=== PATIENT | female | born 1930 | race Caucasian/White ===

== ENCOUNTER → 2016-09-02 | Outpatient (CLI) | payer MEDICARE, OTHER ==
[2016-04-21 15:05] VITALS: BP 160/78
[~2016-09-02] MED LIST: ACET325T9 PO; AMOX1TAB58 PO; CHOL100013 PO; DILT120C97 PO; DILT180C29 PO; DIPH25CA58 PO; DOCU-27 PO; DOXY100C2 PO; FURO-68 PO; LEVO100T5 PO; LEVO88TA4 PO; METO25TA4 PO; METO50TA2 PO; MULT-279 PO; OMEG1CAP6 PO; POTA20TA4 PO; PRED5TAB PO; PROP150T2 PO; RANI150C PO; TRIA1CAP3 PO; VENTOLIN HFA18 GM INH; WARF2.5T PO; WARF5TAB PO; WARF5TAB7 PO
--- NOTE | 2016-09-02 12:20 | KCIC ---
PROCEDURE MRI cervical spine without contrast. HISTORY Right-sided neck pain, progressive neck pain and stiffness, right arm numbness TECHNIQUE Sagittal and axial T2, sagittal T1, and sagittal STIR images were acquired of the cervical spine. Contrast: None COMPARISON None FINDINGS There is motion degradation. Cervical cord caliber is within normal limits without convincing focal signal abnormality allowing for motion artifact. There is no significant abnormality of the cervical medullary junction. There is generalized height loss of C5 and also large superior Schmorl's node present. There is also mild generalized height loss of C6 and C4. There is grade 1 anterior spondylolisthesis at C7-T1 and T1-2, to lesser degree C4-C5. There is edema of the right lateral mass of C1. There is some fluid of the C1-2 lateral mass articulations greater on the left. There is advanced degenerative disc disease C4-5 to C6-7, also degenerative disc disease of visualized superior thoracic spine. There is mild dextroscoliosis of the cervical spine. C2-3: There is a shallow right paracentral protrusion. Central canal is borderline 10 millimeters. Left neural foramen is adequate, suspected mild narrowing of the right neural foramen by facet degenerative change. C3-C4: There is negligible disc osteophyte complex. There is buckling of the ligamentum flavum. Central canal is minimally narrowed to 8 millimeters. There is severe left and mild right facet hypertrophic change. There is mild right uncovertebral degenerative change. There is suspected overall moderate left and mild to moderate right neural foramina compromise. C4-C5: There is broad posterior bulge/protrusion. There is buckling of the ligamentum flavum. There is effacement of the ventral and dorsal subarachnoid space with contact of the cord, central canal narrowed to 5-6 millimeters. There is fairly severe right greater than left facet degenerative change. There is mild right uncovertebral degenerative change. There is suspected fairly severe right greater than left neural foramina compromise. C5-C6: There is posterior disc osteophyte complex, central canal narrowed to 7-8 millimeters also with mild left lateral recess stenosis. There is bilateral facet hypertrophic change, also uncovertebral degenerative change. There is suspected moderate to severe neural foramina compromise bilaterally. C6-C7: There is minimal disc osteophyte complex. Central canal is minimally narrowed to 9 millimeters. There is bilateral facet degenerative change. There is likely fairly severe left and moderate to severe right neural foramina compromise. C7-T1: There is buckling of the ligamentum flavum and severe facet degenerative change. Central canal is minimally narrowed to approximately 9 millimeters. There is fairly severe left and likely mild right neural foramina compromise. T1-2: There is facet degenerative change and buckling of the ligamentum flavum. Central canal is not simply narrowed, mild dorsal left lateral recess stenosis. There is mild narrowing of the left neural foramen, right neural foramen adequate. T2-3: There is a shallow posterior protrusion without significant spinal stenosis. There is facet degenerative change, likely mild to moderate neural foramina compromise. IMPRESSION 1. There is multilevel advanced degenerative disc disease C4-5 to C6-7, also degenerative disc disease of visualized superior thoracic spine. There is multilevel spondylosis. 2. There is spinal stenosis on the order of 5-6 millimeters at C4-5 at which there is effacement of the subarachnoid space and contact of the cord, somewhat lesser degree of spinal stenosis at C5-C6 and also minimally at C6-7, C7-T1, and C3-C4. 3. Accurate evaluation of the neural foramina is somewhat limited due to motion, suspected neural foramina compromise as stated including more significant narrowing on the left at C7-T1 and C3-C4 as well as bilaterally at C4-5, C5-C6, and C6-7. Facet and uncovertebral degenerative change contributes to neural foramina compromise. 4. There is multilevel mild abnormal alignment as stated, multilevel facet degenerative change. Electronically signed by: Attila Johnson MD (Sep 02, 2016 12:18:57)
== END | disposition home or self-care (01) ==
LOC: KCIC MRI 10:35
PROVIDERS: ATTEND Family Medicine
DX: M54.2 Cervicalgia (principal); M50.323 Other cervical disc degeneration at C6-C7 level; M48.02 Spinal stenosis, cervical region
CPT/HCPCS: 72141

== ENCOUNTER 2016-09-06 11:40 | Inpatient (IN) | payer MEDICARE, OTHER ==
[~2016-09-06] VITALS: Ht 167.6 cm; Wt 81.8 kg
--- NOTE | 2016-09-06 12:36 | PHYS DOC ---
Past Medical History Past Medical History: A-Fib, Arthritis, GERD, Hypertension, Other Additional Past Medical Histor: polymyalgia rheumatica Past Surgical History: Appendectomy, Hip Replacement, Hysterectomy, Knee Replacement, Tonsillectomy, Other Additional Past Surgical Histo: l shoulder, uterine susp, bladder susp, vericose vein, Alcohol Use: None Drug Use: None Adult General Chief Complaint Chief Complaint: WEAKNESS/GENERALIZED HPI HPI Patient is a 86 year old female who presents with generalized weakness. Patient reports she awoke this morning and was feeling so weak that she was unable to get out of bed. She also reports subjective fever and feeling "dry". Additional complaint is pain in her buttock at site of infection; she was seen at her PCP's office yesterday and was prescribed mupirocin for infection. She denies any chest discomfort, SOB, focal weakness, sensory changes. Review of Systems Review of Systems Constitutional: Generalized weakness, fever, feels dehydrated Eyes: Denies change in visual acuity or eye pain HENT: Denies nasal congestion or sore throat Respiratory: Denies cough or shortness of breath Cardiovascular: Denies chest pain GI: Denies abdominal pain, nausea, vomiting, bloody stools or diarrhea : Denies dysuria or hematuria Musculoskeletal: Denies back pain or joint pain Integument: Pain in buttock at site of infection Neurologic: Denies headache, focal weakness or sensory changes Current Medications Current Medications Current Medications Medications (Trade) Dose Ordered Sig/Luz Marina Start Time Stop Time Status Last Admin Dose Admin Acetaminophen 1000 mg 1,000 mg 1X ONCE 09/06/16 12:45 09/06/16 12:46 DC 09/06/16 13:03 1,000 MG Ceftriaxone Sodium (Rocephin 1gm Ivpb For Omni) 50 ml @ 100 mls/hr 1X ONCE 09/06/16 12:45 09/06/16 13:14 DC 09/06/16 13:20 100 MLS/HR Sodium Chloride 500 ml @ 500 mls/hr 1X ONCE 09/06/16 12:45 09/06/16 13:44 DC 09/06/16 13:04 500 MLS/HR Vancomycin HCl 1 each 1 each PRN DAILY PRN 09/06/16 12:45 09/06/16 17:20 1 EACH Vancomycin HCl/ Sodium Chloride (Iv Sodium Chloride 0.9% 500ml Bag) 500 ml @ 250 mls/hr 1X ONCE 09/06/16 13:00 09/06/16 14:59 DC 09/06/16 13:49 250 MLS/HR Allergies Allergies Allergies Coded Allergies Type Severity Reaction Last Updated Verified Sulfa (Sulfonamide Antibiotics) Allergy Intermediate Rash 04/21/16 Yes Physical Exam Physical Exam Constitutional: Well developed, well nourished, no acute distress, non-toxic appearance HENT: Normocephalic, atraumatic, bilateral external ears normal Eyes: EOMI, conjunctiva normal, no discharge Neck: Normal range of motion, no stridor Cardiovascular: Heart rate normal, regular rhythm, no murmur Lungs & Thorax: Crackles R lung base Abdomen: Bowel sounds normal, soft, non-distended, no TTP Skin: Hot to touch, dry. Mildly cellulitic wound at superior medial aspect of R buttock, no abscess noted Extremities: No obvious deformity, no edema Neurologic: Alert and oriented X 3, strength diminished in all extremities but symmetrical, sensation to light touch intact throughout, no gross deficits noted Current Patient Data Vital Signs Vital Signs Date Time Temp Pulse Resp B/P Pulse Ox O2 Delivery O2 Flow Rate FiO2 09/06/16 13:30 84 18 144/63 94 09/06/16 12:30 Room Air 09/06/16 12:00 100.6 100.6 Lab Values Laboratory Tests Test 09/06/16 12:27 09/06/16 13:00 09/06/16 13:10 White Blood Count 11.6x10^3/uL (4.0-11.0) H Red Blood Count 3.87x10^6/uL (3.50-5.40) Hemoglobin 12.8g/dL (12.0-15.5) Hematocrit 38.5% (36.0-47.0) Mean Corpuscular Volume 99fL (79-100) Mean Corpuscular Hemoglobin 33pg (25-35) Mean Corpuscular Hemoglobin Concent 33g/dL (31-37) Red Cell Distribution Width 12.3% (11.5-14.5) Platelet Count 215x10^3/uL (140-400) Neutrophils (%) (Auto) 61% (31-73) Lymphocytes (%) (Auto) 19% (24-48) L Monocytes (%) (Auto) 12% (0-9) H Eosinophils (%) (Auto) 8% (0-3) H Basophils (%) (Auto) 1% (0-3) Neutrophils # (Auto) 7.0x10^3uL (1.8-7.7) Lymphocytes # (Auto) 2.2x10^3/uL (1.0-4.8) Monocytes # (Auto) 1.4x10^3/uL (0.0-1.1) H Eosinophils # (Auto) 0.9x10^3/uL (0.0-0.7) H Basophils # (Auto) 0.1x10^3/uL (0.0-0.2) Sodium Level 135mmol/L (136-145) L Potassium Level 3.9mmol/L (3.5-5.1) Chloride Level 95mmol/L (98-107) L Carbon Dioxide Level 33mmol/L (21-32) H Anion Gap 7 (6-14) Blood Urea Nitrogen 22mg/dL (7-20) H Creatinine 1.4mg/dL (0.6-1.0) H Estimated GFR (Cockcroft-Gault) 35.7 BUN/Creatinine Ratio 16 (6-20) Glucose Level 105mg/dL (70-99) H Lactic Acid Level 1.2mmol/L (0.4-2.0) Calcium Level 9.2mg/dL (8.5-10.1) Total Bilirubin 0.8mg/dL (0.2-1.0) Aspartate Amino Transferase (AST) 15U/L (15-37) Alanine Aminotransferase (ALT) 14U/L (14-59) Alkaline Phosphatase 49U/L (46-116) Troponin I Quantitative 0.053ng/mL (0.000-0.055) Total Protein 7.9g/dL (6.4-8.2) Albumin 3.3g/dL (3.4-5.0) L Albumin/Globulin Ratio 0.7 (1.0-1.7) L Influenza Type A Antigen Negative (NEGATIVE) Influenza Type B Antigen Negative (NEGATIVE) Urine Collection Type Unknown Urine Color Yellow Urine Clarity Cloudy Urine pH 7.5 Urine Specific [place] 1.010 Urine Protein Negativemg/dL (NEG-TRACE) Urine Glucose (UA) Negativemg/dL (NEG) Urine Ketones (Stick) Negativemg/dL (NEG) Urine Blood Trace (NEG) Urine Nitrite Positive (NEG) Urine Bilirubin Negative (NEG) Urine Urobilinogen Dipstick 0.2mg/dL (0.2 mg/dL) Urine Leukocyte Esterase Large (NEG) Urine RBC 3-5/HPF (0-2) Urine WBC >40/HPF (0-4) Urine Bacteria Many/HPF (0-FEW) Laboratory Tests 09/06/16 12:27 Laboratory Tests 09/06/16 12:27 EKG EKG EKG (my read): sinus rhythm, rate 83, normal axis, PACs noted, intervals wnl, no acute ischemic changes Radiology/Procedures Radiology/Procedures CXR: IMPRESSION: Faint left upper lobe opacity suggesting minimal infiltrate. Radiographic follow-up is suggested. Course & Med Decision Making Course & Med Decision Making Pertinent Labs and Imaging studies reviewed. (See chart for details) Patient is 86 year old female who presents with generalized weakness. Likely due to infection given fever. Possibly related to wound on buttock, although it does not look particularly bad enough to cause systemic symptoms. Will check CXR , UA to look for other likely sources. Will also check EKG, basic labs, cultures. IVF fluid bolus, acetaminophen ordered for relief of symptoms. Vanc and rocephin ordered for empiric abx coverage (would cover skin felix, UTI, pneumonia - other than atypicals). CXR results as above. Labs notable for mild leukocytosis, few electrolyte abnormalities. UA indicative of UTI; would consider this most likely source of fever and weakness. Discussed results with patient. Discussed with Dr. Krishna, will admit under his care for further evaluation and treatment. Dragon Disclaimer Dragon Disclaimer This electronic medical record was generated, in whole or in part, using a voice recognition dictation system. Departure Departure Impression: Primary Impression: Generalized weakness Additional Impressions: Sepsis UTI (urinary tract infection) Disposition: ADMITTED INPATIENT Admitting Physician: Chloé Krishna Condition: GUARDED Referrals: CHLOÉ KRISHNA MD (PCP) Problem Qualifiers ADDISON CANNON MD Sep 06, 2016 12:36
[2016-09-06] MEDS ORDERED: IV NORMAL SALINE 500ML BAG 500 ML IV ONE ×2 (12:45→14:15)
[2016-09-06] MEDS ORDERED: CEFTRIAXONE 1GM IVPB FOR OMNI 50 ML IV ONE (12:45)
[2016-09-06] MEDS ORDERED: ACETAMINOPHEN 500 MG TABLET PO ONE (12:45)
[2016-09-06 12:53] LABS: BASO # 0.1 x10^3/uL (0.0-0.2); BASO % 1 % (0-3); EOS % 8 % (0-3); HEMATOCRIT 38.5 % (36.0-47.0); HEMOGLOBIN 12.8 g/dL (12.0-15.5); LYMPH # 2.2 x10^3/uL (1.0-4.8); LYMPH % 19 % (24-48); MEAN CORPUSCULAR HEMOGLOBIN 33 pg (25-35); MEAN CORPUSCULAR HGB CONC 33 g/dL (31-37); MEAN CORPUSCULAR VOLUME 99 fL (79-100); MONO % 12 % (0-9); NEUT % 61 % (31-73); PLATELET COUNT 215 x10^3/uL (140-400); RED BLOOD COUNT 3.87 x10^6/uL (3.50-5.40); RED CELL DISTRIBUTION WIDTH 12.3 % (11.5-14.5); WHITE BLOOD COUNT 11.6 x10^3/uL (4.0-11.0)
[2016-09-06] MEDS ORDERED: VANCOMYCIN 2 GM in IV NORMAL SALINE 500ML BAG 500 ML IV ONE (13:00)
[2016-09-06 13:04] LABS: CALCIUM 9.2 mg/dL (8.5-10.1); CREATININE 1.4 mg/dL (0.6-1.0); GFR 35.7; POTASSIUM 3.9 mmol/L (3.5-5.1)
[2016-09-06 13:10] LABS: ALBUMIN 3.3 g/dL (3.4-5.0); ALBUMIN/GLOBULIN RATIO 0.7 (1.0-1.7); TOTAL BILIRUBIN 0.8 mg/dL (0.2-1.0); TOTAL PROTEIN 7.9 g/dL (6.4-8.2)
--- NOTE | 2016-09-06 13:23 | RAD ---
Portable chest, 09/06/2016: History: Fever and weakness Comparison is made to a study from 12/10/2015. The heart is mildly enlarged. There is calcific plaquing of the aorta. A faint ill-defined opacity is now projected over the left upper lobe laterally. The appearance suggests minimal infiltrate or atelectasis. A neoplastic etiology cannot be excluded. The lungs are otherwise clear. There is no evidence of pleural fluid. A fixation plate and screw is present in the proximal left humerus. IMPRESSION: Faint left upper lobe opacity suggesting minimal infiltrate. Radiographic follow-up is suggested.
[2016-09-06 13:25] LABS: BILIRUBIN,URINE NEGATIVE (NEG); GLUCOSE,URINE NEGATIVE (NEG); NITRITE,URINE POSITIVE (NEG); PH,URINE 7.5; PROTEIN,URINE NEGATIVE (NEG-TRACE); UROBILINOGEN,URINE 0.2 mg/dL (0.2 mg/dL)
[2016-09-06 13:29] LABS: OBC FLU VALID
[2016-09-06 13:35] LABS: BACTERIA,URINE MANY /HPF (0-FEW); WBC,URINE >40 /HPF (0-4)
--- NOTE | 2016-09-06 13:54 | EKG ---
[facility] [address] [place] [address] Test Date: 2016-09-06 Test Time: 12:16:09 Pat Name: BREANNA KIDD Department: Room: Gender: F Wellness Director: : 1930 Requested By: ADDISON CANNON Order Number: [id number] Reading MD: Myra Garcia Measurements Intervals [place] Rate: 83 P: -46 CA: 164 QRS: 41 QRSD: 90 T: 35 QT: 360 QTc: 424 Interpretive Statements SINUS RHYTHM ATRIAL PREMATURE COMPLEX(ES) INCOMPLETE RIGHT BUNDLE BRANCH BLOCK NO SPECIFIC ECG ABNORMALITIES Electronically Signed On 09-09-2016 0:04:08 MICROBIOLOGY LAB ASSISTANT by Myra Garcia
[2016-09-06] MEDS ORDERED: ONDANSETRON PF 4 MG/2 ML VIAL. IV PRN (14:15)
[2016-09-06 15:30] VITALS: BP 122/55
[2016-09-06] MEDS: MORPHINE SULFATE 2 MG/ML DISP.SYRIN. IV PRN (17:14)
[2016-09-06] MEDS: ACETAMINOPHEN 325 MG TABLET. PO PRN (17:14)
[2016-09-06] MEDS: VANCOMYCIN PER PHARMACY MC PRN (17:20)
--- NOTE | 2016-09-06 17:40 | ACF ---
Admission Forms Criteria URINARY COMPLICATIONS Clinical Indications for Inpatient Care (Place 'X' for any and all applicable criteria): Ongoing inpatient care may be indicated for urinary complications with ANY ONE of the following: [X]I. Urinary tract infection requiring inpatient care as indicated by ANY ONE of the following(8)(19)(20): [ ]a) Severe symptoms (eg, high fever, severe pain) [ ]b) Vomiting or dehydration requiring ongoing inpatient care [X]c) IV antibiotic needs that cannot be managed at lower level of care [ ]d) Hemodynamic instability [ ]e) Obstruction of collecting system by stone or tumor [ ]II. Urinary retention requiring drainage or surgery (3)(4)(5)(17)(18) [ ]III. Renal failure (Use Renal Failure Criteria for further information.) [ ]IV. Oliguria(30) [ ]V. Post obstructive diuresis requiring close monitoring of urine output and intravenous compensation for excessive fluid losses(33) Extended stay beyond goal length of stay for primary condition may be needed until ALL of the following are present(3)(4)(5)(8): [ ]a) Renal function (creatinine) at baseline, or daily decreases in creatinine consistent with renal function return [ ]b) Voiding adequately or with urinary catheter or percutaneous suprapubic tube and management regimen in place that is performable at lower level of care. [ ]c) Urine output adequate [ ]d) Fever absent or resolving [ ]e) Infection absent or treatable at next level of care The original [employer] content created by [employer] has been revised. The portions of the content which have been revised are identified through the use of italic text or in bold, and [facility] has neither reviewed nor approved the modified material. All other unmodified content is copyright [facility] Please see references footnoted in the original [facility] edition 2016 Admission Criteria Met?: Yes ELZA MAYNARD Sep 06, 2016 17:40
[2016-09-06] MEDS: DILTIAZEM HCL 180 MG CAP.ER.24H PO SCH (18:37)
[2016-09-06 19:00] VITALS: BP 100/40
[2016-09-06] MEDS: FAMOTIDINE 20 MG TABLET. PO SCH (20:32)
[2016-09-06] MEDS: PROPAFENONE 150 MG TABLET. PO SCH (20:32)
[2016-09-06] MEDS: DIPHENHYDRAMINE HCL 25 MG CAPSULE PO SCH (20:32)
[2016-09-06] MEDS: METOPROLOL TART IMMED RELEASE 50 MG TABLET PO SCH (20:38)
[2016-09-06 23:00] VITALS: BP 100/46
[2016-09-07] VITALS (7 sets, daily range): BP systolic 69–146; BP diastolic 32–64
[2016-09-07] MEDS: MORPHINE SULFATE 2 MG/ML DISP.SYRIN. IV PRN ×5 (00:37→20:52)
[2016-09-07] MEDS: ACETAMINOPHEN 325 MG TABLET. PO PRN ×3 (02:50→16:30)
[2016-09-07 05:44] LABS: BASO % 0 % (0-3); EOS % 4 % (0-3); HEMATOCRIT 35.5 % (36.0-47.0); HEMOGLOBIN 11.6 g/dL (12.0-15.5); LYMPH # 2.1 x10^3/uL (1.0-4.8); LYMPH % 19 % (24-48); MEAN CORPUSCULAR HEMOGLOBIN 33 pg (25-35); MEAN CORPUSCULAR HGB CONC 33 g/dL (31-37); MEAN CORPUSCULAR VOLUME 101 fL (79-100); MONO % 12 % (0-9); NEUT % 64 % (31-73); PLATELET COUNT 177 x10^3/uL (140-400); RED BLOOD COUNT 3.54 x10^6/uL (3.50-5.40); RED CELL DISTRIBUTION WIDTH 11.9 % (11.5-14.5); WHITE BLOOD COUNT 11.2 x10^3/uL (4.0-11.0)
[2016-09-07 05:51] LABS: CALCIUM 8.3 mg/dL (8.5-10.1); CREATININE 1.3 mg/dL (0.6-1.0); GFR 38.9; POTASSIUM 4.1 mmol/L (3.5-5.1)
[2016-09-07] MEDS: LEVOTHYROXINE 88 MCG TABLET PO SCH (06:34)
--- NOTE | 2016-09-07 08:57 | PDOC ---
Provider Note Provider Note [id number] CHLOÉ YANG MD Sep 07, 2016 08:57
[2016-09-07] MEDS ORDERED: PREDNISONE 5 MG TABLET PO SCH (09:00)
[2016-09-07] MEDS ORDERED: FUROSEMIDE 40 MG TABLET PO SCH (09:00)
[2016-09-07] MEDS ORDERED: TRIAMTERENE/HCTZ 37.5/25MG TABLET. PO SCH (09:00)
[2016-09-07] MEDS ORDERED: PREDNISONE 1 MG TABLET PO SCH (09:00)
--- NOTE | 2016-09-07 09:19 | HP ---
ADMIT DATE: 09/06/2016 CHIEF COMPLAINT: Weakness. HISTORY OF PRESENT ILLNESS: An 86-year-old white female with a history of chronic atrial fibrillation and steroid dependent rheumatoid arthritis among other multiple medical problems. She was seen in the office 2 days prior to admission with a small red spot in the right gluteal area with no etiology or cause and was not painful at that time. She has had increasing pain in that area, increasing weakness and fatigue and fever and came to the ER. She was found to have urinary tract infection. An IV Rocephin has been given as well as vancomycin, but the area in the gluteal fold has been increasingly painful since that time. PAST MEDICAL HISTORY: She is on warfarin and propafenone for chronic atrial fibrillation, currently in sinus rhythm. She is on 7 mg of prednisone daily for RA maintenance. ALLERGIES: SULFA WAS NOTED. She has had no recent antibiotics. She has never had shingles vaccine, did have a flu vaccine. SOCIAL HISTORY: , retired, nonsmoker, nondrinker. FAMILY HISTORY: Unremarkable. REVIEW OF SYSTEMS: No other known problems. OBJECTIVE: ENT: All within normal limits. NECK: No masses, nodes or bruits. LUNGS: Decreased breath sounds. No wheezing or tachypnea. CARDIOVASCULAR: Regular rate consistent with sinus rhythm, no S3 is heard. ABDOMEN: Soft, benign, and nontender. BACK: Inflamed tender, slightly vesicular area in the left paragluteal fold that looks like herpes zoster or herpes simplex. No lesions are seen down the right leg at this time. No CVA tenderness. NEUROLOGIC: Physiologic, generally weak. Alert, oriented x 4. ASSESSMENT: Fever, generalized weakness, suspect a combination of urinary tract infection and probably herpes zoster in the right gluteal area, probably in S1 distribution. Could be localized herpes simplex with the level of pain is more consistent with zoster She also has mild degree of addisonian symptoms given her normal prednisone usage needing her stress dose at this time. PLAN: Continue IV fluids, Rocephin, and valacyclovir for herpes zoster. Increase prednisone from 7 to 23 mg for a short time for stress response and blood pressure support. CHLOÉ YANG MD DR: ROSSANA/nirmala JOB#: [id number] / [id number]
[2016-09-07] MEDS: valACYclovir 500 MG TABLET. PO SCH ×3 (09:40→20:46)
[2016-09-07 09:49] LABS: INR 1.4 (0.8-1.1); PROTHROMBIN TIME PATIENT 16.2 SEC (11.7-14.0)
[2016-09-07] MEDS: PROPAFENONE 150 MG TABLET. PO SCH ×3 (09:50→20:48)
[2016-09-07] MEDS: DILTIAZEM HCL 180 MG CAP.ER.24H PO SCH (09:53)
[2016-09-07] MEDS: METOPROLOL TART IMMED RELEASE 50 MG TABLET PO SCH ×2 (09:53→20:48)
[2016-09-07] MEDS: FAMOTIDINE 20 MG TABLET. PO SCH ×2 (09:54→20:46)
[2016-09-07] MEDS: OMEGA-3 FATTY ACIDS/FISH OIL 1,000 MG CAPSULE. PO SCH (09:54)
[2016-09-07] MEDS: POTASSIUM CHLORIDE 20 MEQ TABLET.ER. PO SCH (09:54)
[2016-09-07] MEDS: PREDNISONE 5 MG TABLET PO SCH (09:55)
[2016-09-07] MEDS: CHOLECALCIFEROL (VITAMIN D3) 1,000 UNIT TABLET PO SCH (09:55)
[2016-09-07] MEDS: IV DEXTROSE 5%-LACT RINGERS 1,000 ML IV SCH ×2 (11:18→20:45)
[2016-09-07] MEDS: CEFTRIAXONE SODIUM 1 GM in IV NORMAL SALINE 50ML 50 ML IV SCH (13:59)
[2016-09-07] MEDS ORDERED: VANCOMYCIN 1.25 GM in IV NORMAL SALINE 250ML 250 ML IV SCH (14:00)
[2016-09-07] MEDS ORDERED: WARFARIN 2.5 MG TABLET. PO SCH (16:00)
[2016-09-07] MEDS: VANCOMYCIN PER PHARMACY MC PRN (16:40)
[2016-09-07] MEDS: PREDNISONE 1 MG TABLET PO SCH (18:31)
[2016-09-07] MEDS: DIPHENHYDRAMINE HCL 25 MG CAPSULE PO SCH (20:46)
[2016-09-08 03:00] VITALS: BP 131/64
[2016-09-08 04:58] LABS: INR 1.2 (0.8-1.1); PROTHROMBIN TIME PATIENT 14.8 SEC (11.7-14.0)
[2016-09-08] MEDS: IV DEXTROSE 5%-LACT RINGERS 1,000 ML IV SCH (05:00)
[2016-09-08] MEDS: LEVOTHYROXINE 88 MCG TABLET PO SCH (05:50)
[2016-09-08 07:30] VITALS: BP 110/61
[2016-09-08] MEDS: PROPAFENONE 150 MG TABLET. PO SCH ×3 (08:54→20:30)
[2016-09-08] MEDS: CHOLECALCIFEROL (VITAMIN D3) 1,000 UNIT TABLET PO SCH (08:54)
[2016-09-08] MEDS: FAMOTIDINE 20 MG TABLET. PO SCH (08:55)
[2016-09-08] MEDS: OMEGA-3 FATTY ACIDS/FISH OIL 1,000 MG CAPSULE. PO SCH (08:55)
[2016-09-08] MEDS: METOPROLOL TART IMMED RELEASE 50 MG TABLET PO SCH ×2 (08:55→20:25)
[2016-09-08] MEDS: PREDNISONE 5 MG TABLET PO SCH (08:55)
[2016-09-08] MEDS: DILTIAZEM HCL 180 MG CAP.ER.24H PO SCH (08:55)
[2016-09-08] MEDS: valACYclovir 500 MG TABLET. PO SCH ×3 (08:56→20:24)
--- NOTE | 2016-09-08 09:03 | PDOC ---
Provider Note Provider Note afeb > 424 hrs, urine cult +, id pending- HZ looks same but hurts less- cont rocep pending cult, dc saline CHLOÉ YANG MD Sep 08, 2016 09:03
[2016-09-08] MEDS: GABAPENTIN 100 MG CAPSULE. PO SCH ×3 (09:27→20:24)
[2016-09-08 11:30] VITALS: BP 123/61
[2016-09-08] MEDS: CEFTRIAXONE SODIUM 1 GM in IV NORMAL SALINE 50ML 50 ML IV SCH (12:48)
[2016-09-08] MEDS: ACETAMINOPHEN 325 MG TABLET. PO PRN ×2 (12:55→20:24)
[2016-09-08 15:15] VITALS: BP 119/66
[2016-09-08] MEDS: WARFARIN 5 MG TABLET. PO SCH (17:14)
[2016-09-08] MEDS: PREDNISONE 1 MG TABLET PO SCH (17:55)
[2016-09-08 19:00] VITALS: BP 133/55
[2016-09-08] MEDS: DIPHENHYDRAMINE HCL 25 MG CAPSULE PO SCH (20:24)
[2016-09-08 22:55] VITALS: BP 147/68
[2016-09-09 03:00] VITALS: BP 158/99
[2016-09-09] MEDS: LEVOTHYROXINE 88 MCG TABLET PO SCH (05:56)
[2016-09-09 07:00] VITALS: BP 167/80
--- NOTE | 2016-09-09 08:29 | PDOC ---
Provider Note Provider Note no more temp but weaker and more confused- nonfocal exam, HZ looks better - will hold katie, reduce valacyclovir dose, check elytes re ? hyponatremia- d/w family- will need rehab but too acutr re confusion now- reduce pred dose also CHLOÉ YANG MD Sep 09, 2016 08:29
[2016-09-09] MEDS: DILTIAZEM HCL 180 MG CAP.ER.24H PO SCH (08:54)
[2016-09-09] MEDS: FAMOTIDINE 20 MG TABLET. PO SCH (08:54)
[2016-09-09] MEDS: OMEGA-3 FATTY ACIDS/FISH OIL 1,000 MG CAPSULE. PO SCH (08:55)
[2016-09-09] MEDS: CHOLECALCIFEROL (VITAMIN D3) 1,000 UNIT TABLET PO SCH (08:55)
[2016-09-09] MEDS: valACYclovir 500 MG TABLET. PO SCH ×2 (08:55→18:00)
[2016-09-09] MEDS: PREDNISONE 5 MG TABLET PO SCH (08:55)
[2016-09-09] MEDS: PROPAFENONE 150 MG TABLET. PO SCH ×3 (08:56→21:00)
[2016-09-09] MEDS: METOPROLOL TART IMMED RELEASE 50 MG TABLET PO SCH ×2 (08:59→21:01)
[2016-09-09 09:57] LABS: CALCIUM 8.6 mg/dL (8.5-10.1); GFR 52.7; POTASSIUM 4.3 mmol/L (3.5-5.1)
[2016-09-09 11:00] VITALS: BP 158/77
--- NOTE | 2016-09-09 12:57 | EKG ---
[facility] [address] [place] [address] Test Date: 2016-09-09 Test Time: 12:47:11 Pat Name: BREANNA KIDD Department: Room: [facility] Gender: F Road Boss: JARRETT : 1930 Requested By: CHLOÉ YANG Order Number: [id number] Reading MD: Myra Garcia Measurements Intervals [place] Rate: 67 P: 90 VT: 212 QRS: 56 QRSD: 98 T: 31 QT: 406 QTc: 432 Interpretive Statements SINUS RHYTHM NO SPECIFIC ECG ABNORMALITIES RI6.01 Compared to ECG 09/06/2016 12:16:09 Incomplete right bundle-branch block no longer present Electronically Signed On 09-11-2016 20:17:37 WOOL GRADER by Myra Garcia
[2016-09-09] MEDS: IV DEXTROSE 5% - 0.9 % NACL 1,000 ML IV SCH ×2 (13:00→23:23)
[2016-09-09] MEDS ORDERED: IV NORMAL SALINE 1000ML BAG 1,000 ML IV SCH (13:00)
--- NOTE | 2016-09-09 14:09 | RAD ---
Clinical indications: Altered mental status. Comparison: November 23, 2013. Technique: Noncontrast axial cross sectional scanning of the head was performed. PQRS Compliance Statement: One or more of the following individualized dose reduction techniques were utilized for this examination: 1. Automated exposure control 2. Adjustment of the mA and/or kV according to patient size 3. Use of iterative reconstruction technique Findings: No acute intracranial hemorrhage or midline shift or mass-effect or hydrocephalus or extra-axial fluid collection is seen. No focal hypodense area or sulci effacement is seen to indicate an acute infarct or edema radiographically. No skull fracture or pneumocephalus is seen. No opacification of the mastoid sinuses or the paranasal sinuses is seen. The maxillary sinuses are not completely seen in this study. Impression: No acute intracranial abnormality is seen.
[2016-09-09] MEDS: CEFTRIAXONE SODIUM 1 GM in IV NORMAL SALINE 50ML 50 ML IV SCH (14:19)
[2016-09-09 15:00] VITALS: BP 151/82
[2016-09-09] MEDS ORDERED: WARFARIN 5 MG TABLET. PO SCH (16:00)
[2016-09-09] MEDS: WARFARIN 5 MG TABLET. PO SCH (17:02)
[2016-09-09 19:00] VITALS: BP 177/82
--- NOTE | 2016-09-09 19:40 | PDOC2 ---
NEUROLOGY CONSULT Date of Admission Date of Admission Full Report Dictated DATE: 09/09/16 TIME: 19:39 Current Medications Current Medications Current Medications Vancomycin HCl 1 each 1 each PRN DAILY PRN MC SEE COMMENTS Last administered on 09/07/16 16:40; Start 09/06/16 at 12:45; Stop 09/08/16 at 13:51; Status DC Ceftriaxone Sodium (Rocephin 1gm Ivpb For Omni) 50 ml @ 100 mls/hr 1X ONCE IV Last administered on 09/06/16 13:20; Start 09/06/16 at 12:45; Stop 09/06/16 at 13:14; Status DC Acetaminophen 1000 mg 1,000 mg 1X ONCE PO Last administered on 09/06/16 13:03 ; Start 09/06/16 at 12:45; Stop 09/06/16 at 12:46; Status DC Sodium Chloride 500 ml @ 500 mls/hr 1X ONCE IV Last administered on 13:04; Start 09/06/16 at 12:45; Stop 09/06/16 at 13:44; Status DC Vancomycin HCl/ Sodium Chloride (Iv Sodium Chloride 0.9% 500ml Bag) 500 ml @ 250 mls/hr 1X ONCE IV Last administered on 09/06/16 13:49; Start 09/06/16 at 13:00; Stop 09/06/16 at 14:59; Status DC Ondansetron HCl (Zofran) 4 mg PRN Q8HRS PRN IV NAUSEA/VOMITING Last administered on 09/06/16 17:14; Start 09/06/16 at 14:15; Stop 09/07/16 at 14:14 ; Status DC Morphine Sulfate 2 mg PRN Q2HR PRN IV PAIN Last administered on 09/07/16 12:11 ; Start 09/06/16 at 14:15; Stop 09/07/16 at 14:14; Status DC Acetaminophen 650 mg 650 mg PRN Q4HRS PRN PO FEVER Last administered on 11:07; Start 09/06/16 at 14:15; Stop 09/07/16 at 14:14; Status DC Sodium Chloride 500 ml @ 500 mls/hr 1X ONCE IV Last administered on 14:29; Start 09/06/16 at 14:15; Stop 09/06/16 at 15:14; Status DC Vancomycin HCl/ Sodium Chloride (Iv Sodium Chloride 0.9% 250ml) 250 ml @ 167 mls/hr Q24H IV Last administered on 09/07/16 14:47; Start 09/07/16 at 14:00; Stop 09/08/16 at 09:06; Status DC Vancomycin HCl 1 each 1X ONCE MC Last administered on 09/08/16 13:30; Start 09/08/16 at 13:30; Stop 09/08/16 at 13:31; Status DC Acetaminophen (Tylenol) 650 mg PRN Q4HRS PRN PO PAIN/TEMP Last administered on 09/08/16 20:24; Start 09/06/16 at 18:00 Diltiazem HCl (Cardizem 24hr Cd) 180 mg DAILY PO Last administered on 08:54; Start 09/06/16 at 18:00 Diphenhydramine HCl (Benadryl) 25 mg QHS PO Last administered on 09/08/16 20: 24; Start 09/06/16 at 21:00; Stop 09/09/16 at 08:27; Status DC Furosemide (Lasix) 40 mg MoWeSa PO ; Start 09/07/16 at 09:00; Stop 09/07/16 at 09:00; Status DC Levothyroxine Sodium (Synthroid) 88 mcg DAILY07 PO Last administered on 05:56; Start 09/07/16 at 07:00 Metoprolol Tartrate (Lopressor) 50 mg BID PO Last administered on 09/09/16 08: 59; Start 09/06/16 at 21:00 Fish Oil (Fish Oil) 1,000 mg DAILY PO Last administered on 09/09/16 08:55; Start 09/07/16 at 09:00 Potassium Chloride (Klor-Con) 20 meq MoWeSa PO Last administered on 09/07/16 09:54; Start 09/07/16 at 09:00 Prednisone (Prednisone) 5 mg DAILY PO ; Start 09/07/16 at 09:00; Stop 09/07/16 at 09:00; Status DC Propafenone HCl (Rythmol) 225 mg [id number] PO Last administered on 09/09/16 14:24 ; Start 09/06/16 at 21:00 Warfarin Sodium (Coumadin) 2.5 mg SuMoWeFrSa PO Last administered on 09/07/16 16:42; Start 09/07/16 at 16:00; Stop 09/08/16 at 09:06; Status DC Vitamin D (Vitamin D3) 1,000 unit DAILY PO Last administered on 09/09/16 08:55 ; Start 09/07/16 at 09:00 Famotidine (Pepcid) 20 mg BID PO Last administered on 09/08/16 08:55; Start at 21:00; Stop 09/08/16 at 13:59; Status DC Triamterene/HCTZ (Maxzide 37.5/ 25mg) 1 tab DAILY PO ; Start 09/07/16 at 09:00; Stop 09/07/16 at 09:00; Status DC Warfarin Sodium (Coumadin) 2.5 mg QSU PO ; Start 09/11/16 at 16:00; Status UNV Prednisone (Prednisone) 2 mg DAILY PO ; Start 09/07/16 at 09:00; Stop 09/07/16 at 09:00; Status DC Warfarin Sodium 1 each 1 each PRN DAILY PRN MC SEE COMMENTS Last administered on 09/09/16 13:45; Start 09/06/16 at 18:30 Ceftriaxone Sodium/Sodium Chloride (Rocephin/Iv Sodium Chloride 0.9% 50ml) 50 ml @ 100 mls/hr Q24H IV Last administered on 09/09/16 14:19; Start 09/07/16 at 13:00 Prednisone (Prednisone) 15 mg DAILY PO Last administered on 09/09/16 08:55; Start 09/07/16 at 09:00 Prednisone (Prednisone) 8 mg DAILY@18 PO Last administered on 09/08/16 17:55; Start 09/07/16 at 18:00; Stop 09/09/16 at 08:11; Status DC Valacyclovir HCl 1000 mg 1,000 mg TID PO Last administered on 09/08/16 20:24; Start 09/07/16 at 09:00; Stop 09/09/16 at 08:27; Status DC Dextrose/Lactated Ringer's (Iv D5%-Lr) 1,000 ml @ 100 mls/hr Q10H IV Last administered on 09/07/16 20:45; Start 09/07/16 at 09:00; Stop 09/08/16 at 09:06 ; Status DC Morphine Sulfate 2 mg PRN Q2HR PRN IV PAIN SEVERE Last administered on 20:52; Start 09/07/16 at 18:15; Stop 09/08/16 at 09:06; Status DC Warfarin Sodium (Coumadin) 5 mg SuMoWeFrSa@16 PO Last administered on 17:02; Start 09/08/16 at 16:00 Gabapentin (Neurontin) 200 mg TID PO Last administered on 09/08/16 20:24; Start 09/08/16 at 09:00; Stop 09/09/16 at 08:27; Status DC Warfarin Sodium (Coumadin) 5 mg SuMoWeFrSa@16 PO ; Start 09/09/16 at 16:00; Status Cancel Famotidine (Pepcid) 20 mg DAILY PO Last administered on 09/09/16 08:54; Start 09/09/16 at 09:00 Valacyclovir HCl 500 mg 500 mg [id number] PO Last administered on 09/09/16 08:55; Start 09/09/16 at 09:00 Sodium Chloride 1,000 ml @ 100 mls/hr Q10H IV ; Start 09/09/16 at 13:00 Dextrose/Sodium Chloride (Iv D5% - NS) 1,000 ml @ 100 mls/hr Q10H IV Last administered on 09/09/16 13:00; Start 09/09/16 at 13:00 Active Scripts Active Propafenone Hcl 150 Mg Tablet 225 Mg PO [id number] 30 Days Diltiazem 24HR Cd (Diltiazem Hcl) 180 Mg Cap.er.24h 180 Mg PO DAILY 30 Days Reported Coumadin (Warfarin Sodium) 2.5 Mg Tablet 1 Tab PO DAILY EXCEPT Benadryl (Diphenhydramine Hcl) 25 Mg Capsule 1 Cap PO QHS LAST DOSE: 12/11/15 BEDTIME NEXT DOSE: 12/12/15 BEDTIME Tylenol (Acetaminophen) 325 Mg Tablet 2 Tab PO PRN Q4HRS Fish Oil 1,000 Mg Capsule ([place]-3 Fatty Acids/Fish Oil) 1 Each Capsule 1 Each PO DAILY LAST DOSE: 12/12/15 NEXT DOSE: 12/13/15 AM Klor-Con M20 (Potassium Chloride) 20 Meq Tab.er.prt 1 Tab PO 3X/WEEK LAST DOSE: 12/12/15 NEXT DOSE: 12/13/15 AM Lasix (Furosemide) 40 Mg Tablet 1 Tab PO 3X/WEEK LAST DOSE: 12/12/15 NEXT DOSE: 12/13/15 AM Metoprolol Tartrate 50 Mg Tablet 1 Tab PO BID LAST DOSE: 12/12/15 NEXT DOSE: 12/13/15 Levothyroxine Sodium 88 Mcg Tablet 1 Tab PO DAILY LAST DOSE: 12/12/15 NEXT DOSE: 12/13/15 Vitamin D (Cholecalciferol (Vitamin D3)) 1,000 Unit Capsule 1,000 Unit PO DAILY LAST DOSE: 12/12/15 NEXT DOSE: 12/13/15 Prednisone 5 Mg Tablet 7 Mg PO DAILY LAST DOSE: 12/12/15 NEXT DOSE: 12/13/15 Ranitidine Hcl 150 Mg Capsule 150 Mg PO BID LAST DOSE: 12/12/15 NEXT DOSE: 12/12/15 EVENING Triamterene-Hctz 37.5-25 Mg Cp (Triamterene/Hydrochlorothiazid) 1 Each Capsule 1 Each PO DAILY LAST DOSE: 12/12/15 NEXT DOSE: 12/13/15 AM Allergies Allergies: Coded Allergies: Sulfa (Sulfonamide Antibiotics) (Verified Allergy, Intermediate, Rash, 04/21) Patient states "rash and confusion" Vitals VITALS Vital Signs Date Time Temp Pulse Resp B/P Pulse Ox O2 Delivery O2 Flow Rate FiO2 09/09/16 15:00 98.4 65 20 151/82 96 Nasal Cannula 2.0 98.4 Labs Labs Laboratory Tests Test 09/08/16 03:36 09/09/16 09:20 Prothrombin Time 14.8SEC (11.7-14.0) Prothromb Time International Ratio 1.2 (0.8-1.1) Sodium Level 126mmol/L (136-145) Potassium Level 4.3mmol/L (3.5-5.1) Chloride Level 90mmol/L (98-107) Carbon Dioxide Level 28mmol/L (21-32) Anion Gap 8 (6-14) Blood Urea Nitrogen 18mg/dL (7-20) Creatinine 1.0mg/dL (0.6-1.0) Estimated GFR (Cockcroft-Gault) 52.7 Glucose Level 109mg/dL (70-99) Calcium Level 8.6mg/dL (8.5-10.1) Laboratory Tests Test 09/09/16 09:20 Sodium Level 126mmol/L (136-145) Potassium Level 4.3mmol/L (3.5-5.1) Chloride Level 90mmol/L (98-107) Carbon Dioxide Level 28mmol/L (21-32) Anion Gap 8 (6-14) Blood Urea Nitrogen 18mg/dL (7-20) Creatinine 1.0mg/dL (0.6-1.0) Estimated GFR (Cockcroft-Gault) 52.7 Glucose Level 109mg/dL (70-99) Calcium Level 8.6mg/dL (8.5-10.1) Assessment/Plan Assessment/Plan 86-year-old woman who presented with UTI and shingles. She has evidence of encephalopathy and asterixis. This is due to underlying metabolic stress and infection. I do not see any focal evidence that would suggest stroke. Continue to treat underlying illness. Activator sooner she is able. I will be happy to reevaluate. I appreciate being involved in her care. LISA EVERETT MD Sep 09, 2016 19:40
[2016-09-09 23:00] VITALS: BP 144/60
[2016-09-10 03:00] VITALS: BP 161/76
[2016-09-10 05:49] LABS: CALCIUM 8.7 mg/dL (8.5-10.1); CREATININE 0.8 mg/dL (0.6-1.0); GFR 68.2
[2016-09-10 06:07] LABS: INR 1.6 (0.8-1.1); PROTHROMBIN TIME PATIENT 18.5 SEC (11.7-14.0)
[2016-09-10] MEDS: valACYclovir 500 MG TABLET. PO SCH ×2 (06:42→17:29)
[2016-09-10] MEDS: LEVOTHYROXINE 88 MCG TABLET PO SCH (06:42)
[2016-09-10 07:00] VITALS: BP 145/99
[2016-09-10] MEDS: IV DEXTROSE 5% - 0.9 % NACL 1,000 ML IV SCH ×2 (10:10→20:48)
[2016-09-10] MEDS: DILTIAZEM HCL 180 MG CAP.ER.24H PO SCH (10:11)
[2016-09-10] MEDS: OMEGA-3 FATTY ACIDS/FISH OIL 1,000 MG CAPSULE. PO SCH (10:12)
[2016-09-10] MEDS: POTASSIUM CHLORIDE 20 MEQ TABLET.ER. PO SCH (10:13)
[2016-09-10] MEDS: METOPROLOL TART IMMED RELEASE 50 MG TABLET PO SCH ×2 (10:14→20:47)
[2016-09-10] MEDS: FAMOTIDINE 20 MG TABLET. PO SCH (10:15)
[2016-09-10] MEDS: PROPAFENONE 150 MG TABLET. PO SCH ×3 (10:16→20:47)
[2016-09-10] MEDS: CHOLECALCIFEROL (VITAMIN D3) 1,000 UNIT TABLET PO SCH (10:17)
[2016-09-10] MEDS: ACETAMINOPHEN 325 MG TABLET. PO PRN (10:18)
[2016-09-10 11:00] VITALS: BP 133/92
[2016-09-10] MEDS: PREDNISONE 5 MG TABLET PO SCH (11:11)
--- NOTE | 2016-09-10 11:32 | PDOC ---
Provider Note Provider Note Tmax 101, now ok- vss- knows date/location now, still drowsy- ct head ok, Na+ 135 admit, 126 yest, now 123- exam same - etiology of low Na+ unclear, likely siadh from ? infection, doubt drug rx- up more, rt, cxr,, reduce iv saline, daily bmp CHLOÉ YANG MD Sep 10, 2016 11:32
[2016-09-10] MEDS: ALBUTEROL SULFATE 2.5 MG/3 ML NEBU. NEB SCH ×3 (11:43→21:05)
--- NOTE | 2016-09-10 13:33 | RAD ---
Portable chest, 09/10/2016: History: Fever, shortness of breath Comparison is made to a study from 09/06/2016. The heart is mildly enlarged. There is calcific plaquing of the aorta. There are now mild patchy bilateral pulmonary opacities. There is poor definition of the underlying pulmonary vascularity. The lateral costophrenic angles are somewhat obscured raising the possibility of a tiny amount pleural fluid. IMPRESSION: 1. Mild cardiomegaly and aortic atherosclerosis. 2. Mild patchy bilateral pulmonary infiltrates suggesting pneumonia versus pulmonary edema.
[2016-09-10] MEDS: CEFTRIAXONE SODIUM 1 GM in IV NORMAL SALINE 50ML 50 ML IV SCH (14:06)
[2016-09-10 15:00] VITALS: BP 117/60
[2016-09-10] MEDS: WARFARIN 5 MG TABLET. PO SCH (17:29)
[2016-09-10 19:00] VITALS: BP 142/61
[2016-09-10 23:00] VITALS: BP 154/91
[2016-09-11] VITALS (7 sets, daily range): BP systolic 131–149; BP diastolic 61–90
[2016-09-11] MEDS: valACYclovir 500 MG TABLET. PO SCH ×2 (05:51→17:08)
[2016-09-11] MEDS: LEVOTHYROXINE 88 MCG TABLET PO SCH (05:51)
[2016-09-11] MEDS: ALBUTEROL SULFATE 2.5 MG/3 ML NEBU. NEB SCH ×4 (07:03→19:26)
[2016-09-11] MEDS: FAMOTIDINE 20 MG TABLET. PO SCH (09:13)
[2016-09-11] MEDS: OMEGA-3 FATTY ACIDS/FISH OIL 1,000 MG CAPSULE. PO SCH (09:13)
[2016-09-11] MEDS: PREDNISONE 5 MG TABLET PO SCH (09:13)
[2016-09-11] MEDS: CHOLECALCIFEROL (VITAMIN D3) 1,000 UNIT TABLET PO SCH (09:13)
[2016-09-11] MEDS: METOPROLOL TART IMMED RELEASE 50 MG TABLET PO SCH ×2 (09:14→20:48)
[2016-09-11] MEDS: DILTIAZEM HCL 180 MG CAP.ER.24H PO SCH (09:14)
--- NOTE | 2016-09-11 09:50 | PDOC ---
Provider Note Provider Note tMAX 100, VSS- cxr showed some vasc congestion, no overt pneumonia- sleeping now but family reports her MS to be much better yesterday- will reduce saline more, dc if Na+ .130 or so- po keflex for uti- rehab CHLOÉ Quiroz MD Sep 11, 2016 09:50
[2016-09-11] MEDS: IV DEXTROSE 5% - 0.9 % NACL 1,000 ML IV SCH ×2 (10:15→11:19)
[2016-09-11] MEDS: PROPAFENONE 150 MG TABLET. PO SCH ×3 (10:16→20:48)
[2016-09-11] MEDS ORDERED: WARFARIN 2.5 MG TABLET. PO SCH (16:00)
--- NOTE | 2016-09-11 16:30 | PDOC ---
PROGRESS NOTES Assessment Problems Medical Problems: (1) Generalized weakness Status: Acute This is due to underlying encephalopathy from the urinary tract infection and shingles. She does not have any focal weakness that would suggest stroke. (2) Sepsis Status: Acute (3) UTI (urinary tract infection) Status: Acute Currently being treated with antibiotics 4. Shingles-this is more painful for her today. It may be she is more alert and aware of the pain. 5. Asterixis has resolved. Plan 1. Continue to treat the underlying infections which will help the encephalopathy improved. She seems to be improving already. She is well oriented and follows commands. 2. Shingles-she has continued on antibiotic for shingles. For the pain I will initiate gabapentin beginning at 100 mg, 3 times per day. As she tolerates the dosage will need to be titrated. 3. With the generalized weakness she will likely required a prison unit for rehabilitation. Subjective My bottom hurts. Objective Vital Signs Date Time Temp Pulse Resp B/P Pulse Ox O2 Delivery O2 Flow Rate FiO2 09/11/16 15:17 Nasal Cannula 2.0 09/11/16 15:00 97.7 83 24 141/61 95 97.7 Intake and Output 09/11/16 07:00 Intake Total 2050 ml Balance 2050 ml IV Total 2050 ml # Voids 6 # Bowel Movements 2 PHYSICAL EXAM She was lying on her back. She was trying to scoot up in the bed unsuccessfully. She would generally try to keep her eyes closed but would open them to request. She was well-oriented. Speech was fluent and clear. Examination of the cranial nerves revealed visual carnes to be full to confrontation. Extraocular movements were intact. The eyes were conjugate. Pursuit movements were smooth and saccadic eye movements were without dysmetria. Pupils were 3 mm. Facial sensation was intact. The muscles of mastication and facial expression were powerful symmetrically. Hearing was intact to finger rub. The palate arch symmetrically and tongue was midline with full range of motion. Sternocleidomastoid and trapezius were symmetric. Muscle bulk and tone was normal. There was no drift or asterixis. Power was symmetric but generally diminished 4/5 in the upper and lower extremities. Reflexes were 1 over 4 in the upper extremities and knees but absent at the ankles. The toes were not upgoing. Coordination testing with finger to nose, heel to jolly and fine motor movements was fairly well performed. The sensory exam was intact to pain, light touch, cold thermal and vibration in all extremities. Review of Relevant I have reviewed the following items kevin (where applicable) has been applied. Labs Laboratory Tests Test 09/10/16 04:35 Prothrombin Time 18.5SEC (11.7-14.0) Prothromb Time International Ratio 1.6 (0.8-1.1) Sodium Level 123mmol/L (136-145) Potassium Level 4.0mmol/L (3.5-5.1) Chloride Level 87mmol/L (98-107) Carbon Dioxide Level 27mmol/L (21-32) Anion Gap 9 (6-14) Blood Urea Nitrogen 12mg/dL (7-20) Creatinine 0.8mg/dL (0.6-1.0) Estimated GFR (Cockcroft-Gault) 68.2 Glucose Level 118mg/dL (70-99) Calcium Level 8.7mg/dL (8.5-10.1) Microbiology 09/06/16 Blood Culture - Final, Complete NO GROWTH AFTER 5 DAYS 09/06/16 Urine Culture - Final, Complete 09/06/16 Urine Culture Result 1 (MIO) - Final, Complete 09/06/16 Antimicrobic Susceptibility - Final, Complete 09/06/16 Gram Stain - Final, Complete Medications Current Medications Vancomycin HCl 1 each 1 each PRN DAILY PRN MC SEE COMMENTS Last administered on 09/07/16 16:40; Start 09/06/16 at 12:45; Stop 09/08/16 at 13:51; Status DC Ceftriaxone Sodium (Rocephin 1gm Ivpb For Omni) 50 ml @ 100 mls/hr 1X ONCE IV Last administered on 09/06/16 13:20; Start 09/06/16 at 12:45; Stop 09/06/16 at 13:14; Status DC Acetaminophen 1000 mg 1,000 mg 1X ONCE PO Last administered on 09/06/16 13:03 ; Start 09/06/16 at 12:45; Stop 09/06/16 at 12:46; Status DC Sodium Chloride 500 ml @ 500 mls/hr 1X ONCE IV Last administered on 13:04; Start 09/06/16 at 12:45; Stop 09/06/16 at 13:44; Status DC Vancomycin HCl/ Sodium Chloride (Iv Sodium Chloride 0.9% 500ml Bag) 500 ml @ 250 mls/hr 1X ONCE IV Last administered on 09/06/16 13:49; Start 09/06/16 at 13:00; Stop 09/06/16 at 14:59; Status DC Ondansetron HCl (Zofran) 4 mg PRN Q8HRS PRN IV NAUSEA/VOMITING Last administered on 09/06/16 17:14; Start 09/06/16 at 14:15; Stop 09/07/16 at 14:14 ; Status DC Morphine Sulfate 2 mg PRN Q2HR PRN IV PAIN Last administered on 09/07/16 12:11 ; Start 09/06/16 at 14:15; Stop 09/07/16 at 14:14; Status DC Acetaminophen 650 mg 650 mg PRN Q4HRS PRN PO FEVER Last administered on 11:07; Start 09/06/16 at 14:15; Stop 09/07/16 at 14:14; Status DC Sodium Chloride 500 ml @ 500 mls/hr 1X ONCE IV Last administered on 14:29; Start 09/06/16 at 14:15; Stop 09/06/16 at 15:14; Status DC Vancomycin HCl/ Sodium Chloride (Iv Sodium Chloride 0.9% 250ml) 250 ml @ 167 mls/hr Q24H IV Last administered on 09/07/16 14:47; Start 09/07/16 at 14:00; Stop 09/08/16 at 09:06; Status DC Vancomycin HCl 1 each 1X ONCE MC Last administered on 09/08/16 13:30; Start 09/08/16 at 13:30; Stop 09/08/16 at 13:31; Status DC Acetaminophen (Tylenol) 650 mg PRN Q4HRS PRN PO PAIN/TEMP Last administered on 09/10/16 10:18; Start 09/06/16 at 18:00 Diltiazem HCl (Cardizem 24hr Cd) 180 mg DAILY PO Last administered on 09:14; Start 09/06/16 at 18:00 Diphenhydramine HCl (Benadryl) 25 mg QHS PO Last administered on 09/08/16 20: 24; Start 09/06/16 at 21:00; Stop 09/09/16 at 08:27; Status DC Furosemide (Lasix) 40 mg MoWeSa PO ; Start 09/07/16 at 09:00; Stop 09/07/16 at 09:00; Status DC Levothyroxine Sodium (Synthroid) 88 mcg DAILY07 PO Last administered on 05:51; Start 09/07/16 at 07:00 Metoprolol Tartrate (Lopressor) 50 mg BID PO Last administered on 09/11/16 09: 14; Start 09/06/16 at 21:00 Fish Oil (Fish Oil) 1,000 mg DAILY PO Last administered on 09/11/16 09:13; Start 09/07/16 at 09:00 Potassium Chloride (Klor-Con) 20 meq MoWeSa PO Last administered on 09/10/16 10:13; Start 09/07/16 at 09:00 Prednisone (Prednisone) 5 mg DAILY PO ; Start 09/07/16 at 09:00; Stop 09/07/16 at 09:00; Status DC Propafenone HCl (Rythmol) 225 mg [id number] PO Last administered on 09/11/16 10:16 ; Start 09/06/16 at 21:00 Warfarin Sodium (Coumadin) 2.5 mg SuMoWeFrSa PO Last administered on 09/07/16 16:42; Start 09/07/16 at 16:00; Stop 09/08/16 at 09:06; Status DC Vitamin D (Vitamin D3) 1,000 unit DAILY PO Last administered on 09/11/16 09:13 ; Start 09/07/16 at 09:00 Famotidine (Pepcid) 20 mg BID PO Last administered on 09/08/16 08:55; Start at 21:00; Stop 09/08/16 at 13:59; Status DC Triamterene/HCTZ (Maxzide 37.5/ 25mg) 1 tab DAILY PO ; Start 09/07/16 at 09:00; Stop 09/07/16 at 09:00; Status DC Warfarin Sodium (Coumadin) 2.5 mg QSU PO ; Start 09/11/16 at 16:00; Status UNV Prednisone (Prednisone) 2 mg DAILY PO ; Start 09/07/16 at 09:00; Stop 09/07/16 at 09:00; Status DC Warfarin Sodium 1 each 1 each PRN DAILY PRN MC SEE COMMENTS Last administered on 09/09/16 13:45; Start 09/06/16 at 18:30 Ceftriaxone Sodium/Sodium Chloride (Rocephin/Iv Sodium Chloride 0.9% 50ml) 50 ml @ 100 mls/hr Q24H IV Last administered on 09/10/16 14:06; Start 09/07/16 at 13:00; Stop 09/11/16 at 09:45; Status DC Prednisone (Prednisone) 15 mg DAILY PO Last administered on 09/11/16 09:13; Start 09/07/16 at 09:00 Prednisone (Prednisone) 8 mg DAILY@18 PO Last administered on 09/08/16 17:55; Start 09/07/16 at 18:00; Stop 09/09/16 at 08:11; Status DC Valacyclovir HCl 1000 mg 1,000 mg TID PO Last administered on 09/08/16 20:24; Start 09/07/16 at 09:00; Stop 09/09/16 at 08:27; Status DC Dextrose/Lactated Ringer's (Iv D5%-Lr) 1,000 ml @ 100 mls/hr Q10H IV Last administered on 09/07/16 20:45; Start 09/07/16 at 09:00; Stop 09/08/16 at 09:06 ; Status DC Morphine Sulfate 2 mg PRN Q2HR PRN IV PAIN SEVERE Last administered on 20:52; Start 09/07/16 at 18:15; Stop 09/08/16 at 09:06; Status DC Warfarin Sodium (Coumadin) 5 mg SuMoWeFrSa@16 PO Last administered on 17:29; Start 09/08/16 at 16:00 Gabapentin (Neurontin) 200 mg TID PO Last administered on 09/08/16 20:24; Start 09/08/16 at 09:00; Stop 09/09/16 at 08:27; Status DC Warfarin Sodium (Coumadin) 5 mg SuMoWeFrSa@16 PO ; Start 09/09/16 at 16:00; Status Cancel Famotidine (Pepcid) 20 mg DAILY PO Last administered on 09/11/16 09:13; Start 09/09/16 at 09:00 Valacyclovir HCl 500 mg 500 mg [id number] PO Last administered on 09/11/16 05:51; Start 09/09/16 at 09:00 Sodium Chloride 1,000 ml @ 100 mls/hr Q10H IV ; Start 09/09/16 at 13:00; Stop 09/09/16 at 20:48; Status DC Dextrose/Sodium Chloride (Iv D5% - NS) 1,000 ml @ 50 mls/hr Q20H IV Last administered on 09/11/16 10:15; Start 09/09/16 at 13:00 Albuterol Sulfate (Ventolin Neb Soln) 1.25 mg RTQID NEB Last administered on 15:16; Start 09/10/16 at 12:00 Active Scripts Active Propafenone Hcl 150 Mg Tablet 225 Mg PO [id number] 30 Days Diltiazem 24HR Cd (Diltiazem Hcl) 180 Mg Cap.er.24h 180 Mg PO DAILY 30 Days Reported Coumadin (Warfarin Sodium) 2.5 Mg Tablet 1 Tab PO DAILY EXCEPT / Benadryl (Diphenhydramine Hcl) 25 Mg Capsule 1 Cap PO QHS LAST DOSE: 12/11/15 BEDTIME NEXT DOSE: 12/12/15 BEDTIME Tylenol (Acetaminophen) 325 Mg Tablet 2 Tab PO PRN Q4HRS Fish Oil 1,000 Mg Capsule ([place]-3 Fatty Acids/Fish Oil) 1 Each Capsule 1 Each PO DAILY LAST DOSE: 12/12/15 NEXT DOSE: 12/13/15 AM Klor-Con M20 (Potassium Chloride) 20 Meq Tab.er.prt 1 Tab PO 3X/WEEK LAST DOSE: 12/12/15 AM NEXT DOSE: 12/13/15 AM Lasix (Furosemide) 40 Mg Tablet 1 Tab PO 3X/WEEK LAST DOSE: 12/12/15 AM NEXT DOSE: 12/13/15 AM Metoprolol Tartrate 50 Mg Tablet 1 Tab PO BID LAST DOSE: 12/12/15 AM NEXT DOSE: 12/13/15 AM Levothyroxine Sodium 88 Mcg Tablet 1 Tab PO DAILY LAST DOSE: 12/12/15 AM NEXT DOSE: 12/13/15 AM Vitamin D (Cholecalciferol (Vitamin D3)) 1,000 Unit Capsule 1,000 Unit PO DAILY LAST DOSE: 12/12/15 AM NEXT DOSE: 12/13/15 AM Prednisone 5 Mg Tablet 7 Mg PO DAILY LAST DOSE: 12/12/15 AM NEXT DOSE: 12/13/15 AM Ranitidine Hcl 150 Mg Capsule 150 Mg PO BID LAST DOSE: 12/12/15 AM NEXT DOSE: 12/12/15 EVENING Triamterene-Hctz 37.5-25 Mg Cp (Triamterene/Hydrochlorothiazid) 1 Each Capsule 1 Each PO DAILY LAST DOSE: 12/12/15 AM NEXT DOSE: 12/13/15 AM Vitals/I & O Vital Sign - Last 24 Hours 09/10/16 09/10/16 09/10/16 09/10/16 19:00 20:00 20:47 20:47 Temp 97.9 97.9 Pulse 65 65 65 Resp 18 B/P 142/61 141/62 141/62 Pulse Ox 97 O2 Delivery Nasal Cannula Nasal Cannula O2 Flow Rate 2.0 2.0 09/10/16 09/10/16 09/11/16 09/11/16 21:09 23:00 02:58 07:00 Temp 100.8 98.1 97.7 100.8 98.1 97.7 Pulse 102 78 86 Resp 18 18 24 B/P 154/91 141/90 147/80 Pulse Ox 98 96 94 95 O2 Delivery Nasal Cannula Nasal Cannula Nasal Cannula Nasal Cannula O2 Flow Rate 2.0 2.0 2.0 2.0 09/11/16 09/11/16 09/11/16 09/11/16 07:05 08:00 09:14 09:14 Pulse 87 87 B/P 143/83 143/83 O2 Delivery Nasal Cannula Nasal Cannula O2 Flow Rate 2.0 2.0 09/11/16 09/11/16 09/11/16 09/11/16 09:15 10:16 10:50 11:00 Temp 97.5 96.6 97.5 96.6 Pulse 87 87 89 Resp 20 20 B/P 143/83 143/83 149/67 Pulse Ox 96 97 94 O2 Delivery Nasal Cannula Nasal Cannula Nasal Cannula O2 Flow Rate 2.0 2.0 2.0 09/11/16 09/11/16 15:00 15:17 Temp 97.7 97.7 Pulse 83 Resp 24 B/P 141/61 Pulse Ox 95 O2 Delivery Nasal Cannula Nasal Cannula O2 Flow Rate 2.0 2.0 Intake and Output 09/10/16 09/10/16 09/11/16 15:00 23:00 07:00 Intake Total 1000 ml 1050 ml Balance 1000 ml 1050 ml LISA EVERETT MD Sep 11, 2016 16:30
[2016-09-11] MEDS: GABAPENTIN 100 MG CAPSULE. PO SCH ×2 (17:08→20:47)
[2016-09-11] MEDS: WARFARIN 5 MG TABLET. PO SCH (17:08)
[2016-09-11] MEDS ORDERED: IBUPROFEN 400 MG TABLET. PO PRN (20:15)
--- NOTE | 2016-09-12 00:55 | CONS ---
DATE OF CONSULTATION: 09/09/2016 REFERRING PHYSICIAN: Serafin Krishna M.D. REASON FOR CONSULTATION: Encephalopathy. HISTORY OF PRESENT ILLNESS: The patient is an 86-year-old woman who had been having difficulty prior to admission with feeling confused and generally weak. When her could not get her out of bed, he called his son and they brought her to [facility] Emergency Room. She was found to have a bladder infection and shingles on her buttock. She is being treated for both these issues. She has remained confused and sleepy. I am asked to evaluate her neurologic status. The patient does not complain of any pain or headache. The shingles is no longer painful at this moment. She is very sleepy and will wake up only with stimulation. She is not feeling short of breath. She has not had a cough or a cold. PAST MEDICAL HISTORY: 1. Chronic atrial fibrillation, for which she is on warfarin and amiodarone. 2. Rheumatoid arthritis, for which she is on prednisone. 3. Shingles. ALLERGIES: SULFA. MEDICINES PRIOR TO ADMISSION: Tylenol as needed; vitamin D3; diltiazem 180 mg; Benadryl 25 mg at night; furosemide 40 mg 3 times a week; levothyroxine 88 mcg; metoprolol 50 mg twice per day; omega 3 fatty acids; Klor-Con M20 three times per week; prednisone 7 mg daily; propafenone 150 mg tablets, 225 mg 3 times per day; ranitidine 150 mg twice per day; triamterene/hydrochlorothiazide daily; and Coumadin 2.5 mg. FAMILY HISTORY: Noncontributory at the current age. SOCIAL HISTORY: She is and retired. She does not smoke tobacco or drink alcohol. REVIEW OF SYSTEMS: She does not complain of any headache or sudden change of vision or hearing. She is very lethargic and having cognitive changes with confusion. She is not having shortness of breath. There has been no chest or abdominal pain. She complains of pain in her buttock. She has had fever previously. There is some rash. No gastrointestinal or genitourinary complaints. She does not complain of numbness. She has been generally weak and sleepy. PHYSICAL EXAMINATION: VITAL SIGNS: Blood pressure 151/82, pulse 65, respirations 20, temperature 98.4 degrees Fahrenheit. Oximetry was 96% on 2 liters nasal cannula. Weight 180 pounds, height 66 inches with a calculated body mass index of 29.1. GENERAL: She was sleeping upon my arrival. With a great deal of stimulation, she would open her eyes only a crack. If unstimulated, she would drift off to sleep very quickly. Attention and concentration were poor. When I could get her to attend, she did follow instructions. She was oriented to place, month but not year. She could not recall who was sworn in as president. She did recognize her who was sitting at bedside. She appeared well groomed and well nourished. NEUROLOGIC: Examination of the cranial nerves revealed visual carnes appeared full. Extraocular movements were intact. The eyes were conjugate. Pupils were 3 mm. Facial sensation was intact. The muscles of mastication and facial expression were powerful symmetrically. Hearing was intact to finger rub. The palate arched symmetrically, and the tongue was midline with full range of motion. Sternocleidomastoid and trapezius were powerful. Muscle bulk and tone were normal. There was asterixis present in arms and legs. Power effort was really limited because she was so sleepy. Power was symmetric. Reflexes were 1/4 in the arms and diminished at the knees and ankles. Toes are not upgoing. Coordination testing was not formally possible. Sensory exam was intact to pain and light touch, but she could not attend to other modalities. Gait was not testable. NECK: Auscultation of the carotid arteries did not reveal a bruit. HEART: Rhythm was regular without a murmur. EXTREMITIES: Peripheral pulses were symmetric. There was no edema or cyanosis. REVIEW OF LABORATORY DATA: CBC revealed an elevated white count of 11.2 with diminished hemoglobin at 11.6, hematocrit at 35.5 and platelet count at 177. Sodium was low at 126 and chloride at 90. BUN and creatinine were normal. Glucose was elevated at 109. Lactic acid was not elevated. Calcium was normal today at 8.6. Troponin was not elevated. Liver enzymes were not elevated. PT/INR was 1.2 yesterday. Urinalysis revealed trace blood, positive nitrite, large amount of leukocyte esterase, 3-5 red blood cells, greater than 40 white blood cells and many bacteria. Influenza screening was negative. CT scan of the brain was performed without contrast and revealed no acute process. Chest x-ray revealed a faint left upper lobe opacity suggesting minimal infiltrate. IMPRESSION: The patient is an 86-year-old woman who presented a few days ago with urinary tract infection and shingles. She is being treated with antibiotics. Despite treatment, she still appears encephalopathic with asterixis as well. I did not see any evidence for stroke. I am not able to determine if there is underlying dementia in the face of an acute encephalopathy. I am relieved that there is nothing focal on her examination, and the CT scan of the head was negative. RECOMMENDATIONS: I would continue with underlying supportive treatment. As she is waking up, I would activate her as much as possible by having her sit in a chair, and when ready to, walk. She is on stress dosages of prednisone, which would seem appropriate. She is not on any sedating medications. She was on gabapentin, but this was discontinued out of concern for sensation. She does not appear to be in pain at this point. I appreciate being involved in her care. We will be happy to reevaluate. LISA EVERETT MD DR: BORIS/nirmala JOB#: [id number] / [id number] William Bray M.D., DAVID MD XIE, CHUNMEI MD
[2016-09-12 03:00] VITALS: BP 149/68
[2016-09-12 05:33] LABS: INR 2.4 (0.8-1.1); PROTHROMBIN TIME PATIENT 24.4 SEC (11.7-14.0)
[2016-09-12] MEDS: LEVOTHYROXINE 88 MCG TABLET PO SCH (06:09)
[2016-09-12] MEDS: valACYclovir 500 MG TABLET. PO SCH (06:09)
[2016-09-12] MEDS: IV DEXTROSE 5% - 0.9 % NACL 1,000 ML IV SCH (06:09)
[2016-09-12 06:16] LABS: CALCIUM 7.6 mg/dL (8.5-10.1); CREATININE 0.7 mg/dL (0.6-1.0); GFR 79.5; POTASSIUM 4.3 mmol/L (3.5-5.1)
[2016-09-12 07:00] VITALS: BP 122/82
[2016-09-12] MEDS: ALBUTEROL SULFATE 2.5 MG/3 ML NEBU. NEB SCH ×4 (07:26→19:30)
[2016-09-12] MEDS ORDERED: SODIUM CHLORIDE 3 % 250 ML IV ONE (08:00)
--- NOTE | 2016-09-12 08:25 | PDOC ---
Provider Note Provider Note more lucid yet Na+ lower at 119- urinary Na+ pending- ? etiology, will dc valtrex but have never seen siadh from this- renal consult, some 3% saline, ? ddavp CHLOÉ YANG MD Sep 12, 2016 08:25
[2016-09-12] MEDS: GABAPENTIN 100 MG CAPSULE. PO SCH ×3 (09:00→20:37)
[2016-09-12] MEDS: OMEGA-3 FATTY ACIDS/FISH OIL 1,000 MG CAPSULE. PO SCH (09:00)
[2016-09-12] MEDS: POTASSIUM CHLORIDE 20 MEQ TABLET.ER. PO SCH (09:01)
[2016-09-12] MEDS: PREDNISONE 5 MG TABLET PO SCH (09:01)
[2016-09-12] MEDS: PROPAFENONE 150 MG TABLET. PO SCH ×3 (09:02→20:32)
[2016-09-12] MEDS: DILTIAZEM HCL 180 MG CAP.ER.24H PO SCH (09:02)
[2016-09-12] MEDS: FAMOTIDINE 20 MG TABLET. PO SCH (09:02)
[2016-09-12] MEDS: CHOLECALCIFEROL (VITAMIN D3) 1,000 UNIT TABLET PO SCH (09:03)
[2016-09-12] MEDS: METOPROLOL TART IMMED RELEASE 50 MG TABLET PO SCH ×2 (09:03→20:32)
--- NOTE | 2016-09-12 10:32 | RAD ---
Indication: PICC line placement. Time of exam 10:25 AM Relation is made with prior chest from 09/10/2016. A right upper extremity PICC line has been placed and has the tip at the right atrial SVC junction. There is no pneumothorax. Heart is enlarged. Congestive changes persist. Impression: Satisfactory PICC line placement.
[2016-09-12 11:32] VITALS: BP 147/67
[2016-09-12] MEDS: IV NORMAL SALINE 1000ML BAG 1,000 ML IV SCH (14:47)
--- NOTE | 2016-09-12 15:22 | PDOC ---
PROGRESS NOTES Assessment Assessment IMPRESSION: Metabolic encephalopathy. Generalized weakness. Fever Sepsis. UTI Shingles Hyponatremia AFib HTN Obesity RECOMMENDATIONS/PLAN: Continue medical treatment. OT/PT Discussed with her at bedside. SUBJECTIVE: Feeling better. OBJECTIVE: No focalized motor or sensory deficits. PAST MEDICAL AND SURGICAL HISTORY: Please see H&P Tonsillectomy Appendectomy Hip Replacement Hysterectomy Knee Replacement Uterine susp Bladder susp ALLERGY: Sulfa drugs. MEDICATIONS: Refer to MAR REVIEW OF SYSTEMS: Constitutional: No malnutrition, weight loss, cachexia. Head: No traumatic brain or head injury. Skin: No edema, or rash. Ear: No infection, tinnitus. Eyes: No vision loss, or diplopia. Nose: No bleeding or purulent discharges. Hearing: Hearing decrease. Neck: No injury. Breast: No history of cancer, masses, or discharges. Cardiac: HTN Pulmonary: No CPOD. GI: GERD Urinary/genital: UTI. Endocrine: Obesity Skeletomuscular: Generalized weakness. Neurological: see HP. Psychiatric: Denies drug use/abuse. Otherwise, not [id number] review of systems. PHYSICAL EXAMINATION: General appearance in subacute distress. HEENT: Normocephalic and nontraumatic. Eyes, nose, ears, and throat are unremarkable. Hearing decrease. Neck is supple. No lymphadenopathy. No bruits are heard over the carotid artery. No Crepitus. Cardiovascular: S1, S2, seemed regular rate and rhythm. Pulmonary: Breathing sounds mildly decreased to auscultation bilaterally. Abdomen: Bowel sounds are positive. Abdomen is soft, nontender, and nondistended. Extremities: No rash, lesions, or edema. No restriction of range of motion NEUROLOGICAL EXAMINATION: Drowsiness. Oriented to place and person but not to time. PERRL. EOMI. CN: no focal findings. Muscle tone: within normal. Muscle strength: 4+ DTR: 1-2 Plantar reflex: Flexor response bilaterally Gait: not examined in bed. Sensory exam: no abnormal findings. No cerebellar signs elicited. F-T-N test fine. Objective Objective Vital Signs Date Time Temp Pulse Resp B/P Pulse Ox O2 Delivery O2 Flow Rate FiO2 09/12/16 14:47 72 147/67 09/12/16 11:32 96.6 20 97 Nasal Cannula 3.0 96.6 Intake and Output 09/12/16 07:00 Intake Total 1960 ml Output Total 700 ml Balance 1260 ml Intake Oral 960 ml IV Total 1000 ml Output Urine Total 700 ml # Voids 4 Vitals Signs Vitals VS - Last 72 Hours, by Label Date Time Temp Pulse Resp B/P Pulse Ox O2 Delivery O2 Flow Rate FiO2 09/12/16 14:47 72 147/67 09/12/16 11:32 96.6 72 20 147/67 97 Nasal Cannula 3.0 96.6 09/12/16 11:10 94 Nasal Cannula 2.0 09/12/16 09:03 76 122/82 09/12/16 09:02 76 122/82 09/12/16 09:02 76 122/82 09/12/16 08:15 Nasal Cannula 2.0 09/12/16 07:28 97 Nasal Cannula 2.0 09/12/16 07:00 96.3 76 20 122/82 98 Nasal Cannula 3.0 96.3 09/12/16 03:00 97.5 69 20 149/68 97 Nasal Cannula 3.0 97.5 09/11/16 23:00 97.9 77 20 149/76 90 Nasal Cannula 2.0 97.9 09/11/16 20:48 72 131/68 09/11/16 20:48 72 131/68 09/11/16 20:00 Nasal Cannula 2.0 09/11/16 19:27 91 Nasal Cannula 2.0 09/11/16 19:00 98.1 72 20 131/68 92 Nasal Cannula 2.0 98.1 09/11/16 17:07 80 141/61 09/11/16 15:17 Nasal Cannula 2.0 09/11/16 15:00 97.7 83 24 141/61 95 Nasal Cannula 2.0 97.7 09/11/16 11:00 96.6 89 20 149/67 94 Nasal Cannula 2.0 96.6 09/11/16 10:50 97 Nasal Cannula 2.0 09/11/16 10:16 87 143/83 09/11/16 09:15 97.5 87 20 143/83 96 Nasal Cannula 2.0 97.5 09/11/16 09:14 87 143/83 09/11/16 09:14 87 143/83 09/11/16 08:00 Nasal Cannula 2.0 09/11/16 07:05 Nasal Cannula 2.0 09/11/16 07:00 97.7 86 24 147/80 95 Nasal Cannula 2.0 97.7 Laboratory Laboratory Laboratory Tests Test 09/12/16 05:00 09/12/16 05:05 Prothrombin Time 24.4SEC (11.7-14.0) Prothromb Time International Ratio 2.4 (0.8-1.1) Sodium Level 119mmol/L (136-145) Potassium Level 4.3mmol/L (3.5-5.1) Chloride Level 85mmol/L (98-107) Carbon Dioxide Level 27mmol/L (21-32) Anion Gap 7 (6-14) Blood Urea Nitrogen 12mg/dL (7-20) Creatinine 0.7mg/dL (0.6-1.0) Estimated GFR (Cockcroft-Gault) 79.5 Glucose Level 109mg/dL (70-99) Calcium Level 7.6mg/dL (8.5-10.1) Microbiology 09/06/16 Blood Culture - Final, Complete NO GROWTH AFTER 5 DAYS 09/06/16 Urine Culture - Final, Complete 09/06/16 Urine Culture Result 1 (MIO) - Final, Complete 09/06/16 Antimicrobic Susceptibility - Final, Complete 09/06/16 Gram Stain - Final, Complete Medication Medications Current Medications Gabapentin (Neurontin) 100 mg TID PO Last administered on 09/11/16 20:47; Start 09/11/16 at 17:00 Ibuprofen 400 mg 400 mg PRN QID PRN PO INFLAMMATION Last administered on 20:47; Start 09/11/16 at 20:15 Sodium Chloride 250 ml @ 125 mls/hr 1X ONCE IV Last administered on 11:07; Start 09/12/16 at 08:00; Stop 09/12/16 at 09:59; Status DC Sodium Chloride (Iv Sodium Chloride 0.9% 1000ml Bag) 1,000 ml @ 50 mls/hr Q20H IV Last administered on 09/12/16 14:47; Start 09/12/16 at 07:45 Warfarin Sodium (Coumadin) 2.5 mg DAILY16 PO ; Start 09/12/16 at 16:00 Warfarin Sodium (Coumadin) 2.5 mg QSU PO ; Start 09/11/16 at 16:00; Status UNV Comment Review of Relevant I have reviewed the following items kevin (where applicable) has been applied. RANDAL CHERRY MD Sep 12, 2016 15:22
[2016-09-12 15:44] VITALS: BP 147/81
[2016-09-12] MEDS: WARFARIN 2.5 MG TABLET. PO SCH (16:54)
[2016-09-12 19:00] VITALS: BP 124/54
[2016-09-12 23:00] VITALS: BP 132/58
[2016-09-13 03:00] VITALS: BP 132/58
[2016-09-13] MEDS: LEVOTHYROXINE 88 MCG TABLET PO SCH (05:47)
[2016-09-13 06:11] LABS: CALCIUM 7.7 mg/dL (8.5-10.1); CREATININE 0.7 mg/dL (0.6-1.0); GFR 79.5; POTASSIUM 4.5 mmol/L (3.5-5.1)
[2016-09-13 07:00] VITALS: BP 152/79
[2016-09-13] MEDS: ALBUTEROL SULFATE 2.5 MG/3 ML NEBU. NEB SCH ×4 (08:02→19:18)
--- NOTE | 2016-09-13 08:23 | PDOC ---
Provider Note Provider Note vss, no termp- sleepy but remains oriented, nonfocal- Na+ up 126 after 3% saline - Na+ urine 108- cont same, renal consult pending - is off valtrex now, HZ looks same CHLOÉ YANG MD Sep 13, 2016 08:23
[2016-09-13] MEDS: FAMOTIDINE 20 MG TABLET. PO SCH (08:58)
[2016-09-13] MEDS: DILTIAZEM HCL 180 MG CAP.ER.24H PO SCH (08:59)
[2016-09-13] MEDS: PROPAFENONE 150 MG TABLET. PO SCH ×3 (08:59→20:16)
[2016-09-13] MEDS: CHOLECALCIFEROL (VITAMIN D3) 1,000 UNIT TABLET PO SCH (08:59)
[2016-09-13] MEDS: GABAPENTIN 100 MG CAPSULE. PO SCH ×3 (08:59→20:14)
[2016-09-13] MEDS: METOPROLOL TART IMMED RELEASE 50 MG TABLET PO SCH ×2 (08:59→20:15)
[2016-09-13] MEDS: PREDNISONE 5 MG TABLET PO SCH (08:59)
[2016-09-13] MEDS: OMEGA-3 FATTY ACIDS/FISH OIL 1,000 MG CAPSULE. PO SCH (09:00)
--- NOTE | 2016-09-13 10:49 | PDOC2 ---
CONSULT Date of Consult Date of Consult DATE: 09/13/16 TIME: 10:43 Reason for Consult Reason for Consult: LOW NA Referring Physician Referring Physician: CELIA Identification/Chief Complaint Chief Complaint WEAKNESS AND CONFUSION Source Source: Chart review History of Present Illness Reason for Visit: THIS IS AN 86 YR OLD ADMITTED WITH CONFUSION, WEAKNESS AND PAIN RELATED TO SHINGLES. HER NA HAS BEEN LOW AT ABOUT 119 AND NOW 126 AFTER SOME HYPERTONIC SALINE. URINE NA HAS BEEN HIGH. NO SIGNIFICANT EDEMA NOTED. SOME CONFUSION NOTED. CURRENTLY ON LOW FLOW ISOTONIC SALINE. HX ALSO NOTABLE FOR STEROID DEPENDENT RA. HOME MEDS DID INCLUDE MAXZIDE Past Medical History Cardiovascular: AFIB, HTN Pulmonary: Other CENTRAL NERVOUS SYSTEM: Other GI: GERD Heme/Onc: No pertinent hx Hepatobiliary: No pertinent hx Psych: No pertinent hx Musculoskeletal: Osteoarthritis Rheumatologic: Other Infectious disease: No pertinent hx Endocrine: Hypothyroidism Past Surgical History Past Surgical History: Appendectomy, Total knee replacement, Tonsillectomy, Hysterectomy, Other Family History Family History: Family History Unknown Social History ALCOHOL: none Drugs: None Domestic Violence: Neg Current Problem List Problem List Problems Medical Problems: (1) Generalized weakness Status: Acute (2) Sepsis Status: Acute (3) UTI (urinary tract infection) Status: Acute Current Medications Current Medications Current Medications Vancomycin HCl 1 each 1 each PRN DAILY PRN MC SEE COMMENTS Last administered on 09/07/16 16:40; Start 09/06/16 at 12:45; Stop 09/08/16 at 13:51; Status DC Ceftriaxone Sodium (Rocephin 1gm Ivpb For Omni) 50 ml @ 100 mls/hr 1X ONCE IV Last administered on 09/06/16 13:20; Start 09/06/16 at 12:45; Stop 09/06/16 at 13:14; Status DC Acetaminophen 1000 mg 1,000 mg 1X ONCE PO Last administered on 09/06/16 13:03 ; Start 09/06/16 at 12:45; Stop 09/06/16 at 12:46; Status DC Sodium Chloride 500 ml @ 500 mls/hr 1X ONCE IV Last administered on 13:04; Start 09/06/16 at 12:45; Stop 09/06/16 at 13:44; Status DC Vancomycin HCl/ Sodium Chloride (Iv Sodium Chloride 0.9% 500ml Bag) 500 ml @ 250 mls/hr 1X ONCE IV Last administered on 09/06/16 13:49; Start 09/06/16 at 13:00; Stop 09/06/16 at 14:59; Status DC Ondansetron HCl (Zofran) 4 mg PRN Q8HRS PRN IV NAUSEA/VOMITING Last administered on 09/06/16 17:14; Start 09/06/16 at 14:15; Stop 09/07/16 at 14:14 ; Status DC Morphine Sulfate 2 mg PRN Q2HR PRN IV PAIN Last administered on 09/07/16 12:11 ; Start 09/06/16 at 14:15; Stop 09/07/16 at 14:14; Status DC Acetaminophen 650 mg 650 mg PRN Q4HRS PRN PO FEVER Last administered on 11:07; Start 09/06/16 at 14:15; Stop 09/07/16 at 14:14; Status DC Sodium Chloride 500 ml @ 500 mls/hr 1X ONCE IV Last administered on 14:29; Start 09/06/16 at 14:15; Stop 09/06/16 at 15:14; Status DC Vancomycin HCl/ Sodium Chloride (Iv Sodium Chloride 0.9% 250ml) 250 ml @ 167 mls/hr Q24H IV Last administered on 09/07/16 14:47; Start 09/07/16 at 14:00; Stop 09/08/16 at 09:06; Status DC Vancomycin HCl 1 each 1X ONCE MC Last administered on 09/08/16 13:30; Start 09/08/16 at 13:30; Stop 09/08/16 at 13:31; Status DC Acetaminophen (Tylenol) 650 mg PRN Q4HRS PRN PO PAIN/TEMP Last administered on 09/10/16 10:18; Start 09/06/16 at 18:00 Diltiazem HCl (Cardizem 24hr Cd) 180 mg DAILY PO Last administered on 08:59; Start 09/06/16 at 18:00 Diphenhydramine HCl (Benadryl) 25 mg QHS PO Last administered on 09/08/16 20: 24; Start 09/06/16 at 21:00; Stop 09/09/16 at 08:27; Status DC Furosemide (Lasix) 40 mg MoWeSa PO ; Start 09/07/16 at 09:00; Stop 09/07/16 at 09:00; Status DC Levothyroxine Sodium (Synthroid) 88 mcg DAILY07 PO Last administered on 05:47; Start 09/07/16 at 07:00 Metoprolol Tartrate (Lopressor) 50 mg BID PO Last administered on 09/13/16 08: 59; Start 09/06/16 at 21:00 Fish Oil (Fish Oil) 1,000 mg DAILY PO Last administered on 09/13/16 09:00; Start 09/07/16 at 09:00 Potassium Chloride (Klor-Con) 20 meq MoWeSa PO Last administered on 09/12/16 09:01; Start 09/07/16 at 09:00 Prednisone (Prednisone) 5 mg DAILY PO ; Start 09/07/16 at 09:00; Stop 09/07/16 at 09:00; Status DC Propafenone HCl (Rythmol) 225 mg [id number] PO Last administered on 09/13/16 08:59 ; Start 09/06/16 at 21:00 Warfarin Sodium (Coumadin) 2.5 mg SuMoWeFrSa PO Last administered on 09/07/16 16:42; Start 09/07/16 at 16:00; Stop 09/08/16 at 09:06; Status DC Vitamin D (Vitamin D3) 1,000 unit DAILY PO Last administered on 09/13/16 08:59 ; Start 09/07/16 at 09:00 Famotidine (Pepcid) 20 mg BID PO Last administered on 09/08/16 08:55; Start at 21:00; Stop 09/08/16 at 13:59; Status DC Triamterene/HCTZ (Maxzide 37.5/ 25mg) 1 tab DAILY PO ; Start 09/07/16 at 09:00; Stop 09/07/16 at 09:00; Status DC Warfarin Sodium (Coumadin) 2.5 mg QSU PO ; Start 09/11/16 at 16:00; Status UNV Prednisone (Prednisone) 2 mg DAILY PO ; Start 09/07/16 at 09:00; Stop 09/07/16 at 09:00; Status DC Warfarin Sodium 1 each 1 each PRN DAILY PRN MC SEE COMMENTS Last administered on 09/12/16 12:25; Start 09/06/16 at 18:30 Ceftriaxone Sodium/Sodium Chloride (Rocephin/Iv Sodium Chloride 0.9% 50ml) 50 ml @ 100 mls/hr Q24H IV Last administered on 09/10/16 14:06; Start 09/07/16 at 13:00; Stop 09/11/16 at 09:45; Status DC Prednisone (Prednisone) 15 mg DAILY PO Last administered on 09/13/16 08:59; Start 09/07/16 at 09:00 Prednisone (Prednisone) 8 mg DAILY@18 PO Last administered on 09/08/16 17:55; Start 09/07/16 at 18:00; Stop 09/09/16 at 08:11; Status DC Valacyclovir HCl 1000 mg 1,000 mg TID PO Last administered on 09/08/16 20:24; Start 09/07/16 at 09:00; Stop 09/09/16 at 08:27; Status DC Dextrose/Lactated Ringer's (Iv D5%-Lr) 1,000 ml @ 100 mls/hr Q10H IV Last administered on 09/07/16 20:45; Start 09/07/16 at 09:00; Stop 09/08/16 at 09:06 ; Status DC Morphine Sulfate 2 mg PRN Q2HR PRN IV PAIN SEVERE Last administered on 20:52; Start 09/07/16 at 18:15; Stop 09/08/16 at 09:06; Status DC Warfarin Sodium (Coumadin) 5 mg SuMoWeFrSa@16 PO Last administered on 17:08; Start 09/08/16 at 16:00; Stop 09/12/16 at 08:14; Status DC Gabapentin (Neurontin) 200 mg TID PO Last administered on 09/08/16 20:24; Start 09/08/16 at 09:00; Stop 09/09/16 at 08:27; Status DC Warfarin Sodium (Coumadin) 5 mg SuMoWeFrSa@16 PO ; Start 09/09/16 at 16:00; Status Cancel Famotidine (Pepcid) 20 mg DAILY PO Last administered on 09/13/16 08:58; Start 09/09/16 at 09:00 Valacyclovir HCl 500 mg 500 mg [id number] PO Last administered on 09/12/16 06:09; Start 09/09/16 at 09:00; Stop 09/12/16 at 08:24; Status DC Sodium Chloride 1,000 ml @ 100 mls/hr Q10H IV ; Start 09/09/16 at 13:00; Stop 09/09/16 at 20:48; Status DC Dextrose/Sodium Chloride (Iv D5% - NS) 1,000 ml @ 50 mls/hr Q20H IV Last administered on 09/12/16 06:09; Start 09/09/16 at 13:00; Stop 09/12/16 at 12:17 ; Status DC Albuterol Sulfate (Ventolin Neb Soln) 1.25 mg RTQID NEB Last administered on 08:02; Start 09/10/16 at 12:00 Gabapentin (Neurontin) 100 mg TID PO Last administered on 09/13/16 08:59; Start 09/11/16 at 17:00 Ibuprofen 400 mg 400 mg PRN QID PRN PO INFLAMMATION Last administered on 20:47; Start 09/11/16 at 20:15 Sodium Chloride 250 ml @ 125 mls/hr 1X ONCE IV Last administered on 11:07; Start 09/12/16 at 08:00; Stop 09/12/16 at 09:59; Status DC Sodium Chloride (Iv Sodium Chloride 0.9% 1000ml Bag) 1,000 ml @ 50 mls/hr Q20H IV Last administered on 09/12/16 14:47; Start 09/12/16 at 07:45 Warfarin Sodium (Coumadin) 2.5 mg DAILY16 PO Last administered on 09/12/16 16: 54; Start 09/12/16 at 16:00 Active Scripts Active Propafenone Hcl 150 Mg Tablet 225 Mg PO [id number] 30 Days Diltiazem 24HR Cd (Diltiazem Hcl) 180 Mg Cap.er.24h 180 Mg PO DAILY 30 Days Reported Coumadin (Warfarin Sodium) 2.5 Mg Tablet 1 Tab PO DAILY EXCEPT Benadryl (Diphenhydramine Hcl) 25 Mg Capsule 1 Cap PO QHS LAST DOSE: 12/11/15 BEDTIME NEXT DOSE: 12/12/15 BEDTIME Tylenol (Acetaminophen) 325 Mg Tablet 2 Tab PO PRN Q4HRS Fish Oil 1,000 Mg Capsule ([place]-3 Fatty Acids/Fish Oil) 1 Each Capsule 1 Each PO DAILY LAST DOSE: 12/12/15 NEXT DOSE: 12/13/15 AM Klor-Con M20 (Potassium Chloride) 20 Meq Tab.er.prt 1 Tab PO 3X/WEEK LAST DOSE: 12/12/15 NEXT DOSE: 12/13/15 Lasix (Furosemide) 40 Mg Tablet 1 Tab PO 3X/WEEK LAST DOSE: 12/12/15 NEXT DOSE: 12/13/15 Metoprolol Tartrate 50 Mg Tablet 1 Tab PO BID LAST DOSE: 12/12/15 NEXT DOSE: 12/13/15 Levothyroxine Sodium 88 Mcg Tablet 1 Tab PO DAILY LAST DOSE: 12/12/15 NEXT DOSE: 12/13/15 Vitamin D (Cholecalciferol (Vitamin D3)) 1,000 Unit Capsule 1,000 Unit PO DAILY LAST DOSE: 12/12/15 NEXT DOSE: 12/13/15 Prednisone 5 Mg Tablet 7 Mg PO DAILY LAST DOSE: 12/12/15 NEXT DOSE: 12/13/15 Ranitidine Hcl 150 Mg Capsule 150 Mg PO BID LAST DOSE: 12/12/15 NEXT DOSE: 12/12/15 EVENING Triamterene-Hctz 37.5-25 Mg Cp (Triamterene/Hydrochlorothiazid) 1 Each Capsule 1 Each PO DAILY LAST DOSE: 12/12/15 NEXT DOSE: 12/13/15 AM Allergies Allergies: Coded Allergies: Sulfa (Sulfonamide Antibiotics) (Verified Allergy, Intermediate, Rash, 04/21) Patient states "rash and confusion" ROS Review of System SOME CONFUSION Physical Exam General: Alert, Cooperative HEENT: Atraumatic, PERRLA Lungs: Clear to auscultation, Normal air movement Heart: Regular rate, Normal S1, Normal S2, No murmurs Abdomen: Normal bowel sounds, Soft, No tenderness Skin: No rashes Neuro: Other (SOME CONFUSION) Psych/Mental Status: Other (SOME CONFUSION) MUSCULOSKELETAL: No deformity, Other (MUSCLE ATROPHY) Vitals VITALS Vital Signs Date Time Temp Pulse Resp B/P Pulse Ox O2 Delivery O2 Flow Rate FiO2 09/13/16 08:59 82 152/79 09/13/16 08:15 Nasal Cannula 3.0 09/13/16 08:03 99 09/13/16 07:00 97.5 22 97.5 Labs Labs Laboratory Tests Test 09/11/16 20:00 09/12/16 05:00 09/12/16 05:05 09/13/16 05:50 Urine Random Sodium 108mmol/L (Not Estab.) Prothrombin Time 24.4SEC (11.7-14.0) Prothromb Time International Ratio 2.4 (0.8-1.1) Sodium Level 119mmol/L (136-145) 126mmol/L (136-145) Potassium Level 4.3mmol/L (3.5-5.1) 4.5mmol/L (3.5-5.1) Chloride Level 85mmol/L (98-107) 93mmol/L (98-107) Carbon Dioxide Level 27mmol/L (21-32) 28mmol/L (21-32) Anion Gap 7 (6-14) 5 (6-14) Blood Urea Nitrogen 12mg/dL (7-20) 14mg/dL (7-20) Creatinine 0.7mg/dL (0.6-1.0) 0.7mg/dL (0.6-1.0) Estimated GFR (Cockcroft-Gault) 79.5 79.5 Glucose Level 109mg/dL (70-99) 131mg/dL (70-99) Calcium Level 7.6mg/dL (8.5-10.1) 7.7mg/dL (8.5-10.1) Laboratory Tests Test 09/13/16 05:50 Sodium Level 126mmol/L (136-145) Potassium Level 4.5mmol/L (3.5-5.1) Chloride Level 93mmol/L (98-107) Carbon Dioxide Level 28mmol/L (21-32) Anion Gap 5 (6-14) Blood Urea Nitrogen 14mg/dL (7-20) Creatinine 0.7mg/dL (0.6-1.0) Estimated GFR (Cockcroft-Gault) 79.5 Glucose Level 131mg/dL (70-99) Calcium Level 7.7mg/dL (8.5-10.1) Assessment/Plan Assessment/Plan IMP UTI SHINGLES MET ENCEPHALOPATHY HYPONATREMIA HYPOTHYROIDISM PLAN CONT WITH LOW FLOW NS AVOID MAXZIDE CHECK TSH WILL FOLLOW ARTI MOURA MD Sep 13, 2016 10:49
[2016-09-13 11:45] VITALS: BP 152/90
--- NOTE | 2016-09-13 14:13 | PDOC ---
PROGRESS NOTES Assessment Assessment Metabolic encephalopathy. Generalized weakness. Fever Sepsis. UTI Shingles Hyponatremia AFib HTN Obesity RECOMMENDATIONS/PLAN: Continue medical treatment. OT/PT Discussed with her family at bedside. SUBJECTIVE: Feeling better. OBJECTIVE: No focalized motor or sensory deficits. PAST MEDICAL AND SURGICAL HISTORY: Please see H&P Tonsillectomy Appendectomy Hip Replacement Hysterectomy Knee Replacement Uterine susp Bladder susp ALLERGY: Sulfa drugs. MEDICATIONS: Refer to MAR REVIEW OF SYSTEMS: Constitutional: No malnutrition, weight loss, cachexia. Head: No traumatic brain or head injury. Skin: No edema, or rash. Ear: No infection, tinnitus. Eyes: No vision loss, or diplopia. Nose: No bleeding or purulent discharges. Hearing: Hearing decrease. Neck: No injury. Breast: No history of cancer, masses, or discharges. Cardiac: HTN Pulmonary: No CPOD. GI: GERD Urinary/genital: UTI. Endocrine: Obesity Skeletomuscular: Generalized weakness. Neurological: see HP. Psychiatric: Denies drug use/abuse. Otherwise, not [id number] review of systems. PHYSICAL EXAMINATION: General appearance in subacute distress. HEENT: Normocephalic and nontraumatic. Eyes, nose, ears, and throat are unremarkable. Hearing decrease. Neck is supple. No lymphadenopathy. No bruits are heard over the carotid artery. No Crepitus. Cardiovascular: S1, S2, seemed regular rate and rhythm. Pulmonary: Breathing sounds mildly decreased to auscultation bilaterally. Abdomen: Bowel sounds are positive. Abdomen is soft, nontender, and nondistended. Extremities: No rash, lesions, or edema. No restriction of range of motion NEUROLOGICAL EXAMINATION: Drowsiness. Oriented to place and person and partially to time. Knows her brothers and sisters at bedside. PERRL. EOMI. CN: no focal findings. Muscle tone: within normal. Muscle strength: 4+ DTR: 1-2 Plantar reflex: Flexor response bilaterally Gait: not examined in bed. Sensory exam: no abnormal findings. No cerebellar signs elicited. F-T-N test fine. Objective Objective Vital Signs Date Time Temp Pulse Resp B/P Pulse Ox O2 Delivery O2 Flow Rate FiO2 09/13/16 11:45 96.0 80 16 152/90 96.0 09/13/16 11:24 Nasal Cannula 2.0 09/13/16 08:03 99 Intake and Output 09/13/16 07:00 Intake Total 1180 ml Output Total 1050 ml Balance 130 ml Intake Oral 180 ml IV Total 1000 ml Output Urine Total 1050 ml Vitals Signs Vitals VS - Last 72 Hours, by Label Date Time Temp Pulse Resp B/P Pulse Ox O2 Delivery O2 Flow Rate FiO2 09/13/16 11:45 96.0 80 16 152/90 96.0 09/13/16 11:24 Nasal Cannula 2.0 09/13/16 08:59 82 152/79 09/13/16 08:59 82 152/79 09/13/16 08:59 82 152/79 09/13/16 08:15 Nasal Cannula 3.0 09/13/16 08:03 99 Nasal Cannula 2.0 09/13/16 07:00 97.5 82 22 152/79 92 97.5 09/13/16 03:00 98.1 57 16 132/58 93 Room Air 98.1 09/12/16 23:00 98.1 68 16 132/58 94 Room Air 98.1 09/12/16 20:32 65 124/54 09/12/16 20:32 124 54/65 09/12/16 20:00 Nasal Cannula 2.0 09/12/16 19:00 98.1 65 16 124/54 97 Room Air 98.1 09/12/16 16:06 95 Nasal Cannula 2.0 09/12/16 15:44 96.4 79 18 147/81 97 Nasal Cannula 3.0 96.4 09/12/16 14:47 72 147/67 09/12/16 11:32 96.6 72 20 147/67 97 Nasal Cannula 3.0 96.6 09/12/16 11:10 94 Nasal Cannula 2.0 09/12/16 09:03 76 122/82 09/12/16 09:02 76 122/82 09/12/16 09:02 76 122/82 09/12/16 08:15 Nasal Cannula 2.0 09/12/16 07:28 97 Nasal Cannula 2.0 09/12/16 07:00 96.3 76 20 122/82 98 Nasal Cannula 3.0 96.3 Laboratory Laboratory Laboratory Tests Test 09/13/16 05:50 Sodium Level 126mmol/L (136-145) Potassium Level 4.5mmol/L (3.5-5.1) Chloride Level 93mmol/L (98-107) Carbon Dioxide Level 28mmol/L (21-32) Anion Gap 5 (6-14) Blood Urea Nitrogen 14mg/dL (7-20) Creatinine 0.7mg/dL (0.6-1.0) Estimated GFR (Cockcroft-Gault) 79.5 Glucose Level 131mg/dL (70-99) Calcium Level 7.7mg/dL (8.5-10.1) Microbiology 09/06/16 Blood Culture - Final, Complete NO GROWTH AFTER 5 DAYS 09/06/16 Urine Culture - Final, Complete 09/06/16 Urine Culture Result 1 (MIO) - Final, Complete 09/06/16 Antimicrobic Susceptibility - Final, Complete 09/06/16 Gram Stain - Final, Complete Medication Medications Current Medications Warfarin Sodium (Coumadin) 2.5 mg DAILY16 PO Last administered on 09/12/16t 16: 54; Start 09/12/16 at 16:00 Comment Review of Relevant I have reviewed the following items kevin (where applicable) has been applied. RANDAL CHERRY MD Sep 13, 2016 14:13
[2016-09-13] MEDS: IV NORMAL SALINE 1000ML BAG 1,000 ML IV SCH (15:05)
[2016-09-13 15:55] VITALS: BP 122/80
[2016-09-13] MEDS: WARFARIN 2.5 MG TABLET. PO SCH (16:53)
[2016-09-13 19:00] VITALS: BP 126/56
[2016-09-13 23:00] VITALS: BP 140/71
[2016-09-14 03:00] VITALS: BP 111/51
[2016-09-14] MEDS: IV NORMAL SALINE 1000ML BAG 1,000 ML IV SCH ×3 (05:08→20:56)
[2016-09-14] MEDS: LEVOTHYROXINE 88 MCG TABLET PO SCH (05:10)
[2016-09-14 05:46] LABS: INR 3.4 (0.8-1.1); PROTHROMBIN TIME PATIENT 32.7 SEC (11.7-14.0)
[2016-09-14 05:50] LABS: CALCIUM 8.3 mg/dL (8.5-10.1); CREATININE 0.8 mg/dL (0.6-1.0); GFR 68.2; POTASSIUM 5.4 mmol/L (3.5-5.1)
[2016-09-14 07:52] VITALS: BP 140/69
[2016-09-14] MEDS ORDERED: FUROSEMIDE 40 MG/4 ML VIAL IVP ONE ×2 (08:15→20:45)
--- NOTE | 2016-09-14 08:29 | PDOC ---
Provider Note Provider Note pt awake but drowsy, mild wheezing and some edema re saline- Na+ down 124, exam same- will reduce steroid, inc saline, 1 dose CHLOÉ Lemon MD Sep 14, 2016 08:29
[2016-09-14] MEDS: POLYETHYLENE GLYCOL 3350 17 GM PACKET. PO SCH (08:44)
[2016-09-14] MEDS: CHOLECALCIFEROL (VITAMIN D3) 1,000 UNIT TABLET PO SCH (08:45)
[2016-09-14] MEDS: GABAPENTIN 100 MG CAPSULE. PO SCH ×3 (08:45→20:08)
[2016-09-14] MEDS: FAMOTIDINE 20 MG TABLET. PO SCH (08:45)
[2016-09-14] MEDS: METOPROLOL TART IMMED RELEASE 50 MG TABLET PO SCH ×2 (08:45→20:08)
[2016-09-14] MEDS: OMEGA-3 FATTY ACIDS/FISH OIL 1,000 MG CAPSULE. PO SCH (08:45)
[2016-09-14] MEDS: DILTIAZEM HCL 180 MG CAP.ER.24H PO SCH (08:45)
[2016-09-14] MEDS: PROPAFENONE 150 MG TABLET. PO SCH ×3 (08:45→20:09)
[2016-09-14] MEDS: POTASSIUM CHLORIDE 20 MEQ TABLET.ER. PO SCH (08:48)
[2016-09-14] MEDS: PREDNISONE 10 MG TABLET PO SCH (08:48)
[2016-09-14] MEDS: ALBUTEROL SULFATE 2.5 MG/3 ML NEBU. NEB SCH ×4 (09:02→19:25)
[2016-09-14 10:27] VITALS: BP 154/72
--- NOTE | 2016-09-14 11:00 | PDOC ---
Renal-Progress Notes Subjective Notes Notes NONE History of Present Illness Hx of present illness NO CHANGE Vitals Vitals Vital Signs Date Time Temp Pulse Resp B/P Pulse Ox O2 Delivery O2 Flow Rate FiO2 09/14/16 10:27 97.5 62 21 154/72 95 Nasal Cannula 3.0 97.5 Weight Weight [ ] I.O. Intake and Output Intake and Output 09/14/16 07:00 Intake Total 170 ml Output Total 800 ml Balance -630 ml Intake Oral 170 ml Output Urine Total 800 ml Labs Labs Laboratory Tests Test 09/14/16 05:15 Prothrombin Time 32.7SEC (11.7-14.0) Prothromb Time International Ratio 3.4 (0.8-1.1) Sodium Level 124mmol/L (136-145) Potassium Level 5.4mmol/L (3.5-5.1) Chloride Level 91mmol/L (98-107) Carbon Dioxide Level 31mmol/L (21-32) Anion Gap 2 (6-14) Blood Urea Nitrogen 17mg/dL (7-20) Creatinine 0.8mg/dL (0.6-1.0) Estimated GFR (Cockcroft-Gault) 68.2 Glucose Level 99mg/dL (70-99) Calcium Level 8.3mg/dL (8.5-10.1) Thyroid Stimulating Hormone (TSH) 0.334uIU/mL (0.358-3.74) Micro Micro Microbiology 09/06/16 Blood Culture - Final, Complete NO GROWTH AFTER 5 DAYS 09/06/16 Urine Culture - Final, Complete 09/06/16 Urine Culture Result 1 (MIO) - Final, Complete 09/06/16 Antimicrobic Susceptibility - Final, Complete 09/06/16 Gram Stain - Final, Complete Review of Systems Constitutional: yes: no symptom reported Physical Exam General Appearance: no apparent distress Skin: warm Respiratory: bilateral CTA Heart: S1S2, no thrills Abdomen: soft, bowel sounds present Extremities: pulses present Neurology: alert Musculoskeletal: Osteoarthritis Assessment Assessment IMP HYPONATREMIA-NA OF 124 SHINGLES UTI MET ENCEPHALOPATHY HYPERKALEMIA PLAN CONT ISOTONIC SALINE 3% SALINE TODAY STOP K SUPPLEMENTS TSH OK WILL FOLLOW ARTI MOURA MD Sep 14, 2016 11:00
[2016-09-14] MEDS ORDERED: SODIUM CHLORIDE 3 % 250 ML IV SCH (11:30)
[2016-09-14 14:47] VITALS: BP 98/52
--- NOTE | 2016-09-14 14:53 | PDOC ---
PROGRESS NOTES Assessment Assessment Metabolic encephalopathy. Generalized weakness. Fever Sepsis. UTI Shingles Hyponatremia AFib HTN Obesity RECOMMENDATIONS/PLAN: Continue medical treatment. OT/PT Discussed with her family again at bedside. SUBJECTIVE: Sleepiness. OBJECTIVE: No focalized motor or sensory deficits. PAST MEDICAL AND SURGICAL HISTORY: Please see H&P Tonsillectomy Appendectomy Hip Replacement Hysterectomy Knee Replacement Uterine susp Bladder susp ALLERGY: Sulfa drugs. MEDICATIONS: Refer to MAR REVIEW OF SYSTEMS: Constitutional: No malnutrition, weight loss, cachexia. Head: No traumatic brain or head injury. Skin: No edema, or rash. Ear: No infection, tinnitus. Eyes: No vision loss, or diplopia. Nose: No bleeding or purulent discharges. Hearing: Hearing decrease. Neck: No injury. Breast: No history of cancer, masses, or discharges. Cardiac: HTN Pulmonary: No CPOD. GI: GERD Urinary/genital: UTI. Endocrine: Obesity Skeletomuscular: Generalized weakness. Neurological: see HP. Psychiatric: Denies drug use/abuse. Otherwise, not [id number] review of systems. PHYSICAL EXAMINATION: General appearance is in subacute distress. HEENT: Normocephalic and nontraumatic. Eyes, nose, ears, and throat are unremarkable. Hearing decrease. Neck is supple. No lymphadenopathy. No bruits are heard over the carotid artery. No Crepitus. Cardiovascular: S1, S2, seemed regular rate and rhythm. Pulmonary: Breathing sounds mildly decreased to auscultation bilaterally. Abdomen: Bowel sounds are positive. Abdomen is soft, nontender, and nondistended. Extremities: No rash, lesions, or edema. No restriction of range of motion NEUROLOGICAL EXAMINATION: Drowsiness. Oriented to place and person and partially to time. Knows her brothers and sisters at bedside. PERRL. EOMI. CN: no focal findings. Muscle tone: within normal. Muscle strength: 4+ UE, 4- LE DTR: 1-2 Plantar reflex: Flexor response bilaterally Gait: not examined in chair. Sensory exam: no abnormal findings. No cerebellar signs elicited. F-T-N test fine. Objective Objective Vital Signs Date Time Temp Pulse Resp B/P Pulse Ox O2 Delivery O2 Flow Rate FiO2 09/14/16 14:47 97.9 69 20 98/52 98 Nasal Cannula 3.0 97.9 Intake and Output 09/14/16 07:00 Intake Total 170 ml Output Total 800 ml Balance -630 ml Intake Oral 170 ml Output Urine Total 800 ml Vitals Signs Vitals VS - Last 72 Hours, by Label Date Time Temp Pulse Resp B/P Pulse Ox O2 Delivery O2 Flow Rate FiO2 09/14/16 14:47 97.9 69 20 98/52 98 Nasal Cannula 3.0 97.9 09/14/16 12:03 Nasal Cannula 4.0 09/14/16 10:27 97.5 62 21 154/72 95 Nasal Cannula 3.0 97.5 09/14/16 09:05 94 Nasal Cannula 4.0 09/14/16 08:45 66 140/69 09/14/16 08:45 66 140/69 09/14/16 08:45 66 140/69 09/14/16 07:52 97.4 66 19 140/69 98 Simple Mask 15.0 97.4 09/14/16 07:30 Nasal Cannula 3.0 09/14/16 03:00 98.0 62 111/51 100 NonRebreather Mask 98.0 09/13/16 23:00 97.9 70 140/71 100 NonRebreather Mask 97.9 09/13/16 20:16 68 123/64 09/13/16 20:15 68 123/64 09/13/16 20:05 Nasal Cannula 3.0 09/13/16 19:21 94 Nasal Cannula 4.0 09/13/16 19:00 96.2 67 126/56 90 Nasal Cannula 4.0 96.2 09/13/16 15:55 98.4 72 18 122/80 90 Nasal Cannula 2.0 98.4 09/13/16 15:09 Nasal Cannula 2.0 09/13/16 15:05 72 122/80 09/13/16 11:45 96.0 80 16 152/90 96.0 09/13/16 11:24 Nasal Cannula 2.0 09/13/16 08:59 82 152/79 09/13/16 08:59 82 152/79 09/13/16 08:59 82 152/79 09/13/16 08:15 Nasal Cannula 3.0 09/13/16 08:03 99 Nasal Cannula 2.0 09/13/16 07:00 97.5 82 22 152/79 92 97.5 Laboratory Laboratory Laboratory Tests Test 09/14/16 05:15 Prothrombin Time 32.7SEC (11.7-14.0) Prothromb Time International Ratio 3.4 (0.8-1.1) Sodium Level 124mmol/L (136-145) Potassium Level 5.4mmol/L (3.5-5.1) Chloride Level 91mmol/L (98-107) Carbon Dioxide Level 31mmol/L (21-32) Anion Gap 2 (6-14) Blood Urea Nitrogen 17mg/dL (7-20) Creatinine 0.8mg/dL (0.6-1.0) Estimated GFR (Cockcroft-Gault) 68.2 Glucose Level 99mg/dL (70-99) Calcium Level 8.3mg/dL (8.5-10.1) Thyroid Stimulating Hormone (TSH) 0.334uIU/mL (0.358-3.74) Microbiology 09/06/16 Blood Culture - Final, Complete NO GROWTH AFTER 5 DAYS 09/06/16 Urine Culture - Final, Complete 09/06/16 Urine Culture Result 1 (MIO) - Final, Complete 09/06/16 Antimicrobic Susceptibility - Final, Complete 09/06/16 Gram Stain - Final, Complete Medication Medications Current Medications Furosemide (Lasix) 40 mg 1X ONCE IVP Last administered on 09/14/16 08:44; Start 09/14/16 at 08:15; Stop 09/14/16 at 08:33; Status DC Polyethylene Glycol 34 gm 34 gm DAILY PO Last administered on 09/14/16 08:44; Start 09/14/16 at 09:00 Prednisone (Prednisone) 10 mg DAILY PO Last administered on 09/14/16 08:48; Start 09/14/16 at 09:00 Sodium Chloride (Hypertonic Saline) 250 ml @ 50 mls/hr Q5H IV Last administered on 09/14/16 11:52; Start 09/14/16 at 11:30; Stop 09/14/16 at 16:29 Comment Review of Relevant I have reviewed the following items kevin (where applicable) has been applied. RANDAL CHERRY MD Sep 14, 2016 14:53
[2016-09-14] MEDS: WARFARIN 2.5 MG TABLET. PO SCH (15:43)
[2016-09-14 19:07] VITALS: BP 111/63
[2016-09-14] MEDS: ACETAMINOPHEN 325 MG TABLET. PO PRN (20:07)
[2016-09-14 20:08] LABS: HEMATOCRIT 32.5 % (36.0-47.0); HEMOGLOBIN 10.9 g/dL (12.0-15.5); RED BLOOD COUNT 3.27 x10^6/uL (3.50-5.40); RED CELL DISTRIBUTION WIDTH 12.1 % (11.5-14.5); WHITE BLOOD COUNT 14.6 x10^3/uL (4.0-11.0)
[2016-09-14 20:17] LABS: CALCIUM 8.3 mg/dL (8.5-10.1); CREATININE 1.1 mg/dL (0.6-1.0); GFR 47.2
[2016-09-14 20:23] LABS: ALBUMIN 2.5 g/dL (3.4-5.0); ALBUMIN/GLOBULIN RATIO 0.7 (1.0-1.7); TOTAL BILIRUBIN 0.3 mg/dL (0.2-1.0); TOTAL PROTEIN 6.1 g/dL (6.4-8.2)
[2016-09-14 23:12] VITALS: BP 93/57
[2016-09-15 03:00] VITALS: BP 110/40
[2016-09-15 06:36] LABS: CALCIUM 8.2 mg/dL (8.5-10.1); CREATININE 1.1 mg/dL (0.6-1.0); GFR 47.2; POTASSIUM 4.5 mmol/L (3.5-5.1)
[2016-09-15 07:00] VITALS: BP 150/73
[2016-09-15] MEDS: ALBUTEROL SULFATE 2.5 MG/3 ML NEBU. NEB SCH ×4 (07:16→19:34)
[2016-09-15] MEDS: LEVOTHYROXINE 88 MCG TABLET PO SCH (07:43)
--- NOTE | 2016-09-15 08:57 | PDOC ---
Provider Note Provider Note vss but more dyspneic , better after lasix- some edema, somnolent but aware of hosp- Na+ up 130- will dc saline now, do brain mri re global confusion, dc katie but not a new med- follow Na+ still , 1 more dose lasix- inr up 3.4 so hold CHLOÉ Chavira MD Sep 15, 2016 08:57
[2016-09-15] MEDS ORDERED: FUROSEMIDE 40 MG/4 ML VIAL IVP ONE (09:00)
[2016-09-15] MEDS: FAMOTIDINE 20 MG TABLET. PO SCH (09:27)
[2016-09-15] MEDS: OMEGA-3 FATTY ACIDS/FISH OIL 1,000 MG CAPSULE. PO SCH (09:27)
[2016-09-15] MEDS: METOPROLOL TART IMMED RELEASE 50 MG TABLET PO SCH ×2 (09:27→22:07)
[2016-09-15] MEDS: POLYETHYLENE GLYCOL 3350 17 GM PACKET. PO SCH (09:27)
[2016-09-15] MEDS: CHOLECALCIFEROL (VITAMIN D3) 1,000 UNIT TABLET PO SCH (09:27)
[2016-09-15] MEDS: PREDNISONE 10 MG TABLET PO SCH (09:28)
[2016-09-15] MEDS: PROPAFENONE 150 MG TABLET. PO SCH ×3 (09:41→22:06)
[2016-09-15 11:00] VITALS: BP 135/69
--- NOTE | 2016-09-15 11:18 | PDOC ---
Renal-Progress Notes Subjective Notes Notes SOME SOB History of Present Illness Hx of present illness STABLE Vitals Vitals Vital Signs Date Time Temp Pulse Resp B/P Pulse Ox O2 Delivery O2 Flow Rate FiO2 09/15/16 09:41 88 150/73 09/15/16 08:00 Nasal Cannula 4.0 09/15/16 07:16 90 09/15/16 07:00 97.4 22 97.4 Weight Weight [ ] I.O. Intake and Output Intake and Output 09/15/16 07:00 Intake Total 803 ml Output Total 2500 ml Balance -1697 ml Intake Oral 380 ml IV Total 173 ml Other 250 ml Output Urine Total 2500 ml Labs Labs Laboratory Tests Test 09/14/16 20:00 09/15/16 06:00 White Blood Count 14.6x10^3/uL (4.0-11.0) Red Blood Count 3.27x10^6/uL (3.50-5.40) Hemoglobin 10.9g/dL (12.0-15.5) Hematocrit 32.5% (36.0-47.0) Mean Corpuscular Volume 100fL (79-100) Mean Corpuscular Hemoglobin 33pg (25-35) Mean Corpuscular Hemoglobin Concent 33g/dL (31-37) Red Cell Distribution Width 12.1% (11.5-14.5) Platelet Count 188x10^3/uL (140-400) Sodium Level 127mmol/L (136-145) 130mmol/L (136-145) Potassium Level 5.0mmol/L (3.5-5.1) 4.5mmol/L (3.5-5.1) Chloride Level 91mmol/L (98-107) 94mmol/L (98-107) Carbon Dioxide Level 31mmol/L (21-32) 32mmol/L (21-32) Anion Gap 5 (6-14) 4 (6-14) Blood Urea Nitrogen 21mg/dL (7-20) 22mg/dL (7-20) Creatinine 1.1mg/dL (0.6-1.0) 1.1mg/dL (0.6-1.0) Estimated GFR (Cockcroft-Gault) 47.2 47.2 BUN/Creatinine Ratio 19 (6-20) Glucose Level 150mg/dL (70-99) 121mg/dL (70-99) Calcium Level 8.3mg/dL (8.5-10.1) 8.2mg/dL (8.5-10.1) Total Bilirubin 0.3mg/dL (0.2-1.0) Aspartate Amino Transf (AST/SGOT) 83U/L (15-37) Alanine Aminotransferase (ALT/SGPT) 161U/L (14-59) Alkaline Phosphatase 85U/L (46-116) Total Protein 6.1g/dL (6.4-8.2) Albumin 2.5g/dL (3.4-5.0) Albumin/Globulin Ratio 0.7 (1.0-1.7) Micro Micro Microbiology 09/06/16 Blood Culture - Final, Complete NO GROWTH AFTER 5 DAYS 09/06/16 Urine Culture - Final, Complete 09/06/16 Urine Culture Result 1 (MIO) - Final, Complete 09/06/16 Antimicrobic Susceptibility - Final, Complete 09/06/16 Gram Stain - Final, Complete Review of Systems Constitutional: yes: no symptom reported Physical Exam General Appearance: no apparent distress Skin: warm Respiratory: bilateral CTA Heart: S1S2, no thrills Abdomen: soft, bowel sounds present Extremities: pulses present Neurology: alert Musculoskeletal: Osteoarthritis Assessment Assessment IMP HYPONATREMIA-NA OF 130 SHINGLES UTI MET ENCEPHALOPATHY HYPERKALEMIA-RESOLVED MILD HYPERVOLEMIA PLAN OFF ISOTONIC SALINE AGREE WITH LASIX TODAY WILL FOLLOW ARTI MOURA MD Sep 15, 2016 11:18
--- NOTE | 2016-09-15 12:43 | RAD ---
BRAIN W/O CONTRAST Indication: CONFUSION, LETHARGY, NO SX HX, NO PRIORS, FAST SCANS AQUIRED DUE TO PT MENTAL STATUS AND UNCONTROLLABLE COUGH Reason: confusion / Spl. Instructions: / History: TECHNIQUE: Axial diffusion weighted imaging was obtained. Additional sagittal T1, axial T1, axial FLAIR, and axial T2 weighted imaging of the brain was also performed. FINDINGS: There are scattered foci of FLAIR signal hyperintensity in the periventricular white matter which are nonspecific but most likely related to sequelae of chronic small vessel ischemic disease. No evidence of acute intracranial hemorrhage. No restricted diffusion to indicate acute infarct. No extra-axial fluid collections. No midline shift or mass effect. Ventricular size is appropriate. Midline structures have a normal anatomic configuration. Basal cisterns are patent. Arterial flow voids at the skull base and major dural venous sinuses are maintained. Globes and orbits are unremarkable. Paranasal sinuses and mastoid air cells are clear. IMPRESSION: No acute or recent infarct. No acute intracranial abnormality. Electronically signed by: Rehan Sanders (Sep 15, 2016 12:42:18)
--- NOTE | 2016-09-15 13:52 | PDOC ---
PROGRESS NOTES Assessment Assessment Metabolic encephalopathy. Generalized weakness. Fever Sepsis. UTI Shingles Hyponatremia AFib HTN Obesity No evidence of acute CVA this time. RECOMMENDATIONS/PLAN: Continue medical treatment. Lab: Acetyl Abs OT/PT Discussed with her family again at bedside. SUBJECTIVE: Sleepiness. OBJECTIVE: No focalized motor or sensory deficits. PAST MEDICAL AND SURGICAL HISTORY: Please see H&P Tonsillectomy Appendectomy Hip Replacement Hysterectomy Knee Replacement Uterine susp Bladder susp ALLERGY: Sulfa drugs. MEDICATIONS: Refer to MAR REVIEW OF SYSTEMS: Constitutional: No malnutrition, weight loss, cachexia. Head: No traumatic brain or head injury. Skin: No edema, or rash. Ear: No infection, tinnitus. Eyes: No vision loss, or diplopia. Nose: No bleeding or purulent discharges. Hearing: Hearing decrease. Neck: No injury. Breast: No history of cancer, masses, or discharges. Cardiac: HTN Pulmonary: No CPOD. GI: GERD Urinary/genital: UTI. Endocrine: Obesity Skeletomuscular: Generalized weakness. Neurological: see HP. Psychiatric: Denies drug use/abuse. Otherwise, not [id number] review of systems. PHYSICAL EXAMINATION: General appearance is in subacute distress. HEENT: Normocephalic and nontraumatic. Eyes, nose, ears, and throat are unremarkable. Hearing decrease. Neck is supple. No lymphadenopathy. No bruits are heard over the carotid artery. No Crepitus. Cardiovascular: S1, S2, seemed regular rate and rhythm. Pulmonary: Breathing sounds mildly decreased to auscultation bilaterally. Abdomen: Bowel sounds are positive. Abdomen is soft, nontender, and nondistended. Extremities: No rash, lesions, or edema. No restriction of range of motion NEUROLOGICAL EXAMINATION: Drowsiness. Oriented partially to place and person but not to time. Knows her brothers and sisters at bedside. PERRL. EOMI. CN: no focal findings. Muscle tone: within normal. Muscle strength: 4- DTR: 1-2 Plantar reflex: Flexor response bilaterally Gait: not examined in chair. Sensory exam: no abnormal findings. No cerebellar signs elicited. F-T-N test fine. Objective Objective Vital Signs Date Time Temp Pulse Resp B/P Pulse Ox O2 Delivery O2 Flow Rate FiO2 09/15/16 12:17 Nasal Cannula 4.0 09/15/16 11:00 97.9 74 24 135/69 97 97.9 Intake and Output 09/15/16 07:00 Intake Total 803 ml Output Total 2500 ml Balance -1697 ml Intake Oral 380 ml IV Total 173 ml Other 250 ml Output Urine Total 2500 ml Vitals Signs Vitals VS - Last 72 Hours, by Label Date Time Temp Pulse Resp B/P Pulse Ox O2 Delivery O2 Flow Rate FiO2 09/15/16 12:17 Nasal Cannula 4.0 09/15/16 11:00 97.9 74 24 135/69 97 Nasal Cannula 4.0 97.9 09/15/16 09:41 88 150/73 09/15/16 09:27 88 150/73 09/15/16 08:00 Nasal Cannula 4.0 09/15/16 07:16 90 Nasal Cannula 4.0 09/15/16 07:00 97.4 88 22 150/73 93 Nasal Cannula 4.0 97.4 09/15/16 03:00 98.1 69 24 110/40 90 Nasal Cannula 4.0 98.1 09/14/16 23:12 98.1 69 24 93/57 89 Nasal Cannula 4.0 98.1 09/14/16 20:09 55 111/63 09/14/16 20:08 55 111/63 09/14/16 20:00 Nasal Cannula 3.0 09/14/16 19:30 96 Nasal Cannula 3.0 09/14/16 19:07 98.1 55 22 111/63 87 Nasal Cannula 3.0 98.1 09/14/16 16:01 Nasal Cannula 3.0 09/14/16 14:59 69 98/52 09/14/16 14:47 97.9 69 20 98/52 98 Nasal Cannula 3.0 97.9 09/14/16 12:03 Nasal Cannula 4.0 09/14/16 10:27 97.5 62 21 154/72 95 Nasal Cannula 3.0 97.5 09/14/16 09:05 94 Nasal Cannula 4.0 09/14/16 08:45 66 140/69 09/14/16 08:45 66 140/69 09/14/16 08:45 66 140/69 09/14/16 07:52 97.4 66 19 140/69 98 Simple Mask 15.0 97.4 09/14/16 07:30 Nasal Cannula 3.0 Laboratory Laboratory Laboratory Tests Test 09/14/16 20:00 09/15/16 06:00 White Blood Count 14.6x10^3/uL (4.0-11.0) Red Blood Count 3.27x10^6/uL (3.50-5.40) Hemoglobin 10.9g/dL (12.0-15.5) Hematocrit 32.5% (36.0-47.0) Mean Corpuscular Volume 100fL (79-100) Mean Corpuscular Hemoglobin 33pg (25-35) Mean Corpuscular Hemoglobin Concent 33g/dL (31-37) Red Cell Distribution Width 12.1% (11.5-14.5) Platelet Count 188x10^3/uL (140-400) Sodium Level 127mmol/L (136-145) 130mmol/L (136-145) Potassium Level 5.0mmol/L (3.5-5.1) 4.5mmol/L (3.5-5.1) Chloride Level 91mmol/L (98-107) 94mmol/L (98-107) Carbon Dioxide Level 31mmol/L (21-32) 32mmol/L (21-32) Anion Gap 5 (6-14) 4 (6-14) Blood Urea Nitrogen 21mg/dL (7-20) 22mg/dL (7-20) Creatinine 1.1mg/dL (0.6-1.0) 1.1mg/dL (0.6-1.0) Estimated GFR (Cockcroft-Gault) 47.2 47.2 BUN/Creatinine Ratio 19 (6-20) Glucose Level 150mg/dL (70-99) 121mg/dL (70-99) Calcium Level 8.3mg/dL (8.5-10.1) 8.2mg/dL (8.5-10.1) Total Bilirubin 0.3mg/dL (0.2-1.0) Aspartate Amino Transf (AST/SGOT) 83U/L (15-37) Alanine Aminotransferase (ALT/SGPT) 161U/L (14-59) Alkaline Phosphatase 85U/L (46-116) Total Protein 6.1g/dL (6.4-8.2) Albumin 2.5g/dL (3.4-5.0) Albumin/Globulin Ratio 0.7 (1.0-1.7) Microbiology 09/06/16 Blood Culture - Final, Complete NO GROWTH AFTER 5 DAYS 09/06/16 Urine Culture - Final, Complete 09/06/16 Urine Culture Result 1 (MIO) - Final, Complete 09/06/16 Antimicrobic Susceptibility - Final, Complete 09/06/16 Gram Stain - Final, Complete Medication Medications Current Medications Furosemide (Lasix) 40 mg 1X ONCE IVP Last administered on 09/14/16 20:56; Start 09/14/16 at 20:45; Stop 09/14/16 at 20:46; Status DC Furosemide (Lasix) 40 mg 1X ONCE IVP Last administered on 09/15/16 09:27; Start 09/15/16 at 09:00; Stop 09/15/16 at 09:01; Status DC Comment Review of Relevant I have reviewed the following items kevin (where applicable) has been applied. RANDAL CHERRY MD Sep 15, 2016 13:52
[2016-09-15 14:21] LABS: INR 2.9 (0.8-1.1); PROTHROMBIN TIME PATIENT 28.7 SEC (11.7-14.0)
[2016-09-15 15:00] VITALS: BP 129/69
[2016-09-15 19:00] VITALS: BP 136/68
[2016-09-15] MEDS: ACETAMINOPHEN 325 MG TABLET. PO PRN (22:05)
[2016-09-15 23:00] VITALS: BP 148/92
[2016-09-16 03:00] VITALS: BP 106/72
[2016-09-16 03:55] LABS: CALCIUM 8.4 mg/dL (8.5-10.1); GFR 52.7; POTASSIUM 4.2 mmol/L (3.5-5.1)
[2016-09-16 04:58] LABS: INR 2.7 (0.8-1.1)
[2016-09-16 07:00] VITALS: BP 153/86
[2016-09-16] MEDS: LEVOTHYROXINE 88 MCG TABLET PO SCH (07:31)
[2016-09-16] MEDS: ALBUTEROL SULFATE 2.5 MG/3 ML NEBU. NEB SCH (07:41)
--- NOTE | 2016-09-16 08:03 | DISCH ---
DISCHARGE FINAL DIAGNOSIS Problems Medical Problems: (1) Generalized weakness Status: Acute (2) Hyponatremia Status: Acute (3) Sepsis Status: Acute (4) UTI (urinary tract infection) Status: Acute CONDITION ON DISCHARGE: Stable SNF STAY <30 DAYS: Yes POST DISCHARGE ORDERS ACTIVITY ORDERS: Activity as tolerated WEIGHT BEARING STATUS: No restrictions DIET AFTER DISCHARGE: Regular FOLLOW-UP PHYSICIAN FOLLOW-UP: CHLOÉ Perez MD Sep 16, 2016 08:03
--- NOTE | 2016-09-16 08:09 | PDOC ---
Provider Note Provider Note [id number] CHLOÉ YANG MD Sep 16, 2016 08:08
[2016-09-16] MEDS: OMEGA-3 FATTY ACIDS/FISH OIL 1,000 MG CAPSULE. PO SCH (09:01)
[2016-09-16] MEDS: PROPAFENONE 150 MG TABLET. PO SCH ×2 (09:02→15:35)
[2016-09-16] MEDS: CHOLECALCIFEROL (VITAMIN D3) 1,000 UNIT TABLET PO SCH (09:03)
[2016-09-16] MEDS: FAMOTIDINE 20 MG TABLET. PO SCH (09:03)
[2016-09-16] MEDS: PREDNISONE 10 MG TABLET PO SCH (09:03)
[2016-09-16] MEDS: METOPROLOL TART IMMED RELEASE 50 MG TABLET PO SCH (09:03)
[2016-09-16] MEDS: POLYETHYLENE GLYCOL 3350 17 GM PACKET. PO SCH (09:03)
--- NOTE | 2016-09-16 10:38 | PDOC ---
Renal-Progress Notes Subjective Notes Notes NONE History of Present Illness Hx of present illness NO CHANGE Vitals Vitals Vital Signs Date Time Temp Pulse Resp B/P Pulse Ox O2 Delivery O2 Flow Rate FiO2 09/16/16 09:03 97 153/86 09/16/16 08:00 Nasal Cannula 4.0 09/16/16 07:44 95 09/16/16 03:00 98.6 20 98.6 Weight Weight [ ] I.O. Intake and Output Intake and Output 09/16/16 07:00 Intake Total 1073 ml Output Total 2900 ml Balance -1827 ml Intake Oral 645 ml IV Total 428 ml Output Urine Total 2900 ml Labs Labs Laboratory Tests Test 09/15/16 14:00 09/16/16 03:20 Prothrombin Time 28.7SEC (11.7-14.0) 27.0SEC (11.7-14.0) Prothromb Time International Ratio 2.9 (0.8-1.1) 2.7 (0.8-1.1) Sodium Level 131mmol/L (136-145) Potassium Level 4.2mmol/L (3.5-5.1) Chloride Level 92mmol/L (98-107) Carbon Dioxide Level 36mmol/L (21-32) Anion Gap 3 (6-14) Blood Urea Nitrogen 21mg/dL (7-20) Creatinine 1.0mg/dL (0.6-1.0) Estimated GFR (Cockcroft-Gault) 52.7 Glucose Level 105mg/dL (70-99) Calcium Level 8.4mg/dL (8.5-10.1) Micro Micro Microbiology 09/06/16 Blood Culture - Final, Complete NO GROWTH AFTER 5 DAYS 09/06/16 Urine Culture - Final, Complete 09/06/16 Urine Culture Result 1 (MIO) - Final, Complete 09/06/16 Antimicrobic Susceptibility - Final, Complete 09/06/16 Gram Stain - Final, Complete Review of Systems Constitutional: yes: no symptom reported Physical Exam General Appearance: no apparent distress Skin: warm Respiratory: bilateral CTA Heart: S1S2, no thrills Abdomen: soft, bowel sounds present Extremities: pulses present Neurology: alert Musculoskeletal: Osteoarthritis Assessment Assessment IMP HYPONATREMIA-NA OF 131 SHINGLES UTI MET ENCEPHALOPATHY HYPERKALEMIA-RESOLVED PLAN WILL FOLLOW PRN AVOID THIAZIDES STABLE MOURA,ARTI S MD Sep 16, 2016 10:38
[2016-09-16 11:00] VITALS: BP 145/84
--- NOTE | 2016-09-16 14:28 | PDOC ---
PROGRESS NOTES Assessment Assessment Metabolic encephalopathy. Generalized weakness. Fever Sepsis. UTI Shingles Hyponatremia AFib HTN Obesity No evidence of acute CVA this time. RECOMMENDATIONS/PLAN: Continue medical treatment. FU lab: Acetyl Abs OT/PT Discussed with her family again at bedside. SUBJECTIVE: Awake. OBJECTIVE: No focalized motor or sensory deficits. PAST MEDICAL AND SURGICAL HISTORY: Please see H&P Tonsillectomy Appendectomy Hip Replacement Hysterectomy Knee Replacement Uterine susp Bladder susp ALLERGY: Sulfa drugs. MEDICATIONS: Refer to MAR REVIEW OF SYSTEMS: Constitutional: No malnutrition, weight loss, cachexia. Head: No traumatic brain or head injury. Skin: No edema, or rash. Ear: No infection, tinnitus. Eyes: No vision loss, or diplopia. Nose: No bleeding or purulent discharges. Hearing: Hearing decrease. Neck: No injury. Breast: No history of cancer, masses, or discharges. Cardiac: HTN Pulmonary: No CPOD. GI: GERD Urinary/genital: UTI. Endocrine: Obesity Skeletomuscular: Generalized weakness. Neurological: see HP. Psychiatric: Denies drug use/abuse. Otherwise, not [id number] review of systems. PHYSICAL EXAMINATION: General appearance is in subacute distress. HEENT: Normocephalic and nontraumatic. Eyes, nose, ears, and throat are unremarkable. Hearing decrease. Neck is supple. No lymphadenopathy. No bruits are heard over the carotid artery. No Crepitus. Cardiovascular: S1, S2, seemed regular rate and rhythm. Pulmonary: Breathing sounds mildly decreased to auscultation bilaterally. Abdomen: Bowel sounds are positive. Abdomen is soft, nontender, and nondistended. Extremities: No rash, lesions, or edema. No restriction of range of motion NEUROLOGICAL EXAMINATION: Awake. Oriented partially to place and person but not to time. Knows her brothers and sisters at bedside. PERRL. EOMI. CN: no focal findings. Muscle tone: within normal. Muscle strength: 4 DTR: 1-2 Plantar reflex: Flexor response bilaterally Gait: not examined in chair. Sensory exam: no abnormal findings. No cerebellar signs elicited. F-T-N test fine. Objective Objective Vital Signs Date Time Temp Pulse Resp B/P Pulse Ox O2 Delivery O2 Flow Rate FiO2 09/16/16 11:00 97.9 94 16 145/84 93 Room Air 97.9 09/16/16 08:00 4.0 Intake and Output 1/27/17 07:00 Intake Total 1073 ml Output Total 2900 ml Balance -1827 ml Intake Oral 645 ml IV Total 428 ml Output Urine Total 2900 ml Vitals Signs Vitals VS - Last 72 Hours, by Label Date Time Temp Pulse Resp B/P Pulse Ox O2 Delivery O2 Flow Rate FiO2 09/16/16 11:00 97.9 94 16 145/84 93 Room Air 97.9 09/16/16 09:03 97 153/86 09/16/16 09:02 97 153/86 09/16/16 08:00 Nasal Cannula 4.0 09/16/16 07:44 95 Nasal Cannula 4.0 09/16/16 07:00 97.9 97 20 153/86 99 Room Air 97.9 09/16/16 03:00 98.6 89 20 106/72 99 Nasal Cannula 98.6 09/15/16 23:00 98.0 101 20 148/92 98 Nasal Cannula 98.0 09/15/16 22:07 101 176/98 09/15/16 22:06 71 176/98 09/15/16 20:00 Nasal Cannula 4.0 09/15/16 19:35 100 Nasal Cannula 4.0 09/15/16 19:00 98.2 71 20 136/68 100 Nasal Cannula 98.2 09/15/16 15:19 Nasal Cannula 4.0 09/15/16 15:00 97.3 93 24 129/69 98 Nasal Cannula 4.0 97.3 09/15/16 14:11 75 09/15/16 12:17 Nasal Cannula 4.0 09/15/16 11:00 97.9 74 24 135/69 97 Nasal Cannula 4.0 97.9 09/15/16 09:41 88 150/73 09/15/16 09:27 88 150/73 09/15/16 08:00 Nasal Cannula 4.0 09/15/16 07:16 90 Nasal Cannula 4.0 09/15/16 07:00 97.4 88 22 150/73 93 Nasal Cannula 4.0 97.4 Laboratory Laboratory Laboratory Tests Test 09/16/16 03:20 Prothrombin Time 27.0SEC (11.7-14.0) Prothromb Time International Ratio 2.7 (0.8-1.1) Sodium Level 131mmol/L (136-145) Potassium Level 4.2mmol/L (3.5-5.1) Chloride Level 92mmol/L (98-107) Carbon Dioxide Level 36mmol/L (21-32) Anion Gap 3 (6-14) Blood Urea Nitrogen 21mg/dL (7-20) Creatinine 1.0mg/dL (0.6-1.0) Estimated GFR (Cockcroft-Gault) 52.7 Glucose Level 105mg/dL (70-99) Calcium Level 8.4mg/dL (8.5-10.1) Microbiology 09/06/16 Blood Culture - Final, Complete NO GROWTH AFTER 5 DAYS 09/06/16 Urine Culture - Final, Complete 09/06/16 Urine Culture Result 1 (MIO) - Final, Complete 09/06/16 Antimicrobic Susceptibility - Final, Complete 09/06/16 Gram Stain - Final, Complete Medication Medications Current Medications Warfarin Sodium (Coumadin) 2 mg 1X ONCE PO ; Start 09/16/16 at 16:00; Stop at 16:01 Comment Review of Relevant I have reviewed the following items kevin (where applicable) has been applied. RANDAL CHERRY MD Sep 16, 2016 14:28
[2016-09-16 15:00] VITALS: BP 145/85
[2016-09-16 15:35] VITALS: BP 145/84
[2016-09-16] MEDS ORDERED: WARFARIN 2 MG TABLET. PO ONE (16:00)
--- NOTE | 2016-09-16 18:03 | DS ---
DATE OF DISCHARGE: 09/16/2016 HOSPITAL SUMMARY: An 86-year-old white female came in with pain in her right gluteal area and fever, weakness and fatigue and signs of urinary tract infection. The urine culture grew out Klebsiella sensitive to most antibiotics tested. CBC was normal though her INR on admission was 1.6 went up 2.9 with treatment. Sodium was normal at 135 on admission, but dropped rapidly in the next 3 days down to brittni of 119. With treatment, it gradually inclined up to 131 prior to dismissal with normal renal function. TSH was normal. Urinalysis showed infection, influenza A and B were negative. CT scan of the head and brain MRI of the head and chest x-ray were all clear. She was treated with valacyclovir for shingles in the right gluteal area and with Rocephin for urinary tract infection and the hyponatremia developed with high urine sodium consistent with SIADH. Etiology for this was unclear and was fairly persistent in that required IV saline and ultimately three doses of hypotonic saline seemed to improve. Her mental status is slowly recovering even or sodium levels back to oral normal. No focal findings at this time. She is off the antibiotics and will be evaluated for rehabilitation and transferred later today. FINAL DIAGNOSES: 1. Acute pyelonephritis with systemic inflammatory response syndrome. 2. Herpes zoster in the S1 dermatome. 3. 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 4. Chronic atrial fibrillation. OPERATIONS, PROCEDURES, AND COMPLICATIONS: None. CONSULTATIONS: Dr. Fagan. DISPOSITION: Home medications. We will continue with low dose warfarin and use only metoprolol for rate control. She is off gabapentin as possible sedating drug though she was not sedated on admission. She maintained on low dose prednisone and activity as tolerated. Prognosis is guarded and the family is aware of. CHLOÉ YANG MD DR: ROSSANA/nirmala JOB#: [id number] / [id number]
== END 2016-09-16 17:00 | DRG 871 ==
LOC: ER 11:40 → 5 NORTH 13:43
PROVIDERS: ADMIT Family Medicine; ATTEND Family Medicine
PROC: 02HV33Z Insertion of Infusion Device into Superior Vena Cava, Percutaneous Approach (ICD-10-PCS; principal; 2016-09-12)
DX: A41.9 Sepsis, unspecified organism (principal); G93.41 Metabolic encephalopathy; E22.2 Syndrome of inappropriate secretion of antidiuretic hormone; N10 Acute pyelonephritis; E03.9 Hypothyroidism, unspecified; E66.9 Obesity, unspecified; E87.5 Hyperkalemia; I12.9 Hypertensive chronic kidney disease with stage 1 through stage 4 chronic kidney disease, or unspecified chronic kidney disease; N18.3 Chronic kidney disease, stage 3 (moderate); I48.2 Chronic atrial fibrillation; K21.9 Gastro-esophageal reflux disease without esophagitis; M06.9 Rheumatoid arthritis, unspecified; Z96.649 Presence of unspecified artificial hip joint; E87.70 Fluid overload, unspecified; Z96.659 Presence of unspecified artificial knee joint; B02.9 Zoster without complications; M19.90 Unspecified osteoarthritis, unspecified site; M35.3 Polymyalgia rheumatica; Z79.01 Long term (current) use of anticoagulants; Z79.52 Long term (current) use of systemic steroids; Z90.49 Acquired absence of other specified parts of digestive tract; Z90.710 Acquired absence of both cervix and uterus; Z98.890 Other specified postprocedural states; Z88.2 Allergy status to sulfonamides; Z68.29 Body mass index [BMI] 29.0-29.9, adult
CPT/HCPCS: 36415; 70450; 70551; 71010; 80048; 80053; 81001; 83605; 84300; 84443; 84484; 85027; 85610; 87040; 87071; 87075; 87086; 87186; 87205; 87804; 93005; 94250; 94640; 94760; 96365; 96366; 96368; J0690; J0696; J1940; J2270; J2405; J3370; J3490; J7030; J7040; J7042; J7050; J7512; Q0163; 92610; 97530; 97535; 99285-25

== ENCOUNTER 2016-09-22 16:02 | Inpatient (IN) | payer MEDICARE ==
[~2016-09-22] VITALS: Ht 165.1 cm; Wt 71.2 kg
[2016-09-22 16:53] LABS: BASO % 0 % (0-3); EOS % 0 % (0-3); HEMOGLOBIN 12.6 g/dL (12.0-15.5); LYMPH # 1.3 x10^3/uL (1.0-4.8); LYMPH % 8 % (24-48); MEAN CORPUSCULAR HEMOGLOBIN 34 pg (25-35); MEAN CORPUSCULAR HGB CONC 34 g/dL (31-37); MEAN CORPUSCULAR VOLUME 98 fL (79-100); MONO % 9 % (0-9); NEUT % 83 % (31-73); PLATELET COUNT 161 x10^3/uL (140-400); RED BLOOD COUNT 3.76 x10^6/uL (3.50-5.40); RED CELL DISTRIBUTION WIDTH 12.2 % (11.5-14.5); WHITE BLOOD COUNT 17.3 x10^3/uL (4.0-11.0)
[2016-09-22 16:56] LABS: BILIRUBIN,URINE NEGATIVE (NEG); GLUCOSE,URINE NEGATIVE (NEG); NITRITE,URINE NEGATIVE (NEG); PH,URINE 7.5; PROTEIN,URINE 100 mg/dL (NEG-TRACE); UROBILINOGEN,URINE 0.2 mg/dL (0.2 mg/dL)
[2016-09-22 17:07] LABS: BACTERIA,URINE 0 /HPF (0-FEW); RBC,URINE 0 /HPF (0-2); YEAST,URINE PRESENT /HPF
[2016-09-22 17:12] LABS: INR 1.9 (0.8-1.1); PROTHROMBIN TIME PATIENT 20.6 SEC (11.7-14.0)
[2016-09-22 17:29] LABS: ALBUMIN 2.6 g/dL (3.4-5.0); CALCIUM 8.5 mg/dL (8.5-10.1); CREATININE 0.8 mg/dL (0.6-1.0); DIRECT BILIRUBIN 0.3 mg/dL (0.0-0.2); GFR 68.2; TOTAL BILIRUBIN 0.8 mg/dL (0.2-1.0); TOTAL PROTEIN 6.2 g/dL (6.4-8.2)
[2016-09-22] MEDS ORDERED: IV NORMAL SALINE 1000ML BAG 1,000 ML IV SCH (17:55)
[2016-09-22] MEDS ORDERED: ONDANSETRON PF 4 MG/2 ML VIAL. IV PRN (18:00)
[2016-09-22] MEDS ORDERED: MORPHINE SULFATE 2 MG/ML DISP.SYRIN. IV PRN (18:00)
--- NOTE | 2016-09-22 18:12 | PHYS DOC ---
Past Medical History Past Medical History: A-Fib, Arthritis, GERD, Hypertension, Hypothyroid, Renal Failure, UTI, Other Additional Past Medical Histor: polymyalgia rheumatica,HYPOKAL, RA, Past Surgical History: Appendectomy, Hip Replacement, Hysterectomy, Knee Replacement, Tonsillectomy, Other Additional Past Surgical Histo: l shoulder, uterine susp, bladder susp, vericose vein, BX KNEE, R HIP Alcohol Use: None Drug Use: None Adult General Chief Complaint Chief Complaint: ABNORMAL LABS HPI HPI 86-year-old female presenting to the emergency department after being transferred here for having a low sodium. Patient reports generalized fatigue without chest pain or abdominal pain. She was recently admitted approximately 2 weeks ago for which she was treated for her hyponatremia and subsequently discharged. ROS neg for shortness of breath nausea vomiting fevers or chills. All other review of systems is negative unless otherwise noted in history of present illness. Review of Systems Review of Systems See above. Current Medications Current Medications Current Medications Medications (Trade) Dose Ordered Sig/Luz Marina Start Time Stop Time Status Last Admin Dose Admin Morphine Sulfate 2 mg 2 mg PRN Q2HR PRN 09/22/16 18:00 09/23/16 17:59 UNV Ondansetron HCl (Zofran) 4 mg PRN Q8HRS PRN 09/22/16 18:00 09/23/16 17:59 UNV Sodium Chloride (Iv Sodium Chloride 0.9% 1000ml Bag) 1,000 ml @ 75 mls/hr [id number] 09/22/16 17:55 09/23/16 17:54 UNV Allergies Allergies Allergies Coded Allergies Type Severity Reaction Last Updated Verified Sulfa (Sulfonamide Antibiotics) Allergy Intermediate Rash 04/21/16 Yes Physical Exam Physical Exam Constitutional: Well developed, well nourished, no acute distress, non-toxic appearance. HENT: Normocephalic, atraumatic, bilateral external ears normal, oropharynx moist, no oral exudates, nose normal. [] Eyes: PERRLA, EOMI, conjunctiva normal, no discharge. Neck: Normal range of motion, no tenderness, supple, no stridor. [] Cardiovascular:Heart rate regular rhythm, no murmur Lungs & Thorax: Bilateral breath sounds clear to auscultation [] Abdomen: Bowel sounds normal, soft, no tenderness, no masses, no pulsatile masses. Skin: Warm, dry, no erythema, no rash. [] Back: No tenderness, no CVA tenderness. [] Extremities: No tenderness, no cyanosis, no clubbing, ROM intact, no edema. Neurologic: Alert and oriented X 3, normal motor function, normal sensory function, no focal deficits noted. [] Psychologic: Affect normal, judgement normal, mood normal. Current Patient Data Vital Signs Vital Signs Date Time Temp Pulse Resp B/P Pulse Ox O2 Delivery O2 Flow Rate FiO2 09/22/16 16:02 98.2 88 16 132/73 96 Room Air 98.2 Lab Values Laboratory Tests Test 09/22/16 16:45 White Blood Count 17.3x10^3/uL (4.0-11.0) H Red Blood Count 3.76x10^6/uL (3.50-5.40) Hemoglobin 12.6g/dL (12.0-15.5) Hematocrit 37.0% (36.0-47.0) Mean Corpuscular Volume 98fL (79-100) Mean Corpuscular Hemoglobin 34pg (25-35) Mean Corpuscular Hemoglobin Concent 34g/dL (31-37) Red Cell Distribution Width 12.2% (11.5-14.5) Platelet Count 161x10^3/uL (140-400) Neutrophils (%) (Auto) 83% (31-73) H Lymphocytes (%) (Auto) 8% (24-48) L Monocytes (%) (Auto) 9% (0-9) Eosinophils (%) (Auto) 0% (0-3) Basophils (%) (Auto) 0% (0-3) Neutrophils # (Auto) 14.3x10^3uL (1.8-7.7) H Lymphocytes # (Auto) 1.3x10^3/uL (1.0-4.8) Monocytes # (Auto) 1.6x10^3/uL (0.0-1.1) H Eosinophils # (Auto) 0.1x10^3/uL (0.0-0.7) Basophils # (Auto) 0.0x10^3/uL (0.0-0.2) Prothrombin Time 20.6SEC (11.7-14.0) H Prothrombin Time INR 1.9 (0.8-1.1) H PTT 42SEC (24-38) H Urine Collection Type Unknown Urine Color Yellow Urine Clarity Clear Urine pH 7.5 Urine Specific Jerome 1.015 Urine Protein 100mg/dL (NEG-TRACE) Urine Glucose (UA) Negativemg/dL (NEG) Urine Ketones (Stick) Negativemg/dL (NEG) Urine Blood Small (NEG) Urine Nitrite Negative (NEG) Urine Bilirubin Negative (NEG) Urine Urobilinogen Dipstick 0.2mg/dL (0.2 mg/dL) Urine Leukocyte Esterase Negative (NEG) Urine RBC 0/HPF (0-2) Urine WBC 5-10/HPF (0-4) Urine Bacteria 0/HPF (0-FEW) Urine Mucus Mod/LPF Urine Yeast Present/HPF Sodium Level 117mmol/L (136-145) *L Potassium Level 5.0mmol/L (3.5-5.1) Chloride Level 79mmol/L (98-107) L Carbon Dioxide Level 37mmol/L (21-32) H Anion Gap 1 (6-14) L Blood Urea Nitrogen 17mg/dL (7-20) Creatinine 0.8mg/dL (0.6-1.0) Estimated GFR (Cockcroft-Gault) 68.2 Glucose Level 95mg/dL (70-99) Lactic Acid Level 1.2mmol/L (0.4-2.0) Calcium Level 8.5mg/dL (8.5-10.1) Total Bilirubin 0.8mg/dL (0.2-1.0) Direct Bilirubin 0.3mg/dL (0.0-0.2) H Aspartate Amino Transferase (AST) 27U/L (15-37) Alanine Aminotransferase (ALT) 63U/L (14-59) H Alkaline Phosphatase 61U/L (46-116) Troponin I Quantitative < 0.017ng/mL (0.000-0.055) Total Protein 6.2g/dL (6.4-8.2) L Albumin 2.6g/dL (3.4-5.0) L Lipase 109U/L (73-393) Laboratory Tests 09/22/16 16:45 Laboratory Tests 09/22/16 16:45 EKG EKG [] Radiology/Procedures Radiology/Procedures [] Course & Med Decision Making Course & Med Decision Making Pertinent Labs and Imaging studies reviewed. (See chart for details) [] 86-year-old female presenting to the emergency department today with hyponatremia. Vital signs were unremarkable. Patient was alert and oriented 4. Blood work sent which confirmed hyponatremia. I discussed the case with the patient's primary care physician and subsequently admitted the patient for further evaluation workup and care. Patient had a leukocytosis however chest x- ray did not show any obvious infiltrate or pneumothorax. There was a small effusion present. CT of the chest ordered. Otherwise INR therapeutic. Urinalysis not suggestive of infection. Positive for yeast. Diflucan given. Chemistry panel largely unremarkable. Dragon Disclaimer Dragon Disclaimer This electronic medical record was generated, in whole or in part, using a voice recognition dictation system. Departure Departure Impression: Primary Impression: Hyponatremia Additional Impressions: Generalized weakness Leukocytosis Disposition: ADMITTED INPATIENT Admitting Physician: Serafin Krishna Condition: STABLE Referrals: SERAFIN KRISHNA MD (PCP) Problem Qualifiers HELEN JOSEPH MD Sep 22, 2016 18:12
[2016-09-22] MEDS ORDERED: FLUCONAZOLE 100 MG TABLET. PO ONE (18:15)
--- NOTE | 2016-09-22 18:33 | RAD ---
CT chest without contrast Indication: Cough and effusion. Axial imaging through the chest was performed without contrast. Comparison is made with prior prior chest from 08/26/2014. No axillary lymphadenopathy is seen. The soledad and mediastinum is limited in evaluation due to absence of intravenous contrast. No pericardial fluid is identified. There are moderate bilateral pleural effusions which appear to layer dependently. No loculated effusion is detected. Patchy infiltrate right upper lobe is seen. There is some linear parenchymal density in the left upper lobe suggestive of atelectasis. There is linear atelectasis in the lingula. There is dependent atelectasis in both lower lobes. Impression: Moderate sized bilateral pleural effusions which layer dependently. No loculated effusion is seen. There are areas of bilateral infiltrate or atelectasis. Electronically signed by: Sven Scott MD (Sep 22, 2016 18:31:56)
[2016-09-22 19:00] VITALS: BP 132/76
[2016-09-22] MEDS ORDERED: FAMO20TA5 PO (20:47)
[2016-09-22] MEDS ORDERED: GUAI-66 PO (20:47)
[2016-09-22] MEDS ORDERED: FURO-68 PO (20:47)
[2016-09-22] MEDS ORDERED: SPIR25TA PO (20:47)
[2016-09-22] MEDS ORDERED: NYST1POW2 PO (20:47)
[2016-09-22] MEDS ORDERED: GUAI600T38 PO (20:47)
[2016-09-22] MEDS ORDERED: IBUP-1060 PO (20:47)
[2016-09-22] MEDS ORDERED: ZINC30OI TP (20:47)
[2016-09-22] MEDS ORDERED: POLY255P PO (20:47)
[2016-09-22] MEDS ORDERED: ACID1TAB4 PO (20:47)
[2016-09-22] MEDS ORDERED: NYST1000 PO (20:47)
[2016-09-22] MEDS ORDERED: IPRA3AMP NEB (20:47)
[2016-09-22] MEDS ORDERED: LEVO500T38 PO (20:47)
[2016-09-22] MEDS ORDERED: DEME300T PO (20:47)
[2016-09-22] MEDS ORDERED: IBUPROFEN 800 MG TABLET. PO PRN (21:15)
[2016-09-22] MEDS: LEVOFLOXACIN 500 MG TABLET PO SCH (22:10)
[2016-09-22] MEDS: METOPROLOL TART IMMED RELEASE 50 MG TABLET PO SCH (22:11)
[2016-09-22] MEDS: LACTOBACILLUS ACIDOPH & BULGAR 1 TABLET. PO SCH (22:11)
[2016-09-22] MEDS: GUAIFENESIN ER 600 MG TABLET.ER PO SCH (22:11)
[2016-09-22] MEDS: NYSTATIN TOPICAL POWDER 15GM BOTTLE. TP SCH (22:12)
[2016-09-22] MEDS: DEMECLOCYCLINE HCL 150 MG TABLET PO SCH (22:12)
[2016-09-22] MEDS: ZINC OXIDE 20% TOPICAL OINTMENT 28GM TUBE. TP SCH (22:32)
[2016-09-22] MEDS: NYSTATIN 100,000 UNITS/ML 5 ML ORAL.SUSP. PO SCH (22:32)
[2016-09-22 23:00] VITALS: BP 138/85
[2016-09-23 03:05] VITALS: BP 125/63
[2016-09-23 05:26] LABS: BASO # 0.1 x10^3/uL (0.0-0.2); BASO % 1 % (0-3); EOS % 1 % (0-3); HEMATOCRIT 34.4 % (36.0-47.0); HEMOGLOBIN 11.7 g/dL (12.0-15.5); LYMPH # 2.1 x10^3/uL (1.0-4.8); LYMPH % 13 % (24-48); MEAN CORPUSCULAR HEMOGLOBIN 33 pg (25-35); MEAN CORPUSCULAR HGB CONC 34 g/dL (31-37); MEAN CORPUSCULAR VOLUME 96 fL (79-100); MONO % 11 % (0-9); NEUT % 75 % (31-73); PLATELET COUNT 129 x10^3/uL (140-400); RED BLOOD COUNT 3.56 x10^6/uL (3.50-5.40); RED CELL DISTRIBUTION WIDTH 12.3 % (11.5-14.5); WHITE BLOOD COUNT 16.8 x10^3/uL (4.0-11.0)
[2016-09-23 05:55] LABS: CALCIUM 8.1 mg/dL (8.5-10.1); CREATININE 0.7 mg/dL (0.6-1.0); GFR 79.5
--- NOTE | 2016-09-23 06:17 | EKG ---
[facility] [address] [place] [id number] Test Date: 2016-09-22 Test Time: 16:22:30 Pat Name: BREANNA KIDD Department: Room: Gender: F Director [employer]: : [id number] Requested By: HELEN JOSEPH Order Number: [id number] Reading MD: Measurements Intervals [place] Rate: 85 P: SC: QRS: 49 QRSD: 98 T: 80 QT: 388 QTc: 467 Interpretive Statements IRREGULAR RHYTHM, NO P-WAVE FOUND NO SPECIFIC ECG ABNORMALITIES RI6.01 No previous ECG available for comparison
[2016-09-23] MEDS: LEVOTHYROXINE 88 MCG TABLET PO SCH (06:29)
[2016-09-23 07:21] VITALS: BP 119/64
--- NOTE | 2016-09-23 07:23 | RAD ---
Portable chest, 09/22/2016: History: Fatigue, shortness of breath Comparison is made to a study from 09/12/2016. A right PICC remains in place extending to the level of the atriocaval junction. The heart is enlarged. There is calcific plaquing of the aorta. There are mild streaky bilateral parenchymal opacities. The left hemidiaphragm is now obscured compatible with mild left basilar atelectasis/infiltrate. Blunting of left lateral costophrenic angle is compatible with a small amount of pleural fluid. IMPRESSION: 1. The right PICC is in satisfactory position. 2. Mild cardiomegaly and aortic atherosclerosis. 3. Mild bilateral streaky atelectasis and/or scarring. 4. Worsening mild left basilar opacity suggesting mild infiltrate and a small pleural effusion.
[2016-09-23] MEDS: IPRATRPIUM/ALBUTEROL 0.5/2.5MG 3 ML NEBU. NEB SCH ×4 (07:51→20:00)
[2016-09-23] MEDS: NYSTATIN 100,000 UNITS/ML 5 ML ORAL.SUSP. PO SCH ×4 (08:25→21:54)
[2016-09-23] MEDS: GUAIFENESIN ER 600 MG TABLET.ER PO SCH ×2 (08:25→21:44)
[2016-09-23] MEDS: LACTOBACILLUS ACIDOPH & BULGAR 1 TABLET. PO SCH ×2 (08:25→21:27)
[2016-09-23] MEDS: FAMOTIDINE 20 MG TABLET. PO SCH (08:26)
[2016-09-23] MEDS: METOPROLOL TART IMMED RELEASE 50 MG TABLET PO SCH ×2 (08:26→21:00)
[2016-09-23] MEDS: SPIRONOLACTONE 25 MG TABLET PO SCH (08:26)
[2016-09-23] MEDS: POTASSIUM CHLORIDE 20 MEQ TABLET.ER. PO SCH (08:27)
[2016-09-23] MEDS: PREDNISONE 1 MG TABLET PO SCH (08:28)
[2016-09-23] MEDS: POLYETHYLENE GLYCOL 3350 17 GM PACKET. PO SCH (08:28)
[2016-09-23] MEDS: CHOLECALCIFEROL (VITAMIN D3) 1,000 UNIT TABLET PO SCH (08:28)
[2016-09-23] MEDS: DEMECLOCYCLINE HCL 150 MG TABLET PO SCH (08:29)
[2016-09-23] MEDS: ZINC OXIDE 20% TOPICAL OINTMENT 28GM TUBE. TP SCH ×2 (09:00→21:56)
[2016-09-23] MEDS ORDERED: FUROSEMIDE 40 MG TABLET PO SCH (09:00)
[2016-09-23] MEDS: NYSTATIN TOPICAL POWDER 15GM BOTTLE. TP SCH ×2 (09:00→21:56)
[2016-09-23] MEDS: PROPAFENONE 150 MG TABLET. PO SCH ×3 (09:31→21:41)
[2016-09-23] MEDS: OMEGA-3 FATTY ACIDS/FISH OIL 1,000 MG CAPSULE. PO SCH (09:31)
[2016-09-23] MEDS: PREDNISONE 5 MG TABLET PO SCH (09:32)
[2016-09-23 10:48] VITALS: BP 104/69
--- NOTE | 2016-09-23 12:20 | PDOC2 ---
CONSULT Date of Consult Date of Consult DATE: 09/23/16 TIME: 11:56 Reason for Consult Reason for Consult: hyponatremia Referring Physician Referring Physician: Dr Milligan Identification/Chief Complaint Chief Complaint Hyponatremia - sent from Rehab Problems: Source Source: Caregiver, Patient History of Present Illness Reason for Visit: as dictated Past Medical History Cardiovascular: AFIB, HTN Pulmonary: Other CENTRAL NERVOUS SYSTEM: Other GI: GERD Heme/Onc: No pertinent hx Hepatobiliary: No pertinent hx Psych: No pertinent hx Musculoskeletal: Osteoarthritis Rheumatologic: Other Infectious disease: No pertinent hx Endocrine: Hypothyroidism Past Surgical History Past Surgical History: Appendectomy, Total knee replacement, Tonsillectomy, Hysterectomy, Other Family History Family History: Family History Unknown Social History ALCOHOL: none Drugs: None Lives: with Family Domestic Violence: Neg Current Problem List Problem List Problems Medical Problems: (1) Generalized weakness Status: Acute (2) Hyponatremia Status: Acute (3) Leukocytosis Status: Acute Current Medications Current Medications Current Medications Ondansetron HCl (Zofran) 4 mg PRN Q8HRS PRN IV NAUSEA/VOMITING; Start 09/22/16 at 18:00; Stop 09/23/16 at 17:59 Morphine Sulfate 2 mg 2 mg PRN Q2HR PRN IV PAIN; Start 09/22/16 at 18:00; Stop 09/23/16 at 17:59 Sodium Chloride (Iv Sodium Chloride 0.9% 1000ml Bag) 1,000 ml @ 75 mls/hr [id number] IV Last administered on 09/22/16 19:20; Start 09/22/16 at 17:55; Stop at 17:54 Fluconazole (Diflucan) 150 mg 1X ONCE PO Last administered on 09/22/16 18:26; Start 09/22/16 at 18:15; Stop 09/22/16 at 18:17; Status DC Acetaminophen (Tylenol) 650 mg PRN Q4HRS PRN PO MILD PAIN; Start 09/22/16 at 21: 15 Famotidine (Pepcid) 20 mg DAILY PO Last administered on 09/23/16 08:26; Start 09/23/16 at 09:00 Furosemide (Lasix) 40 mg DAILY PO Last administered on 09/23/16 08:26; Start at 09:00 Guaifenesin (Robitussin) 300 mg PRN Q4HRS PRN PO COUGH; Start 09/22/16 at 21:15 Guaifenesin (Mucinex) 600 mg BID PO Last administered on 09/23/16 08:25; Start 09/22/16 at 22:00 Ibuprofen (Motrin) 800 mg PRN Q6HRS PRN PO INFLAMMATION; Start 09/22/16 at 21:15 Albuterol/ Ipratropium (Duoneb) 3 ml RTQID NEB Last administered on 09/23/16 07 :51; Start 09/23/16 at 08:00 Levofloxacin (Levaquin) 500 mg HS PO Last administered on 09/22/16 22:10; Start 09/22/16 at 22:00 Levothyroxine Sodium (Synthroid) 88 mcg DAILY07 PO Last administered on 06:29; Start 09/23/16 at 07:00 Metoprolol Tartrate (Lopressor) 50 mg BID PO Last administered on 09/23/16 08: 26; Start 09/22/16 at 22:00 Nystatin 5 ml QID PO Last administered on 09/23/16 11:33; Start 09/22/16 at 23: 00 Fish Oil (Fish Oil) 1,000 mg DAILY PO Last administered on 09/23/16 09:31; Start 09/23/16 at 09:00 Polyethylene Glycol (miraLAX PACKET) 34 gm DAILY PO Last administered on 08:28; Start 09/23/16 at 09:00 Potassium Chloride (Klor-Con) 20 meq DAILY PO Last administered on 09/23/16 08: 27; Start 09/23/16 at 09:00 Prednisone (Prednisone) 5 mg DAILY PO Last administered on 09/23/16 09:32; Start 09/23/16 at 09:00 Propafenone HCl (Rythmol) 225 mg [id number] PO Last administered on 09/23/16 09:31 ; Start 09/23/16 at 09:00 Spironolactone (Aldactone) 25 mg DAILY PO Last administered on 09/23/16 08:26; Start 09/23/16 at 09:00 Warfarin Sodium (Coumadin) 2.5 mg DAILY16 PO ; Start 09/23/16 at 16:00 Lactobacillus Acidophilus (Bacid, Blanche-Bid) 2 tab BID PO Last administered on 08:25; Start 09/22/16 at 22:30 Vitamin D (Vitamin D3) 1,000 unit DAILY PO Last administered on 09/23/16 08:28 ; Start 09/23/16 at 09:00 Demeclocycline HCl (Declomycin) 300 mg Q12HR PO Last administered on 09/23/16 08:29; Start 09/22/16 at 22:30 Nystatin (Nystop) 1 bibiana BID TP Last administered on 09/23/16 09:00; Start at 22:30 Zinc Oxide 1 bibiana BID TP Last administered on 09/23/16 09:00; Start 09/22/16 at 23:00 Warfarin Sodium (Coumadin Per Physician) 1 each PRN DAILY PRN MC SEE COMMENTS Last administered on 09/22/16 22:11; Start 09/22/16 at 21:45 Prednisone (Prednisone) 3 mg DAILY PO Last administered on 09/23/16 08:28; Start 09/23/16 at 09:00 Active Scripts Active Propafenone Hcl 150 Mg Tablet 225 Mg PO [id number] 30 Days Reported Zinc Oxide 30 Gm Oint...g. 30 Gm TP BID Polyethylene Glycol 3350 255 Gm Powder 34 Gm PO DAILY Nystatin 100,000 Unit/1 Ml Oral.susp 5 Ml PO QID oral thrush, x 5 days, start 09/22/16 Nystatin 1 Each Powder.ea. 1 Each PO BID to periarea topically after cleaning with warm soap and water, pat dry. apply zinc oxide cream and sprinkle with nystatin powder q shift Mucinex (Guaifenesin) 600 Mg Tablet.er 1 Tab PO BID x 5 days, started 09/18/16 Levaquin (Levofloxacin) 500 Mg Tablet 1 Tab PO HS x 7 days, start 09/18/16 Lasix (Furosemide) 40 Mg Tablet 1 Tab PO DAILY Ibuprofen 800 Mg Tablet 800 Mg PO PRN Q6HRS PRN Ejlly-Tussin (Guaifenesin) 100 Mg/5 Ml Liquid 15 Ml PO Q4HRS PRN Floranex Tablet (Acidophilus/Bulgaricus) 1 Each Tablet 1 Each PO BID x 7 days, start date 09/18/16 Famotidine 20 Mg Tablet 20 Mg PO DAILY Duoneb 0.5-3(2.5) Mg/3 Ml (Albuterol/Ipratropium) 3 Ml Ampul.neb 3 Ml NEB QID x 7 days, start date 09/18/16 Demeclocycline Hcl 300 Mg Tablet 300 Mg PO BID Aldactone (Spironolactone) 25 Mg Tablet 1 Tab PO DAILY Coumadin (Warfarin Sodium) 2.5 Mg Tablet 1 Tab PO DAILY Tylenol (Acetaminophen) 325 Mg Tablet 2 Tab PO PRN Q4HRS Fish Oil 1,000 Mg Capsule (Whitewood-3 Fatty Acids/Fish Oil) 1 Each Capsule 1 Each PO DAILY LAST DOSE: 12/12/15 AM NEXT DOSE: 12/13/15 AM Klor-Con M20 (Potassium Chloride) 20 Meq Tab.er.prt 1 Tab PO DAILY LAST DOSE: 12/12/15 AM NEXT DOSE: 12/13/15 AM Metoprolol Tartrate 50 Mg Tablet 1 Tab PO BID LAST DOSE: 12/12/15 NEXT DOSE: 12/13/15 AM Levothyroxine Sodium 88 Mcg Tablet 1 Tab PO DAILY LAST DOSE: 12/12/15 AM NEXT DOSE: 12/13/15 AM Vitamin D (Cholecalciferol (Vitamin D3)) 1,000 Unit Capsule 1,000 Unit PO DAILY LAST DOSE: 12/12/15 AM NEXT DOSE: 12/13/15 AM Prednisone 5 Mg Tablet 8 Mg PO DAILY LAST DOSE: 12/12/15 AM NEXT DOSE: 12/13/15 AM Allergies Allergies: Coded Allergies: Sulfa (Sulfonamide Antibiotics) (Verified Allergy, Intermediate, Rash, 04/21) Patient states "rash and confusion" ROS Review of System GEN: ?able Fevers no Chills + Weakness and decreased PO intake due to Pureed food does not taste good EYES: no new Visual Complaints ENT: no EN Drainage no Hearing deficiets CVS: no Orthopnea no CP RESP: min SOB no CONRAD GI: no Nausea no Vomiting + Diarrhea : no Dysuria no Urgency HEME: no easy bruising no Palp Ly Nodes NEURO no Focal Weakness no Sz PSYCH: no Suicidal Ideation min Depression SKIN: no Rashes ENDO: no Polyuria or Polydipsia no Hot/Cold Intolerance MU SK: + Arthraigia no Myalgia Physical Exam Physical Exam General Appearance: Awake Alert Oriented x 2-3 In no Distress Eyes: VIsion Unchanged Conjunctiva Normal EN: No EN Drainage Mucous Memb. moist Neck: no JVD no JVP Supple no Thyromegaly CVS: S1 S2 soft Murmur No Gallop No Rub no Edema Resp: miguel basal Rales no Rhonchi no Acc. Muscle use GI: BAS +ve NO Bruit Non Tender Non Distended : no CVA tenderness; no Suprapubic Tenderness SKIN: no Rashes Breast Exam deferred Mu.Sk: Adequate ROM min Muscle Atrophy Heme: Unable to palpate Obvious LAD no palp Splenomegaly NEURO: Good Strength and Tone Cranial Nerves II - XII grossly intact Psych: ? Depressed no Active hallucination Vital Signs Vital Signs Date Time Temp Pulse Resp B/P Pulse Ox O2 Delivery O2 Flow Rate FiO2 09/23/16 10:48 97.4 95 20 104/69 95 Nasal Cannula 2.0 97.4 Assessment & Plan HypoNatremia - despite Demeclocycline, with pl Eff despite Lasix - suspect either due to fluid overload vs Poor PO Intake (as noted with low alb). Has been on Prednisone so am cortisol may not help. Check TSH HypoAlbumin - consider PEG until swallow issues resolve. Dysphagia - (? Asp Risk) - currently on pureed diet and so is not eating - ? Need for CT soft tissue in neck vs PEG Pl Eff - Lasix for now and see if it helps with Na ? Alkalosis - No ABG - not sure if CO2 retention is Chronic asso with Pulm Fibrosis as noted on Previous CT Chest ? CKD underlying with Creat closer to 1.2 range in Euvolemic state ASVDz as noted on Previous CT - R/o IVANNA Labs Labs Laboratory Tests Test 09/22/16 16:45 09/23/16 05:15 White Blood Count 17.3x10^3/uL (4.0-11.0) 16.8x10^3/uL (4.0-11.0) Red Blood Count 3.76x10^6/uL (3.50-5.40) 3.56x10^6/uL (3.50-5.40) Hemoglobin 12.6g/dL (12.0-15.5) 11.7g/dL (12.0-15.5) Hematocrit 37.0% (36.0-47.0) 34.4% (36.0-47.0) Mean Corpuscular Volume 98fL (79-100) 96fL (79-100) Mean Corpuscular Hemoglobin 34pg (25-35) 33pg (25-35) Mean Corpuscular Hemoglobin Concent 34g/dL (31-37) 34g/dL (31-37) Red Cell Distribution Width 12.2% (11.5-14.5) 12.3% (11.5-14.5) Platelet Count 161x10^3/uL (140-400) 129x10^3/uL (140-400) Neutrophils (%) (Auto) 83% (31-73) 75% (31-73) Lymphocytes (%) (Auto) 8% (24-48) 13% (24-48) Monocytes (%) (Auto) 9% (0-9) 11% (0-9) Eosinophils (%) (Auto) 0% (0-3) 1% (0-3) Basophils (%) (Auto) 0% (0-3) 1% (0-3) Neutrophils # (Auto) 14.3x10^3uL (1.8-7.7) 12.6x10^3uL (1.8-7.7) Lymphocytes # (Auto) 1.3x10^3/uL (1.0-4.8) 2.1x10^3/uL (1.0-4.8) Monocytes # (Auto) 1.6x10^3/uL (0.0-1.1) 1.8x10^3/uL (0.0-1.1) Eosinophils # (Auto) 0.1x10^3/uL (0.0-0.7) 0.2x10^3/uL (0.0-0.7) Basophils # (Auto) 0.0x10^3/uL (0.0-0.2) 0.1x10^3/uL (0.0-0.2) Prothrombin Time 20.6SEC (11.7-14.0) Prothromb Time International Ratio 1.9 (0.8-1.1) Activated Partial Thromboplast Time 42SEC (24-38) Urine Collection Type Unknown Urine Color Yellow Urine Clarity Clear Urine pH 7.5 Urine Specific Oakley 1.015 Urine Protein 100mg/dL (NEG-TRACE) Urine Glucose (UA) Negativemg/dL (NEG) Urine Ketones (Stick) Negativemg/dL (NEG) Urine Blood Small (NEG) Urine Nitrite Negative (NEG) Urine Bilirubin Negative (NEG) Urine Urobilinogen Dipstick 0.2mg/dL (0.2 mg/dL) Urine Leukocyte Esterase Negative (NEG) Urine RBC 0/HPF (0-2) Urine WBC 5-10/HPF (0-4) Urine Bacteria 0/HPF (0-FEW) Urine Mucus Mod/LPF Urine Yeast Present/HPF Sodium Level 117mmol/L (136-145) 119mmol/L (136-145) Potassium Level 5.0mmol/L (3.5-5.1) 5.0mmol/L (3.5-5.1) Chloride Level 79mmol/L (98-107) 82mmol/L (98-107) Carbon Dioxide Level 37mmol/L (21-32) 37mmol/L (21-32) Anion Gap 1 (6-14) 0 (6-14) Blood Urea Nitrogen 17mg/dL (7-20) 17mg/dL (7-20) Creatinine 0.8mg/dL (0.6-1.0) 0.7mg/dL (0.6-1.0) Estimated GFR (Cockcroft-Gault) 68.2 79.5 Glucose Level 95mg/dL (70-99) 71mg/dL (70-99) Lactic Acid Level 1.2mmol/L (0.4-2.0) Calcium Level 8.5mg/dL (8.5-10.1) 8.1mg/dL (8.5-10.1) Total Bilirubin 0.8mg/dL (0.2-1.0) Direct Bilirubin 0.3mg/dL (0.0-0.2) Aspartate Amino Transf (AST/SGOT) 27U/L (15-37) Alanine Aminotransferase (ALT/SGPT) 63U/L (14-59) Alkaline Phosphatase 61U/L (46-116) Troponin I Quantitative < 0.017ng/mL (0.000-0.055) PY-Wkv-O-Type Natriuretic Peptide 3343pg/mL (0-449) Total Protein 6.2g/dL (6.4-8.2) Albumin 2.6g/dL (3.4-5.0) Lipase 109U/L (73-393) Laboratory Tests Test 09/22/16 16:45 09/23/16 05:15 White Blood Count 17.3x10^3/uL (4.0-11.0) 16.8x10^3/uL (4.0-11.0) Red Blood Count 3.76x10^6/uL (3.50-5.40) 3.56x10^6/uL (3.50-5.40) Hemoglobin 12.6g/dL (12.0-15.5) 11.7g/dL (12.0-15.5) Hematocrit 37.0% (36.0-47.0) 34.4% (36.0-47.0) Mean Corpuscular Volume 98fL (79-100) 96fL (79-100) Mean Corpuscular Hemoglobin 34pg (25-35) 33pg (25-35) Mean Corpuscular Hemoglobin Concent 34g/dL (31-37) 34g/dL (31-37) Red Cell Distribution Width 12.2% (11.5-14.5) 12.3% (11.5-14.5) Platelet Count 161x10^3/uL (140-400) 129x10^3/uL (140-400) Neutrophils (%) (Auto) 83% (31-73) 75% (31-73) Lymphocytes (%) (Auto) 8% (24-48) 13% (24-48) Monocytes (%) (Auto) 9% (0-9) 11% (0-9) Eosinophils (%) (Auto) 0% (0-3) 1% (0-3) Basophils (%) (Auto) 0% (0-3) 1% (0-3) Neutrophils # (Auto) 14.3x10^3uL (1.8-7.7) 12.6x10^3uL (1.8-7.7) Lymphocytes # (Auto) 1.3x10^3/uL (1.0-4.8) 2.1x10^3/uL (1.0-4.8) Monocytes # (Auto) 1.6x10^3/uL (0.0-1.1) 1.8x10^3/uL (0.0-1.1) Eosinophils # (Auto) 0.1x10^3/uL (0.0-0.7) 0.2x10^3/uL (0.0-0.7) Basophils # (Auto) 0.0x10^3/uL (0.0-0.2) 0.1x10^3/uL (0.0-0.2) Prothrombin Time 20.6SEC (11.7-14.0) Prothromb Time International Ratio 1.9 (0.8-1.1) Activated Partial Thromboplast Time 42SEC (24-38) Urine Collection Type Unknown Urine Color Yellow Urine Clarity Clear Urine pH 7.5 Urine Specific [place]ley 1.015 Urine Protein 100mg/dL (NEG-TRACE) Urine Glucose (UA) Negativemg/dL (NEG) Urine Ketones (Stick) Negativemg/dL (NEG) Urine Blood Small (NEG) Urine Nitrite Negative (NEG) Urine Bilirubin Negative (NEG) Urine Urobilinogen Dipstick 0.2mg/dL (0.2 mg/dL) Urine Leukocyte Esterase Negative (NEG) Urine RBC 0/HPF (0-2) Urine WBC 5-10/HPF (0-4) Urine Bacteria 0/HPF (0-FEW) Urine Mucus Mod/LPF Urine Yeast Present/HPF Sodium Level 117mmol/L (136-145) 119mmol/L (136-145) Potassium Level 5.0mmol/L (3.5-5.1) 5.0mmol/L (3.5-5.1) Chloride Level 79mmol/L (98-107) 82mmol/L (98-107) Carbon Dioxide Level 37mmol/L (21-32) 37mmol/L (21-32) Anion Gap 1 (6-14) 0 (6-14) Blood Urea Nitrogen 17mg/dL (7-20) 17mg/dL (7-20) Creatinine 0.8mg/dL (0.6-1.0) 0.7mg/dL (0.6-1.0) Estimated GFR (Cockcroft-Gault) 68.2 79.5 Glucose Level 95mg/dL (70-99) 71mg/dL (70-99) Lactic Acid Level 1.2mmol/L (0.4-2.0) Calcium Level 8.5mg/dL (8.5-10.1) 8.1mg/dL (8.5-10.1) Total Bilirubin 0.8mg/dL (0.2-1.0) Direct Bilirubin 0.3mg/dL (0.0-0.2) Aspartate Amino Transf (AST/SGOT) 27U/L (15-37) Alanine Aminotransferase (ALT/SGPT) 63U/L (14-59) Alkaline Phosphatase 61U/L (46-116) Troponin I Quantitative < 0.017ng/mL (0.000-0.055) QL-Isr-P-Type Natriuretic Peptide 3343pg/mL (0-449) Total Protein 6.2g/dL (6.4-8.2) Albumin 2.6g/dL (3.4-5.0) Lipase 109U/L (73-393) Images Images Abd CT from 11/2015: There is mild bilateral renal cortical scarring. The kidneys show no evidence of obstruction. Aortoiliac calcific plaquing is present with involvement of the origins of both renal arteries Chest CT 09/22/2016: Indication: Cough and effusion. Axial imaging through the chest was performed without contrast. Comparison is made with prior prior chest from 08/26/2014. No axillary lymphadenopathy is seen. The soledad and mediastinum is limited in evaluation due to absence of intravenous contrast. No pericardial fluid is identified. There are moderate bilateral pleural effusions which appear to layer dependently. No loculated effusion is detected. Patchy infiltrate right upper lobe is seen. There is some linear parenchymal density in the left upper lobe suggestive of atelectasis. There is linear atelectasis in the lingula. There is dependent atelectasis in both lower lobes. Impression: Moderate sized bilateral pleural effusions which layer dependently. No loculated effusion is seen. There are areas of bilateral infiltrate or atelectasis. MACK APONTE MD Sep 23, 2016 12:20
--- NOTE | 2016-09-23 12:24 | PDOC ---
PROGRESS NOTES Subjective Subjective Pt awake and pleasant in conversation. Denies nausea. States she has a little appetite. Objective Objective Pt awake and alert. NAD. VSS. Heart in Afib, rate controlled. No murmurs. Resp even and unlabored. Lung sounds CTA bilat. Pt on 2L of O2 per NC. Vital Signs Date Time Temp Pulse Resp B/P Pulse Ox O2 Delivery O2 Flow Rate FiO2 09/23/16 10:48 97.4 95 20 104/69 95 Nasal Cannula 2.0 97.4 Intake and Output 09/23/16 07:00 Intake Total 240 ml Output Total 2600 ml Balance -2360 ml Intake Oral 240 ml Output Urine Total 2600 ml Assessment Assessment Problems Medical Problems: (1) Generalized weakness Status: Acute (2) Hyponatremia Status: Acute (3) Leukocytosis Status: Acute Plan Plan of Care 1. Hyponatremia -Na 117 upon admission, 119 this am s/p 12h IVF -Pt on Democycline prior to admission, continued -Renal consulted for insight 2. CHF -CXR: bilat pleurel effusions -CT: Moderate sized bilateral pleural effusions which layer dependently. No loculated effusion is seen. There are areas of bilateral infiltrate or atelectasis. -Lasix and Spironolactone 3. Afib -Pt on Coumadin - INR 1.9 -Pt on Rythmol for rate control Comment Review of Relevant I have reviewed the following items kevin (where applicable) has been applied. Labs Laboratory Tests Test 09/22/16 16:45 09/23/16 05:15 White Blood Count 17.3x10^3/uL (4.0-11.0) 16.8x10^3/uL (4.0-11.0) Red Blood Count 3.76x10^6/uL (3.50-5.40) 3.56x10^6/uL (3.50-5.40) Hemoglobin 12.6g/dL (12.0-15.5) 11.7g/dL (12.0-15.5) Hematocrit 37.0% (36.0-47.0) 34.4% (36.0-47.0) Mean Corpuscular Volume 98fL (79-100) 96fL (79-100) Mean Corpuscular Hemoglobin 34pg (25-35) 33pg (25-35) Mean Corpuscular Hemoglobin Concent 34g/dL (31-37) 34g/dL (31-37) Red Cell Distribution Width 12.2% (11.5-14.5) 12.3% (11.5-14.5) Platelet Count 161x10^3/uL (140-400) 129x10^3/uL (140-400) Neutrophils (%) (Auto) 83% (31-73) 75% (31-73) Lymphocytes (%) (Auto) 8% (24-48) 13% (24-48) Monocytes (%) (Auto) 9% (0-9) 11% (0-9) Eosinophils (%) (Auto) 0% (0-3) 1% (0-3) Basophils (%) (Auto) 0% (0-3) 1% (0-3) Neutrophils # (Auto) 14.3x10^3uL (1.8-7.7) 12.6x10^3uL (1.8-7.7) Lymphocytes # (Auto) 1.3x10^3/uL (1.0-4.8) 2.1x10^3/uL (1.0-4.8) Monocytes # (Auto) 1.6x10^3/uL (0.0-1.1) 1.8x10^3/uL (0.0-1.1) Eosinophils # (Auto) 0.1x10^3/uL (0.0-0.7) 0.2x10^3/uL (0.0-0.7) Basophils # (Auto) 0.0x10^3/uL (0.0-0.2) 0.1x10^3/uL (0.0-0.2) Prothrombin Time 20.6SEC (11.7-14.0) Prothromb Time International Ratio 1.9 (0.8-1.1) Activated Partial Thromboplast Time 42SEC (24-38) Urine Collection Type Unknown Urine Color Yellow Urine Clarity Clear Urine pH 7.5 Urine Specific [place] 1.015 Urine Protein 100mg/dL (NEG-TRACE) Urine Glucose (UA) Negativemg/dL (NEG) Urine Ketones (Stick) Negativemg/dL (NEG) Urine Blood Small (NEG) Urine Nitrite Negative (NEG) Urine Bilirubin Negative (NEG) Urine Urobilinogen Dipstick 0.2mg/dL (0.2 mg/dL) Urine Leukocyte Esterase Negative (NEG) Urine RBC 0/HPF (0-2) Urine WBC 5-10/HPF (0-4) Urine Bacteria 0/HPF (0-FEW) Urine Mucus Mod/LPF Urine Yeast Present/HPF Sodium Level 117mmol/L (136-145) 119mmol/L (136-145) Potassium Level 5.0mmol/L (3.5-5.1) 5.0mmol/L (3.5-5.1) Chloride Level 79mmol/L (98-107) 82mmol/L (98-107) Carbon Dioxide Level 37mmol/L (21-32) 37mmol/L (21-32) Anion Gap 1 (6-14) 0 (6-14) Blood Urea Nitrogen 17mg/dL (7-20) 17mg/dL (7-20) Creatinine 0.8mg/dL (0.6-1.0) 0.7mg/dL (0.6-1.0) Estimated GFR (Cockcroft-Gault) 68.2 79.5 Glucose Level 95mg/dL (70-99) 71mg/dL (70-99) Lactic Acid Level 1.2mmol/L (0.4-2.0) Calcium Level 8.5mg/dL (8.5-10.1) 8.1mg/dL (8.5-10.1) Total Bilirubin 0.8mg/dL (0.2-1.0) Direct Bilirubin 0.3mg/dL (0.0-0.2) Aspartate Amino Transf (AST/SGOT) 27U/L (15-37) Alanine Aminotransferase (ALT/SGPT) 63U/L (14-59) Alkaline Phosphatase 61U/L (46-116) Troponin I Quantitative < 0.017ng/mL (0.000-0.055) OO-Wof-O-Type Natriuretic Peptide 3343pg/mL (0-449) Total Protein 6.2g/dL (6.4-8.2) Albumin 2.6g/dL (3.4-5.0) Lipase 109U/L (73-393) Laboratory Tests Test 09/22/16 16:45 2/3/17 05:15 White Blood Count 17.3x10^3/uL (4.0-11.0) 16.8x10^3/uL (4.0-11.0) Red Blood Count 3.76x10^6/uL (3.50-5.40) 3.56x10^6/uL (3.50-5.40) Hemoglobin 12.6g/dL (12.0-15.5) 11.7g/dL (12.0-15.5) Hematocrit 37.0% (36.0-47.0) 34.4% (36.0-47.0) Mean Corpuscular Volume 98fL (79-100) 96fL (79-100) Mean Corpuscular Hemoglobin 34pg (25-35) 33pg (25-35) Mean Corpuscular Hemoglobin Concent 34g/dL (31-37) 34g/dL (31-37) Red Cell Distribution Width 12.2% (11.5-14.5) 12.3% (11.5-14.5) Platelet Count 161x10^3/uL (140-400) 129x10^3/uL (140-400) Neutrophils (%) (Auto) 83% (31-73) 75% (31-73) Lymphocytes (%) (Auto) 8% (24-48) 13% (24-48) Monocytes (%) (Auto) 9% (0-9) 11% (0-9) Eosinophils (%) (Auto) 0% (0-3) 1% (0-3) Basophils (%) (Auto) 0% (0-3) 1% (0-3) Neutrophils # (Auto) 14.3x10^3uL (1.8-7.7) 12.6x10^3uL (1.8-7.7) Lymphocytes # (Auto) 1.3x10^3/uL (1.0-4.8) 2.1x10^3/uL (1.0-4.8) Monocytes # (Auto) 1.6x10^3/uL (0.0-1.1) 1.8x10^3/uL (0.0-1.1) Eosinophils # (Auto) 0.1x10^3/uL (0.0-0.7) 0.2x10^3/uL (0.0-0.7) Basophils # (Auto) 0.0x10^3/uL (0.0-0.2) 0.1x10^3/uL (0.0-0.2) Prothrombin Time 20.6SEC (11.7-14.0) Prothromb Time International Ratio 1.9 (0.8-1.1) Activated Partial Thromboplast Time 42SEC (24-38) Urine Collection Type Unknown Urine Color Yellow Urine Clarity Clear Urine pH 7.5 Urine Specific [place] 1.015 Urine Protein 100mg/dL (NEG-TRACE) Urine Glucose (UA) Negativemg/dL (NEG) Urine Ketones (Stick) Negativemg/dL (NEG) Urine Blood Small (NEG) Urine Nitrite Negative (NEG) Urine Bilirubin Negative (NEG) Urine Urobilinogen Dipstick 0.2mg/dL (0.2 mg/dL) Urine Leukocyte Esterase Negative (NEG) Urine RBC 0/HPF (0-2) Urine WBC 5-10/HPF (0-4) Urine Bacteria 0/HPF (0-FEW) Urine Mucus Mod/LPF Urine Yeast Present/HPF Sodium Level 117mmol/L (136-145) 119mmol/L (136-145) Potassium Level 5.0mmol/L (3.5-5.1) 5.0mmol/L (3.5-5.1) Chloride Level 79mmol/L (98-107) 82mmol/L (98-107) Carbon Dioxide Level 37mmol/L (21-32) 37mmol/L (21-32) Anion Gap 1 (6-14) 0 (6-14) Blood Urea Nitrogen 17mg/dL (7-20) 17mg/dL (7-20) Creatinine 0.8mg/dL (0.6-1.0) 0.7mg/dL (0.6-1.0) Estimated GFR (Cockcroft-Gault) 68.2 79.5 Glucose Level 95mg/dL (70-99) 71mg/dL (70-99) Lactic Acid Level 1.2mmol/L (0.4-2.0) Calcium Level 8.5mg/dL (8.5-10.1) 8.1mg/dL (8.5-10.1) Total Bilirubin 0.8mg/dL (0.2-1.0) Direct Bilirubin 0.3mg/dL (0.0-0.2) Aspartate Amino Transf (AST/SGOT) 27U/L (15-37) Alanine Aminotransferase (ALT/SGPT) 63U/L (14-59) Alkaline Phosphatase 61U/L (46-116) Troponin I Quantitative < 0.017ng/mL (0.000-0.055) WZ-Auw-O-Type Natriuretic Peptide 3343pg/mL (0-449) Total Protein 6.2g/dL (6.4-8.2) Albumin 2.6g/dL (3.4-5.0) Lipase 109U/L (73-393) Medications Current Medications Ondansetron HCl (Zofran) 4 mg PRN Q8HRS PRN IV NAUSEA/VOMITING; Start 09/22/16 at 18:00; Stop 09/23/16 at 17:59 Morphine Sulfate 2 mg 2 mg PRN Q2HR PRN IV PAIN; Start 09/22/16 at 18:00; Stop 09/23/16 at 17:59 Sodium Chloride (Iv Sodium Chloride 0.9% 1000ml Bag) 1,000 ml @ 75 mls/hr [id number] IV Last administered on 09/22/16 19:20; Start 09/22/16 at 17:55; Stop at 17:54 Fluconazole (Diflucan) 150 mg 1X ONCE PO Last administered on 09/22/16 18:26; Start 09/22/16 at 18:15; Stop 09/22/16 at 18:17; Status DC Acetaminophen (Tylenol) 650 mg PRN Q4HRS PRN PO MILD PAIN; Start 09/22/16 at 21: 15 Famotidine (Pepcid) 20 mg DAILY PO Last administered on 09/23/16 08:26; Start 09/23/16 at 09:00 Furosemide (Lasix) 40 mg DAILY PO Last administered on 09/23/16 08:26; Start at 09:00 Guaifenesin (Robitussin) 300 mg PRN Q4HRS PRN PO COUGH; Start 09/22/16 at 21:15 Guaifenesin (Mucinex) 600 mg BID PO Last administered on 09/23/16 08:25; Start 09/22/16 at 22:00 Ibuprofen (Motrin) 800 mg PRN Q6HRS PRN PO INFLAMMATION; Start 09/22/16 at 21:15 Albuterol/ Ipratropium (Duoneb) 3 ml RTQID NEB Last administered on 09/23/16 07 :51; Start 09/23/16 at 08:00 Levofloxacin (Levaquin) 500 mg HS PO Last administered on 09/22/16 22:10; Start 09/22/16 at 22:00 Levothyroxine Sodium (Synthroid) 88 mcg DAILY07 PO Last administered on 06:29; Start 09/23/16 at 07:00 Metoprolol Tartrate (Lopressor) 50 mg BID PO Last administered on 09/23/16 08: 26; Start 09/22/16 at 22:00 Nystatin 5 ml QID PO Last administered on 09/23/16 11:33; Start 09/22/16 at 23: 00 Fish Oil (Fish Oil) 1,000 mg DAILY PO Last administered on 09/23/16 09:31; Start 09/23/16 at 09:00 Polyethylene Glycol (miraLAX PACKET) 34 gm DAILY PO Last administered on 08:28; Start 09/23/16 at 09:00 Potassium Chloride (Klor-Con) 20 meq DAILY PO Last administered on 09/23/16 08: 27; Start 09/23/16 at 09:00 Prednisone (Prednisone) 5 mg DAILY PO Last administered on 09/23/16 09:32; Start 09/23/16 at 09:00 Propafenone HCl (Rythmol) 225 mg [id number] PO Last administered on 09/23/16 09:31 ; Start 09/23/16 at 09:00 Spironolactone (Aldactone) 25 mg DAILY PO Last administered on 09/23/16 08:26; Start 09/23/16 at 09:00 Warfarin Sodium (Coumadin) 2.5 mg DAILY16 PO ; Start 09/23/16 at 16:00 Lactobacillus Acidophilus (Bacid, Blanche-Bid) 2 tab BID PO Last administered on 08:25; Start 09/22/16 at 22:30 Vitamin D (Vitamin D3) 1,000 unit DAILY PO Last administered on 09/23/16 08:28 ; Start 09/23/16 at 09:00 Demeclocycline HCl (Declomycin) 300 mg Q12HR PO Last administered on 09/23/16 08:29; Start 09/22/16 at 22:30 Nystatin (Nystop) 1 bibiana BID TP Last administered on 09/23/16 09:00; Start at 22:30 Zinc Oxide 1 bibiana BID TP Last administered on 09/23/16 09:00; Start 09/22/16 at 23:00 Warfarin Sodium (Coumadin Per Physician) 1 each PRN DAILY PRN MC SEE COMMENTS Last administered on 09/22/16 22:11; Start 09/22/16 at 21:45 Prednisone (Prednisone) 3 mg DAILY PO Last administered on 09/23/16 08:28; Start 09/23/16 at 09:00 Active Scripts Active Propafenone Hcl 150 Mg Tablet 225 Mg PO [id number] 30 Days Reported Zinc Oxide 30 Gm Oint...g. 30 Gm TP BID Polyethylene Glycol 3350 255 Gm Powder 34 Gm PO DAILY Nystatin 100,000 Unit/1 Ml Oral.susp 5 Ml PO QID oral thrush, x 5 days, start 09/22/16 Nystatin 1 Each Powder.ea. 1 Each PO BID to periarea topically after cleaning with warm soap and water, pat dry. apply zinc oxide cream and sprinkle with nystatin powder q shift Mucinex (Guaifenesin) 600 Mg Tablet.er 1 Tab PO BID x 5 days, started 09/18/16 Levaquin (Levofloxacin) 500 Mg Tablet 1 Tab PO HS x 7 days, start 09/18/16 Lasix (Furosemide) 40 Mg Tablet 1 Tab PO DAILY Ibuprofen 800 Mg Tablet 800 Mg PO PRN Q6HRS PRN Jelly-Tussin (Guaifenesin) 100 Mg/5 Ml Liquid 15 Ml PO Q4HRS PRN Floranex Tablet (Acidophilus/Bulgaricus) 1 Each Tablet 1 Each PO BID x 7 days, start date 09/18/16 Famotidine 20 Mg Tablet 20 Mg PO DAILY Duoneb 0.5-3(2.5) Mg/3 Ml (Albuterol/Ipratropium) 3 Ml Ampul.neb 3 Ml NEB QID x 7 days, start date 09/18/16 Demeclocycline Hcl 300 Mg Tablet 300 Mg PO BID Aldactone (Spironolactone) 25 Mg Tablet 1 Tab PO DAILY Coumadin (Warfarin Sodium) 2.5 Mg Tablet 1 Tab PO DAILY Tylenol (Acetaminophen) 325 Mg Tablet 2 Tab PO PRN Q4HRS Fish Oil 1,000 Mg Capsule ([place]-3 Fatty Acids/Fish Oil) 1 Each Capsule 1 Each PO DAILY LAST DOSE: 12/12/15 NEXT DOSE: 12/13/15 Klor-Con M20 (Potassium Chloride) 20 Meq Tab.er.prt 1 Tab PO DAILY LAST DOSE: 12/12/15 NEXT DOSE: 12/13/15 Metoprolol Tartrate 50 Mg Tablet 1 Tab PO BID LAST DOSE: 12/12/15 NEXT DOSE: 12/13/15 Levothyroxine Sodium 88 Mcg Tablet 1 Tab PO DAILY LAST DOSE: 12/12/15 NEXT DOSE: 12/13/15 Vitamin D (Cholecalciferol (Vitamin D3)) 1,000 Unit Capsule 1,000 Unit PO DAILY LAST DOSE: 12/12/15 NEXT DOSE: 12/13/15 Prednisone 5 Mg Tablet 8 Mg PO DAILY LAST DOSE: 12/12/15 NEXT DOSE: 12/13/15 AM Vitals/I & O Vital Sign - Last 24 Hours 09/22/16 09/22/16 09/22/16 09/22/16 16:02 16:46 17:16 17:46 Temp 98.2 98.2 Pulse 88 78 88 86 Resp 16 20 20 25 B/P 132/73 152/81 137/84 137/85 Pulse Ox 96 98 97 99 O2 Delivery Room Air Nasal Cannula Nasal Cannula Nasal Cannula O2 Flow Rate 2 2 2 09/22/16 09/22/16 09/22/16 09/22/16 19:00 20:00 20:00 22:11 Temp 95.9 95.9 Pulse 103 100 Resp 20 B/P 132/76 138/85 Pulse Ox 98 O2 Delivery Nasal Cannula Nasal Cannula Nasal Cannula O2 Flow Rate 2.0 2.0 09/22/16 09/23/16 09/23/16 09/23/16 23:00 03:05 07:21 07:51 Temp 97.9 97.7 98.0 97.9 97.7 98.0 Pulse 109 105 109 Resp 20 20 16 B/P 138/85 125/63 119/64 Pulse Ox 98 95 100 99 O2 Delivery Nasal Cannula Nasal Cannula Nasal Cannula Nasal Cannula O2 Flow Rate 2.0 2.0 09/23/16 09/23/16 09/23/16 09/23/16 08:00 08:26 09:31 10:48 Temp 97.4 97.4 Pulse 109 109 95 Resp 20 B/P 119/64 119/64 104/69 Pulse Ox 95 O2 Delivery Nasal Cannula Nasal Cannula O2 Flow Rate 2.0 2.0 Intake and Output 09/22/16 09/22/16 09/23/16 15:00 23:00 07:00 Intake Total 120 ml 120 ml Output Total 2600 ml Balance 120 ml -2480 ml LEATHA STEPHENS MD Sep 23, 2016 12:24
[2016-09-23 13:30] LABS: FREE T4 1.54 ng/dL (0.76-1.46)
[2016-09-23] MEDS: FUROSEMIDE 40 MG/4 ML VIAL IVP SCH (13:32)
[2016-09-23 15:10] VITALS: BP 110/65
[2016-09-23] MEDS: WARFARIN 2.5 MG TABLET. PO SCH (17:17)
[2016-09-23] MEDS: GUAIFENESIN 200 MG/10 ML LIQUID. PO PRN (21:31)
[2016-09-23] MEDS: LEVOFLOXACIN 500 MG TABLET PO SCH (21:34)
--- NOTE | 2016-09-23 22:13 | HP ---
ADMIT DATE: 09/22/2016 Kay Newman APRN dictating on behalf of Dr. Leatha Matias. CHIEF COMPLAINT AND HISTORY OF PRESENT ILLNESS: This is an 86-year-old female who is a patient of Dr. Serafin Krishan whom I will be following during her initial days of rehospitalization. The patient was sent to the Emergency Room from [facility] where she had been rehabbing from a recent hospitalization. The patient was sent due to severe hyponatremia with a sodium level of 117 on lab findings. Upon examination in the Emergency Room, the patient did report generalized fatigue, however, denied chest pain or abdominal pain. Laboratory was rechecked and a sodium level of 117 was confirmed. A CBC also revealed a WBC of 17.3. All other laboratory findings were relatively within normal limits. The patient was readmitted to the hospital due to her severe hyponatremia. PAST MEDICAL HISTORY: Atrial fibrillation with recent hospitalizations for RVR, arthritis, GERD, hypertension, hypothyroid, renal failure, recurrent urinary tract infections, polymyalgia rheumatica and rheumatoid arthritis. Most recent hospitalization the patient had an abdominal hematoma secondary to Coumadin use. PAST SURGICAL HISTORY: Appendectomy, hip replacement, hysterectomy, knee replacement, tonsillectomy, left shoulder repair, uterine suspension, bladder suspension, varicose vein, bilateral knee replacement and a right hip replacement. MEDICATIONS: Brought with the patient, listed on the computer and have been addressed. ALLERGIES: The patient is allergic to SULFA MEDICATIONS. SOCIAL HISTORY: The patient denies alcohol, tobacco or illicit drug use. REVIEW OF SYSTEMS: As mentioned above, the patient was a resident at [facility] ____ for short stay rehabilitation prior to this admission. PHYSICAL EXAMINATION: GENERAL: She is a well-developed and well-nourished 86-year-old female in no apparent distress on the morning of my examination. VITAL SIGNS: Stable. She is in AFib, however, the rate is controlled in the 80s. HEENT: Unremarkable. NECK: Supple, without adenopathy or thyromegaly. CHEST: Clear to auscultation. Respirations are even and unlabored. HEART: Regular rate and rhythm without S3, S4 or murmur. ABDOMEN: Soft, nontender, without hepatosplenomegaly or mass. EXTREMITIES: Without cyanosis, clubbing or edema. NEUROLOGIC: Grossly intact. IMPRESSION: Severe hyponatremia. PLAN: The patient has been admitted. IV fluids have been initiated. We will plan to recheck her sodium levels in the a.m.. Renal will be consulted for their insight as the patient has had multiple readmissions secondary to her hyponatremia and is currently on ____ Democycline to help present the hyponatremia. The patient will be monitored, managed and treated appropriately throughout her hospital stay. LEATHA MATIAS MD DR: CARRIE/nirmala JOB#: [id number] / [id number]
[2016-09-23 23:00] VITALS: BP 106/56
[2016-09-24 03:00] VITALS: BP 85/44
[2016-09-24 05:24] LABS: HEMATOCRIT 34.5 % (36.0-47.0); HEMOGLOBIN 11.7 g/dL (12.0-15.5); RED BLOOD COUNT 3.48 x10^6/uL (3.50-5.40); RED CELL DISTRIBUTION WIDTH 12.5 % (11.5-14.5); WHITE BLOOD COUNT 13.6 x10^3/uL (4.0-11.0)
--- NOTE | 2016-09-24 05:41 | CONS ---
DATE OF CONSULTATION: PRIMARY PHYSICIAN: Dr. Serafin Krishna. REASON FOR CONSULTATION: Hyponatremia. HISTORY OF PRESENT ILLNESS: The patient is an 86-year-old female who was recently admitted to this facility in August. She was noted to be hyponatremic at that time and was noted to be on Maxzide at that time. Maxzide was discontinued and the patient was sent to rehabilitation. She was placed on demeclocycline. The patient is not sure if she was getting it. She recently has undergone treatment for shingles in the right gluteal area and was also noted to have UTI and Rocephin was used for the same. She did require hypertonic saline at that time per the discharge summary. Her sodium was 130 at the time of discharge. She now returns with a recurrence of hyponatremia. The patient claims she was placed on a pureed diet and has not been eating too well. A prealbumin will be checked. However, albumin is 2.6, proBNP is 3000. She is also noted to have pleural effusions bilaterally. Creatinine is normal. She does admit to feeling weak and mild shortness of breath, mostly when she is on her right side. Her most recent TSH was slightly on the low side at 0.33. Free T4 will be checked to see if it was elevated as well and a TSH will be rechecked also given the recurrence of her hyponatremia. She is noted to have been on ibuprofen, which was stopped at this time. Given her pleural effusions, I will also stop her IV fluids currently. We will diurese and see where her sodium trends. I have tried to encourage her to eat a high protein diet. I have also water restricted her for the time being and reevaluate. MACK APONTE MD DR: BE/nirmala JOB#: [id number] / [id number]
[2016-09-24 07:00] VITALS: BP 103/58
[2016-09-24] MEDS: IPRATRPIUM/ALBUTEROL 0.5/2.5MG 3 ML NEBU. NEB SCH ×4 (08:11→20:38)
[2016-09-24] MEDS: POLYETHYLENE GLYCOL 3350 17 GM PACKET. PO SCH (09:00)
[2016-09-24] MEDS: NYSTATIN 100,000 UNITS/ML 5 ML ORAL.SUSP. PO SCH ×4 (09:02→20:26)
[2016-09-24] MEDS: PREDNISONE 1 MG TABLET PO SCH (09:03)
[2016-09-24] MEDS: LACTOBACILLUS ACIDOPH & BULGAR 1 TABLET. PO SCH ×2 (09:03→20:23)
[2016-09-24] MEDS: LEVOTHYROXINE 88 MCG TABLET PO SCH (09:04)
[2016-09-24] MEDS: GUAIFENESIN ER 600 MG TABLET.ER PO SCH ×2 (09:04→20:22)
[2016-09-24] MEDS: PREDNISONE 5 MG TABLET PO SCH (09:04)
[2016-09-24] MEDS: POTASSIUM CHLORIDE 20 MEQ TABLET.ER. PO SCH (09:04)
[2016-09-24] MEDS: CHOLECALCIFEROL (VITAMIN D3) 1,000 UNIT TABLET PO SCH (09:04)
[2016-09-24] MEDS: OMEGA-3 FATTY ACIDS/FISH OIL 1,000 MG CAPSULE. PO SCH (09:04)
[2016-09-24] MEDS: METOPROLOL TART IMMED RELEASE 50 MG TABLET PO SCH (09:05)
[2016-09-24] MEDS: SPIRONOLACTONE 25 MG TABLET PO SCH (09:05)
[2016-09-24] MEDS: FAMOTIDINE 20 MG TABLET. PO SCH (09:05)
[2016-09-24] MEDS: ZINC OXIDE 20% TOPICAL OINTMENT 28GM TUBE. TP SCH ×2 (09:06→20:24)
[2016-09-24] MEDS: NYSTATIN TOPICAL POWDER 15GM BOTTLE. TP SCH ×2 (09:06→20:24)
[2016-09-24] MEDS: FUROSEMIDE 40 MG/4 ML VIAL IVP SCH ×3 (09:07→22:24)
--- NOTE | 2016-09-24 10:36 | PDOC ---
SUBJECTIVE ROS F/up hyponatremia Not feeling any different, ? Pleuritic rt sided CP CVS: no Orthopnea, + Pleuritic Rt Sided CP RESP: min SOB, no CONRAD GI: no Nausea, no Vomiting : no Dysuria, no Urgency OBJECTIVE Vital Signs Vital Signs Date Time Temp Pulse Resp B/P Pulse Ox O2 Delivery O2 Flow Rate FiO2 09/24/16 09:05 99 103/58 09/24/16 08:15 Nasal Cannula 2.0 09/24/16 07:00 97.7 16 100 97.7 I & 0 Intake and Output 09/24/16 07:00 Intake Total 250 ml Output Total 4800 ml Balance -4550 ml Intake Oral 250 ml Output Urine Total 4800 ml PHYSICAL EXAM Physical Exam General Appearance: Awake Alert Oriented x 2-3 In no Distress Eyes: VIsion Unchanged Conjunctiva Normal EN: No EN Drainage Mucous Memb. moist Neck: no JVD no JVP Supple no Thyromegaly CVS: S1 S2 soft Murmur No Gallop No Rub no Edema Resp: Rt > Lt Rales no Rhonchi no Acc. Muscle use GI: BS +ve NO Bruit Non Tender Non Distended : no CVA tenderness; no Suprapubic Tenderness Assessment & Plan HypoNatremia - Better with Diuresis and water restriction - suspect either due to fluid overload vs Poor PO Intake (as noted with low alb). Has been on Prednisone so am cortisol may not help. Check TSH HypoAlbumin - consider PEG until swallow issues resolve. Dysphagia - (? Asp Risk) - currently on pureed diet and so is not eating - ? Need for CT soft tissue in neck vs PEG Pl Eff - ct Lasix for now as it seems to be helping with Na correction ? Alkalosis - No ABG - not sure if CO2 retention is Chronic asso with Pulm Fibrosis as noted on Previous CT Chest ? CKD underlying with Creat closer to 1.2 range in Euvolemic state ASVDz as noted on Previous CT - R/o IVANNA Pleuritic CP - ? Pn - remains on Levaquin for now ^ed free T4 - doubt that its contributing to HypoNatremia - but will decrease dose for now. Hypotension at times - IV Alb as ordered. COMMENT/RELEVANT DATA Meds Current Medications Medications (Trade) Dose Ordered Sig/Luz Marina Start Time Stop Time Status Last Admin Dose Admin Acetaminophen (Tylenol) 650 mg PRN Q4HRS PRN 09/22/16 21:15 Albuterol/ Ipratropium (Duoneb) 3 ml RTQID 09/23/16 08:00 09/24/16 08:11 3 ML Demeclocycline HCl (Declomycin) 300 mg Q12HR 09/22/16 22:30 09/23/16 12:24 DC 09/23/16 08:29 300 MG Famotidine (Pepcid) 20 mg DAILY 09/23/16 09:00 09/24/16 09:05 20 MG Fish Oil (Fish Oil) 1,000 mg DAILY 09/23/16 09:00 09/24/16 09:04 1,000 MG Fluconazole (Diflucan) 150 mg 1X ONCE 09/22/16 18:15 09/22/16 18:17 DC 09/22/16 18:26 150 MG Furosemide (Lasix) 40 mg [id number] 09/23/16 14:00 09/24/16 09:07 40 MG Guaifenesin (Mucinex) 600 mg BID 09/22/16 22:00 09/24/16 09:04 600 MG Guaifenesin (Robitussin) 300 mg PRN Q4HRS PRN 09/22/16 21:15 09/23/16 21:31 300 MG Ibuprofen (Motrin) 800 mg PRN Q6HRS PRN 09/22/16 21:15 09/23/16 12:24 DC Lactobacillus Acidophilus (Bacid, Blanche-Bid) 2 tab BID 09/22/16 22:30 09/24/16 09:03 2 TAB Levofloxacin (Levaquin) 500 mg HS 09/22/16 22:00 09/23/16 21:34 500 MG Levothyroxine Sodium (Synthroid) 88 mcg DAILY07 09/23/16 07:00 09/24/16 09:04 88 MCG Metoprolol Tartrate (Lopressor) 50 mg BID 09/22/16 22:00 09/24/16 09:05 50 MG Morphine Sulfate 2 mg 2 mg PRN Q2HR PRN 09/22/16 18:00 09/23/16 17:59 DC Nystatin (Nystop) 1 bibiana BID 09/22/16 22:30 09/24/16 09:06 1 BIBIANA Ondansetron HCl (Zofran) 4 mg PRN Q8HRS PRN 09/22/16 18:00 09/23/16 17:59 DC Polyethylene Glycol (miraLAX PACKET) 34 gm DAILY 09/23/16 09:00 09/23/16 08:28 34 GM Potassium Chloride (Klor-Con) 20 meq DAILY 09/23/16 09:00 09/24/16 09:04 20 MEQ Prednisone (Prednisone) 3 mg DAILY 09/23/16 09:00 09/24/16 09:03 3 MG Propafenone HCl (Rythmol) 225 mg [id number] 09/23/16 09:00 09/23/16 21:41 225 MG Sodium Chloride (Iv Sodium Chloride 0.9% 1000ml Bag) 1,000 ml @ 75 mls/hr [id number] 09/22/16 17:55 09/23/16 12:24 DC 09/22/16 19:20 75 MLS/HR Spironolactone (Aldactone) 25 mg DAILY 09/23/16 09:00 09/24/16 09:05 25 MG Vitamin D (Vitamin D3) 1,000 unit DAILY 09/23/16 09:00 09/24/16 09:04 1,000 UNIT Warfarin Sodium (Coumadin Per Physician) 1 each PRN DAILY PRN 09/22/16 21:45 09/22/16 22:11 1 EACH Warfarin Sodium (Coumadin) 2.5 mg DAILY16 09/23/16 16:00 09/23/16 17:17 2.5 MG Zinc Oxide 1 bibiana BID 09/22/16 23:00 09/24/16 09:06 1 BIBIANA Lab Laboratory Tests Test 09/23/16 12:00 09/23/16 14:00 09/24/16 05:05 Clostridium difficile Toxin (PCR) Negative (Negative) Urine Random Sodium 96mmol/L (Not Estab.) White Blood Count 13.6x10^3/uL (4.0-11.0) Red Blood Count 3.48x10^6/uL (3.50-5.40) Hemoglobin 11.7g/dL (12.0-15.5) Hematocrit 34.5% (36.0-47.0) Mean Corpuscular Volume 99fL (79-100) Mean Corpuscular Hemoglobin 34pg (25-35) Mean Corpuscular Hemoglobin Concent 34g/dL (31-37) Red Cell Distribution Width 12.5% (11.5-14.5) Platelet Count 142x10^3/uL (140-400) Sodium Level 125mmol/L (136-145) Potassium Level 4.4mmol/L (3.5-5.1) Chloride Level 84mmol/L (98-107) Carbon Dioxide Level 39mmol/L (21-32) Anion Gap 2 (6-14) MACK APONTE MD Sep 24, 2016 10:36
[2016-09-24 10:37] LABS: ALBUMIN 2.4 g/dL (3.4-5.0); CALCIUM 8.4 mg/dL (8.5-10.1); CREATININE 0.9 mg/dL (0.6-1.0); GFR 59.5; PHOSPHORUS 4.3 mg/dL (2.6-4.7); POTASSIUM 4.4 mmol/L (3.5-5.1)
[2016-09-24 10:59] VITALS: BP 95/53
[2016-09-24 11:21] LABS: % SAT IRON 18 % (15-34); IRON,SERUM 43 ug/dL (50-170)
[2016-09-24] MEDS: ALBUMIN HUMAN 25% 100 ML IV SCH ×3 (12:01→20:22)
[2016-09-24] MEDS: PROPAFENONE 150 MG TABLET. PO SCH ×3 (12:02→22:24)
--- NOTE | 2016-09-24 14:40 | RAD ---
Renal ultrasound to include duplex evaluation of the renal arteries 09/23/2016 Clinical history: Hyponatremic and weakness. Technique: Using a combination of real-time ultrasound imaging and color-flow and pulse Doppler imaging techniques, duplex evaluation of both kidneys to include the renal arteries and the urinary bladder was performed. Multiple images were obtained. Findings: Both kidneys are within normal limits in size. The right kidney measures 10.3 cm in length. The left kidney measures 9.0 cm in length. Areas of cortical thickening are seen involving both kidneys. No hydronephrosis is seen. Duplex evaluation of the renal arteries is limited due to overlying bowel gas and the patient's inability to suspend respirations. There is no definite sonographic evidence of renal artery stenosis. The abdominal aorta tapers normally. There is a small right pleural effusion. The urinary bladder is contracted. A Fontana catheter is noted in place. Impression: 1. There is no sonographic evidence of renal artery stenosis. 2. There is no evidence of hydronephrosis.
[2016-09-24 14:55] VITALS: BP 90/56
[2016-09-24] MEDS: ACETAMINOPHEN 325 MG TABLET. PO PRN ×2 (16:00→20:22)
[2016-09-24] MEDS: WARFARIN 2.5 MG TABLET. PO SCH (17:02)
--- NOTE | 2016-09-24 18:13 | PDOC ---
GENERAL General: vss and afebrile. sleepy but arouses. looks better than yesterday. family in attendance and questions answered. WBC decreased to 13.6K. Blood pressures on low side with only med possibility being lasix. O>>I. Sodium increased to 125 this am. Renal artery duplex negative. Bilateral pleural effusions on CT chest. Weight decreased ?13#. Right chest pain with cough with decreased breath sounds in bases on exam. Continue present therapy and renal help appreciated. Problems: VITAL SIGNS Vital Signs: Vital Signs Date Time Temp Pulse Resp B/P Pulse Ox O2 Delivery O2 Flow Rate FiO2 09/24/16 16:28 Nasal Cannula 2.0 09/24/16 14:55 99.1 98 20 90/56 98 99.1 I & O I & O Intake and Output 09/24/16 07:00 Intake Total 250 ml Output Total 4800 ml Balance -4550 ml Intake Oral 250 ml Output Urine Total 4800 ml ALLERGIES Allergies: Allergies Coded Allergies Type Severity Reaction Last Updated Verified Sulfa (Sulfonamide Antibiotics) Allergy Intermediate Rash 04/21/16 Yes MEDS Medications: Current Medications Medications (Trade) Dose Ordered Sig/Luz Marina Start Time Stop Time Status Last Admin Dose Admin Acetaminophen (Tylenol) 650 mg PRN Q4HRS PRN 09/22/16 21:15 09/24/16 16:00 650 MG Albumin Human (Albuminar) 100 ml @ 100 mls/hr TID 09/24/16 11:00 09/25/16 21:59 09/24/16 13:38 100 MLS/HR Albuterol/ Ipratropium (Duoneb) 3 ml RTQID 09/23/16 08:00 09/24/16 16:23 3 ML Demeclocycline HCl (Declomycin) 300 mg Q12HR 09/22/16 22:30 09/23/16 12:24 DC 09/23/16 08:29 300 MG Famotidine (Pepcid) 20 mg DAILY 09/23/16 09:00 09/24/16 09:05 20 MG Fish Oil (Fish Oil) 1,000 mg DAILY 09/23/16 09:00 09/24/16 09:04 1,000 MG Fluconazole (Diflucan) 150 mg 1X ONCE 09/22/16 18:15 09/22/16 18:17 DC 09/22/16 18:26 150 MG Furosemide (Lasix) 20 mg TID 09/24/16 14:00 09/24/16 13:38 20 MG Guaifenesin (Mucinex) 600 mg BID 09/22/16 22:00 09/24/16 09:04 600 MG Guaifenesin (Robitussin) 300 mg PRN Q4HRS PRN 09/22/16 21:15 09/23/16 21:31 300 MG Ibuprofen (Motrin) 800 mg PRN Q6HRS PRN 09/22/16 21:15 09/23/16 12:24 DC Lactobacillus Acidophilus (Bacid, Blanche-Bid) 2 tab BID 09/22/16 22:30 09/24/16 09:03 2 TAB Levofloxacin (Levaquin) 500 mg HS 09/22/16 22:00 09/23/16 21:34 500 MG Levothyroxine Sodium (Synthroid) 88 mcg DAILY07 09/23/16 07:00 09/24/16 10:40 DC 09/24/16 09:04 88 MCG Levothyroxine Sodium 50 mcg 50 mcg DAILY07 09/25/16 07:00 Metoprolol Tartrate (Lopressor) 50 mg BID 09/22/16 22:00 09/24/16 10:40 DC 09/24/16 09:05 50 MG Morphine Sulfate 2 mg 2 mg PRN Q2HR PRN 09/22/16 18:00 09/23/16 17:59 DC Nystatin (Nystop) 1 bibiana BID 09/22/16 22:30 09/24/16 09:06 1 BIBIANA Ondansetron HCl (Zofran) 4 mg PRN Q8HRS PRN 09/22/16 18:00 09/23/16 17:59 DC Polyethylene Glycol (miraLAX PACKET) 34 gm DAILY 09/23/16 09:00 09/23/16 08:28 34 GM Potassium Chloride (Klor-Con) 20 meq DAILY 09/23/16 09:00 09/24/16 09:04 20 MEQ Prednisone (Prednisone) 3 mg DAILY 09/23/16 09:00 09/24/16 09:03 3 MG Propafenone HCl (Rythmol) 225 mg [id number] 09/23/16 09:00 09/24/16 12:02 225 MG Sodium Chloride (Iv Sodium Chloride 0.9% 1000ml Bag) 1,000 ml @ 75 mls/hr [id number] 09/22/16 17:55 09/23/16 12:24 DC 09/22/16 19:20 75 MLS/HR Spironolactone (Aldactone) 25 mg DAILY 09/23/16 09:00 09/24/16 10:40 DC 09/24/16 09:05 25 MG Vitamin D (Vitamin D3) 1,000 unit DAILY 09/23/16 09:00 09/24/16 09:04 1,000 UNIT Warfarin Sodium (Coumadin Per Physician) 1 each PRN DAILY PRN 09/22/16 21:45 09/24/16 15:05 1 EACH Warfarin Sodium (Coumadin) 2.5 mg DAILY16 09/23/16 16:00 09/24/16 17:02 2.5 MG Zinc Oxide 1 bibiana BID 09/22/16 23:00 09/24/16 09:06 1 BIBIANA [facility] Lab: Laboratory Tests Test 09/24/16 05:05 White Blood Count 13.6x10^3/uL (4.0-11.0) Red Blood Count 3.48x10^6/uL (3.50-5.40) Hemoglobin 11.7g/dL (12.0-15.5) Hematocrit 34.5% (36.0-47.0) Mean Corpuscular Volume 99fL (79-100) Mean Corpuscular Hemoglobin 34pg (25-35) Mean Corpuscular Hemoglobin Concent 34g/dL (31-37) Red Cell Distribution Width 12.5% (11.5-14.5) Platelet Count 142x10^3/uL (140-400) Reticulocyte Count (auto) 2.1% (0.5-2.5) Sodium Level 125mmol/L (136-145) Potassium Level 4.4mmol/L (3.5-5.1) Chloride Level 84mmol/L (98-107) Carbon Dioxide Level 39mmol/L (21-32) Anion Gap 2 (6-14) Blood Urea Nitrogen 18mg/dL (7-20) Creatinine 0.9mg/dL (0.6-1.0) Estimated GFR (Cockcroft-Gault) 59.5 Glucose Level 65mg/dL (70-99) Calcium Level 8.4mg/dL (8.5-10.1) Phosphorus Level 4.3mg/dL (2.6-4.7) Iron Level 43ug/dL (50-170) Total Iron Binding Capacity 243ug/dL (250-450) Iron Saturation 18% (15-34) Ferritin 258ng/mL (8-252) Albumin 2.4g/dL (3.4-5.0) LEATHA STEPHENS MD Sep 24, 2016 18:13
[2016-09-24] MEDS: LEVOFLOXACIN 500 MG TABLET PO SCH (20:22)
[2016-09-24 20:26] VITALS: BP 88/52
[2016-09-25 03:00] VITALS: BP 110/59
[2016-09-25] MEDS: LEVOTHYROXINE 88 MCG TABLET PO SCH (05:42)
[2016-09-25 06:23] LABS: ALBUMIN 3.6 g/dL (3.4-5.0); CALCIUM 8.9 mg/dL (8.5-10.1); CREATININE 1.1 mg/dL (0.6-1.0); GFR 47.2; PHOSPHORUS 4.7 mg/dL (2.6-4.7)
[2016-09-25 07:00] VITALS: BP 110/78
[2016-09-25] MEDS: IPRATRPIUM/ALBUTEROL 0.5/2.5MG 3 ML NEBU. NEB SCH ×4 (07:25→19:23)
[2016-09-25 07:46] LABS: INR 1.8 (0.8-1.1); PROTHROMBIN TIME PATIENT 19.7 SEC (11.7-14.0)
[2016-09-25] MEDS: PREDNISONE 5 MG TABLET PO SCH (08:38)
[2016-09-25] MEDS: PREDNISONE 1 MG TABLET PO SCH (08:38)
[2016-09-25] MEDS: POTASSIUM CHLORIDE 20 MEQ TABLET.ER. PO SCH (08:39)
[2016-09-25] MEDS: LACTOBACILLUS ACIDOPH & BULGAR 1 TABLET. PO SCH ×2 (08:39→21:59)
[2016-09-25] MEDS: NYSTATIN 100,000 UNITS/ML 5 ML ORAL.SUSP. PO SCH ×4 (08:39→21:59)
[2016-09-25] MEDS: FAMOTIDINE 20 MG TABLET. PO SCH (08:40)
[2016-09-25] MEDS: OMEGA-3 FATTY ACIDS/FISH OIL 1,000 MG CAPSULE. PO SCH (08:40)
[2016-09-25] MEDS: PROPAFENONE 150 MG TABLET. PO SCH ×3 (08:42→21:59)
[2016-09-25] MEDS: CHOLECALCIFEROL (VITAMIN D3) 1,000 UNIT TABLET PO SCH (08:42)
[2016-09-25] MEDS: GUAIFENESIN ER 600 MG TABLET.ER PO SCH ×2 (08:43→21:58)
[2016-09-25] MEDS: NYSTATIN TOPICAL POWDER 15GM BOTTLE. TP SCH ×2 (08:46→21:00)
[2016-09-25] MEDS: ZINC OXIDE 20% TOPICAL OINTMENT 28GM TUBE. TP SCH ×2 (08:46→21:00)
[2016-09-25] MEDS: FUROSEMIDE 40 MG/4 ML VIAL IVP SCH ×3 (08:46→22:00)
[2016-09-25] MEDS: ALBUMIN HUMAN 25% 100 ML IV SCH (08:47)
[2016-09-25] MEDS: POLYETHYLENE GLYCOL 3350 17 GM PACKET. PO SCH (09:00)
[2016-09-25 11:00] VITALS: BP 118/63
--- NOTE | 2016-09-25 11:51 | PDOC ---
GENERAL General: looks and feels much better today. much more awake and alert and ate some breakfast. diuresis ongoing with O>I. will recheck cxr in am for effusions. Na up to 129 and creatinine at 1.1. breath sounds better. 2 ulcers buttocks/sacral area that are clean with wound care ongoing. otherwise same. Problems: VITAL SIGNS Vital Signs: Vital Signs Date Time Temp Pulse Resp B/P Pulse Ox O2 Delivery O2 Flow Rate FiO2 09/25/16 08:42 100 109/68 09/25/16 08:00 Nasal Cannula 2.0 09/25/16 07:25 100 09/25/16 07:00 97.5 19 97.5 I & O I & O Intake and Output 09/25/16 07:00 Intake Total 480 ml Output Total 3200 ml Balance -2720 ml Intake Oral 480 ml Output Urine Total 3200 ml ALLERGIES Allergies: Allergies Coded Allergies Type Severity Reaction Last Updated Verified Sulfa (Sulfonamide Antibiotics) Allergy Intermediate Rash 04/21/16 Yes MEDS Medications: Current Medications Medications (Trade) Dose Ordered Sig/Luz Marina Start Time Stop Time Status Last Admin Dose Admin Acetaminophen (Tylenol) 650 mg PRN Q4HRS PRN 09/22/16 21:15 09/24/16 20:22 650 MG Albumin Human (Albuminar) 100 ml @ 100 mls/hr TID 09/24/16 11:00 09/25/16 21:59 09/25/16 08:47 100 MLS/HR Albuterol/ Ipratropium (Duoneb) 3 ml RTQID 09/23/16 08:00 09/25/16 07:25 3 ML Demeclocycline HCl (Declomycin) 300 mg Q12HR 09/22/16 22:30 09/23/16 12:24 DC 09/23/16 08:29 300 MG Famotidine (Pepcid) 20 mg DAILY 09/23/16 09:00 09/25/16 08:40 20 MG Fish Oil (Fish Oil) 1,000 mg DAILY 09/23/16 09:00 09/25/16 08:40 1,000 MG Fluconazole (Diflucan) 150 mg 1X ONCE 09/22/16 18:15 09/22/16 18:17 DC 09/22/16 18:26 150 MG Furosemide (Lasix) 20 mg TID 09/24/16 14:00 09/25/16 08:46 20 MG Guaifenesin (Mucinex) 600 mg BID 09/22/16 22:00 09/25/16 08:43 600 MG Guaifenesin (Robitussin) 300 mg PRN Q4HRS PRN 09/22/16 21:15 09/23/16 21:31 300 MG Ibuprofen (Motrin) 800 mg PRN Q6HRS PRN 09/22/16 21:15 09/23/16 12:24 DC Lactobacillus Acidophilus (Bacid, Blanche-Bid) 2 tab BID 09/22/16 22:30 09/25/16 08:39 2 TAB Levofloxacin (Levaquin) 500 mg HS 09/22/16 22:00 09/24/16 20:22 500 MG Levothyroxine Sodium (Synthroid) 88 mcg DAILY07 09/23/16 07:00 09/24/16 10:40 DC 09/24/16 09:04 88 MCG Levothyroxine Sodium 50 mcg 50 mcg DAILY07 09/25/16 07:00 09/25/16 05:42 50 MCG Metoprolol Tartrate (Lopressor) 50 mg BID 09/22/16 22:00 09/24/16 10:40 DC 09/24/16 09:05 50 MG Morphine Sulfate 2 mg 2 mg PRN Q2HR PRN 09/22/16 18:00 09/23/16 17:59 DC Nystatin (Nystop) 1 bibiana BID 09/22/16 22:30 09/25/16 08:46 1 BIBIANA Ondansetron HCl (Zofran) 4 mg PRN Q8HRS PRN 09/22/16 18:00 09/23/16 17:59 DC Polyethylene Glycol (miraLAX PACKET) 34 gm DAILY 09/23/16 09:00 09/23/16 08:28 34 GM Potassium Chloride (Klor-Con) 20 meq DAILY 09/23/16 09:00 09/25/16 08:39 20 MEQ Prednisone (Prednisone) 3 mg DAILY 09/23/16 09:00 09/25/16 08:38 3 MG Propafenone HCl (Rythmol) 225 mg [id number] 09/23/16 09:00 09/25/16 08:42 225 MG Sodium Chloride (Iv Sodium Chloride 0.9% 1000ml Bag) 1,000 ml @ 75 mls/hr [id number] 09/22/16 17:55 09/23/16 12:24 DC 09/22/16 19:20 75 MLS/HR Spironolactone (Aldactone) 25 mg DAILY 09/23/16 09:00 09/24/16 10:40 DC 09/24/16 09:05 25 MG Vitamin D (Vitamin D3) 1,000 unit DAILY 09/23/16 09:00 09/25/16 08:42 1,000 UNIT Warfarin Sodium (Coumadin Per Physician) 1 each PRN DAILY PRN 09/22/16 21:45 09/24/16 15:05 1 EACH Warfarin Sodium (Coumadin) 2.5 mg DAILY16 09/23/16 16:00 09/24/16 17:02 2.5 MG Zinc Oxide 1 bibiana BID 09/22/16 23:00 09/25/16 08:46 1 [facility] Lab: Laboratory Tests Test 09/25/16 05:50 09/25/16 07:30 Sodium Level 129mmol/L (136-145) Potassium Level 4.0mmol/L (3.5-5.1) Chloride Level 86mmol/L (98-107) Carbon Dioxide Level 38mmol/L (21-32) Anion Gap 5 (6-14) Blood Urea Nitrogen 21mg/dL (7-20) Creatinine 1.1mg/dL (0.6-1.0) Estimated GFR (Cockcroft-Gault) 47.2 Glucose Level 83mg/dL (70-99) Calcium Level 8.9mg/dL (8.5-10.1) Phosphorus Level 4.7mg/dL (2.6-4.7) Albumin 3.6g/dL (3.4-5.0) Prothrombin Time 19.7SEC (11.7-14.0) Prothromb Time International Ratio 1.8 (0.8-1.1) LEATHA STEPHENS MD Sep 25, 2016 11:51
--- NOTE | 2016-09-25 12:22 | PDOC ---
SUBJECTIVE ROS Hyponatremia with Pl Eff DOing and feeling better; APetite is still marginal CVS: no Orthopnea, no CP RESP: no SOB, no CONRAD GI: no Nausea, no Vomiting : no Dysuria, no Urgency OBJECTIVE Vital Signs Vital Signs Date Time Temp Pulse Resp B/P Pulse Ox O2 Delivery O2 Flow Rate FiO2 09/25/16 08:42 100 109/68 09/25/16 08:00 Nasal Cannula 2.0 09/25/16 07:25 100 09/25/16 07:00 97.5 19 97.5 I & 0 Intake and Output 09/25/16 07:00 Intake Total 480 ml Output Total 3200 ml Balance -2720 ml Intake Oral 480 ml Output Urine Total 3200 ml PHYSICAL EXAM Physical Exam General Appearance: Awake Alert Oriented x 2-3 In no Distress Eyes: VIsion Unchanged Conjunctiva Normal EN: No EN Drainage Mucous Memb. moist Neck: no JVD no JVP Supple no Thyromegaly CVS: S1 S2 soft Murmur No Gallop No Rub no Edema Resp: Rt > Lt Rales no Rhonchi no Acc. Muscle use GI: BS +ve NO Bruit Non Tender Non Distended : no CVA tenderness; no Suprapubic Tenderness Assessment & Plan Hyponatremia - Better with Diuresis and water restriction - suspect either due to fluid overload vs Poor PO Intake (as noted with low alb). Has been on Prednisone so am cortisol may not help. Ct IV Lasix until tonites dose. HypoAlbumin - consider PEG until swallow issues resolve. Iron Def State - IV Fe as ordered Dysphagia - appreciate Speech eval and input; consider PEG until swallow issues resolve. Edema - Now resolved Pl Eff - ct Lasix for now as it seems to be helping with Na correction; Check CXR in am ? Alkalosis - No ABG - not sure if CO2 retention is Chronic asso with Pulm Fibrosis as noted on Previous CT Chest ? CKD underlying with Creat closer to 1.2 range in Euvolemic state ASVDz as noted on Previous CT - unable to R/o IVANNA - but BP are not high enough to suggest obvious IVANNA Pleuritic CP - ? Pn - remains on Levaquin for now ^ed free T4 - doubt that its contributing to HypoNatremia - but have decreased dose for now. Hypotension at times - better after IV Alb as ordered. COMMENT/RELEVANT DATA Meds Current Medications Medications (Trade) Dose Ordered Sig/Luz Marina Start Time Stop Time Status Last Admin Dose Admin Acetaminophen (Tylenol) 650 mg PRN Q4HRS PRN 09/22/16 21:15 09/24/16 20:22 650 MG Albumin Human (Albuminar) 100 ml @ 100 mls/hr TID 09/24/16 11:00 09/25/16 21:59 09/25/16 08:47 100 MLS/HR Albuterol/ Ipratropium (Duoneb) 3 ml RTQID 09/23/16 08:00 09/25/16 07:25 3 ML Demeclocycline HCl (Declomycin) 300 mg Q12HR 09/22/16 22:30 09/23/16 12:24 DC 09/23/16 08:29 300 MG Famotidine (Pepcid) 20 mg DAILY 09/23/16 09:00 09/25/16 08:40 20 MG Fish Oil (Fish Oil) 1,000 mg DAILY 09/23/16 09:00 09/25/16 08:40 1,000 MG Fluconazole (Diflucan) 150 mg 1X ONCE 09/22/16 18:15 09/22/16 18:17 DC 09/22/16 18:26 150 MG Furosemide (Lasix) 20 mg TID 09/24/16 14:00 09/25/16 08:46 20 MG Guaifenesin (Mucinex) 600 mg BID 09/22/16 22:00 09/25/16 08:43 600 MG Guaifenesin (Robitussin) 300 mg PRN Q4HRS PRN 09/22/16 21:15 09/23/16 21:31 300 MG Ibuprofen (Motrin) 800 mg PRN Q6HRS PRN 09/22/16 21:15 09/23/16 12:24 DC Lactobacillus Acidophilus (Bacid, Blanche-Bid) 2 tab BID 09/22/16 22:30 09/25/16 08:39 2 TAB Levofloxacin (Levaquin) 500 mg HS 09/22/16 22:00 09/24/16 20:22 500 MG Levothyroxine Sodium (Synthroid) 88 mcg DAILY07 09/23/16 07:00 09/24/16 10:40 DC 09/24/16 09:04 88 MCG Levothyroxine Sodium 50 mcg 50 mcg DAILY07 09/25/16 07:00 09/25/16 05:42 50 MCG Metoprolol Tartrate (Lopressor) 50 mg BID 09/22/16 22:00 09/24/16 10:40 DC 09/24/16 09:05 50 MG Morphine Sulfate 2 mg 2 mg PRN Q2HR PRN 09/22/16 18:00 09/23/16 17:59 DC Nystatin (Nystop) 1 bibiana BID 09/22/16 22:30 09/25/16 08:46 1 BIBIANA Ondansetron HCl (Zofran) 4 mg PRN Q8HRS PRN 09/22/16 18:00 09/23/16 17:59 DC Polyethylene Glycol (miraLAX PACKET) 34 gm DAILY 09/23/16 09:00 09/23/16 08:28 34 GM Potassium Chloride (Klor-Con) 20 meq DAILY 09/23/16 09:00 09/25/16 08:39 20 MEQ Prednisone (Prednisone) 3 mg DAILY 09/23/16 09:00 09/25/16 08:38 3 MG Propafenone HCl (Rythmol) 225 mg [id number] 09/23/16 09:00 09/25/16 08:42 225 MG Sodium Chloride (Iv Sodium Chloride 0.9% 1000ml Bag) 1,000 ml @ 75 mls/hr [id number] 09/22/16 17:55 09/23/16 12:24 DC 09/22/16 19:20 75 MLS/HR Spironolactone (Aldactone) 25 mg DAILY 09/23/16 09:00 09/24/16 10:40 DC 09/24/16 09:05 25 MG Vitamin D (Vitamin D3) 1,000 unit DAILY 09/23/16 09:00 09/25/16 08:42 1,000 UNIT Warfarin Sodium (Coumadin Per Physician) 1 each PRN DAILY PRN 09/22/16 21:45 09/24/16 15:05 1 EACH Warfarin Sodium (Coumadin) 2.5 mg DAILY16 09/23/16 16:00 09/24/16 17:02 2.5 MG Zinc Oxide 1 bibiana BID 09/22/16 23:00 09/25/16 08:46 1 BIBIANA Lab Laboratory Tests Test 09/25/16 05:50 09/25/16 07:30 Sodium Level 129mmol/L (136-145) Potassium Level 4.0mmol/L (3.5-5.1) Chloride Level 86mmol/L (98-107) Carbon Dioxide Level 38mmol/L (21-32) Anion Gap 5 (6-14) Blood Urea Nitrogen 21mg/dL (7-20) Creatinine 1.1mg/dL (0.6-1.0) Estimated GFR (Cockcroft-Gault) 47.2 Glucose Level 83mg/dL (70-99) Calcium Level 8.9mg/dL (8.5-10.1) Phosphorus Level 4.7mg/dL (2.6-4.7) Albumin 3.6g/dL (3.4-5.0) Prothrombin Time 19.7SEC (11.7-14.0) Prothromb Time International Ratio 1.8 (0.8-1.1) Other REnal US and DUplex: Areas of cortical thickening are seen involving both kidneys. No hydronephrosis is seen. Duplex evaluation of the renal arteries is limited due to overlying bowel gas and the patient's inability to suspend respirations. There is no definite sonographic evidence of renal artery stenosis MACK APONTE MD Sep 25, 2016 12:22
[2016-09-25 15:06] VITALS: BP 101/52
[2016-09-25] MEDS: WARFARIN 2.5 MG TABLET. PO SCH (16:43)
[2016-09-25 19:00] VITALS: BP 90/53
[2016-09-25] MEDS: LEVOFLOXACIN 250 MG TABLET. PO SCH (21:59)
[2016-09-25 23:30] VITALS: BP 139/74
[2016-09-26 03:00] VITALS: BP 117/74
[2016-09-26] MEDS: LEVOTHYROXINE 88 MCG TABLET PO SCH (06:30)
[2016-09-26 07:00] VITALS: BP 107/55
[2016-09-26] MEDS: IPRATRPIUM/ALBUTEROL 0.5/2.5MG 3 ML NEBU. NEB SCH ×3 (08:53→20:35)
[2016-09-26] MEDS: IRON SUCROSE COMPLEX 200 MG in IV NORMAL SALINE 100ML 100 ML IV SCH (09:20)
[2016-09-26] MEDS: OMEGA-3 FATTY ACIDS/FISH OIL 1,000 MG CAPSULE. PO SCH (09:21)
[2016-09-26] MEDS: PREDNISONE 5 MG TABLET PO SCH (09:21)
[2016-09-26] MEDS: FAMOTIDINE 20 MG TABLET. PO SCH (09:21)
[2016-09-26] MEDS: LACTOBACILLUS ACIDOPH & BULGAR 1 TABLET. PO SCH ×2 (09:21→21:37)
[2016-09-26] MEDS: GUAIFENESIN ER 600 MG TABLET.ER PO SCH ×2 (09:21→21:38)
[2016-09-26] MEDS: FUROSEMIDE 40 MG/4 ML VIAL IVP SCH (09:21)
[2016-09-26] MEDS: POTASSIUM CHLORIDE 20 MEQ TABLET.ER. PO SCH (09:21)
[2016-09-26] MEDS: PREDNISONE 1 MG TABLET PO SCH (09:21)
[2016-09-26] MEDS: CHOLECALCIFEROL (VITAMIN D3) 1,000 UNIT TABLET PO SCH (09:22)
[2016-09-26] MEDS: NYSTATIN 100,000 UNITS/ML 5 ML ORAL.SUSP. PO SCH ×4 (09:22→21:38)
[2016-09-26] MEDS: POLYETHYLENE GLYCOL 3350 17 GM PACKET. PO SCH (09:22)
[2016-09-26] MEDS: NYSTATIN TOPICAL POWDER 15GM BOTTLE. TP SCH ×2 (09:22→21:38)
[2016-09-26] MEDS: PROPAFENONE 150 MG TABLET. PO SCH ×3 (09:22→21:39)
[2016-09-26] MEDS: ACETAMINOPHEN 325 MG TABLET. PO PRN (09:22)
[2016-09-26] MEDS: ZINC OXIDE 20% TOPICAL OINTMENT 28GM TUBE. TP SCH ×2 (09:23→21:38)
[2016-09-26 10:14] LABS: ALBUMIN 3.9 g/dL (3.4-5.0); CALCIUM 9.1 mg/dL (8.5-10.1); CREATININE 1.2 mg/dL (0.6-1.0); GFR 42.7; PHOSPHORUS 3.9 mg/dL (2.6-4.7)
[2016-09-26 11:00] VITALS: BP 111/53
--- NOTE | 2016-09-26 11:32 | PDOC ---
PROGRESS NOTES Subjective Subjective Pt awake and pleasant. Denies pain. States she is eating some, however has a poor appetite. Objective Objective Pt awake and alert. NAD. VSS. Afebrile. Lung sounds diminished. Resp even and shallow. Pt on 1L of O2 per NC. Heart in Afib, rate controlled. Vital Signs Date Time Temp Pulse Resp B/P Pulse Ox O2 Delivery O2 Flow Rate FiO2 09/26/16 09:22 117 107/55 09/26/16 08:54 96 Nasal Cannula 1.0 09/26/16 07:00 98.1 18 98.1 Intake and Output 09/26/16 07:00 Intake Total 1635 ml Output Total 2300 ml Balance -665 ml Intake Oral 1635 ml Output Urine Total 2300 ml Assessment Assessment Problems Medical Problems: (1) Generalized weakness Status: Acute (2) Hyponatremia Status: Acute (3) Leukocytosis Status: Acute Plan Plan of Care 1. Hyponatremia -Na 117 upon admission, 129 this am. Better with Diuresis and water restriction - suspect either due to fluid overload or poor PO intake -Pt on Democycline prior to admission, continued -Renal consulted for insight -renal arterial duplex negative 2. CHF -CXR: bilat pleurel effusions -Repeat CXR this am -CT: Moderate sized bilateral pleural effusions which layer dependently. No loculated effusion is seen. There are areas of bilateral infiltrate or atelectasis. -Lasix and Spironolactone -O>I 3. Right chest pain with cough with decreased breath sounds in bases on exam. -WBC 17.3 upon admission, 13.6 this am. Trending down. -CXR this am -Pt on Levaquin and Duoneb 3. Afib -Pt on Coumadin - INR 1.9 -Pt on Rythmol for rate control Comment Review of Relevant I have reviewed the following items kevin (where applicable) has been applied. Labs Laboratory Tests Test 09/25/16 05:50 09/25/16 07:30 09/26/16 09:40 Sodium Level 129mmol/L (136-145) 127mmol/L (136-145) Potassium Level 4.0mmol/L (3.5-5.1) 5.0mmol/L (3.5-5.1) Chloride Level 86mmol/L (98-107) 85mmol/L (98-107) Carbon Dioxide Level 38mmol/L (21-32) 34mmol/L (21-32) Anion Gap 5 (6-14) 8 (6-14) Blood Urea Nitrogen 21mg/dL (7-20) 28mg/dL (7-20) Creatinine 1.1mg/dL (0.6-1.0) 1.2mg/dL (0.6-1.0) Estimated GFR (Cockcroft-Gault) 47.2 42.7 Glucose Level 83mg/dL (70-99) 133mg/dL (70-99) Calcium Level 8.9mg/dL (8.5-10.1) 9.1mg/dL (8.5-10.1) Phosphorus Level 4.7mg/dL (2.6-4.7) 3.9mg/dL (2.6-4.7) Albumin 3.6g/dL (3.4-5.0) 3.9g/dL (3.4-5.0) Prothrombin Time 19.7SEC (11.7-14.0) Prothromb Time International Ratio 1.8 (0.8-1.1) Laboratory Tests Test 09/26/16 09:40 Sodium Level 127mmol/L (136-145) Potassium Level 5.0mmol/L (3.5-5.1) Chloride Level 85mmol/L (98-107) Carbon Dioxide Level 34mmol/L (21-32) Anion Gap 8 (6-14) Blood Urea Nitrogen 28mg/dL (7-20) Creatinine 1.2mg/dL (0.6-1.0) Estimated GFR (Cockcroft-Gault) 42.7 Glucose Level 133mg/dL (70-99) Calcium Level 9.1mg/dL (8.5-10.1) Phosphorus Level 3.9mg/dL (2.6-4.7) Albumin 3.9g/dL (3.4-5.0) Microbiology 09/22/16 Urine Culture - Final, Complete 09/22/16 Urine Culture Result 1 (MIO) - Final, Complete Medications Current Medications Ondansetron HCl (Zofran) 4 mg PRN Q8HRS PRN IV NAUSEA/VOMITING; Start 09/22/16 at 18:00; Stop 09/23/16 at 17:59; Status DC Morphine Sulfate 2 mg 2 mg PRN Q2HR PRN IV PAIN; Start 09/22/16 at 18:00; Stop 09/23/16 at 17:59; Status DC Sodium Chloride (Iv Sodium Chloride 0.9% 1000ml Bag) 1,000 ml @ 75 mls/hr [id number] IV Last administered on 09/22/16 19:20; Start 09/22/16 at 17:55; Stop at 12:24; Status DC Fluconazole (Diflucan) 150 mg 1X ONCE PO Last administered on 09/22/16 18:26; Start 09/22/16 at 18:15; Stop 09/22/16 at 18:17; Status DC Acetaminophen (Tylenol) 650 mg PRN Q4HRS PRN PO MILD PAIN Last administered on 09/26/16 09:22; Start 09/22/16 at 21:15 Famotidine (Pepcid) 20 mg DAILY PO Last administered on 09/26/16 09:21; Start 09/23/16 at 09:00 Furosemide (Lasix) 40 mg DAILY PO Last administered on 09/23/16 08:26; Start at 09:00; Stop 09/23/16 at 12:24; Status DC Guaifenesin (Robitussin) 300 mg PRN Q4HRS PRN PO COUGH Last administered on 09/23 21:31; Start 09/22/16 at 21:15 Guaifenesin (Mucinex) 600 mg BID PO Last administered on 09/26/16 09:21; Start 09/22/16 at 22:00 Ibuprofen (Motrin) 800 mg PRN Q6HRS PRN PO INFLAMMATION; Start 09/22/16 at 21:15 ; Stop 09/23/16 at 12:24; Status DC Albuterol/ Ipratropium (Duoneb) 3 ml RTQID NEB Last administered on 09/26/16 08 :53; Start 09/23/16 at 08:00 Levofloxacin (Levaquin) 500 mg HS PO Last administered on 09/24/16 20:22; Start 09/22/16 at 22:00; Stop 09/25/16 at 14:23; Status DC Levothyroxine Sodium (Synthroid) 88 mcg DAILY07 PO Last administered on 09:04; Start 09/23/16 at 07:00; Stop 09/24/16 at 10:40; Status DC Metoprolol Tartrate (Lopressor) 50 mg BID PO Last administered on 09/24/16 09: 05; Start 09/22/16 at 22:00; Stop 09/24/16 at 10:40; Status DC Nystatin 5 ml QID PO Last administered on 09/26/16 09:22; Start 09/22/16 at 23: 00 Fish Oil (Fish Oil) 1,000 mg DAILY PO Last administered on 09/26/16 09:21; Start 09/23/16 at 09:00 Polyethylene Glycol (miraLAX PACKET) 34 gm DAILY PO Last administered on 09:22; Start 09/23/16 at 09:00 Potassium Chloride (Klor-Con) 20 meq DAILY PO Last administered on 09/26/16 09: 21; Start 09/23/16 at 09:00 Prednisone (Prednisone) 5 mg DAILY PO Last administered on 09/26/16 09:21; Start 09/23/16 at 09:00 Propafenone HCl (Rythmol) 225 mg [id number] PO Last administered on 09/26/16 09:22 ; Start 09/23/16 at 09:00 Spironolactone (Aldactone) 25 mg DAILY PO Last administered on 09/24/16 09:05; Start 09/23/16 at 09:00; Stop 09/24/16 at 10:40; Status DC Warfarin Sodium (Coumadin) 2.5 mg DAILY16 PO Last administered on 09/25/16 16: 43; Start 09/23/16 at 16:00 Lactobacillus Acidophilus (Bacid, Blanche-Bid) 2 tab BID PO Last administered on 09:21; Start 09/22/16 at 22:30 Vitamin D (Vitamin D3) 1,000 unit DAILY PO Last administered on 09/26/16 09:22 ; Start 09/23/16 at 09:00 Demeclocycline HCl (Declomycin) 300 mg Q12HR PO Last administered on 09/23/16 08:29; Start 09/22/16 at 22:30; Stop 09/23/16 at 12:24; Status DC Nystatin (Nystop) 1 bibiana BID TP Last administered on 09/26/16 09:22; Start at 22:30 Zinc Oxide 1 bibiana BID TP Last administered on 09/26/16 09:23; Start 09/22/16 at 23:00 Warfarin Sodium (Coumadin Per Physician) 1 each PRN DAILY PRN MC SEE COMMENTS Last administered on 09/25/16 14:27; Start 09/22/16 at 21:45 Prednisone (Prednisone) 3 mg DAILY PO Last administered on 09/26/16 09:21; Start 09/23/16 at 09:00 Furosemide (Lasix) 40 mg [id number] IVP Last administered on 09/24/16 09:07; Start 09/23/16 at 14:00; Stop 09/24/16 at 10:40; Status DC Furosemide (Lasix) 20 mg TID IVP Last administered on 09/26/16 09:21; Start 09/24/16 at 14:00 Levothyroxine Sodium 50 mcg 50 mcg DAILY07 PO Last administered on 09/26/16 06: 30; Start 09/25/16 at 07:00 Albumin Human 100 ml @ 100 mls/hr TID IV Last administered on 09/25/16 08:47; Start 09/24/16 at 11:00; Stop 09/25/16 at 12:22; Status DC Iron Sucrose/ Sodium Chloride (Venofer/Iv Sodium Chloride 0.9% 100ml) 110 ml @ 55 mls/hr 3X/WEEK IV Last administered on 09/26/16 09:20; Start 09/26/16 at 09: 00; Stop 10/05/16 at 10:59 Levofloxacin (Levaquin) 250 mg Q24H PO Last administered on 09/25/16 21:59; Start 09/25/16 at 21:00 Active Scripts Active Propafenone Hcl 150 Mg Tablet 225 Mg PO [id number] 30 Days Reported Zinc Oxide 30 Gm Oint...g. 30 Gm TP BID Polyethylene Glycol 3350 255 Gm Powder 34 Gm PO DAILY Nystatin 100,000 Unit/1 Ml Oral.susp 5 Ml PO QID oral thrush, x 5 days, start 09/22/16 Nystatin 1 Each Powder.ea. 1 Each PO BID to periarea topically after cleaning with warm soap and water, pat dry. apply zinc oxide cream and sprinkle with nystatin powder q shift Mucinex (Guaifenesin) 600 Mg Tablet.er 1 Tab PO BID x 5 days, started 09/18/16 Levaquin (Levofloxacin) 500 Mg Tablet 1 Tab PO HS x 7 days, start 09/18/16 Lasix (Furosemide) 40 Mg Tablet 1 Tab PO DAILY Ibuprofen 800 Mg Tablet 800 Mg PO PRN Q6HRS PRN Jelly-Tussin (Guaifenesin) 100 Mg/5 Ml Liquid 15 Ml PO Q4HRS PRN Floranex Tablet (Acidophilus/Bulgaricus) 1 Each Tablet 1 Each PO BID x 7 days, start date 09/18/16 Famotidine 20 Mg Tablet 20 Mg PO DAILY Duoneb 0.5-3(2.5) Mg/3 Ml (Albuterol/Ipratropium) 3 Ml Ampul.neb 3 Ml NEB QID x 7 days, start date 09/18/16 Demeclocycline Hcl 300 Mg Tablet 300 Mg PO BID Aldactone (Spironolactone) 25 Mg Tablet 1 Tab PO DAILY Coumadin (Warfarin Sodium) 2.5 Mg Tablet 1 Tab PO DAILY Tylenol (Acetaminophen) 325 Mg Tablet 2 Tab PO PRN Q4HRS Fish Oil 1,000 Mg Capsule ([place]-3 Fatty Acids/Fish Oil) 1 Each Capsule 1 Each PO DAILY LAST DOSE: 12/12/15 AM NEXT DOSE: 12/13/15 AM Klor-Con M20 (Potassium Chloride) 20 Meq Tab.er.prt 1 Tab PO DAILY LAST DOSE: 12/12/15 AM NEXT DOSE: 12/13/15 AM Metoprolol Tartrate 50 Mg Tablet 1 Tab PO BID LAST DOSE: 12/12/15 NEXT DOSE: 12/13/15 AM Levothyroxine Sodium 88 Mcg Tablet 1 Tab PO DAILY LAST DOSE: 12/12/15 AM NEXT DOSE: 12/13/15 AM Vitamin D (Cholecalciferol (Vitamin D3)) 1,000 Unit Capsule 1,000 Unit PO DAILY LAST DOSE: 12/12/15 NEXT DOSE: 12/13/15 AM Prednisone 5 Mg Tablet 8 Mg PO DAILY LAST DOSE: 12/12/15 AM NEXT DOSE: 12/13/15 AM Vitals/I & O Vital Sign - Last 24 Hours 09/25/16 09/25/16 09/25/16 09/25/16 12:43 15:06 15:06 15:58 Temp 98.1 98.1 Pulse 91 91 Resp 18 B/P 101/52 101/52 Pulse Ox 96 O2 Delivery Nasal Cannula Nasal Cannula Nasal Cannula O2 Flow Rate 1.0 2.0 1.0 09/25/16 09/25/16 09/25/16 09/25/16 19:00 19:24 20:00 21:59 Temp 97.7 97.7 Pulse 110 91 Resp 18 B/P 90/53 118/59 Pulse Ox 96 98 O2 Delivery Nasal Cannula Nasal Cannula Nasal Cannula O2 Flow Rate 2.0 1.0 2.0 09/25/16 09/26/16 09/26/16 09/26/16 23:30 03:00 07:00 08:00 Temp 97.7 98.3 98.1 97.7 98.3 98.1 Pulse 110 101 117 Resp 18 18 18 B/P 139/74 117/74 107/55 Pulse Ox 96 97 95 O2 Delivery Nasal Cannula Nasal Cannula Nasal Cannula Nasal Cannula O2 Flow Rate 2.0 2.0 2.0 2.0 09/26/16 09/26/16 08:54 09:22 Pulse 117 B/P 107/55 Pulse Ox 96 O2 Delivery Nasal Cannula O2 Flow Rate 1.0 Intake and Output 09/25/16 09/25/16 09/26/16 15:00 23:00 07:00 Intake Total 475 ml 800 ml 360 ml Output Total 1450 ml 850 ml Balance 475 ml -650 ml -490 ml LEATHA STEPHENS MD Sep 26, 2016 11:32
--- NOTE | 2016-09-26 13:29 | PDOC ---
SUBJECTIVE ROS Hyponatremia Not feeling too good today - weak CVS: no Orthopnea, no CP RESP: no SOB, no CONRAD GI: no Nausea, no Vomiting : no Dysuria, no Urgency OBJECTIVE Vital Signs Vital Signs Date Time Temp Pulse Resp B/P Pulse Ox O2 Delivery O2 Flow Rate FiO2 09/26/16 12:53 95 Nasal Cannula 1.0 09/26/16 11:00 96.6 120 18 111/53 96.6 I & 0 Intake and Output 09/26/16 07:00 Intake Total 1635 ml Output Total 2300 ml Balance -665 ml Intake Oral 1635 ml Output Urine Total 2300 ml PHYSICAL EXAM Physical Exam General Appearance: Awake Alert Oriented x 2-3 In no Distress Eyes: VIsion Unchanged Conjunctiva Normal EN: No EN Drainage Mucous Memb. moist Neck: no JVD no JVP Supple no Thyromegaly CVS: S1 S2 soft Murmur No Gallop No Rub no Edema today Resp: Rare Rales no Rhonchi no Acc. Muscle use GI: BS +ve NO Bruit Non Tender Non Distended : no CVA tenderness; no Suprapubic Tenderness Assessment & Plan Hyponatremia - (worse today) was Better with Diuresis and water restriction until now Poor PO Intake (as noted with low alb). Has been on Prednisone so am not sure if she need Stress dose steroids. Will check Cortrosyn Stim test. HypoAlbumin - better after infusion. Iron Def State - IV Fe as ordered Dysphagia - appreciate Speech eval and input; consider PEG until swallow issues resolve. Pl Eff - resolved after diuresis. ? Alkalosis - No ABG - not sure if CO2 retention is Chronic asso with Pulm Fibrosis as noted on Previous CT Chest ? CKD underlying with Creat closer to 1.2 range in Euvolemic state ASVDz as noted on Previous CT - unable to R/o IVANNA - but BP are not high enough to suggest obvious IVANNA Pleuritic CP - ? Pn - remains on Levaquin for now and is symtomatically better ^ed free T4 - doubt that its contributing to HypoNatremia - but have decreased dose for now. Hypotension at times - better after IV Alb as ordered. Tachycardia - may need cardiology to see. THis is despite decrease in Thyroid supplementation. may need IVF if symptomatic from [facility]ost[facility] COMMENT/RELEVANT DATA Meds Current Medications Medications (Trade) Dose Ordered Sig/Luz Marina Start Time Stop Time Status Last Admin Dose Admin Acetaminophen (Tylenol) 650 mg PRN Q4HRS PRN 09/22/16 21:15 09/26/16 09:22 650 MG Albumin Human 100 ml @ 100 mls/hr TID 09/24/16 11:00 09/25/16 12:22 DC 09/25/16 08:47 100 MLS/HR Albuterol/ Ipratropium (Duoneb) 3 ml RTQID 09/23/16 08:00 09/26/16 12:00 3 ML Demeclocycline HCl (Declomycin) 300 mg Q12HR 09/22/16 22:30 09/23/16 12:24 DC 09/23/16 08:29 300 MG Famotidine (Pepcid) 20 mg DAILY 09/23/16 09:00 09/26/16 09:21 20 MG Fish Oil (Fish Oil) 1,000 mg DAILY 09/23/16 09:00 09/26/16 09:21 1,000 MG Fluconazole (Diflucan) 150 mg 1X ONCE 09/22/16 18:15 09/22/16 18:17 DC 09/22/16 18:26 150 MG Furosemide (Lasix) 20 mg TID 09/24/16 14:00 09/26/16 09:21 20 MG Guaifenesin (Mucinex) 600 mg BID 09/22/16 22:00 09/26/16 09:21 600 MG Guaifenesin (Robitussin) 300 mg PRN Q4HRS PRN 09/22/16 21:15 09/23/16 21:31 300 MG Ibuprofen (Motrin) 800 mg PRN Q6HRS PRN 09/22/16 21:15 09/23/16 12:24 DC Iron Sucrose/ Sodium Chloride (Venofer/Iv Sodium Chloride 0.9% 100ml) 110 ml @ 55 mls/hr 3X/WEEK 09/26/16 09:00 10/05/16 10:59 09/26/16 09:20 55 MLS/HR Lactobacillus Acidophilus (Bacid, Blanche-Bid) 2 tab BID 09/22/16 22:30 09/26/16 09:21 2 TAB Levofloxacin (Levaquin) 250 mg Q24H 09/25/16 21:00 09/25/16 21:59 250 MG Levothyroxine Sodium (Synthroid) 88 mcg DAILY07 09/23/16 07:00 09/24/16 10:40 DC 09/24/16 09:04 88 MCG Levothyroxine Sodium 50 mcg 50 mcg DAILY07 09/25/16 07:00 09/26/16 06:30 50 MCG Metoprolol Tartrate (Lopressor) 50 mg BID 09/22/16 22:00 09/24/16 10:40 DC 09/24/16 09:05 50 MG Morphine Sulfate 2 mg 2 mg PRN Q2HR PRN 09/22/16 18:00 09/23/16 17:59 DC Nystatin (Nystop) 1 bibiana BID 09/22/16 22:30 09/26/16 09:22 1 BIBIANA Ondansetron HCl (Zofran) 4 mg PRN Q8HRS PRN 09/22/16 18:00 09/23/16 17:59 DC Polyethylene Glycol (miraLAX PACKET) 34 gm DAILY 09/23/16 09:00 09/26/16 09:22 34 GM Potassium Chloride (Klor-Con) 20 meq DAILY 09/23/16 09:00 09/26/16 09:21 20 MEQ Prednisone (Prednisone) 3 mg DAILY 09/23/16 09:00 09/26/16 09:21 3 MG Propafenone HCl (Rythmol) 225 mg [id number] 09/23/16 09:00 09/26/16 09:22 225 MG Sodium Chloride (Iv Sodium Chloride 0.9% 1000ml Bag) 1,000 ml @ 75 mls/hr [id number] 09/22/16 17:55 09/23/16 12:24 DC 09/22/16 19:20 75 MLS/HR Spironolactone (Aldactone) 25 mg DAILY 09/23/16 09:00 09/24/16 10:40 DC 09/24/16 09:05 25 MG Vitamin D (Vitamin D3) 1,000 unit DAILY 09/23/16 09:00 09/26/16 09:22 1,000 UNIT Warfarin Sodium (Coumadin Per Physician) 1 each PRN DAILY PRN 09/22/16 21:45 09/25/16 14:27 1 EACH Warfarin Sodium (Coumadin) 2.5 mg DAILY16 09/23/16 16:00 09/25/16 16:43 2.5 MG Zinc Oxide 1 bibiana BID 09/22/16 23:00 09/26/16 09:23 1 BIBIANA Lab Laboratory Tests Test 09/26/16 09:40 Sodium Level 127mmol/L (136-145) Potassium Level 5.0mmol/L (3.5-5.1) Chloride Level 85mmol/L (98-107) Carbon Dioxide Level 34mmol/L (21-32) Anion Gap 8 (6-14) Blood Urea Nitrogen 28mg/dL (7-20) Creatinine 1.2mg/dL (0.6-1.0) Estimated GFR (Cockcroft-Gault) 42.7 Glucose Level 133mg/dL (70-99) Calcium Level 9.1mg/dL (8.5-10.1) Phosphorus Level 3.9mg/dL (2.6-4.7) Albumin 3.9g/dL (3.4-5.0) MACK APONTE MD Sep 26, 2016 13:29
[2016-09-26 15:00] VITALS: BP 94/45
--- NOTE | 2016-09-26 15:28 | RAD ---
Portable chest, 09/26/2016: History: Shortness of breath, weakness Comparison is made to a study from 09/22/2016. A right PICC extends to the level of the atriocaval junction. The heart is mildly enlarged. There is calcific plaquing of the aorta. There appear to be scattered parenchymal scars. The left base has partially cleared with much better definition of the hemidiaphragm. Slight blunting of the lateral costophrenic angles bilaterally probably reflect a tiny amount of residual pleural fluid. No new abnormality is seen. IMPRESSION: 1. Cardiomegaly. 2. Resolving left basilar opacities. 3. Possible tiny residual bilateral pleural effusions.
[2016-09-26] MEDS: WARFARIN 2.5 MG TABLET. PO SCH (17:30)
[2016-09-26 19:00] VITALS: BP 106/48
[2016-09-26] MEDS: LEVOFLOXACIN 250 MG TABLET. PO SCH (21:39)
[2016-09-26 22:59] VITALS: BP 141/66
[2016-09-27 03:00] VITALS: BP 121/72
[2016-09-27 05:45] LABS: HEMATOCRIT 36.3 % (36.0-47.0); RED BLOOD COUNT 3.66 x10^6/uL (3.50-5.40); RED CELL DISTRIBUTION WIDTH 12.5 % (11.5-14.5); WHITE BLOOD COUNT 14.3 x10^3/uL (4.0-11.0)
[2016-09-27 06:08] LABS: ALBUMIN 3.4 g/dL (3.4-5.0); CALCIUM 9.2 mg/dL (8.5-10.1); CREATININE 1.3 mg/dL (0.6-1.0); GFR 38.9; PHOSPHORUS 3.7 mg/dL (2.6-4.7)
[2016-09-27] MEDS: LEVOTHYROXINE 88 MCG TABLET PO SCH (06:18)
[2016-09-27 06:33] LABS: INR 1.6 (0.8-1.1); PROTHROMBIN TIME PATIENT 17.8 SEC (11.7-14.0)
[2016-09-27 07:00] VITALS: BP 110/65
[2016-09-27] MEDS ORDERED: COSYNTROPIN 0.25 MG VIAL IVP ONE (08:00)
--- NOTE | 2016-09-27 09:14 | PDOC ---
SUBJECTIVE ROS CKD III/ HypoNatremia Feeling better today; PO intake is Poor CVS: no Orthopnea, no CP RESP: no SOB, no CONRAD GI: no Nausea, no Vomiting : no Dysuria, no Urgency OBJECTIVE Vital Signs Vital Signs Date Time Temp Pulse Resp B/P Pulse Ox O2 Delivery O2 Flow Rate FiO2 09/27/16 03:00 96.3 102 18 121/72 99 Nasal Cannula 2.0 96.3 I & 0 Intake and Output 09/27/16 07:00 Intake Total 1110 ml Output Total 1050 ml Balance 60 ml Intake Oral 1110 ml Output Urine Total 1050 ml PHYSICAL EXAM Physical Exam General Appearance: Awake Alert Oriented x 3 In no Distress Eyes: VIsion Unchanged Conjunctiva Normal EN: No EN Drainage Mucous Memb. moist Neck: no JVD no JVP Supple no Thyromegaly CVS: S1 S2 soft Murmur No Gallop No Rub no Edema today Resp: Rare Rales no Rhonchi no Acc. Muscle use GI: BS +ve NO Bruit Non Tender Non Distended : no CVA tenderness; no Suprapubic Tenderness Assessment & Plan Hyponatremia - (a little worse today) was Better with Diuresis and water restriction until now. Poor PO Intake (as noted with low alb). Has been on Prednisone for quite a while so am not sure if she need Stress dose steroids. Will check Cortrosyn Stim test in am since it was not able to be done as timed today. Pt reportedly too weak to stand and so Orthostasis NA yet HypoAlbumin - better after infusion. Nutritional supplements ordered Iron Def State - IV Fe as ordered Dysphagia - appreciate Speech eval and input; consider PEG until swallow issues resolve (this seems to be precipitating her poor PO intake and hence contributing to HypOnatremia) Poor PO intake - ? TPN if needed Pl Eff - ? resolved after diuresis. consider Pulm eval if reccurs. ECHO as ordered still not done (? Met) Alkalosis - No ABG - not sure if CO2 retention is Chronic asso with ? Pulm Fibrosis as noted on Previous CT Chest - ? Re-CT once Pl EFF resolve ? CKD III underlying with Creat closer to 1.2 range in Euvolemic state ASVDz as noted on Previous CT - unable to R/o IVANNA - but BP are not high enough to suggest obvious IVANNA ^ed free T4 - doubt that its contributing to HypoNatremia - but have decreased dose for now. may be contributing to Tachycardia Hypotension at times - better after IV Alb as ordered. Tachycardia - may need cardiology to see. THis is despite decrease in Thyroid supplementation. may need IVF if symptomatic from [facility] COMMENT/RELEVANT DATA Meds Current Medications Medications (Trade) Dose Ordered Sig/Luz Marina Start Time Stop Time Status Last Admin Dose Admin Acetaminophen (Tylenol) 650 mg PRN Q4HRS PRN 09/22/16 21:15 09/26/16 09:22 650 MG Albumin Human 100 ml @ 100 mls/hr TID 09/24/16 11:00 09/25/16 12:22 DC 09/25/16 08:47 100 MLS/HR Albuterol/ Ipratropium (Duoneb) 3 ml RTQID 09/23/16 08:00 09/26/16 20:35 3 ML Cosyntropin (Cortrosyn) 0.5 mg 1X ONCE 09/27/16 08:00 09/27/16 08:01 DC Demeclocycline HCl (Declomycin) 300 mg Q12HR 09/22/16 22:30 09/23/16 12:24 DC 09/23/16 08:29 300 MG Famotidine (Pepcid) 20 mg DAILY 09/23/16 09:00 09/26/16 09:21 20 MG Fish Oil (Fish Oil) 1,000 mg DAILY 09/23/16 09:00 09/26/16 09:21 1,000 MG Fluconazole (Diflucan) 150 mg 1X ONCE 09/22/16 18:15 09/22/16 18:17 DC 09/22/16 18:26 150 MG Furosemide (Lasix) 20 mg TID 09/24/16 14:00 09/26/16 13:26 DC 09/26/16 09:21 20 MG Guaifenesin (Mucinex) 600 mg BID 09/22/16 22:00 09/26/16 21:38 600 MG Guaifenesin (Robitussin) 300 mg PRN Q4HRS PRN 09/22/16 21:15 09/23/16 21:31 300 MG Ibuprofen (Motrin) 800 mg PRN Q6HRS PRN 09/22/16 21:15 09/23/16 12:24 DC Iron Sucrose/ Sodium Chloride (Venofer/Iv Sodium Chloride 0.9% 100ml) 110 ml @ 55 mls/hr 3X/WEEK 09/26/16 09:00 10/05/16 10:59 09/26/16 09:20 55 MLS/HR Lactobacillus Acidophilus (Bacid, Blanche-Bid) 2 tab BID 09/22/16 22:30 09/26/16 21:37 2 TAB Levofloxacin (Levaquin) 250 mg Q24H 09/25/16 21:00 09/26/16 21:39 250 MG Levothyroxine Sodium (Synthroid) 88 mcg DAILY07 09/23/16 07:00 09/24/16 10:40 DC 09/24/16 09:04 88 MCG Levothyroxine Sodium 50 mcg 50 mcg DAILY07 09/25/16 07:00 09/27/16 06:18 50 MCG Metoprolol Tartrate (Lopressor) 50 mg BID 09/22/16 22:00 09/24/16 10:40 DC 09/24/16 09:05 50 MG Morphine Sulfate 2 mg 2 mg PRN Q2HR PRN 09/22/16 18:00 09/23/16 17:59 DC Nystatin (Nystop) 1 bibiana BID 09/22/16 22:30 09/26/16 21:38 1 BIBIANA Ondansetron HCl (Zofran) 4 mg PRN Q8HRS PRN 09/22/16 18:00 09/23/16 17:59 DC Polyethylene Glycol (miraLAX PACKET) 34 gm DAILY 09/23/16 09:00 09/26/16 09:22 34 GM Potassium Chloride (Klor-Con) 20 meq DAILY 09/23/16 09:00 09/26/16 09:21 20 MEQ Prednisone (Prednisone) 3 mg DAILY 09/23/16 09:00 09/26/16 09:21 3 MG Propafenone HCl (Rythmol) 225 mg [id number] 09/23/16 09:00 09/26/16 21:39 225 MG Sodium Chloride (Iv Sodium Chloride 0.9% 1000ml Bag) 1,000 ml @ 75 mls/hr [id number] 09/22/16 17:55 09/23/16 12:24 DC 09/22/16 19:20 75 MLS/HR Spironolactone (Aldactone) 25 mg DAILY 09/23/16 09:00 09/24/16 10:40 DC 09/24/16 09:05 25 MG Vitamin D (Vitamin D3) 1,000 unit DAILY 09/23/16 09:00 09/26/16 09:22 1,000 UNIT Warfarin Sodium (Coumadin Per Physician) 1 each PRN DAILY PRN 09/22/16 21:45 09/25/16 14:27 1 EACH Warfarin Sodium (Coumadin) 2.5 mg DAILY16 09/23/16 16:00 09/26/16 17:30 2.5 MG Zinc Oxide 1 bibiana BID 09/22/16 23:00 09/26/16 21:38 1 BIBIANA Lab Laboratory Tests Test 09/26/16 09:40 09/26/16 14:05 09/27/16 05:30 Sodium Level 127mmol/L (136-145) 126mmol/L (136-145) Potassium Level 5.0mmol/L (3.5-5.1) 4.0mmol/L (3.5-5.1) Chloride Level 85mmol/L (98-107) 87mmol/L (98-107) Carbon Dioxide Level 34mmol/L (21-32) 35mmol/L (21-32) Anion Gap 8 (6-14) 4 (6-14) Blood Urea Nitrogen 28mg/dL (7-20) 32mg/dL (7-20) Creatinine 1.2mg/dL (0.6-1.0) 1.3mg/dL (0.6-1.0) Estimated GFR (Cockcroft-Gault) 42.7 38.9 Glucose Level 133mg/dL (70-99) 89mg/dL (70-99) Serum Osmolality 272mOsm/Kg (279-304) Uric Acid 5.6mg/dL (2.6-6.0) Calcium Level 9.1mg/dL (8.5-10.1) 9.2mg/dL (8.5-10.1) Phosphorus Level 3.9mg/dL (2.6-4.7) 3.7mg/dL (2.6-4.7) Albumin 3.9g/dL (3.4-5.0) 3.4g/dL (3.4-5.0) Prealbumin 16mg/dL (9-32) Urine Random Sodium 61mmol/L (Not Estab.) White Blood Count 14.3x10^3/uL (4.0-11.0) Red Blood Count 3.66x10^6/uL (3.50-5.40) Hemoglobin 12.0g/dL (12.0-15.5) Hematocrit 36.3% (36.0-47.0) Mean Corpuscular Volume 99fL (79-100) Mean Corpuscular Hemoglobin 33pg (25-35) Mean Corpuscular Hemoglobin Concent 33g/dL (31-37) Red Cell Distribution Width 12.5% (11.5-14.5) Platelet Count 112x10^3/uL (140-400) Prothrombin Time 17.8SEC (11.7-14.0) Prothromb Time International Ratio 1.6 (0.8-1.1) MACK APONTE MD Sep 27, 2016 09:14
[2016-09-27] MEDS: IPRATRPIUM/ALBUTEROL 0.5/2.5MG 3 ML NEBU. NEB SCH ×4 (09:17→19:53)
[2016-09-27] MEDS: NYSTATIN TOPICAL POWDER 15GM BOTTLE. TP SCH ×2 (09:40→20:43)
[2016-09-27] MEDS: LACTOBACILLUS ACIDOPH & BULGAR 1 TABLET. PO SCH ×2 (09:41→20:43)
[2016-09-27] MEDS: POTASSIUM CHLORIDE 20 MEQ TABLET.ER. PO SCH (09:42)
[2016-09-27] MEDS: OMEGA-3 FATTY ACIDS/FISH OIL 1,000 MG CAPSULE. PO SCH (09:42)
[2016-09-27] MEDS: POLYETHYLENE GLYCOL 3350 17 GM PACKET. PO SCH (09:42)
[2016-09-27] MEDS: GUAIFENESIN ER 600 MG TABLET.ER PO SCH ×2 (09:43→20:43)
[2016-09-27] MEDS: FAMOTIDINE 20 MG TABLET. PO SCH (09:43)
[2016-09-27] MEDS: PREDNISONE 1 MG TABLET PO SCH (09:44)
[2016-09-27] MEDS: PREDNISONE 5 MG TABLET PO SCH (09:44)
[2016-09-27] MEDS: PROPAFENONE 150 MG TABLET. PO SCH ×3 (09:46→20:42)
[2016-09-27] MEDS: ZINC OXIDE 20% TOPICAL OINTMENT 28GM TUBE. TP SCH ×2 (09:46→20:43)
[2016-09-27] MEDS: CHOLECALCIFEROL (VITAMIN D3) 1,000 UNIT TABLET PO SCH (09:46)
[2016-09-27] MEDS: NYSTATIN 100,000 UNITS/ML 5 ML ORAL.SUSP. PO SCH ×5 (10:46→21:00)
--- NOTE | 2016-09-27 11:10 | PDOC ---
PROGRESS NOTES Subjective Subjective Pt awake and pleasant. C/o generalized weakness and fatigue. States she has a poor appetite, however is eating and drinking with normal output. Objective Objective Pt awake and alert. NAD. VSS. Afebrile. Lungs CTA bilat. Resp even and unlabored. Pt on 1L of O2 per NC. Heart with RRR. No murmurs. Vital Signs Date Time Temp Pulse Resp B/P Pulse Ox O2 Delivery O2 Flow Rate FiO2 09/27/16 09:46 133 110/65 09/27/16 08:04 95 Nasal Cannula 1.0 09/27/16 07:00 97.5 18 97.5 Intake and Output 09/27/16 07:00 Intake Total 1110 ml Output Total 1050 ml Balance 60 ml Intake Oral 1110 ml Output Urine Total 1050 ml Assessment Assessment Problems Medical Problems: (1) Generalized weakness Status: Acute (2) Hyponatremia Status: Acute (3) Leukocytosis Status: Acute Plan Plan of Care 1. Hyponatremia -Na 117 upon admission, 129 this am. Better with Diuresis and water restriction - suspect either due to fluid overload or poor PO intake -Pt on Democycline prior to admission, continued -Renal consulted for insight -renal arterial duplex negative 2. CHF -CXR: bilat pleurel effusions -Repeat CXR with improvement in infusions -CT: Moderate sized bilateral pleural effusions which layer dependently. No loculated effusion is seen. There are areas of bilateral infiltrate or atelectasis. -Lasix and Spironolactone -O>I 3. Right chest pain with cough with decreased breath sounds in bases on exam. -WBC 17.3 upon admission, 14K this am. Trending down. -Pt on Levaquin and Duoneb 3. Afib -Pt on Coumadin - INR 1.6 -Pt on Rythmol for rate control Pt PE improved. Appreciate Renal insight to hypnatremia treatment as outpt. Upon Dc pt requesting alternative placement to [facility] for [facility]. SW consulted. Comment Review of Relevant I have reviewed the following items kevin (where applicable) has been applied. Labs Laboratory Tests Test 09/26/16 09:40 09/26/16 14:05 09/27/16 05:30 Sodium Level 127mmol/L (136-145) 126mmol/L (136-145) Potassium Level 5.0mmol/L (3.5-5.1) 4.0mmol/L (3.5-5.1) Chloride Level 85mmol/L (98-107) 87mmol/L (98-107) Carbon Dioxide Level 34mmol/L (21-32) 35mmol/L (21-32) Anion Gap 8 (6-14) 4 (6-14) Blood Urea Nitrogen 28mg/dL (7-20) 32mg/dL (7-20) Creatinine 1.2mg/dL (0.6-1.0) 1.3mg/dL (0.6-1.0) Estimated GFR (Cockcroft-Gault) 42.7 38.9 Glucose Level 133mg/dL (70-99) 89mg/dL (70-99) Serum Osmolality 272mOsm/Kg (279-304) Uric Acid 5.6mg/dL (2.6-6.0) Calcium Level 9.1mg/dL (8.5-10.1) 9.2mg/dL (8.5-10.1) Phosphorus Level 3.9mg/dL (2.6-4.7) 3.7mg/dL (2.6-4.7) Albumin 3.9g/dL (3.4-5.0) 3.4g/dL (3.4-5.0) Prealbumin 16mg/dL (9-32) Urine Random Sodium 61mmol/L (Not Estab.) White Blood Count 14.3x10^3/uL (4.0-11.0) Red Blood Count 3.66x10^6/uL (3.50-5.40) Hemoglobin 12.0g/dL (12.0-15.5) Hematocrit 36.3% (36.0-47.0) Mean Corpuscular Volume 99fL (79-100) Mean Corpuscular Hemoglobin 33pg (25-35) Mean Corpuscular Hemoglobin Concent 33g/dL (31-37) Red Cell Distribution Width 12.5% (11.5-14.5) Platelet Count 112x10^3/uL (140-400) Prothrombin Time 17.8SEC (11.7-14.0) Prothromb Time International Ratio 1.6 (0.8-1.1) Laboratory Tests Test 09/26/16 14:05 09/27/16 05:30 Urine Random Sodium 61mmol/L (Not Estab.) White Blood Count 14.3x10^3/uL (4.0-11.0) Red Blood Count 3.66x10^6/uL (3.50-5.40) Hemoglobin 12.0g/dL (12.0-15.5) Hematocrit 36.3% (36.0-47.0) Mean Corpuscular Volume 99fL (79-100) Mean Corpuscular Hemoglobin 33pg (25-35) Mean Corpuscular Hemoglobin Concent 33g/dL (31-37) Red Cell Distribution Width 12.5% (11.5-14.5) Platelet Count 112x10^3/uL (140-400) Prothrombin Time 17.8SEC (11.7-14.0) Prothromb Time International Ratio 1.6 (0.8-1.1) Sodium Level 126mmol/L (136-145) Potassium Level 4.0mmol/L (3.5-5.1) Chloride Level 87mmol/L (98-107) Carbon Dioxide Level 35mmol/L (21-32) Anion Gap 4 (6-14) Blood Urea Nitrogen 32mg/dL (7-20) Creatinine 1.3mg/dL (0.6-1.0) Estimated GFR (Cockcroft-Gault) 38.9 Glucose Level 89mg/dL (70-99) Calcium Level 9.2mg/dL (8.5-10.1) Phosphorus Level 3.7mg/dL (2.6-4.7) Albumin 3.4g/dL (3.4-5.0) Microbiology 09/22/16 Urine Culture - Final, Complete 09/22/16 Urine Culture Result 1 (MIO) - Final, Complete Medications Current Medications Ondansetron HCl (Zofran) 4 mg PRN Q8HRS PRN IV NAUSEA/VOMITING; Start 09/22/16 at 18:00; Stop 09/23/16 at 17:59; Status DC Morphine Sulfate 2 mg 2 mg PRN Q2HR PRN IV PAIN; Start 09/22/16 at 18:00; Stop 09/23/16 at 17:59; Status DC Sodium Chloride (Iv Sodium Chloride 0.9% 1000ml Bag) 1,000 ml @ 75 mls/hr [id number] IV Last administered on 09/22/16 19:20; Start 09/22/16 at 17:55; Stop at 12:24; Status DC Fluconazole (Diflucan) 150 mg 1X ONCE PO Last administered on 09/22/16 18:26; Start 09/22/16 at 18:15; Stop 09/22/16 at 18:17; Status DC Acetaminophen (Tylenol) 650 mg PRN Q4HRS PRN PO MILD PAIN Last administered on 09/26/16 09:22; Start 09/22/16 at 21:15 Famotidine (Pepcid) 20 mg DAILY PO Last administered on 09/27/16 09:43; Start 09/23/16 at 09:00 Furosemide (Lasix) 40 mg DAILY PO Last administered on 09/23/16 08:26; Start at 09:00; Stop 09/23/16 at 12:24; Status DC Guaifenesin (Robitussin) 300 mg PRN Q4HRS PRN PO COUGH Last administered on 09/23 21:31; Start 09/22/16 at 21:15 Guaifenesin (Mucinex) 600 mg BID PO Last administered on 09/27/16 09:43; Start 09/22/16 at 22:00 Ibuprofen (Motrin) 800 mg PRN Q6HRS PRN PO INFLAMMATION; Start 09/22/16 at 21:15 ; Stop 09/23/16 at 12:24; Status DC Albuterol/ Ipratropium (Duoneb) 3 ml RTQID NEB Last administered on 09/27/16 09 :17; Start 09/23/16 at 08:00 Levofloxacin (Levaquin) 500 mg HS PO Last administered on 09/24/16 20:22; Start 09/22/16 at 22:00; Stop 09/25/16 at 14:23; Status DC Levothyroxine Sodium (Synthroid) 88 mcg DAILY07 PO Last administered on 09:04; Start 09/23/16 at 07:00; Stop 09/24/16 at 10:40; Status DC Metoprolol Tartrate (Lopressor) 50 mg BID PO Last administered on 09/24/16 09: 05; Start 09/22/16 at 22:00; Stop 09/24/16 at 10:40; Status DC Nystatin 5 ml QID PO Last administered on 09/27/16 10:46; Start 09/22/16 at 23: 00 Fish Oil (Fish Oil) 1,000 mg DAILY PO Last administered on 09/27/16 09:42; Start 09/23/16 at 09:00 Polyethylene Glycol (miraLAX PACKET) 34 gm DAILY PO Last administered on 09:22; Start 09/23/16 at 09:00 Potassium Chloride (Klor-Con) 20 meq DAILY PO Last administered on 09/27/16 09: 42; Start 09/23/16 at 09:00 Prednisone (Prednisone) 5 mg DAILY PO Last administered on 09/27/16 09:44; Start 09/23/16 at 09:00 Propafenone HCl (Rythmol) 225 mg [id number] PO Last administered on 09/27/16 09:46 ; Start 09/23/16 at 09:00 Spironolactone (Aldactone) 25 mg DAILY PO Last administered on 09/24/16 09:05; Start 09/23/16 at 09:00; Stop 09/24/16 at 10:40; Status DC Warfarin Sodium (Coumadin) 2.5 mg DAILY16 PO Last administered on 09/26/16 17: 30; Start 09/23/16 at 16:00 Lactobacillus Acidophilus (Bacid, Blanche-Bid) 2 tab BID PO Last administered on 09:41; Start 09/22/16 at 22:30 Vitamin D (Vitamin D3) 1,000 unit DAILY PO Last administered on 09/27/16 09:46 ; Start 09/23/16 at 09:00 Demeclocycline HCl (Declomycin) 300 mg Q12HR PO Last administered on 09/23/16 08:29; Start 09/22/16 at 22:30; Stop 09/23/16 at 12:24; Status DC Nystatin (Nystop) 1 bibiana BID TP Last administered on 09/27/16 09:40; Start at 22:30 Zinc Oxide 1 bibiana BID TP Last administered on 09/27/16 09:46; Start 09/22/16 at 23:00 Warfarin Sodium (Coumadin Per Physician) 1 each PRN DAILY PRN MC SEE COMMENTS Last administered on 09/25/16 14:27; Start 09/22/16 at 21:45 Prednisone (Prednisone) 3 mg DAILY PO Last administered on 09/27/16 09:44; Start 09/23/16 at 09:00 Furosemide (Lasix) 40 mg [id number] IVP Last administered on 09/24/16 09:07; Start 09/23/16 at 14:00; Stop 09/24/16 at 10:40; Status DC Furosemide (Lasix) 20 mg TID IVP Last administered on 09/26/16 09:21; Start 09/24/16 at 14:00; Stop 09/26/16 at 13:26; Status DC Levothyroxine Sodium 50 mcg 50 mcg DAILY07 PO Last administered on 09/27/16 06: 18; Start 09/25/16 at 07:00 Albumin Human 100 ml @ 100 mls/hr TID IV Last administered on 09/25/16 08:47; Start 09/24/16 at 11:00; Stop 09/25/16 at 12:22; Status DC Iron Sucrose/ Sodium Chloride (Venofer/Iv Sodium Chloride 0.9% 100ml) 110 ml @ 55 mls/hr 3X/WEEK IV Last administered on 09/26/16 09:20; Start 09/26/16 at 09: 00; Stop 10/05/16 at 10:59 Levofloxacin (Levaquin) 250 mg Q24H PO Last administered on 09/26/16 21:39; Start 09/25/16 at 21:00 Cosyntropin (Cortrosyn) 0.5 mg 1X ONCE IVP ; Start 09/27/16 at 08:00; Stop at 09:21; Status DC Cosyntropin (Cortrosyn) 0.5 mg 1X ONCE IVP ; Start 09/28/16 at 08:00; Stop at 08:01 Active Scripts Active Propafenone Hcl 150 Mg Tablet 225 Mg PO [id number] 30 Days Reported Zinc Oxide 30 Gm Oint...g. 30 Gm TP BID Polyethylene Glycol 3350 255 Gm Powder 34 Gm PO DAILY Nystatin 100,000 Unit/1 Ml Oral.susp 5 Ml PO QID oral thrush, x 5 days, start 09/22/16 Nystatin 1 Each Powder.ea. 1 Each PO BID to periarea topically after cleaning with warm soap and water, pat dry. apply zinc oxide cream and sprinkle with nystatin powder q shift Mucinex (Guaifenesin) 600 Mg Tablet.er 1 Tab PO BID x 5 days, started 09/18/16 Levaquin (Levofloxacin) 500 Mg Tablet 1 Tab PO HS x 7 days, start 09/18/16 Lasix (Furosemide) 40 Mg Tablet 1 Tab PO DAILY Ibuprofen 800 Mg Tablet 800 Mg PO PRN Q6HRS PRN Jelly-Tussin (Guaifenesin) 100 Mg/5 Ml Liquid 15 Ml PO Q4HRS PRN Floranex Tablet (Acidophilus/Bulgaricus) 1 Each Tablet 1 Each PO BID x 7 days, start date 09/18/16 Famotidine 20 Mg Tablet 20 Mg PO DAILY Duoneb 0.5-3(2.5) Mg/3 Ml (Albuterol/Ipratropium) 3 Ml Ampul.neb 3 Ml NEB QID x 7 days, start date 09/18/16 Demeclocycline Hcl 300 Mg Tablet 300 Mg PO BID Aldactone (Spironolactone) 25 Mg Tablet 1 Tab PO DAILY Coumadin (Warfarin Sodium) 2.5 Mg Tablet 1 Tab PO DAILY Tylenol (Acetaminophen) 325 Mg Tablet 2 Tab PO PRN Q4HRS Fish Oil 1,000 Mg Capsule (Allen-3 Fatty Acids/Fish Oil) 1 Each Capsule 1 Each PO DAILY LAST DOSE: 12/12/15 AM NEXT DOSE: 12/13/15 AM Klor-Con M20 (Potassium Chloride) 20 Meq Tab.er.prt 1 Tab PO DAILY LAST DOSE: 12/12/15 AM NEXT DOSE: 12/13/15 AM Metoprolol Tartrate 50 Mg Tablet 1 Tab PO BID LAST DOSE: 12/12/15 AM NEXT DOSE: 12/13/15 AM Levothyroxine Sodium 88 Mcg Tablet 1 Tab PO DAILY LAST DOSE: 12/12/15 AM NEXT DOSE: 12/13/15 AM Vitamin D (Cholecalciferol (Vitamin D3)) 1,000 Unit Capsule 1,000 Unit PO DAILY LAST DOSE: 12/12/15 NEXT DOSE: 12/13/15 Prednisone 5 Mg Tablet 8 Mg PO DAILY LAST DOSE: 12/12/15 AM NEXT DOSE: 12/13/15 AM Vitals/I & O Vital Sign - Last 24 Hours 09/26/16 09/26/16 09/26/16 09/26/16 12:53 15:00 15:08 16:24 Temp 97.7 97.7 Pulse 105 105 Resp 18 B/P 94/45 94/45 Pulse Ox 95 92 O2 Delivery Nasal Cannula Nasal Cannula Nasal Cannula O2 Flow Rate 1.0 2.0 1.0 09/26/16 09/26/16 09/26/16 09/26/16 19:00 20:00 20:35 21:39 Temp 96.7 96.7 Pulse 99 99 Resp 18 B/P 106/48 106/48 Pulse Ox 94 95 O2 Delivery Nasal Cannula Nasal Cannula Nasal Cannula O2 Flow Rate 2.0 0.5 1.0 09/26/16 09/27/16 09/27/16 09/27/16 22:59 03:00 07:00 08:04 Temp 97.9 96.3 97.5 97.9 96.3 97.5 Pulse 102 102 133 Resp 18 18 18 B/P 141/66 121/72 110/65 Pulse Ox 95 99 95 95 O2 Delivery Nasal Cannula Nasal Cannula Nasal Cannula Nasal Cannula O2 Flow Rate 2.0 2.0 2.0 1.0 09/27/16 09:46 Pulse 133 B/P 110/65 Intake and Output 09/26/16 09/26/16 09/27/16 15:00 23:00 07:00 Intake Total 390 ml 400 ml 320 ml Output Total 650 ml 400 ml Balance 390 ml -250 ml -80 ml LEATHA STEPHENS MD Sep 27, 2016 11:10
[2016-09-27 11:23] VITALS: BP 98/60
[2016-09-27 15:48] VITALS: BP_SYST 101; BP_SYST 105; BP_DIAS 61; BP_DIAS 70
[2016-09-27] MEDS: WARFARIN 2.5 MG TABLET. PO SCH (18:02)
[2016-09-27 18:17] LABS: UR PROTEIN RD 34.2 mg/dL (Not Estab.)
[2016-09-27 19:00] VITALS: BP 107/57
--- NOTE | 2016-09-27 19:15 | CARD ---
APPROVED REPORT EXAM: Two-dimensional and M-mode echocardiogram with Doppler and color Doppler. Other Information Quality : Good Rhythm : Atrial Fibrillation INDICATION Atrial Fibrillation Chest Pain Mitral Valve Disease RISK FACTORS Hypertension 2D DIMENSIONS RVDd2.8 (2.9-3.5cm)Left Atrium(2D)3.8 (1.6-4.0cm) IVSd1.1 (0.7-1.1cm)Aortic Root(2D)3.1 (2.0-3.7cm) LVDd3.0 (3.9-5.9cm)LVOT Diameter2.1 (1.8-2.4cm) PWd1.0 (0.7-1.1cm)LVDs2.0 (2.5-4.0cm) FS (%) 32.8 %SV22.3 ml LVEF(%)63.0 (>50%) Aortic Valve AoV Peak Kali.143.5cm/sAoV VTI24.8cm AO Peak GR.8.2mmHgLVOT Peak Kali.71.8cm/s AO Mean GR.5mmHgAVA (VMAX)1.78cm2 AI P 1/2 [id number] Mitral Valve MV E Peak Gr.3mmHgMV E Mean Gr.1mmHg Tricuspid Valve TR P. [id number] [id number] TR Peak Gr.[id number] LEFT VENTRICLE The left ventricle is normal size. There is mild concentric left ventricular hypertrophy. The left ve ntricular systolic function is normal and the ejection fraction is within normal range. The Ejection Fraction is 63%. There is normal LV segmental wall motion. Unable to assess left ventricular complian ce due to atrial fibrillation. RIGHT VENTRICLE The right ventricle is normal size. There is normal right ventricular wall thickness. The right ventr icular systolic function is normal. ATRIA Poorly visualized left atrium Poorly visualized right atrium AORTIC VALVE The aortic valve is moderately sclerotic. Doppler and Color Flow revealed mild aortic regurgitation. There is no significant aortic valvular stenosis. MITRAL VALVE The mitral valve leaflets are thickened. There is no evidence of mitral valve prolapse. There is no m itral valve stenosis. Doppler and Color Flow revealed no mitral valve regurgitation noted. TRICUSPID VALVE Doppler and Color Flow revealed mild tricuspid regurgitation. The pulmonary artery systolic pressure is estimated at 30 mmHg. There is mild pulmonary hypertension. PULMONIC VALVE Doppler and Color Flow revealed mild pulmonic valvular regurgitation. GREAT VESSELS The aortic root is normal in size. The ascending aorta is normal in size. The pulmonary artery is nor mal. The IVC is normal in size and collapses >50% with inspiration. PERICARDIAL EFFUSION There is a trace loculated posterior pericardial effusion. Critical Notification Critical Value: No <Conclusion> There is mild concentric left ventricular hypertrophy. The left ventricular systolic function is normal and the ejection fraction is within normal range. The Ejection Fraction is 63%. Unable to assess left ventricular compliance due to atrial fibrillation. The aortic valve is moderately sclerotic. Doppler and Color Flow revealed mild aortic regurgitation. The mitral valve leaflets are thickened. Doppler and Color Flow revealed mild tricuspid regurgitation. The pulmonary artery systolic pressure is estimated at 30 mmHg. There is mild pulmonary hypertension. Doppler and Color Flow revealed mild pulmonic valvular regurgitation. There is a trace loculated posterior pericardial effusion.
[2016-09-27] MEDS: LEVOFLOXACIN 250 MG TABLET. PO SCH (20:43)
[2016-09-27 23:00] VITALS: BP 103/51
[2016-09-28] VITALS (7 sets, daily range): BP systolic 82–155; BP diastolic 50–88
[2016-09-28] MEDS ORDERED: ALTEPLASE 2 MG VIAL INT CAT ONE (06:00)
[2016-09-28] MEDS: LEVOTHYROXINE 88 MCG TABLET PO SCH (06:12)
[2016-09-28] MEDS: IPRATRPIUM/ALBUTEROL 0.5/2.5MG 3 ML NEBU. NEB SCH ×4 (07:03→19:26)
[2016-09-28] MEDS ORDERED: COSYNTROPIN 0.25 MG VIAL IVP ONE (08:00)
[2016-09-28] MEDS: IRON SUCROSE COMPLEX 200 MG in IV NORMAL SALINE 100ML 100 ML IV SCH (09:34)
[2016-09-28] MEDS: LACTOBACILLUS ACIDOPH & BULGAR 1 TABLET. PO SCH ×2 (09:35→19:52)
[2016-09-28] MEDS: NYSTATIN 100,000 UNITS/ML 5 ML ORAL.SUSP. PO SCH ×4 (09:35→19:52)
[2016-09-28] MEDS: POTASSIUM CHLORIDE 20 MEQ TABLET.ER. PO SCH (09:36)
[2016-09-28] MEDS: OMEGA-3 FATTY ACIDS/FISH OIL 1,000 MG CAPSULE. PO SCH (09:36)
[2016-09-28] MEDS: GUAIFENESIN ER 600 MG TABLET.ER PO SCH ×2 (09:37→19:53)
[2016-09-28] MEDS: FAMOTIDINE 20 MG TABLET. PO SCH (09:38)
[2016-09-28] MEDS: PREDNISONE 1 MG TABLET PO SCH (09:39)
[2016-09-28] MEDS: CHOLECALCIFEROL (VITAMIN D3) 1,000 UNIT TABLET PO SCH (09:39)
[2016-09-28] MEDS: PREDNISONE 5 MG TABLET PO SCH (09:39)
--- NOTE | 2016-09-28 09:41 | PDOC ---
SUBJECTIVE Subjective feels better, no new complaints OBJECTIVE Vital Signs Vital Signs Date Time Temp Pulse Resp B/P Pulse Ox O2 Delivery O2 Flow Rate FiO2 09/28/16 07:05 100 Nasal Cannula 1.0 09/28/16 03:00 97.5 93 16 129/78 94 Nasal Cannula 1.0 97.5 09/27/16 23:00 97.9 105 16 103/51 98 Nasal Cannula 1.0 97.9 09/27/16 20:42 81 107/57 09/27/16 20:00 Nasal Cannula 1.0 09/27/16 19:54 100 Nasal Cannula 1.0 09/27/16 19:00 98.6 81 16 107/57 97 Nasal Cannula 1.0 98.6 09/27/16 16:57 Nasal Cannula 1.0 09/27/16 15:48 100 101/61 95 Nasal Cannula 2.0 105/70 09/27/16 13:48 123 98/60 09/27/16 12:36 96 Nasal Cannula 1.0 09/27/16 11:23 97.8 123 19 98/60 97 Nasal Cannula 1.0 97.8 09/27/16 09:46 133 110/65 I & O Intake and Output 09/28/16 07:00 Intake Total 1300 ml Output Total 450 ml Balance 850 ml Intake Oral 1300 ml Output Urine Total 450 ml PHYSICAL EXAM Physical Exam heart IRREG abd soft and none tender Lungs few basilar rales ext no edema ASSESSMENT/PLAN Assessment/Plan 1. Hyponatremia -Na 117 upon admission, 127 this am. Better -Renal consulted for insight -renal arterial duplex negative 2. CHF -CXR: improved -CT: Moderate sized bilateral pleural effusions which layer dependently. No loculated effusion is seen. There are areas of bilateral infiltrate or atelectasis. -Lasix and Spironolactone -O>I 3. Right chest pain with cough. -continue on Levaquin and Duoneb 3. Afib -Pt on Coumadin - continue check INR -Pt on Rythmol for rate control plan for placement to [facility] for SN[facility]. SW consulted. Problems: COMMENT Lab Laboratory Tests Test 09/27/16 10:45 09/28/16 07:50 Urine Protein 34.2mg/dL (Not Estab.) Urine Creatinine 71.2mg/dL (Not Estab.) Urine Protein/Creatinine Ratio 480mg/g creat (0-200) Sodium Level 127mmol/L (136-145) Potassium Level 3.9mmol/L (3.5-5.1) Chloride Level 89mmol/L (98-107) Carbon Dioxide Level 35mmol/L (21-32) Anion Gap 3 (6-14) Blood Urea Nitrogen 29mg/dL (7-20) Creatinine 1.2mg/dL (0.6-1.0) Estimated GFR (Cockcroft-Gault) 42.7 Glucose Level 85mg/dL (70-99) Calcium Level 8.9mg/dL (8.5-10.1) ELAINE ERNST MD Sep 28, 2016 09:41
[2016-09-28 10:24] LABS: ALBUMIN 3.2 g/dL (3.4-5.0); PHOSPHORUS 3.3 mg/dL (2.6-4.7); POTASSIUM 3.9 mmol/L (3.5-5.1)
[2016-09-28 10:26] LABS: CALCIUM 8.9 mg/dL (8.5-10.1); CREATININE 1.2 mg/dL (0.6-1.0); GFR 42.7
[2016-09-28] MEDS: POLYETHYLENE GLYCOL 3350 17 GM PACKET. PO SCH (10:58)
[2016-09-28] MEDS: PROPAFENONE 150 MG TABLET. PO SCH ×3 (10:59→19:53)
[2016-09-28] MEDS: ZINC OXIDE 20% TOPICAL OINTMENT 28GM TUBE. TP SCH ×2 (11:01→19:53)
[2016-09-28] MEDS: NYSTATIN TOPICAL POWDER 15GM BOTTLE. TP SCH ×2 (11:01→19:53)
--- NOTE | 2016-09-28 13:43 | PDOC ---
SUBJECTIVE ROS F/up HypoNatremia and ? CKD III Feeling OK but still very weak CVS: no Orthopnea, no CP RESP: no SOB, no CONRAD(not ambulated) GI: no Nausea, no Vomiting : no Dysuria, no Urgency OBJECTIVE Vital Signs Vital Signs Date Time Temp Pulse Resp B/P Pulse Ox O2 Delivery O2 Flow Rate FiO2 09/28/16 11:37 97.5 97 14 119/62 99 Nasal Cannula 1.0 97.5 I & 0 Intake and Output 09/28/16 07:00 Intake Total 1300 ml Output Total 450 ml Balance 850 ml Intake Oral 1300 ml Output Urine Total 450 ml PHYSICAL EXAM Physical Exam General Appearance: Awake Alert Oriented x 3 In no Distress Eyes: VIsion Unchanged Conjunctiva Normal EN: No EN Drainage Mucous Memb. moist Neck: no JVD no JVP Supple no Thyromegaly CVS: S1 S2 soft Murmur No Gallop No Rub no Edema today Resp: Rare Rales no Rhonchi no Acc. Muscle use GI: BS +ve NO Bruit Non Tender Non Distended : no CVA tenderness; no Suprapubic Tenderness Assessment & Plan Hyponatremia - (a little worse today) was Better with Diuresis and water restriction until now. Poor PO Intake (as noted with low alb). Has been on Prednisone for quite a while so am not sure if she need Stress dose steroids. Will check Cortrosyn Stim test ias done today. Pt reportedly too weak to stand and so Orthostasis NA yet (none when she sits up) HypoAlbumin - better after infusion. Nutritional supplements ordered - not sure if she can take them given swallow restrictions Iron Def State - IV Fe as ordered Dysphagia - appreciate Speech eval and input; consider PEG until swallow issues resolve (this seems to be precipitating her poor PO intake and hence contributing to HypOnatremia) Poor PO intake - ? TPN if needed Pl Eff - ? resolved after diuresis. consider Pulm eval if reccurs. Was this due to HypoALbuminemia or due to RVR? ECHO as noted belwo (? Met) Alkalosis - No ABG - not sure if CO2 retention is Chronic asso with ? Pulm Fibrosis as noted on Previous CT Chest - ? Re-CT once Pl EFF resolve ? CKD III underlying with Creat closer to 1.2 to 1.4 range in Euvolemic state; May need 24-hr URine collection ASVDz as noted on Previous CT - unable to R/o IVANNA - but BP are not high enough to suggest obvious IVANNA ^ed free T4 - doubt that its contributing to HypoNatremia - but have decreased dose for now. may be contributing to Tachycardia Tachycardia/ pRVR - may need cardiology to see. THis is despite decrease in Thyroid supplementation. unable to assess Orthostasis COMMENT/RELEVANT DATA Meds Current Medications Medications (Trade) Dose Ordered Sig/Luz Marina Start Time Stop Time Status Last Admin Dose Admin Acetaminophen (Tylenol) 650 mg PRN Q4HRS PRN 09/22/16 21:15 09/26/16 09:22 650 MG Albumin Human 100 ml @ 100 mls/hr TID 09/24/16 11:00 09/25/16 12:22 DC 09/25/16 08:47 100 MLS/HR Albuterol/ Ipratropium (Duoneb) 3 ml RTQID 09/23/16 08:00 09/28/16 11:05 3 ML Alteplase, Recombinant (Cathflo) 2 mg 1X ONCE 09/28/16 06:00 09/28/16 06:01 DC 09/28/16 06:10 2 MG Cosyntropin (Cortrosyn) 0.5 mg 1X ONCE 09/28/16 08:00 09/28/16 08:01 DC 09/28/16 07:59 0.5 MG Demeclocycline HCl (Declomycin) 300 mg Q12HR 09/22/16 22:30 09/23/16 12:24 DC 09/23/16 08:29 300 MG Famotidine (Pepcid) 20 mg DAILY 09/23/16 09:00 09/28/16 09:38 20 MG Fish Oil (Fish Oil) 1,000 mg DAILY 09/23/16 09:00 09/28/16 09:36 1,000 MG Fluconazole (Diflucan) 150 mg 1X ONCE 09/22/16 18:15 09/22/16 18:17 DC 09/22/16 18:26 150 MG Furosemide (Lasix) 20 mg TID 09/24/16 14:00 09/26/16 13:26 DC 09/26/16 09:21 20 MG Guaifenesin (Mucinex) 600 mg BID 09/22/16 22:00 09/28/16 09:37 600 MG Guaifenesin (Robitussin) 300 mg PRN Q4HRS PRN 09/22/16 21:15 09/23/16 21:31 300 MG Ibuprofen (Motrin) 800 mg PRN Q6HRS PRN 09/22/16 21:15 09/23/16 12:24 DC Iron Sucrose/ Sodium Chloride (Venofer/Iv Sodium Chloride 0.9% 100ml) 110 ml @ 55 mls/hr 3X/WEEK 09/26/16 09:00 10/05/16 10:59 09/28/16 09:34 55 MLS/HR Lactobacillus Acidophilus (Bacid, Blanche-Bid) 2 tab BID 09/22/16 22:30 09/28/16 09:35 2 TAB Levofloxacin (Levaquin) 250 mg Q24H 09/25/16 21:00 09/27/16 20:43 250 MG Levothyroxine Sodium (Synthroid) 88 mcg DAILY07 09/23/16 07:00 09/24/16 10:40 DC 09/24/16 09:04 88 MCG Levothyroxine Sodium 50 mcg 50 mcg DAILY07 09/25/16 07:00 09/28/16 06:12 50 MCG Metoprolol Tartrate (Lopressor) 50 mg BID 09/22/16 22:00 09/24/16 10:40 DC 09/24/16 09:05 50 MG Morphine Sulfate 2 mg 2 mg PRN Q2HR PRN 09/22/16 18:00 09/23/16 17:59 DC Nystatin (Nystop) 1 bibiana BID 09/22/16 22:30 09/28/16 11:01 1 BIBIANA Ondansetron HCl (Zofran) 4 mg PRN Q8HRS PRN 09/22/16 18:00 09/23/16 17:59 DC Polyethylene Glycol (miraLAX PACKET) 34 gm DAILY 09/23/16 09:00 09/28/16 10:58 34 GM Potassium Chloride (Klor-Con) 20 meq DAILY 09/23/16 09:00 09/28/16 09:36 20 MEQ Prednisone (Prednisone) 3 mg DAILY 09/23/16 09:00 09/28/16 09:39 3 MG Propafenone HCl (Rythmol) 225 mg [id number] 09/23/16 09:00 09/28/16 10:59 225 MG Sodium Chloride (Iv Sodium Chloride 0.9% 1000ml Bag) 1,000 ml @ 75 mls/hr [id number] 09/22/16 17:55 09/23/16 12:24 DC 09/22/16 19:20 75 MLS/HR Spironolactone (Aldactone) 25 mg DAILY 09/23/16 09:00 09/24/16 10:40 DC 09/24/16 09:05 25 MG Vitamin D (Vitamin D3) 1,000 unit DAILY 09/23/16 09:00 09/28/16 09:39 1,000 UNIT Warfarin Sodium (Coumadin Per Physician) 1 each PRN DAILY PRN 09/22/16 21:45 09/27/16 15:07 1 EACH Warfarin Sodium (Coumadin) 2.5 mg DAILY16 09/23/16 16:00 09/27/16 18:02 2.5 MG Zinc Oxide 1 bibiana BID 09/22/16 23:00 09/28/16 11:01 1 BIBIANA Lab Laboratory Tests Test 09/28/16 07:50 Sodium Level 127mmol/L (136-145) Potassium Level 3.9mmol/L (3.5-5.1) Chloride Level 89mmol/L (98-107) Carbon Dioxide Level 35mmol/L (21-32) Anion Gap 3 (6-14) Blood Urea Nitrogen 29mg/dL (7-20) Creatinine 1.2mg/dL (0.6-1.0) Estimated GFR (Cockcroft-Gault) 42.7 Glucose Level 85mg/dL (70-99) Calcium Level 8.9mg/dL (8.5-10.1) Phosphorus Level 3.3mg/dL (2.6-4.7) Albumin 3.2g/dL (3.4-5.0) Other There is mild concentric left ventricular hypertrophy. The left ventricular systolic function is normal and the ejection fraction is within normal range. The Ejection Fraction is 63%. Unable to assess left ventricular compliance due to atrial fibrillation. The aortic valve is moderately sclerotic. Doppler and Color Flow revealed mild aortic regurgitation. The mitral valve leaflets are thickened. Doppler and Color Flow revealed mild tricuspid regurgitation. The pulmonary artery systolic pressure is estimated at 30 mmHg. There is mild pulmonary hypertension. Doppler and Color Flow revealed mild pulmonic valvular regurgitation. There is a trace loculated posterior pericardial effusion. MACK APONTE MD Sep 28, 2016 13:42
[2016-09-28] MEDS: TPN PER PHARMACY MC PRN (14:24)
[2016-09-28] MEDS: WARFARIN 3 MG TABLET. PO SCH (16:38)
[2016-09-28] MEDS: LEVOFLOXACIN 250 MG TABLET. PO SCH (19:53)
[2016-09-28] MEDS ORDERED: AMINO ACID IV SCH ×10 (22:00)
[2016-09-28] MEDS ORDERED: DEXTROSE 70% IV SCH ×10 (22:00)
[2016-09-28] MEDS ORDERED: TOTAL PARENTERAL NUTRITION IV SCH ×10 (22:00)
[2016-09-28] MEDS ORDERED: [UNRECOGNIZED DRUG - OTHER] IV SCH ×10 (22:00)
[2016-09-28] MEDS ORDERED: TOTAL PARENTERAL NUTRITION 1,424.9987 ML, AMINO ACIDS 10 % 60 GM, DEXTROSE 70 % IN WATE... IV SCH ×10 (22:00)
[2016-09-29 03:07] VITALS: BP 135/77
[2016-09-29 05:34] LABS: HEMATOCRIT 34.9 % (36.0-47.0); HEMOGLOBIN 11.6 g/dL (12.0-15.5); RED BLOOD COUNT 3.51 x10^6/uL (3.50-5.40); RED CELL DISTRIBUTION WIDTH 12.5 % (11.5-14.5); WHITE BLOOD COUNT 15.2 x10^3/uL (4.0-11.0)
[2016-09-29 05:45] LABS: PROTHROMBIN TIME PATIENT 21.8 SEC (11.7-14.0)
[2016-09-29 05:49] LABS: ALBUMIN 2.9 g/dL (3.4-5.0); CALCIUM 8.6 mg/dL (8.5-10.1); CREATININE 0.9 mg/dL (0.6-1.0); GFR 59.5; POTASSIUM 4.4 mmol/L (3.5-5.1)
[2016-09-29] MEDS: LEVOTHYROXINE 88 MCG TABLET PO SCH (06:34)
[2016-09-29 07:00] VITALS: BP 105/47
[2016-09-29] MEDS: PREDNISONE 1 MG TABLET PO SCH (07:51)
[2016-09-29] MEDS: PREDNISONE 5 MG TABLET PO SCH (07:51)
[2016-09-29] MEDS: OMEGA-3 FATTY ACIDS/FISH OIL 1,000 MG CAPSULE. PO SCH (07:53)
[2016-09-29] MEDS: FAMOTIDINE 20 MG TABLET. PO SCH (07:53)
[2016-09-29] MEDS: LACTOBACILLUS ACIDOPH & BULGAR 1 TABLET. PO SCH ×2 (07:53→20:59)
[2016-09-29] MEDS: POTASSIUM CHLORIDE 20 MEQ TABLET.ER. PO SCH (07:53)
[2016-09-29] MEDS: CHOLECALCIFEROL (VITAMIN D3) 1,000 UNIT TABLET PO SCH (07:53)
[2016-09-29] MEDS: NYSTATIN 100,000 UNITS/ML 5 ML ORAL.SUSP. PO SCH ×4 (07:54→20:56)
[2016-09-29] MEDS: GUAIFENESIN 200 MG/10 ML LIQUID. PO PRN (07:54)
[2016-09-29] MEDS: ZINC OXIDE 20% TOPICAL OINTMENT 28GM TUBE. TP SCH ×2 (07:55→20:56)
[2016-09-29] MEDS: POLYETHYLENE GLYCOL 3350 17 GM PACKET. PO SCH (07:55)
[2016-09-29] MEDS: NYSTATIN TOPICAL POWDER 15GM BOTTLE. TP SCH ×2 (07:55→20:56)
[2016-09-29] MEDS: PROPAFENONE 150 MG TABLET. PO SCH ×5 (08:01→20:58)
[2016-09-29] MEDS: GUAIFENESIN ER 600 MG TABLET.ER PO SCH ×2 (08:21→20:56)
[2016-09-29] MEDS: IPRATRPIUM/ALBUTEROL 0.5/2.5MG 3 ML NEBU. NEB SCH ×4 (09:16→19:15)
[2016-09-29 11:00] VITALS: BP 123/64
--- NOTE | 2016-09-29 12:00 | PDOC ---
SUBJECTIVE ROS F/up HypoNatremia doingand feeling a little better, Not as weak today; apetite is better too CVS: no Orthopnea, no CP RESP: no SOB, no CONRAD GI: no Nausea, no Vomiting : no Dysuria, no Urgency OBJECTIVE Vital Signs Vital Signs Date Time Temp Pulse Resp B/P Pulse Ox O2 Delivery O2 Flow Rate FiO2 09/29/16 11:00 97.9 89 18 123/64 99 Nasal Cannula 1.0 97.9 I & 0 Intake and Output 09/29/16 07:00 Intake Total 1200 ml Output Total 1475 ml Balance -275 ml Intake Oral 1200 ml Output Urine Total 1475 ml PHYSICAL EXAM Physical Exam General Appearance: Awake Alert Oriented x 3 In no Distress Eyes: VIsion Unchanged Conjunctiva Normal EN: No EN Drainage Mucous Memb. moist Neck: no JVD no JVP Supple no Thyromegaly CVS: S1 S2 soft Murmur No Gallop No Rub no Edema today Resp: Rare Rales no Rhonchi no Acc. Muscle use GI: BS +ve NO Bruit Non Tender Non Distended : no CVA tenderness; no Suprapubic Tenderness Assessment & Plan Hyponatremia - (a little better today) . Poor PO Intake (as noted with low alb ). Has been on Prednisone for quite a while and Cortrosyn Stim is WNL. HypoAlbumin - better after infusion. Nutritional supplements ordered - Ct TPN for 24-48 hrs and reval Iron Def State - IV Fe as ordered Dysphagia - appreciate Speech eval and input; she is happier with Dysphagia diet ? CKD III underlying with Creat closer to 1.2 to 1.4 range in Euvolemic state; May need 24-hr URine collection Tachycardia/ pRVR - better currently COMMENT/RELEVANT DATA Meds Current Medications Medications (Trade) Dose Ordered Sig/Luz Marina Start Time Stop Time Status Last Admin Dose Admin Acetaminophen (Tylenol) 650 mg PRN Q4HRS PRN 09/22/16 21:15 09/26/16 09:22 650 MG Albumin Human 100 ml @ 100 mls/hr TID 09/24/16 11:00 09/25/16 12:22 DC 09/25/16 08:47 100 MLS/HR Albuterol/ Ipratropium (Duoneb) 3 ml RTQID 09/23/16 08:00 09/29/16 09:16 3 ML Alteplase, Recombinant (Cathflo) 2 mg 1X ONCE 09/28/16 06:00 09/28/16 06:01 DC 09/28/16 06:10 2 MG Cosyntropin (Cortrosyn) 0.5 mg 1X ONCE 09/28/16 08:00 09/28/16 08:01 DC 09/28/16 07:59 0.5 MG Demeclocycline HCl (Declomycin) 300 mg Q12HR 09/22/16 22:30 09/23/16 12:24 DC 09/23/16 08:29 300 MG Famotidine (Pepcid) 20 mg DAILY 09/23/16 09:00 09/29/16 07:53 20 MG Fish Oil (Fish Oil) 1,000 mg DAILY 09/23/16 09:00 09/29/16 07:53 1,000 MG Fluconazole (Diflucan) 150 mg 1X ONCE 09/22/16 18:15 09/22/16 18:17 DC 09/22/16 18:26 150 MG Furosemide (Lasix) 20 mg TID 09/24/16 14:00 09/26/16 13:26 DC 09/26/16 09:21 20 MG Guaifenesin (Mucinex) 600 mg BID 09/22/16 22:00 09/29/16 08:21 600 MG Guaifenesin (Robitussin) 300 mg PRN Q4HRS PRN 09/22/16 21:15 09/23/16 21:31 300 MG Ibuprofen (Motrin) 800 mg PRN Q6HRS PRN 09/22/16 21:15 09/23/16 12:24 DC Info 1 each 1 each PRN DAILY PRN 09/28/16 14:15 09/28/16 14:24 1 EACH Iron Sucrose/ Sodium Chloride (Venofer/Iv Sodium Chloride 0.9% 100ml) 110 ml @ 55 mls/hr 3X/WEEK 09/26/16 09:00 10/05/16 10:59 09/28/16 09:34 55 MLS/HR Lactobacillus Acidophilus (Bacid, Blanche-Bid) 2 tab BID 09/22/16 22:30 09/29/16 07:53 2 TAB Levofloxacin (Levaquin) 250 mg Q24H 09/25/16 21:00 09/28/16 19:53 250 MG Levothyroxine Sodium (Synthroid) 88 mcg DAILY07 09/23/16 07:00 09/24/16 10:40 DC 09/24/16 09:04 88 MCG Levothyroxine Sodium 50 mcg 50 mcg DAILY07 09/25/16 07:00 09/29/16 06:34 50 MCG Metoprolol Tartrate (Lopressor) 50 mg BID 09/22/16 22:00 09/24/16 10:40 DC 09/24/16 09:05 50 MG Morphine Sulfate 2 mg 2 mg PRN Q2HR PRN 09/22/16 18:00 09/23/16 17:59 DC Nystatin (Nystop) 1 bibiana BID 09/22/16 22:30 09/29/16 07:55 1 BIBIANA Ondansetron HCl (Zofran) 4 mg PRN Q8HRS PRN 09/22/16 18:00 09/23/16 17:59 DC Polyethylene Glycol (miraLAX PACKET) 34 gm DAILY 09/23/16 09:00 09/28/16 10:58 34 GM Potassium Chloride (Klor-Con) 20 meq DAILY 09/23/16 09:00 09/29/16 07:53 20 MEQ Prednisone (Prednisone) 3 mg DAILY 09/23/16 09:00 09/29/16 07:51 3 MG Propafenone HCl (Rythmol) 225 mg [id number] 09/23/16 09:00 09/28/16 19:53 225 MG Sodium Chloride (Iv Sodium Chloride 0.9% 1000ml Bag) 1,000 ml @ 75 mls/hr [id number] 09/22/16 17:55 09/23/16 12:24 DC 09/22/16 19:20 75 MLS/HR Sodium Chloride 90 meq/Potassium Chloride 50 meq/ Potassium Phosphate 13.6 mmol/Magnesium Sulfate 10 meq/ Calcium Gluconate 10 meq/ Multivitamins/ Minerals 10 ml/ Chromium/Copper/ Manganese/Seleni/ Zn 1 ml/Total Parenteral Nutrition/Amino Acids/Dextrose/ Fat Emulsion Intravenous 1,512 ml @ 63 mls/hr TPN CONT 09/28/16 22:00 09/28/16 22:00 DC Sodium Chloride/ Potassium Chloride/ Potassium Phosphate/ Magnesium Sulfate/ Calcium Gluconate/ Multivitamins/ Minerals/Chromium/ Copper/Manganese/ Seleni/Zn/Total Parenteral Nutrition/Amino Acids/Dextrose/ Fat Emulsion Intravenous (Sodium Chloride/ Potassium Phospha... 1,000 ml @ 41.667 mls/ hr TPN CONT 09/28/16 22:00 09/29/16 21:59 09/28/16 20:08 41.667 MLS/HR Spironolactone (Aldactone) 25 mg DAILY 09/23/16 09:00 09/24/16 10:40 DC 09/24/16 09:05 25 MG Vitamin D (Vitamin D3) 1,000 unit DAILY 09/23/16 09:00 09/29/16 07:53 1,000 UNIT Warfarin Sodium (Coumadin Per Physician) 1 each PRN DAILY PRN 09/22/16 21:45 09/28/16 13:56 1 EACH Warfarin Sodium (Coumadin) 3 mg DAILY16 09/28/16 16:00 09/28/16 16:38 3 MG Zinc Oxide 1 bibiana BID 09/22/16 23:00 09/29/16 07:55 1 BIBAINA Lab Laboratory Tests Test 09/29/16 05:24 White Blood Count 15.2x10^3/uL (4.0-11.0) Red Blood Count 3.51x10^6/uL (3.50-5.40) Hemoglobin 11.6g/dL (12.0-15.5) Hematocrit 34.9% (36.0-47.0) Mean Corpuscular Volume 100fL (79-100) Mean Corpuscular Hemoglobin 33pg (25-35) Mean Corpuscular Hemoglobin Concent 33g/dL (31-37) Red Cell Distribution Width 12.5% (11.5-14.5) Platelet Count 89x10^3/uL (140-400) Prothrombin Time 21.8SEC (11.7-14.0) Prothromb Time International Ratio 2.0 (0.8-1.1) Sodium Level 130mmol/L (136-145) Potassium Level 4.4mmol/L (3.5-5.1) Chloride Level 92mmol/L (98-107) Carbon Dioxide Level 32mmol/L (21-32) Anion Gap 6 (6-14) Blood Urea Nitrogen 27mg/dL (7-20) Creatinine 0.9mg/dL (0.6-1.0) Estimated GFR (Cockcroft-Gault) 59.5 Glucose Level 118mg/dL (70-99) Serum Osmolality 276mOsm/Kg (279-304) Uric Acid 3.8mg/dL (2.6-6.0) Calcium Level 8.6mg/dL (8.5-10.1) Phosphorus Level 3.0mg/dL (2.6-4.7) Magnesium Level 2.0mg/dL (1.8-2.4) Albumin 2.9g/dL (3.4-5.0) Triglycerides Level 75mg/dL (0-150) MACK APONTE MD Sep 29, 2016 12:00
[2016-09-29] MEDS: ACETAMINOPHEN 325 MG TABLET. PO PRN (12:23)
--- NOTE | 2016-09-29 12:31 | PDOC ---
SUBJECTIVE Subjective feels better today, appetite improving OBJECTIVE Objective VSS Vital Signs Vital Signs Date Time Temp Pulse Resp B/P Pulse Ox O2 Delivery O2 Flow Rate FiO2 09/29/16 12:10 Nasal Cannula 1.0 09/29/16 11:00 97.9 89 18 123/64 99 Nasal Cannula 1.0 97.9 09/29/16 09:17 100 Nasal Cannula 1.0 09/29/16 07:00 97.7 104 20 105/47 98 Nasal Cannula 97.7 09/29/16 03:07 98.5 100 20 135/77 99 Nasal Cannula 98.5 09/28/16 23:00 96.6 97 18 139/88 97 Nasal Cannula 96.6 09/28/16 20:12 Nasal Cannula 1.0 09/28/16 19:53 100 120/69 09/28/16 19:27 99 Nasal Cannula 2.0 09/28/16 19:00 99.0 100 20 120/69 93 Nasal Cannula 99.0 09/28/16 16:29 100/70 82/50 09/28/16 15:15 97.7 111 16 155/73 96 Nasal Cannula 1.0 97.7 09/28/16 14:52 97 119/62 09/28/16 14:45 Nasal Cannula 1.0 I & O Intake and Output 09/29/16 07:00 Intake Total 1200 ml Output Total 1475 ml Balance -275 ml Intake Oral 1200 ml Output Urine Total 1475 ml PHYSICAL EXAM Physical Exam lungs fairly clear and CXR better heart irreg abd soft ext no edema ASSESSMENT/PLAN Assessment/Plan 1- pulmonary infiltrates imroped on Levaquin po 2- Hyponatremia improving 130 today 3- HypoAlbumin - on TPN 4- Dysphagia - improving had thrush will add Diflucan 5- CKD III 6-anticoagulation therapeutic plan to LTAC or SNU soon Problems: COMMENT Lab Laboratory Tests Test 09/29/16 05:24 White Blood Count 15.2x10^3/uL (4.0-11.0) Red Blood Count 3.51x10^6/uL (3.50-5.40) Hemoglobin 11.6g/dL (12.0-15.5) Hematocrit 34.9% (36.0-47.0) Mean Corpuscular Volume 100fL (79-100) Mean Corpuscular Hemoglobin 33pg (25-35) Mean Corpuscular Hemoglobin Concent 33g/dL (31-37) Red Cell Distribution Width 12.5% (11.5-14.5) Platelet Count 89x10^3/uL (140-400) Prothrombin Time 21.8SEC (11.7-14.0) Prothromb Time International Ratio 2.0 (0.8-1.1) Sodium Level 130mmol/L (136-145) Potassium Level 4.4mmol/L (3.5-5.1) Chloride Level 92mmol/L (98-107) Carbon Dioxide Level 32mmol/L (21-32) Anion Gap 6 (6-14) Blood Urea Nitrogen 27mg/dL (7-20) Creatinine 0.9mg/dL (0.6-1.0) Estimated GFR (Cockcroft-Gault) 59.5 Glucose Level 118mg/dL (70-99) Serum Osmolality 276mOsm/Kg (279-304) Uric Acid 3.8mg/dL (2.6-6.0) Calcium Level 8.6mg/dL (8.5-10.1) Phosphorus Level 3.0mg/dL (2.6-4.7) Magnesium Level 2.0mg/dL (1.8-2.4) Albumin 2.9g/dL (3.4-5.0) Triglycerides Level 75mg/dL (0-150) ELAINE ERNST MD Sep 29, 2016 12:31
[2016-09-29] MEDS: TPN PER PHARMACY MC PRN (12:47)
[2016-09-29] MEDS: FLUCONAZOLE 100 MG TABLET. PO SCH (13:12)
[2016-09-29 15:00] VITALS: BP 137/56
[2016-09-29] MEDS: WARFARIN 3 MG TABLET. PO SCH (16:41)
[2016-09-29 19:00] VITALS: BP 133/52
[2016-09-29] MEDS: LEVOFLOXACIN 250 MG TABLET. PO SCH (20:57)
[2016-09-29] MEDS ORDERED: TOTAL PARENTERAL NUTRITION IV SCH ×10 (22:00)
[2016-09-29] MEDS ORDERED: DEXTROSE 70% IV SCH ×10 (22:00)
[2016-09-29] MEDS ORDERED: AMINO ACID IV SCH ×10 (22:00)
[2016-09-29] MEDS ORDERED: [UNRECOGNIZED DRUG - OTHER] IV SCH ×10 (22:00)
[2016-09-29 23:00] VITALS: BP 110/61
[2016-09-30 03:00] VITALS: BP 124/52
[2016-09-30] MEDS: LEVOTHYROXINE 88 MCG TABLET PO SCH (06:08)
[2016-09-30 07:54] VITALS: BP 114/59
[2016-09-30] MEDS: FAMOTIDINE 20 MG TABLET. PO SCH (08:28)
[2016-09-30] MEDS: ZINC OXIDE 20% TOPICAL OINTMENT 28GM TUBE. TP SCH ×2 (08:28→22:14)
[2016-09-30] MEDS: NYSTATIN 100,000 UNITS/ML 5 ML ORAL.SUSP. PO SCH ×4 (08:28→22:25)
[2016-09-30] MEDS: GUAIFENESIN ER 600 MG TABLET.ER PO SCH ×2 (08:29→22:09)
[2016-09-30] MEDS: OMEGA-3 FATTY ACIDS/FISH OIL 1,000 MG CAPSULE. PO SCH (08:29)
[2016-09-30] MEDS: LACTOBACILLUS ACIDOPH & BULGAR 1 TABLET. PO SCH ×2 (08:29→22:22)
[2016-09-30] MEDS: CHOLECALCIFEROL (VITAMIN D3) 1,000 UNIT TABLET PO SCH (08:29)
[2016-09-30] MEDS: ACETAMINOPHEN 325 MG TABLET. PO PRN ×2 (08:29→22:09)
[2016-09-30] MEDS: PREDNISONE 1 MG TABLET PO SCH (08:29)
[2016-09-30] MEDS: PREDNISONE 5 MG TABLET PO SCH (08:29)
[2016-09-30] MEDS: POTASSIUM CHLORIDE 20 MEQ TABLET.ER. PO SCH (08:29)
[2016-09-30] MEDS: NYSTATIN TOPICAL POWDER 15GM BOTTLE. TP SCH ×2 (08:30→22:14)
[2016-09-30] MEDS: FLUCONAZOLE 100 MG TABLET. PO SCH (08:30)
[2016-09-30] MEDS: PROPAFENONE 150 MG TABLET. PO SCH ×4 (08:31→22:10)
[2016-09-30] MEDS: POLYETHYLENE GLYCOL 3350 17 GM PACKET. PO SCH (08:32)
[2016-09-30] MEDS: IPRATRPIUM/ALBUTEROL 0.5/2.5MG 3 ML NEBU. NEB SCH ×4 (09:34→20:42)
[2016-09-30] MEDS ORDERED: PRED1TAB3 PO (10:11)
[2016-09-30] MEDS ORDERED: WARF3TAB7 PO (10:11)
[2016-09-30] MEDS ORDERED: FLUC100T7 PO (10:12)
--- NOTE | 2016-09-30 10:51 | PDOC ---
SUBJECTIVE Subjective feels ok, appetite better, swallowing is better OBJECTIVE Objective afebrile Vital Signs Vital Signs Date Time Temp Pulse Resp B/P Pulse Ox O2 Delivery O2 Flow Rate FiO2 09/30/16 09:35 100 Nasal Cannula 1.0 09/30/16 07:54 97.7 84 19 114/59 98 Nasal Cannula 1.0 97.7 09/30/16 03:00 97.3 106 18 124/52 99 Nasal Cannula 1.0 97.3 09/29/16 23:00 97.7 67 18 110/61 95 Nasal Cannula 1.0 97.7 09/29/16 20:58 111 133/52 09/29/16 20:00 Nasal Cannula 1.0 09/29/16 19:16 97 Nasal Cannula 1.0 09/29/16 19:00 97.5 111 18 133/52 99 Nasal Cannula 1.0 97.5 09/29/16 16:28 100 Nasal Cannula 1.0 09/29/16 15:00 98.2 113 20 137/56 98 Nasal Cannula 1.0 98.2 09/29/16 13:12 89 123/64 09/29/16 12:10 Nasal Cannula 1.0 09/29/16 11:00 97.9 89 18 123/64 99 Nasal Cannula 1.0 97.9 I & O Intake and Output 09/30/16 07:00 Intake Total 1650 ml Output Total 1950 ml Balance -300 ml Intake Oral 740 ml IV Total 910 ml Output Urine Total 1950 ml # Bowel Movements 1 PHYSICAL EXAM Physical Exam lungs clearer heart RRR abd soft ext no edema ASSESSMENT/PLAN Assessment/Plan 1- pulmonary infiltrates imroped on Levaquin po 2- Hyponatremia improving 3- HypoAlbumin - on TPN , may be able to continue at Rehab, her appetitie is improving 4- Dysphagia - improving had thrush on p.o diflucan 5- CKD III 6-anticoagulation therapeutic her pneumonia is better , plan to discharge to rehab when bed available Problems: ELAINE ERNST MD Sep 30, 2016 10:51
--- NOTE | 2016-09-30 10:51 | PDOC3 ---
Discharge Summary* Admitting Diagnosis Problems Medical Problems: (1) Generalized weakness Status: Acute (2) Hyponatremia Status: Acute (3) Leukocytosis Status: Acute Final Diagnosis 1- pulmonary infiltrates imroped on Levaquin po 2- Hyponatremia improving 130 today 3- HypoAlbumin - on TPN 4- Dysphagia - improving had thrush will add Diflucan 5- CKD III 6-anticoagulation therapeutic Problems Medical Problems: (1) Generalized weakness Status: Acute (2) Hyponatremia Status: Acute (3) Leukocytosis Status: Acute Procedures cortrosyn stim test normal CT chestCXR Renal Sono renal artery doppler TPN Brief Hospital Course Ms. Ma is a 86 old [sex] who presented with [ ] CONDITION AT DISCHARGE: Improved Scheduled Acetaminophen (Tylenol) 2 TAB PO PRN Q4HRS (Reported) Acidophilus/Bulgaricus (Floranex Tablet) 1 EACH PO BID (Reported) Cholecalciferol (Vitamin D3) (Vitamin D) 1,000 UNIT PO DAILY (Reported) Demeclocycline Hcl (Demeclocycline Hcl) 300 MG PO BID (Reported) Famotidine (Famotidine) 20 MG PO DAILY (Reported) Fluconazole (Diflucan) 100 MG PO DAILY Furosemide (Lasix) 1 TAB PO DAILY (Reported) Guaifenesin (Mucinex) 1 TAB PO BID (Reported) Ipratropium/Albuterol Sulfate (Duoneb 0.5-3(2.5) Mg/3 Ml) 3 ML NEB QID (Reported ) Levofloxacin (Levaquin) 1 TAB PO HS (Reported) Levothyroxine Sodium (Levothyroxine Sodium) 1 TAB PO DAILY (Reported) Metoprolol Tartrate (Metoprolol Tartrate) 1 TAB PO BID (Reported) Nystatin (Nystatin) 1 EACH PO BID (Reported) Nystatin (Nystatin) 5 ML PO QID (Reported) [place]-3 Fatty Acids/Fish Oil (Fish Oil 1,000 Mg Capsule) 1 EACH PO DAILY ( Reported) Polyethylene Glycol 3350 (Polyethylene Glycol 3350) 34 GM PO DAILY (Reported) Potassium Chloride (Klor-Con M20) 1 TAB PO DAILY (Reported) Prednisone (Prednisone) 8 MG PO DAILY (Reported) Propafenone Hcl (Propafenone Hcl) 225 MG PO [id number] Spironolactone (Aldactone) 1 TAB PO DAILY (Reported) Warfarin Sodium (Warfarin Sodium) 3 MG PO DAILY Zinc Oxide (Zinc Oxide) 30 GM TP BID (Reported) Scheduled PRN Guaifenesin (Jelly-Tussin) 15 ML PO Q4HRS PRN PRN COUGH (Reported) Ibuprofen (Ibuprofen) 800 MG PO PRN Q6HRS PRN PRN INFLAMMATION (Reported) Prednisone (Prednisone) 1 MG PO DAILY PRN PRN 4 tab x3d then [id number] Discontinued Medications Diphenhydramine Hcl (Benadryl) 1 CAP PO QHS (Reported) Ranitidine Hcl (Ranitidine Hcl) 150 MG PO BID (Reported) Triamterene/Hydrochlorothiazid (Triamterene-Hctz 37.5-25 Mg Cp) 1 EACH PO DAILY (Reported) Warfarin Sodium (Coumadin) 1 TAB PO DAILY (Reported) Time Spent Total time spent with patient [] minutes for coordination of care, counseling, and education. ELAINE ERNST MD Sep 30, 2016 10:51
[2016-09-30] MEDS ORDERED: ALTEPLASE 2 MG VIAL INT CAT ONE ×2 (11:00)
[2016-09-30 11:10] VITALS: BP 108/65
[2016-09-30] MEDS: IRON SUCROSE COMPLEX 200 MG in IV NORMAL SALINE 100ML 100 ML IV SCH (11:55)
[2016-09-30 12:01] LABS: HEMATOCRIT 34.6 % (36.0-47.0); HEMOGLOBIN 11.3 g/dL (12.0-15.5); RED BLOOD COUNT 3.42 x10^6/uL (3.50-5.40); RED CELL DISTRIBUTION WIDTH 12.4 % (11.5-14.5); WHITE BLOOD COUNT 17.6 x10^3/uL (4.0-11.0)
[2016-09-30 12:08] LABS: CALCIUM 8.5 mg/dL (8.5-10.1); GFR 52.7; MAGNESIUM 1.8 mg/dL (1.8-2.4); POTASSIUM 5.3 mmol/L (3.5-5.1)
--- NOTE | 2016-09-30 12:50 | PDOC ---
SUBJECTIVE ROS HypoNatremia doing and feeling much better today - eating a little better now CVS: no Orthopnea, no CP RESP: no SOB, no CONRAD GI: no Nausea, no Vomiting : no Dysuria, no Urgency OBJECTIVE Vital Signs Vital Signs Date Time Temp Pulse Resp B/P Pulse Ox O2 Delivery O2 Flow Rate FiO2 09/30/16 11:10 97.9 101 19 108/65 97 Nasal Cannula 1.0 97.9 I & 0 Intake and Output 09/30/16 07:00 Intake Total 1650 ml Output Total 1950 ml Balance -300 ml Intake Oral 740 ml IV Total 910 ml Output Urine Total 1950 ml # Bowel Movements 1 PHYSICAL EXAM Physical Exam General Appearance: Awake Alert Oriented x 3 In no Distress Eyes: VIsion Unchanged Conjunctiva Normal EN: No EN Drainage Mucous Memb. moist Neck: no JVD no JVP Supple no Thyromegaly CVS: S1 S2 soft Murmur No Gallop No Rub no Edema today Resp: Rare Rales no Rhonchi no Acc. Muscle use GI: BS +ve NO Bruit Non Tender Non Distended : no CVA tenderness; no Suprapubic Tenderness Assessment & Plan Hyponatremia - (a little worse today) was Better with Diuresis, IV ALb and water restriction until now. Given TPN for Poor PO Intake (as noted with low alb). Seh Has been on Prednisone for quite a while and Cortrosyn Stim test was WNL. Now feeling much stronger. WIll recheck Osms now. If still suggestive of ^ ADH then CT NECK and Chest again (had Pl eff previously). Developed HypoNatremia despite being on Demeclocycline in the past HypoAlbumin - better after infusion. Nutritional supplements ordered; watch off of TPN Iron Def State - IV Fe as ordered x 5 doses Dysphagia - appreciate Speech eval and input; may need CT NECK also Poor PO intake - now improving Pl Eff - re-CT chest in am if needed as above (? Met) Alkalosis - improving wiht TPN ? CKD III underlying with Creat closer to 1.2 range in Euvolemic state ASVDz as noted on Previous CT - unable to R/o IVANNA - but BP are not high enough to suggest obvious IVANNA ^ed free T4 - doubt that its contributing to HypoNatremia - but have decreased dose for now. may have been contributing to Tachycardia ^K - D/c KCL and TPN Tachycardia - may need cardiology to see. COMMENT/RELEVANT DATA Meds Current Medications Medications (Trade) Dose Ordered Sig/Luz Marina Start Time Stop Time Status Last Admin Dose Admin Acetaminophen (Tylenol) 650 mg PRN Q4HRS PRN 09/22/16 21:15 09/30/16 08:29 650 MG Albumin Human 100 ml @ 100 mls/hr TID 09/24/16 11:00 09/25/16 12:22 DC 09/25/16 08:47 100 MLS/HR Albuterol/ Ipratropium (Duoneb) 3 ml RTQID 09/23/16 08:00 09/30/16 09:34 3 ML Alteplase, Recombinant (Cathflo) 2 mg 1X ONCE 09/30/16 11:00 09/30/16 11:01 DC Cosyntropin (Cortrosyn) 0.5 mg 1X ONCE 09/28/16 08:00 09/28/16 08:01 DC 09/28/16 07:59 0.5 MG Demeclocycline HCl (Declomycin) 300 mg Q12HR 09/22/16 22:30 09/23/16 12:24 DC 09/23/16 08:29 300 MG Famotidine (Pepcid) 20 mg DAILY 09/23/16 09:00 09/30/16 08:28 20 MG Fish Oil (Fish Oil) 1,000 mg DAILY 09/23/16 09:00 09/30/16 08:29 1,000 MG Fluconazole (Diflucan) 150 mg 1X ONCE 09/22/16 18:15 09/22/16 18:17 DC 09/22/16 18:26 150 MG Fluconazole 100 mg 100 mg DAILY 09/29/16 13:00 09/30/16 08:30 100 MG Furosemide (Lasix) 20 mg TID 09/24/16 14:00 09/26/16 13:26 DC 09/26/16 09:21 20 MG Guaifenesin (Mucinex) 600 mg BID 09/22/16 22:00 09/30/16 08:29 600 MG Guaifenesin (Robitussin) 300 mg PRN Q4HRS PRN 09/22/16 21:15 09/23/16 21:31 300 MG Ibuprofen (Motrin) 800 mg PRN Q6HRS PRN 09/22/16 21:15 09/23/16 12:24 DC Info 1 each PRN DAILY PRN 09/28/16 14:15 09/29/16 12:47 1 EACH Iron Sucrose/ Sodium Chloride (Venofer/Iv Sodium Chloride 0.9% 100ml) 110 ml @ 55 mls/hr 3X/WEEK 09/26/16 09:00 10/05/16 10:59 09/30/16 11:55 55 MLS/HR Lactobacillus Acidophilus (Bacid, Blanche-Bid) 2 tab BID 09/22/16 22:30 09/30/16 08:29 2 TAB Levofloxacin (Levaquin) 250 mg Q24H 09/25/16 21:00 09/29/16 20:57 250 MG Levothyroxine Sodium (Synthroid) 88 mcg DAILY07 09/23/16 07:00 09/24/16 10:40 DC 09/24/16 09:04 88 MCG Levothyroxine Sodium 50 mcg 50 mcg DAILY07 09/25/16 07:00 09/30/16 06:08 50 MCG Metoprolol Tartrate (Lopressor) 50 mg BID 09/22/16 22:00 09/24/16 10:40 DC 09/24/16 09:05 50 MG Morphine Sulfate 2 mg 2 mg PRN Q2HR PRN 09/22/16 18:00 09/23/16 17:59 DC Nystatin (Nystop) 1 bibiana BID 09/22/16 22:30 09/30/16 08:30 1 BIBIANA Ondansetron HCl (Zofran) 4 mg PRN Q8HRS PRN 09/22/16 18:00 09/23/16 17:59 DC Polyethylene Glycol (miraLAX PACKET) 34 gm DAILY 09/23/16 09:00 09/28/16 10:58 34 GM Potassium Chloride (Klor-Con) 20 meq DAILY 09/23/16 09:00 09/30/16 08:29 20 MEQ Prednisone (Prednisone) 3 mg DAILY 09/23/16 09:00 09/30/16 08:29 3 MG Propafenone HCl (Rythmol) 225 mg [id number] 09/23/16 09:00 09/29/16 20:58 225 MG Sodium Chloride (Iv Sodium Chloride 0.9% 1000ml Bag) 1,000 ml @ 75 mls/hr [id number] 09/22/16 17:55 09/23/16 12:24 DC 09/22/16 19:20 75 MLS/HR Sodium Chloride/ Potassium Chloride/ Potassium Phosphate/ Magnesium Sulfate/ Calcium Gluconate/ Multivitamins/ Minerals/Chromium/ Copper/Manganese/ Seleni/Zn/Total Parenteral Nutrition/Amino Acids/Dextrose/ Fat Emulsion Intravenous (Sodium Chloride/ Potassium Phospha... 1,000 ml @ 41.667 mls/ hr TPN CONT 09/29/16 22:00 09/30/16 21:59 09/29/16 20:55 41.667 MLS/HR Spironolactone (Aldactone) 25 mg DAILY 09/23/16 09:00 09/24/16 10:40 DC 09/24/16 09:05 25 MG Vitamin D (Vitamin D3) 1,000 unit DAILY 09/23/16 09:00 09/30/16 08:29 1,000 UNIT Warfarin Sodium (Coumadin Per Physician) 1 each PRN DAILY PRN 09/22/16 21:45 09/30/16 12:36 1 EACH Warfarin Sodium (Coumadin) 3 mg DAILY16 09/28/16 16:00 09/29/16 16:41 3 MG Zinc Oxide 1 bibiana BID 09/22/16 23:00 09/30/16 08:28 1 BIBIANA Lab Laboratory Tests Test 09/30/16 11:40 White Blood Count 17.6x10^3/uL (4.0-11.0) Red Blood Count 3.42x10^6/uL (3.50-5.40) Hemoglobin 11.3g/dL (12.0-15.5) Hematocrit 34.6% (36.0-47.0) Mean Corpuscular Volume 101fL (79-100) Mean Corpuscular Hemoglobin 33pg (25-35) Mean Corpuscular Hemoglobin Concent 33g/dL (31-37) Red Cell Distribution Width 12.4% (11.5-14.5) Platelet Count 122x10^3/uL (140-400) Sodium Level 126mmol/L (136-145) Potassium Level 5.3mmol/L (3.5-5.1) Chloride Level 92mmol/L (98-107) Carbon Dioxide Level 29mmol/L (21-32) Anion Gap 5 (6-14) Blood Urea Nitrogen 27mg/dL (7-20) Creatinine 1.0mg/dL (0.6-1.0) Estimated GFR (Cockcroft-Gault) 52.7 Glucose Level 98mg/dL (70-99) Calcium Level 8.5mg/dL (8.5-10.1) Magnesium Level 1.8mg/dL (1.8-2.4) MACK APONTE MD Sep 30, 2016 12:50
[2016-09-30 15:20] VITALS: BP 106/55
[2016-09-30] MEDS: WARFARIN 3 MG TABLET. PO SCH (17:03)
[2016-09-30 19:00] VITALS: BP 116/56
[2016-09-30] MEDS: LEVOFLOXACIN 250 MG TABLET. PO SCH (22:22)
[2016-09-30 23:00] VITALS: BP 124/64
[2016-10-01 03:00] VITALS: BP 96/53
[2016-10-01 05:43] LABS: HEMATOCRIT 31.9 % (36.0-47.0); HEMOGLOBIN 10.2 g/dL (12.0-15.5); RED BLOOD COUNT 3.15 x10^6/uL (3.50-5.40); RED CELL DISTRIBUTION WIDTH 12.6 % (11.5-14.5); WHITE BLOOD COUNT 13.8 x10^3/uL (4.0-11.0)
[2016-10-01 05:58] LABS: INR 1.6 (0.8-1.1); PROTHROMBIN TIME PATIENT 18.1 SEC (11.7-14.0)
[2016-10-01 06:03] LABS: CALCIUM 8.4 mg/dL (8.5-10.1); CREATININE 0.9 mg/dL (0.6-1.0); GFR 59.5
[2016-10-01] MEDS: LEVOTHYROXINE 88 MCG TABLET PO SCH (06:09)
[2016-10-01] MEDS: IPRATRPIUM/ALBUTEROL 0.5/2.5MG 3 ML NEBU. NEB SCH ×4 (07:50→19:55)
[2016-10-01 08:45] VITALS: BP 116/59
[2016-10-01] MEDS: LACTOBACILLUS ACIDOPH & BULGAR 1 TABLET. PO SCH ×2 (08:57→20:58)
[2016-10-01] MEDS: NYSTATIN 100,000 UNITS/ML 5 ML ORAL.SUSP. PO SCH ×4 (08:57→21:00)
[2016-10-01] MEDS: PROPAFENONE 150 MG TABLET. PO SCH ×3 (08:59→21:00)
[2016-10-01] MEDS: POLYETHYLENE GLYCOL 3350 17 GM PACKET. PO SCH (09:00)
[2016-10-01] MEDS: FLUCONAZOLE 100 MG TABLET. PO SCH (09:00)
[2016-10-01] MEDS: PREDNISONE 5 MG TABLET PO SCH (09:00)
[2016-10-01] MEDS: PREDNISONE 1 MG TABLET PO SCH (09:00)
[2016-10-01] MEDS: CHOLECALCIFEROL (VITAMIN D3) 1,000 UNIT TABLET PO SCH (09:00)
[2016-10-01] MEDS: OMEGA-3 FATTY ACIDS/FISH OIL 1,000 MG CAPSULE. PO SCH (09:01)
[2016-10-01] MEDS: NYSTATIN TOPICAL POWDER 15GM BOTTLE. TP SCH ×2 (09:01→21:01)
[2016-10-01] MEDS: GUAIFENESIN ER 600 MG TABLET.ER PO SCH ×2 (09:01→20:58)
[2016-10-01] MEDS: ZINC OXIDE 20% TOPICAL OINTMENT 28GM TUBE. TP SCH ×2 (09:01→21:01)
[2016-10-01] MEDS: FAMOTIDINE 20 MG TABLET. PO SCH (09:04)
[2016-10-01] MEDS: ACETAMINOPHEN 325 MG TABLET. PO PRN ×2 (09:10→20:58)
[2016-10-01] MEDS: TAMSULOSIN 0.4 MG CAP.ER.24H. PO SCH (10:27)
[2016-10-01] MEDS ORDERED: DEXTROSE 5% IV ONE (10:30)
[2016-10-01] MEDS ORDERED: MAGNESIUM SULFATE IV ONE (10:30)
--- NOTE | 2016-10-01 11:00 | PDOC ---
SUBJECTIVE Subjective looks and feels better, not able to void since rios discontinued, had to be straight cath twice OBJECTIVE Objective afebrile Vital Signs Vital Signs Date Time Temp Pulse Resp B/P Pulse Ox O2 Delivery O2 Flow Rate FiO2 10/01/16 08:59 106 116/59 10/01/16 08:45 98.1 106 17 116/59 100 Nasal Cannula 1.0 98.1 10/01/16 08:00 Nasal Cannula 2.0 10/01/16 07:54 100 Nasal Cannula 1.0 10/01/16 03:00 97.5 102 17 96/53 98 Nasal Cannula 1.0 97.5 09/30/16 23:00 97.5 54 17 124/64 97 Nasal Cannula 1.0 97.5 09/30/16 22:10 82 116/57 09/30/16 20:43 Nasal Cannula 1.0 09/30/16 20:00 Nasal Cannula 1.0 09/30/16 19:00 97.9 124 17 116/56 98 Nasal Cannula 1.0 97.9 09/30/16 16:51 Nasal Cannula 1.0 09/30/16 15:20 98.4 82 19 106/55 99 Nasal Cannula 1.0 98.4 09/30/16 13:12 99 Nasal Cannula 1.0 09/30/16 11:10 97.9 101 19 108/65 97 Nasal Cannula 1.0 97.9 I & O Intake and Output 10/01/16 07:00 Intake Total 1350 ml Output Total 2475 ml Balance -1125 ml Intake Oral 1350 ml Output Urine Total 2475 ml # Bowel Movements 1 PHYSICAL EXAM Physical Exam lungs better air movement heart regular rhythm abd soft and none tender ext no edema ASSESSMENT/PLAN Assessment/Plan 1- pulmonary infiltrates imroped on Levaquin po 2- Hyponatremia stabalizing around 126 , Dr. Rendon is following 3- HypoAlbumin - on TPN , may be able to continue at Rehab, her appetitie is improving 4- Dysphagia - improving had thrush on p.o diflucan 5- CKD III 6-anticoagulation therapeutic 7. luekocytosis improving 8. hypomagnesemia replaced 9. urinary retention after discontinue rios , started flomax, replace rios and urology consult, can be done as out pt ? stricture due to rios catheter for discharge to rehab when OK with Nephrology, plans for possible CT neck and chest noted. Problems: COMMENT Lab Laboratory Tests Test 09/30/16 11:40 10/01/16 05:10 White Blood Count 17.6x10^3/uL (4.0-11.0) 13.8x10^3/uL (4.0-11.0) Red Blood Count 3.42x10^6/uL (3.50-5.40) 3.15x10^6/uL (3.50-5.40) Hemoglobin 11.3g/dL (12.0-15.5) 10.2g/dL (12.0-15.5) Hematocrit 34.6% (36.0-47.0) 31.9% (36.0-47.0) Mean Corpuscular Volume 101fL (79-100) 101fL (79-100) Mean Corpuscular Hemoglobin 33pg (25-35) 32pg (25-35) Mean Corpuscular Hemoglobin Concent 33g/dL (31-37) 32g/dL (31-37) Red Cell Distribution Width 12.4% (11.5-14.5) 12.6% (11.5-14.5) Platelet Count 122x10^3/uL (140-400) 112x10^3/uL (140-400) Sodium Level 126mmol/L (136-145) 126mmol/L (136-145) Potassium Level 5.3mmol/L (3.5-5.1) 5.0mmol/L (3.5-5.1) Chloride Level 92mmol/L (98-107) 94mmol/L (98-107) Carbon Dioxide Level 29mmol/L (21-32) 29mmol/L (21-32) Anion Gap 5 (6-14) 3 (6-14) Blood Urea Nitrogen 27mg/dL (7-20) 26mg/dL (7-20) Creatinine 1.0mg/dL (0.6-1.0) 0.9mg/dL (0.6-1.0) Estimated GFR (Cockcroft-Gault) 52.7 59.5 Glucose Level 98mg/dL (70-99) 84mg/dL (70-99) Calcium Level 8.5mg/dL (8.5-10.1) 8.4mg/dL (8.5-10.1) Phosphorus Level 2.9mg/dL (2.6-4.7) Magnesium Level 1.8mg/dL (1.8-2.4) 1.7mg/dL (1.8-2.4) Erythrocyte Sedimentation Rate 10 (0-25) Prothrombin Time 18.1SEC (11.7-14.0) Prothromb Time International Ratio 1.6 (0.8-1.1) ELAINE ERNST MD Oct 01, 2016 11:00
[2016-10-01 11:45] VITALS: BP 100/53
--- NOTE | 2016-10-01 13:43 | PDOC ---
SUBJECTIVE Subjective Pt. with urinary retention OBJECTIVE Objective rios with retention Vital Signs Vital Signs Date Time Temp Pulse Resp B/P Pulse Ox O2 Delivery O2 Flow Rate FiO2 10/01/16 13:36 99 102/65 10/01/16 13:22 Nasal Cannula 1.0 10/01/16 11:45 97.9 96 16 100/53 99 Nasal Cannula 1.0 97.9 10/01/16 08:59 106 116/59 10/01/16 08:45 98.1 106 17 116/59 100 Nasal Cannula 1.0 98.1 10/01/16 08:00 Nasal Cannula 2.0 10/01/16 07:54 100 Nasal Cannula 1.0 10/01/16 03:00 97.5 102 17 96/53 98 Nasal Cannula 1.0 97.5 09/30/16 23:00 97.5 54 17 124/64 97 Nasal Cannula 1.0 97.5 09/30/16 22:10 82 116/57 09/30/16 20:43 Nasal Cannula 1.0 09/30/16 20:00 Nasal Cannula 1.0 09/30/16 19:00 97.9 124 17 116/56 98 Nasal Cannula 1.0 97.9 09/30/16 16:51 Nasal Cannula 1.0 09/30/16 15:20 98.4 82 19 106/55 99 Nasal Cannula 1.0 98.4 I & O Intake and Output 10/01/16 07:00 Intake Total 1350 ml Output Total 2475 ml Balance -1125 ml Intake Oral 1350 ml Output Urine Total 2475 ml # Bowel Movements 1 PHYSICAL EXAM Physical Exam rios in place. urine clear [id number] ASSESSMENT/PLAN Assessment/Plan keep rios treat medical problems f/u in office with AIR TABLE OPERATOR Carie Ortiz for voiding trial in 1-3 weeks Problems: COMMENT Lab Laboratory Tests Test 10/01/16 05:10 White Blood Count 13.8x10^3/uL (4.0-11.0) Red Blood Count 3.15x10^6/uL (3.50-5.40) Hemoglobin 10.2g/dL (12.0-15.5) Hematocrit 31.9% (36.0-47.0) Mean Corpuscular Volume 101fL (79-100) Mean Corpuscular Hemoglobin 32pg (25-35) Mean Corpuscular Hemoglobin Concent 32g/dL (31-37) Red Cell Distribution Width 12.6% (11.5-14.5) Platelet Count 112x10^3/uL (140-400) Erythrocyte Sedimentation Rate 10 (0-25) Prothrombin Time 18.1SEC (11.7-14.0) Prothromb Time International Ratio 1.6 (0.8-1.1) Sodium Level 126mmol/L (136-145) Potassium Level 5.0mmol/L (3.5-5.1) Chloride Level 94mmol/L (98-107) Carbon Dioxide Level 29mmol/L (21-32) Anion Gap 3 (6-14) Blood Urea Nitrogen 26mg/dL (7-20) Creatinine 0.9mg/dL (0.6-1.0) Estimated GFR (Cockcroft-Gault) 59.5 Glucose Level 84mg/dL (70-99) Calcium Level 8.4mg/dL (8.5-10.1) Magnesium Level 1.7mg/dL (1.8-2.4) WHIT ABBOTT MD Oct 01, 2016 13:43
--- NOTE | 2016-10-01 14:14 | PDOC ---
PROGRESS NOTES Subjective Subjective SEEN IN FOLLOW UP OF HYPONATREMIA Objective Objective Vital Signs Date Time Temp Pulse Resp B/P Pulse Ox O2 Delivery O2 Flow Rate FiO2 10/01/16 13:36 99 102/65 10/01/16 13:22 Nasal Cannula 1.0 10/01/16 11:45 97.9 16 99 97.9 Intake and Output 10/01/16 07:00 Intake Total 1350 ml Output Total 2475 ml Balance -1125 ml Intake Oral 1350 ml Output Urine Total 2475 ml # Bowel Movements 1 Physical Exam Abdomen: Normal bowel sounds, Soft, No tenderness, No hepatosplenomegaly, No masses Heart: Regular rate, Normal S1, Normal S2, No murmurs, Gallops General: Alert Lungs: Clear to auscultation, Normal air movement Diagnosis Other HYPONATREMIA Assessment Assessment Problems Medical Problems: (1) Generalized weakness Status: Acute (2) Hyponatremia Status: Acute (3) Leukocytosis Status: Acute Plan Plan of Care SERUM SODIUM IS STABLE. CONT TO FOLLOW LAB Comment Review of Relevant I have reviewed the following items kevin (where applicable) has been applied. Labs Laboratory Tests Test 09/30/16 11:40 10/01/16 05:10 White Blood Count 17.6x10^3/uL (4.0-11.0) 13.8x10^3/uL (4.0-11.0) Red Blood Count 3.42x10^6/uL (3.50-5.40) 3.15x10^6/uL (3.50-5.40) Hemoglobin 11.3g/dL (12.0-15.5) 10.2g/dL (12.0-15.5) Hematocrit 34.6% (36.0-47.0) 31.9% (36.0-47.0) Mean Corpuscular Volume 101fL (79-100) 101fL (79-100) Mean Corpuscular Hemoglobin 33pg (25-35) 32pg (25-35) Mean Corpuscular Hemoglobin Concent 33g/dL (31-37) 32g/dL (31-37) Red Cell Distribution Width 12.4% (11.5-14.5) 12.6% (11.5-14.5) Platelet Count 122x10^3/uL (140-400) 112x10^3/uL (140-400) Sodium Level 126mmol/L (136-145) 126mmol/L (136-145) Potassium Level 5.3mmol/L (3.5-5.1) 5.0mmol/L (3.5-5.1) Chloride Level 92mmol/L (98-107) 94mmol/L (98-107) Carbon Dioxide Level 29mmol/L (21-32) 29mmol/L (21-32) Anion Gap 5 (6-14) 3 (6-14) Blood Urea Nitrogen 27mg/dL (7-20) 26mg/dL (7-20) Creatinine 1.0mg/dL (0.6-1.0) 0.9mg/dL (0.6-1.0) Estimated GFR (Cockcroft-Gault) 52.7 59.5 Glucose Level 98mg/dL (70-99) 84mg/dL (70-99) Calcium Level 8.5mg/dL (8.5-10.1) 8.4mg/dL (8.5-10.1) Phosphorus Level 2.9mg/dL (2.6-4.7) Magnesium Level 1.8mg/dL (1.8-2.4) 1.7mg/dL (1.8-2.4) Erythrocyte Sedimentation Rate 10 (0-25) Prothrombin Time 18.1SEC (11.7-14.0) Prothromb Time International Ratio 1.6 (0.8-1.1) Laboratory Tests Test 10/01/16 05:10 White Blood Count 13.8x10^3/uL (4.0-11.0) Red Blood Count 3.15x10^6/uL (3.50-5.40) Hemoglobin 10.2g/dL (12.0-15.5) Hematocrit 31.9% (36.0-47.0) Mean Corpuscular Volume 101fL (79-100) Mean Corpuscular Hemoglobin 32pg (25-35) Mean Corpuscular Hemoglobin Concent 32g/dL (31-37) Red Cell Distribution Width 12.6% (11.5-14.5) Platelet Count 112x10^3/uL (140-400) Erythrocyte Sedimentation Rate 10 (0-25) Prothrombin Time 18.1SEC (11.7-14.0) Prothromb Time International Ratio 1.6 (0.8-1.1) Sodium Level 126mmol/L (136-145) Potassium Level 5.0mmol/L (3.5-5.1) Chloride Level 94mmol/L (98-107) Carbon Dioxide Level 29mmol/L (21-32) Anion Gap 3 (6-14) Blood Urea Nitrogen 26mg/dL (7-20) Creatinine 0.9mg/dL (0.6-1.0) Estimated GFR (Cockcroft-Gault) 59.5 Glucose Level 84mg/dL (70-99) Calcium Level 8.4mg/dL (8.5-10.1) Magnesium Level 1.7mg/dL (1.8-2.4) Microbiology 09/22/16 Urine Culture - Final, Complete 09/22/16 Urine Culture Result 1 (MIO) - Final, Complete Medications Current Medications Ondansetron HCl (Zofran) 4 mg PRN Q8HRS PRN IV NAUSEA/VOMITING; Start 09/22/16 at 18:00; Stop 09/23/16 at 17:59; Status DC Morphine Sulfate 2 mg 2 mg PRN Q2HR PRN IV PAIN; Start 09/22/16 at 18:00; Stop 09/23/16 at 17:59; Status DC Sodium Chloride (Iv Sodium Chloride 0.9% 1000ml Bag) 1,000 ml @ 75 mls/hr [id number] IV Last administered on 09/22/16 19:20; Start 09/22/16 at 17:55; Stop at 12:24; Status DC Fluconazole (Diflucan) 150 mg 1X ONCE PO Last administered on 09/22/16 18:26; Start 09/22/16 at 18:15; Stop 09/22/16 at 18:17; Status DC Acetaminophen (Tylenol) 650 mg PRN Q4HRS PRN PO MILD PAIN Last administered on 10/01/16 09:10; Start 09/22/16 at 21:15 Famotidine (Pepcid) 20 mg DAILY PO Last administered on 10/01/16 09:04; Start 09/23/16 at 09:00 Furosemide (Lasix) 40 mg DAILY PO Last administered on 09/23/16 08:26; Start at 09:00; Stop 09/23/16 at 12:24; Status DC Guaifenesin (Robitussin) 300 mg PRN Q4HRS PRN PO COUGH Last administered on 09/23 21:31; Start 09/22/16 at 21:15 Guaifenesin (Mucinex) 600 mg BID PO Last administered on 10/01/16 09:01; Start 09/22/16 at 22:00 Ibuprofen (Motrin) 800 mg PRN Q6HRS PRN PO INFLAMMATION; Start 09/22/16 at 21:15 ; Stop 09/23/16 at 12:24; Status DC Albuterol/ Ipratropium (Duoneb) 3 ml RTQID NEB Last administered on 10/01/16 13:22; Start 09/23/16 at 08:00 Levofloxacin (Levaquin) 500 mg HS PO Last administered on 09/24/16 20:22; Start 09/22/16 at 22:00; Stop 09/25/16 at 14:23; Status DC Levothyroxine Sodium (Synthroid) 88 mcg DAILY07 PO Last administered on 09:04; Start 09/23/16 at 07:00; Stop 09/24/16 at 10:40; Status DC Metoprolol Tartrate (Lopressor) 50 mg BID PO Last administered on 09/24/16 09: 05; Start 09/22/16 at 22:00; Stop 09/24/16 at 10:40; Status DC Nystatin 5 ml QID PO Last administered on 10/01/16 13:36; Start 09/22/16 at 23: 00 Fish Oil (Fish Oil) 1,000 mg DAILY PO Last administered on 10/01/16 09:01; Start 09/23/16 at 09:00 Polyethylene Glycol (miraLAX PACKET) 34 gm DAILY PO Last administered on 10:58; Start 09/23/16 at 09:00 Potassium Chloride (Klor-Con) 20 meq DAILY PO Last administered on 09/30/16 08 :29; Start 09/23/16 at 09:00; Stop 09/30/16 at 12:51; Status DC Prednisone (Prednisone) 5 mg DAILY PO Last administered on 10/01/16 09:00; Start 09/23/16 at 09:00 Propafenone HCl (Rythmol) 225 mg [id number] PO Last administered on 10/01/16 13:36 ; Start 09/23/16 at 09:00 Spironolactone (Aldactone) 25 mg DAILY PO Last administered on 09/24/16 09:05; Start 09/23/16 at 09:00; Stop 09/24/16 at 10:40; Status DC Warfarin Sodium (Coumadin) 2.5 mg DAILY16 PO Last administered on 09/27/16 18: 02; Start 09/23/16 at 16:00; Stop 09/28/16 at 13:51; Status DC Lactobacillus Acidophilus (Bacid, Blanche-Bid) 2 tab BID PO Last administered on 08:57; Start 09/22/16 at 22:30 Vitamin D (Vitamin D3) 1,000 unit DAILY PO Last administered on 10/01/16 09:00 ; Start 09/23/16 at 09:00 Demeclocycline HCl (Declomycin) 300 mg Q12HR PO Last administered on 09/23/16 08:29; Start 09/22/16 at 22:30; Stop 09/23/16 at 12:24; Status DC Nystatin (Nystop) 1 bibiana BID TP Last administered on 10/01/16 09:01; Start 09/22 at 22:30 Zinc Oxide 1 bibiana BID TP Last administered on 10/01/16 09:01; Start 09/22/16 at 23:00 Warfarin Sodium (Coumadin Per Physician) 1 each PRN DAILY PRN MC SEE COMMENTS Last administered on 09/30/16 12:36; Start 09/22/16 at 21:45 Prednisone (Prednisone) 3 mg DAILY PO Last administered on 10/01/16 09:00; Start 09/23/16 at 09:00 Furosemide (Lasix) 40 mg [id number] IVP Last administered on 09/24/16 09:07; Start 09/23/16 at 14:00; Stop 09/24/16 at 10:40; Status DC Furosemide (Lasix) 20 mg TID IVP Last administered on 09/26/16 09:21; Start 09/24/16 at 14:00; Stop 09/26/16 at 13:26; Status DC Levothyroxine Sodium 50 mcg 50 mcg DAILY07 PO Last administered on 10/01/16 06 :09; Start 09/25/16 at 07:00 Albumin Human 100 ml @ 100 mls/hr TID IV Last administered on 09/25/16 08:47; Start 09/24/16 at 11:00; Stop 09/25/16 at 12:22; Status DC Iron Sucrose/ Sodium Chloride (Venofer/Iv Sodium Chloride 0.9% 100ml) 110 ml @ 55 mls/hr 3X/WEEK IV Last administered on 09/30/16 11:55; Start 09/26/16 at 09: 00; Stop 10/05/16 at 10:59 Levofloxacin (Levaquin) 250 mg Q24H PO Last administered on 09/30/16 22:22; Start 09/25/16 at 21:00 Cosyntropin (Cortrosyn) 0.5 mg 1X ONCE IVP ; Start 09/27/16 at 08:00; Stop at 09:21; Status DC Cosyntropin (Cortrosyn) 0.5 mg 1X ONCE IVP Last administered on 09/28/16 07:59 ; Start 09/28/16 at 08:00; Stop 09/28/16 at 08:01; Status DC Alteplase, Recombinant (Cathflo) 2 mg 1X ONCE INT CAT Last administered on 09/28 06:10; Start 09/28/16 at 06:00; Stop 09/28/16 at 06:01; Status DC Warfarin Sodium (Coumadin) 3 mg DAILY16 PO Last administered on 09/30/16 17:03 ; Start 09/28/16 at 16:00 Info 1 each 1 each PRN DAILY PRN MC SEE COMMENTS Last administered on 09/29/16 12:47; Start 09/28/16 at 14:15; Stop 09/30/16 at 12:51; Status DC Sodium Chloride 90 meq/Potassium Chloride 50 meq/ Potassium Phosphate 13.6 mmol/ Magnesium Sulfate 10 meq/ Calcium Gluconate 10 meq/ Multivitamins/ Minerals 10 ml/ Chromium/Copper/ Manganese/Seleni/ Zn 1 ml/Total Parenteral Nutrition/Amino Acids/Dextrose/ Fat Emulsion Intravenous 1,512 ml @ 63 mls/hr TPN CONT IV ; Start 09/28/16 at 22:00; Stop 09/28/16 at 22:00; Status DC Sodium Chloride/ Potassium Chloride/ Potassium Phosphate/ Magnesium Sulfate/ Calcium Gluconate/ Multivitamins/ Minerals/Chromium/ Copper/Manganese/ Seleni/Zn /Total Parenteral Nutrition/Amino Acids/Dextrose/ Fat Emulsion Intravenous ( Sodium Chloride/ Potassium Phospha... 1,000 ml @ 41.667 mls/ hr TPN CONT IV Last administered on 09/28/16 20:08; Start 09/28/16 at 22:00; Stop 09/29/16 at 21: 59; Status DC Fluconazole 100 mg 100 mg DAILY PO Last administered on 10/01/16 09:00; Start 09/29/16 at 13:00 Sodium Chloride/ Potassium Chloride/ Potassium Phosphate/ Magnesium Sulfate/ Calcium Gluconate/ Multivitamins/ Minerals/Chromium/ Copper/Manganese/ Seleni/Zn /Total Parenteral Nutrition/Amino Acids/Dextrose/ Fat Emulsion Intravenous ( Sodium Chloride/ Potassium Phospha... 1,000 ml @ 41.667 mls/ hr TPN CONT IV Last administered on 09/29/16 20:55; Start 09/29/16 at 22:00; Stop 09/30/16 at 12 :51; Status DC Alteplase, Recombinant (Cathflo) 2 mg 1X ONCE INT CAT ; Start 09/30/16 at 11:00 ; Stop 09/30/16 at 11:01; Status DC Alteplase, Recombinant 2 mg 2 mg 1X ONCE INT CAT ; Start 09/30/16 at 11:00; Stop 09/30/16 at 11:01; Status DC Magnesium Sulfate/ Dextrose 106 ml @ 35.333 mls/ hr 1X ONCE IV Last administered on 10/01/16 10:28; Start 10/01/16 at 10:30; Stop 10/01/16 at 13:29 ; Status DC Tamsulosin HCl (Flomax) 0.4 mg DAILY PO Last administered on 10/01/16 10:27; Start 10/01/16 at 10:30 Active Scripts Active Diflucan (Fluconazole) 100 Mg Tablet 100 Mg PO DAILY 7 Days Prednisone 1 Mg Tablet 1 Mg PO DAILY PRN 7 Days Warfarin Sodium 3 Mg Tablet 3 Mg PO DAILY Propafenone Hcl 150 Mg Tablet 225 Mg PO [id number] 30 Days Reported Zinc Oxide 30 Gm Oint...g. 30 Gm TP BID Polyethylene Glycol 3350 255 Gm Powder 34 Gm PO DAILY Nystatin 100,000 Unit/1 Ml Oral.susp 5 Ml PO QID oral thrush, x 5 days, start 09/22/16 Nystatin 1 Each Powder.ea. 1 Each PO BID to periarea topically after cleaning with warm soap and water, pat dry. apply zinc oxide cream and sprinkle with nystatin powder q shift Mucinex (Guaifenesin) 600 Mg Tablet.er 1 Tab PO BID x 5 days, started 09/18/16 Levaquin (Levofloxacin) 500 Mg Tablet 1 Tab PO HS x 7 days, start 09/18/16 Lasix (Furosemide) 40 Mg Tablet 1 Tab PO DAILY Ibuprofen 800 Mg Tablet 800 Mg PO PRN Q6HRS PRN Jelly-Tussin (Guaifenesin) 100 Mg/5 Ml Liquid 15 Ml PO Q4HRS PRN Floranex Tablet (Acidophilus/Bulgaricus) 1 Each Tablet 1 Each PO BID x 7 days, start date 09/18/16 Famotidine 20 Mg Tablet 20 Mg PO DAILY Duoneb 0.5-3(2.5) Mg/3 Ml (Albuterol/Ipratropium) 3 Ml Ampul.neb 3 Ml NEB QID x 7 days, start date 09/18/16 Demeclocycline Hcl 300 Mg Tablet 300 Mg PO BID Aldactone (Spironolactone) 25 Mg Tablet 1 Tab PO DAILY Tylenol (Acetaminophen) 325 Mg Tablet 2 Tab PO PRN Q4HRS Fish Oil 1,000 Mg Capsule (Derry-3 Fatty Acids/Fish Oil) 1 Each Capsule 1 Each PO DAILY LAST DOSE: 12/12/15 AM NEXT DOSE: 12/13/15 AM Klor-Con M20 (Potassium Chloride) 20 Meq Tab.er.prt 1 Tab PO DAILY LAST DOSE: 12/12/15 AM NEXT DOSE: 12/13/15 AM Metoprolol Tartrate 50 Mg Tablet 1 Tab PO BID LAST DOSE: 12/12/15 AM NEXT DOSE: 12/13/15 AM Levothyroxine Sodium 88 Mcg Tablet 1 Tab PO DAILY LAST DOSE: 12/12/15 AM NEXT DOSE: 12/13/15 Vitamin D (Cholecalciferol (Vitamin D3)) 1,000 Unit Capsule 1,000 Unit PO DAILY LAST DOSE: 12/12/15 NEXT DOSE: 12/13/15 AM Prednisone 5 Mg Tablet 8 Mg PO DAILY LAST DOSE: 12/12/15 NEXT DOSE: 12/13/15 AM Vitals/I & O Vital Sign - Last 24 Hours 09/30/16 09/30/16 09/30/16 09/30/16 15:20 16:51 19:00 20:00 Temp 98.4 97.9 98.4 97.9 Pulse 82 124 Resp B/P 106/55 116/56 Pulse Ox 99 98 O2 Delivery Nasal Cannula Nasal Cannula Nasal Cannula Nasal Cannula O2 Flow Rate 1.0 1.0 1.0 1.0 09/30/16 09/30/16 09/30/16 10/01/16 20:43 22:10 23:00 03:00 Temp 97.5 97.5 97.5 97.5 Pulse 82 54 102 Resp B/P 116/57 124/64 96/53 Pulse Ox 97 98 O2 Delivery Nasal Cannula Nasal Cannula Nasal Cannula O2 Flow Rate 1.0 1.0 1.0 10/01/16 10/01/16 10/01/16 10/01/16 07:54 08:00 08:45 08:59 Temp 98.1 98.1 Pulse 106 106 Resp 17 B/P 116/59 116/59 Pulse Ox 100 100 O2 Delivery Nasal Cannula Nasal Cannula Nasal Cannula O2 Flow Rate 1.0 2.0 1.0 10/01/16 10/01/16 10/01/16 11:45 13:22 13:36 Temp 97.9 97.9 Pulse 96 99 Resp 16 B/P 100/53 102/65 Pulse Ox 99 O2 Delivery Nasal Cannula Nasal Cannula O2 Flow Rate 1.0 1.0 Intake and Output 09/30/16 09/30/16 10/01/16 15:00 23:00 07:00 Intake Total 1200 ml 150 ml Output Total 1175 ml 1300 ml Balance 25 ml -1150 ml MICHAEL EM MD Oct 01, 2016 14:14
[2016-10-01 14:55] VITALS: BP 118/67
[2016-10-01] MEDS: WARFARIN 3 MG TABLET. PO SCH (16:12)
[2016-10-01 19:00] VITALS: BP 102/42
[2016-10-01] MEDS: LEVOFLOXACIN 250 MG TABLET. PO SCH (20:58)
[2016-10-01 23:00] VITALS: BP 123/47
[2016-10-02] VITALS (7 sets, daily range): BP systolic 92–122; BP diastolic 54–71
[2016-10-02] MEDS: ACETAMINOPHEN 325 MG TABLET. PO PRN (04:55)
[2016-10-02] MEDS: LEVOTHYROXINE 88 MCG TABLET PO SCH (05:00)
[2016-10-02 06:16] LABS: CALCIUM 8.4 mg/dL (8.5-10.1); CREATININE 0.9 mg/dL (0.6-1.0); GFR 59.5; POTASSIUM 4.4 mmol/L (3.5-5.1)
[2016-10-02] MEDS: IPRATRPIUM/ALBUTEROL 0.5/2.5MG 3 ML NEBU. NEB SCH ×4 (07:40→19:33)
[2016-10-02] MEDS: ZINC OXIDE 20% TOPICAL OINTMENT 28GM TUBE. TP SCH ×2 (08:56→20:35)
[2016-10-02] MEDS: PREDNISONE 1 MG TABLET PO SCH (08:57)
[2016-10-02] MEDS: PREDNISONE 5 MG TABLET PO SCH (08:57)
[2016-10-02] MEDS: FLUCONAZOLE 100 MG TABLET. PO SCH (08:57)
[2016-10-02] MEDS: NYSTATIN TOPICAL POWDER 15GM BOTTLE. TP SCH ×2 (08:57→20:34)
[2016-10-02] MEDS: NYSTATIN 100,000 UNITS/ML 5 ML ORAL.SUSP. PO SCH ×4 (08:57→20:24)
[2016-10-02] MEDS: LACTOBACILLUS ACIDOPH & BULGAR 1 TABLET. PO SCH ×2 (08:58→20:25)
[2016-10-02] MEDS: PROPAFENONE 150 MG TABLET. PO SCH ×3 (08:59→20:33)
[2016-10-02] MEDS: OMEGA-3 FATTY ACIDS/FISH OIL 1,000 MG CAPSULE. PO SCH (08:59)
[2016-10-02] MEDS: POLYETHYLENE GLYCOL 3350 17 GM PACKET. PO SCH (08:59)
[2016-10-02] MEDS: TAMSULOSIN 0.4 MG CAP.ER.24H. PO SCH (08:59)
[2016-10-02] MEDS: FAMOTIDINE 20 MG TABLET. PO SCH (08:59)
[2016-10-02] MEDS: GUAIFENESIN ER 600 MG TABLET.ER PO SCH ×2 (08:59→20:25)
[2016-10-02] MEDS: CHOLECALCIFEROL (VITAMIN D3) 1,000 UNIT TABLET PO SCH (08:59)
--- NOTE | 2016-10-02 12:04 | PDOC ---
SUBJECTIVE Subjective feels better OBJECTIVE Objective vss Vital Signs Vital Signs Date Time Temp Pulse Resp B/P Pulse Ox O2 Delivery O2 Flow Rate FiO2 10/02/16 11:51 93 Nasal Cannula 1.0 10/02/16 08:59 99 105/61 10/02/16 08:50 97.7 99 16 105/61 98 Nasal Cannula 1.0 97.7 10/02/16 08:00 Nasal Cannula 2.0 10/02/16 07:41 98 Nasal Cannula 1.0 10/02/16 07:00 97.7 99 16 105/61 98 Nasal Cannula 1.0 97.7 10/02/16 03:00 97.5 105 18 98/57 98 Nasal Cannula 1.0 97.5 10/01/16 23:00 98.1 103 18 123/47 100 Nasal Cannula 1.0 98.1 10/01/16 21:00 99 102/42 10/01/16 20:00 Nasal Cannula 1.0 10/01/16 19:55 96 Nasal Cannula 1.0 10/01/16 19:00 100.0 99 18 102/42 98 Nasal Cannula 1.0 100.0 10/01/16 16:51 Nasal Cannula 1.0 10/01/16 14:55 98.1 95 20 118/67 97 Nasal Cannula 1.0 98.1 10/01/16 13:36 99 102/65 10/01/16 13:22 Nasal Cannula 1.0 I & O Intake and Output 10/02/16 07:00 Intake Total 886 ml Output Total 2975 ml Balance -2089 ml Intake Oral 780 ml IV Total 106 ml Output Urine Total 2975 ml PHYSICAL EXAM Physical Exam no change ASSESSMENT/PLAN Assessment/Plan 1- pulmonary infiltrates imroped on Levaquin po 2- Hyponatremia stabalizing , Dr. Rendon is following 3- HypoAlbumin - her appetitie is improving 4- Dysphagia - improving had thrush on p.o diflucan 5- CKD III 6-anticoagulation therapeutic 7. luekocytosis improving 8. hypomagnesemia replaced 9. urinary retention after discontinue rios , started flomax, replace rios will be discharged with rios and follow urology out pt for discharge to rehab when OK with Nephrology, Problems: COMMENT Lab Laboratory Tests Test 10/02/16 05:30 Sodium Level 129mmol/L (136-145) Potassium Level 4.4mmol/L (3.5-5.1) Chloride Level 94mmol/L (98-107) Carbon Dioxide Level 30mmol/L (21-32) Anion Gap 5 (6-14) Blood Urea Nitrogen 24mg/dL (7-20) Creatinine 0.9mg/dL (0.6-1.0) Estimated GFR (Cockcroft-Gault) 59.5 Glucose Level 77mg/dL (70-99) Calcium Level 8.4mg/dL (8.5-10.1) ELAINE ERNST MD Oct 02, 2016 12:03
[2016-10-02] MEDS: WARFARIN 3 MG TABLET. PO SCH (16:00)
[2016-10-02] MEDS: LEVOFLOXACIN 250 MG TABLET. PO SCH (20:25)
[2016-10-03 03:00] VITALS: BP 96/67
--- NOTE | 2016-10-03 03:25 | CONS ---
DATE OF CONSULTATION: 10/01/2016 The patient's room 534. HISTORY OF PRESENT ILLNESS: The patient is a very pleasant 86-year-old white female who was admitted with hyponatremia, sodium level of 117 on admission. The patient is very debilitated and was in the [facility] at the time of her hospitalization. She was admitted on 09/22/2016. The patient has been in urinary retention. She is nonambulatory; therefore, Fontana catheter was placed. She had 400 mL in her bladder. The patient has past medical history of atrial fibrillation with RVR, arthritis, GERD, hypertension, hypothyroidism, renal failure, recurrent UTIs, polymyalgia rheumatica, rheumatoid arthritis. She has had previous appendectomy, hip replacement, hysterectomy, knee replacement, tonsillectomy, left shoulder repair, uterine suspension, bladder suspension, varicose vein surgery, bilateral knee replacements, right hip replacement. Abdomen is soft, nontender. She has a Fontana catheter to gravity drainage with a StatLock of the right thigh. Urine is grossly clear. The patient's sodium now is 126. Her creatinine is 0.9. ASSESSMENT: Urinary retention. PLAN: We would recommend keeping the Fontana catheter in place for now. She is nonambulatory and very debilitated and we would recommend having her follow up with nurse practitioner, Carie Ortiz, in the office in 1-3 weeks for possible voiding trial at that time. I certainly appreciate being allowed to participate in this patient's care. WHIT ABBOTT MD DR: RAI/nirmala JOB#: [id number] / [id number]
[2016-10-03] MEDS: LEVOTHYROXINE 88 MCG TABLET PO SCH (06:02)
[2016-10-03 07:15] VITALS: BP 114/59
[2016-10-03] MEDS: IPRATRPIUM/ALBUTEROL 0.5/2.5MG 3 ML NEBU. NEB SCH ×2 (08:05→12:49)
--- NOTE | 2016-10-03 08:06 | PDOC ---
Provider Note Provider Note [id number] to select, no clear etio;ogy re low Na+- dc flucon/levo- follow inr , last 1.6 CHLOÉ YANG MD Oct 03, 2016 08:06
[2016-10-03] MEDS: POLYETHYLENE GLYCOL 3350 17 GM PACKET. PO SCH (09:00)
[2016-10-03] MEDS: IRON SUCROSE COMPLEX 200 MG in IV NORMAL SALINE 100ML 100 ML IV SCH (09:08)
[2016-10-03] MEDS: TAMSULOSIN 0.4 MG CAP.ER.24H. PO SCH (09:09)
[2016-10-03] MEDS: PREDNISONE 1 MG TABLET PO SCH (09:09)
[2016-10-03] MEDS: PREDNISONE 5 MG TABLET PO SCH (09:09)
[2016-10-03] MEDS: LACTOBACILLUS ACIDOPH & BULGAR 1 TABLET. PO SCH (09:09)
[2016-10-03] MEDS: FAMOTIDINE 20 MG TABLET. PO SCH (09:09)
[2016-10-03] MEDS: OMEGA-3 FATTY ACIDS/FISH OIL 1,000 MG CAPSULE. PO SCH (09:09)
[2016-10-03] MEDS: NYSTATIN 100,000 UNITS/ML 5 ML ORAL.SUSP. PO SCH ×2 (09:09→13:23)
[2016-10-03] MEDS: PROPAFENONE 150 MG TABLET. PO SCH ×2 (09:10→13:23)
[2016-10-03] MEDS: CHOLECALCIFEROL (VITAMIN D3) 1,000 UNIT TABLET PO SCH (09:10)
[2016-10-03] MEDS: NYSTATIN TOPICAL POWDER 15GM BOTTLE. TP SCH (09:11)
[2016-10-03] MEDS: ZINC OXIDE 20% TOPICAL OINTMENT 28GM TUBE. TP SCH (09:11)
[2016-10-03] MEDS: ACETAMINOPHEN 325 MG TABLET. PO PRN ×2 (09:16→13:23)
--- NOTE | 2016-10-03 10:09 | PDOC ---
SUBJECTIVE ROS HypoNatremia Doing much better today CVS: no Orthopnea, no CP RESP: no SOB, no CONRAD GI: no Nausea, no Vomiting : no Dysuria, no Urgency OBJECTIVE Vital Signs Vital Signs Date Time Temp Pulse Resp B/P Pulse Ox O2 Delivery O2 Flow Rate FiO2 10/03/16 09:10 98 114/59 10/03/16 08:06 98 Nasal Cannula 1.0 10/03/16 07:15 97.9 18 97.9 I & 0 Intake and Output 10/03/16 07:00 Intake Total 1380 ml Output Total 2450 ml Balance -1070 ml Intake Oral 1380 ml Output Urine Total 2450 ml PHYSICAL EXAM Physical Exam General Appearance: Awake Alert Oriented x 3 In no Distress Eyes: VIsion Unchanged Conjunctiva Normal EN: No EN Drainage Mucous Memb. moist Neck: no JVD no JVP Supple no Thyromegaly CVS: S1 S2 soft Murmur No Gallop No Rub no Edema today Resp: Rare Rales no Rhonchi no Acc. Muscle use GI: BS +ve NO Bruit Non Tender Non Distended : no CVA tenderness; no Suprapubic Tenderness Assessment & Plan Hyponatremia - suspect due to Poor PO intake. now much better with liberalized diet and Water restriction Urinary retention - Fontana is back in, on Flomax HypoAlbumin - encourage PO intake Iron Def State - IV Fe as done ? CKD III underlying with Creat closer to 1.2 range in Euvolemic state ASVDz as noted on Previous CT - unable to R/o IVANNA - but BP are not high enough to suggest obvious IVANNA OK to D/c in am once Na > 130 COMMENT/RELEVANT DATA Meds Current Medications Medications (Trade) Dose Ordered Sig/Luz Marina Start Time Stop Time Status Last Admin Dose Admin Acetaminophen (Tylenol) 650 mg PRN Q4HRS PRN 09/22/16 21:15 10/03/16 09:16 650 MG Albumin Human 100 ml @ 100 mls/hr TID 09/24/16 11:00 09/25/16 12:22 DC 09/25/16 08:47 100 MLS/HR Albuterol/ Ipratropium (Duoneb) 3 ml RTQID 09/23/16 08:00 10/03/16 08:05 3 ML Alteplase, Recombinant (Cathflo) 2 mg 1X ONCE 09/30/16 11:00 09/30/16 11:01 DC Alteplase, Recombinant 2 mg 2 mg 1X ONCE 09/30/16 11:00 09/30/16 11:01 DC Cosyntropin (Cortrosyn) 0.5 mg 1X ONCE 09/28/16 08:00 09/28/16 08:01 DC 09/28/16 07:59 0.5 MG Demeclocycline HCl (Declomycin) 300 mg Q12HR 09/22/16 22:30 09/23/16 12:24 DC 09/23/16 08:29 300 MG Famotidine (Pepcid) 20 mg DAILY 09/23/16 09:00 10/03/16 09:09 20 MG Fish Oil (Fish Oil) 1,000 mg DAILY 09/23/16 09:00 10/03/16 09:09 1,000 MG Fluconazole (Diflucan) 150 mg 1X ONCE 09/22/16 18:15 09/22/16 18:17 DC 09/22/16 18:26 150 MG Fluconazole 100 mg 100 mg DAILY 09/29/16 13:00 10/03/16 08:02 DC 10/02/16 08:57 100 MG Furosemide (Lasix) 20 mg TID 09/24/16 14:00 09/26/16 13:26 DC 09/26/16 09:21 20 MG Guaifenesin (Mucinex) 600 mg BID 09/22/16 22:00 10/03/16 08:02 DC 10/02/16 20:25 600 MG Guaifenesin (Robitussin) 300 mg PRN Q4HRS PRN 09/22/16 21:15 10/03/16 08:02 DC 09/23/16 21:31 300 MG Ibuprofen (Motrin) 800 mg PRN Q6HRS PRN 09/22/16 21:15 09/23/16 12:24 DC Info 1 each PRN DAILY PRN 09/28/16 14:15 09/30/16 12:51 DC 09/29/16 12:47 1 EACH Iron Sucrose/ Sodium Chloride (Venofer/Iv Sodium Chloride 0.9% 100ml) 110 ml @ 55 mls/hr 3X/WEEK 09/26/16 09:00 10/05/16 10:59 2/13/17 09:08 55 MLS/HR Lactobacillus Acidophilus (Bacid, Blanche-Bid) 2 tab BID 09/22/16 22:30 10/03/16 09:09 2 TAB Levofloxacin (Levaquin) 250 mg Q24H 09/25/16 21:00 10/03/16 08:02 DC 10/02/16 20:25 250 MG Levothyroxine Sodium (Synthroid) 88 mcg DAILY07 09/23/16 07:00 09/24/16 10:40 DC 09/24/16 09:04 88 MCG Levothyroxine Sodium 50 mcg 50 mcg DAILY07 09/25/16 07:00 10/03/16 06:02 50 MCG Magnesium Sulfate/ Dextrose 106 ml @ 35.333 mls/ hr 1X ONCE 10/01/16 10:30 10/01/16 13:29 DC 10/01/16 10:28 35.333 MLS/HR Metoprolol Tartrate (Lopressor) 50 mg BID 09/22/16 22:00 09/24/16 10:40 DC 09/24/16 09:05 50 MG Morphine Sulfate 2 mg 2 mg PRN Q2HR PRN 09/22/16 18:00 09/23/16 17:59 DC Nystatin (Nystop) 1 bibiana BID 09/22/16 22:30 10/03/16 09:11 1 BIBIANA Ondansetron HCl (Zofran) 4 mg PRN Q8HRS PRN 09/22/16 18:00 09/23/16 17:59 DC Polyethylene Glycol (miraLAX PACKET) 34 gm DAILY 09/23/16 09:00 10/02/16 08:59 34 GM Potassium Chloride (Klor-Con) 20 meq DAILY 09/23/16 09:00 09/30/16 12:51 DC 09/30/16 08:29 20 MEQ Prednisone (Prednisone) 3 mg DAILY 09/23/16 09:00 10/03/16 09:09 3 MG Propafenone HCl (Rythmol) 225 mg [id number] 09/23/16 09:00 10/03/16 09:10 225 MG Sodium Chloride (Iv Sodium Chloride 0.9% 1000ml Bag) 1,000 ml @ 75 mls/hr [id number] 09/22/16 17:55 09/23/16 12:24 DC 09/22/16 19:20 75 MLS/HR Sodium Chloride/ Potassium Chloride/ Potassium Phosphate/ Magnesium Sulfate/ Calcium Gluconate/ Multivitamins/ Minerals/Chromium/ Copper/Manganese/ Seleni/Zn/Total Parenteral Nutrition/Amino Acids/Dextrose/ Fat Emulsion Intravenous (Sodium Chloride/ Potassium Phospha... 1,000 ml @ 41.667 mls/ hr TPN CONT 09/29/16 22:00 09/30/16 12:51 DC 09/29/16 20:55 41.667 MLS/HR Spironolactone (Aldactone) 25 mg DAILY 09/23/16 09:00 09/24/16 10:40 DC 09/24/16 09:05 25 MG Tamsulosin HCl (Flomax) 0.4 mg DAILY 10/01/16 10:30 10/03/16 09:09 0.4 MG Vitamin D (Vitamin D3) 1,000 unit DAILY 09/23/16 09:00 10/03/16 09:10 1,000 UNIT Warfarin Sodium (Coumadin Per Physician) 1 each PRN DAILY PRN 09/22/16 21:45 09/30/16 12:36 1 EACH Warfarin Sodium (Coumadin) 4 mg DAILY16 10/03/16 16:00 Zinc Oxide 1 bibiana BID 09/22/16 23:00 10/03/16 09:11 1 BIBIANA MACK APONTE MD Oct 03, 2016 10:09
[2016-10-03 10:40] VITALS: BP 108/61
[2016-10-03 11:31] LABS: POTASSIUM 4.1 mmol/L (3.5-5.1)
[2016-10-03 13:23] VITALS: BP 103/52
[2016-10-03] MEDS ORDERED: WARFARIN 4 MG TABLET. PO SCH (16:00)
== END 2016-10-03 14:18 | DRG 291 ==
LOC: ER 16:02 → 5 NORTH 17:33 → OBSVTOIN 17:33
PROVIDERS: ADMIT Family Medicine; ATTEND Family Medicine
DX: I50.21 Acute systolic (congestive) heart failure (principal); J18.9 Pneumonia, unspecified organism; E87.1 Hypo-osmolality and hyponatremia; N39.0 Urinary tract infection, site not specified; I13.0 Hypertensive heart and chronic kidney disease with heart failure and stage 1 through stage 4 chronic kidney disease, or unspecified chronic kidney disease; E44.0 Moderate protein-calorie malnutrition; D68.32 Hemorrhagic disorder due to extrinsic circulating anticoagulants; B02.9 Zoster without complications; E03.9 Hypothyroidism, unspecified; E83.42 Hypomagnesemia; I48.91 Unspecified atrial fibrillation; K21.9 Gastro-esophageal reflux disease without esophagitis; M06.9 Rheumatoid arthritis, unspecified; M35.3 Polymyalgia rheumatica; R13.10 Dysphagia, unspecified; N18.3 Chronic kidney disease, stage 3 (moderate); Z96.653 Presence of artificial knee joint, bilateral; Z96.641 Presence of right artificial hip joint; B37.9 Candidiasis, unspecified; M19.90 Unspecified osteoarthritis, unspecified site; S30.1XXA Contusion of abdominal wall, initial encounter; M79.81 Nontraumatic hematoma of soft tissue; Z68.26 Body mass index [BMI] 26.0-26.9, adult; Z79.899 Other long term (current) drug therapy; Z90.710 Acquired absence of both cervix and uterus; Z90.49 Acquired absence of other specified parts of digestive tract; Z87.440 Personal history of urinary (tract) infections; Z88.2 Allergy status to sulfonamides; I95.9 Hypotension, unspecified
CPT/HCPCS: 36415; 71010; 71250; 76770; 80048; 80051; 80069; 80076; 81001; 82533; 82570; 82607; 82728; 83540; 83550; 83605; 83690; 83735; 83880; 83930; 83935; 84100; 84134; 84156; 84300; 84439; 84443; 84478; 84484; 84550; 85027; 85045; 85610; 85651; 85730; 87086; 87324; 87641; 93005; 93306; 94250; 94640; 94760; J0610; J0834; J1756; J1940; J2997; J3475; J7030; J7512; J7620; P9046; 92526; 97110; 97116; 97530; 97535; 99285-25

== ENCOUNTER 2017-01-28 17:04 | Emergency (ER) | payer MEDICARE ==
[2016-12-02 13:02] VITALS: BP 145/92
[~2017-01-28 17:04] MED LIST changes: +ACID1TAB13 PO; +DEME300T PO; +DILT120C80 PO; -DILT120C97 PO; +DOCU-109 PO; -DOCU-27 PO; +FAMO20TA5 PO; +FLUC100T7 PO; +GUAI-66 PO; +GUAI600T47 PO; +IBUP-1060 PO; +IPRA3AMP NEB; +LEVO500T59 PO; +NYST100054 PO; +NYST1POW2 PO; +POLY255P PO; +PRED1TAB3 PO; +SPIR25TA PO; +TRIA1TAB3 PO; +Tylenol Arthritis PO; +Tylenol PM PO; +WARF-78 PO; -WARF2.5T PO; +WARF2.5T83 PO; +WARF3TAB7 PO; -WARF5TAB PO; +ZINC30OI TP
--- NOTE | 2017-01-28 17:08 | PHYS DOC ---
Past Medical History Past Medical History: A-Fib, Arthritis, GERD, Hypertension, Hypothyroid, Renal Failure, UTI, Other Additional Past Medical Histor: polymyalgia rheumatica,HYPOKAL, RA Past Surgical History: Appendectomy, Hip Replacement, Hysterectomy, Knee Replacement, Tonsillectomy, Other Additional Past Surgical Histo: l shoulder, uterine susp, bladder susp, vericose vein, BX KNEE, R HIP Alcohol Use: None Drug Use: None Adult General HPI HPI Patient is a 86 year old female who presents by EMS for cardiac arrest. Family states she fell at home. called family; of which includes a nurse, who noted blood pressure in 90s and fed her. She at that time had no major complaints. They took her to the restroom and then she became unresponsive and was noted to be pulseless. This was witnessed. CPR was started at that time and EMS was called. She was found in asystole. They did approximately 35 minutes of CPR for asystole/PEA. She had an IO placed, ETT placed, and received epi per protocol. Upon arrival, she remains in PEA. TOD was called at 1702. Review of Systems Review of Systems Unable to obtain secondary to clinical status Allergies Allergies Allergies Coded Allergies Type Severity Reaction Last Updated Verified Sulfa (Sulfonamide Antibiotics) Allergy Intermediate Rash 04/21/16 Yes Physical Exam Physical Exam Constitutional: Unresponsive. [] HENT: Normocephalic, atraumatic, oropharynx moist, no oral exudates, nose normal. ETT in place [] Eyes: Pupils equal, mid point, nonreactive. [] Neck: No step off deformity. [] Cardiovascular: Pulseless [] Lungs & Thorax: Minimal agonal respirations [] Abdomen: soft, no distension. [] Skin: Warm, dry, pale, multiple areas of old appearing ecchymosis. [] Back: Not examined. [] Extremities: No obvious deformity. [] Neurologic: GCS 3T. [] Psychologic: Unable to assess secondary to clinical status. [] Course & Med Decision Making Course & Med Decision Making Discussed case with , son and [id number] who accepted news appropriately. Discussed case with Dr. Krishna, who will sign certificate. Dragon Disclaimer Dragon Disclaimer This electronic medical record was generated, in whole or in part, using a voice recognition dictation system. Departure Departure Impression: Primary Impression: Cardiac arrest Disposition: 20 Condition: Referrals: CHLOÉ KRISHNA MD (PCP) Stan LAND MD Jan 28, 2017 17:08
== END 2017-01-28 19:45 | disposition expired ==
LOC: ER 17:04
DX: I46.9 Cardiac arrest, cause unspecified (principal); I48.91 Unspecified atrial fibrillation; K21.9 Gastro-esophageal reflux disease without esophagitis; I12.9 Hypertensive chronic kidney disease with stage 1 through stage 4 chronic kidney disease, or unspecified chronic kidney disease; N18.9 Chronic kidney disease, unspecified; M06.9 Rheumatoid arthritis, unspecified; E03.9 Hypothyroidism, unspecified; M35.3 Polymyalgia rheumatica; Z88.2 Allergy status to sulfonamides; Z96.649 Presence of unspecified artificial hip joint; Z90.710 Acquired absence of both cervix and uterus; Z96.659 Presence of unspecified artificial knee joint
CPT/HCPCS: 99285